=== PATIENT | female | born 1935 ===

== ENCOUNTER 2017-06-08 09:28 | Observation (INO) | payer OTHER ==
[2017-06-08 09:32] VITALS: BMI 25.0
--- NOTE | 2017-06-08 10:02 | ED PDOC ---
HPI: Abdomen Time Seen by Provider: 06/08/17 09:40 Chief Complaint (Nursing): Abdominal Pain Chief Complaint (Provider): Lower abdominal pain History Per: Patient History/Exam Limitations: no limitations Onset/Duration Of Symptoms: Hrs Associated Symptoms: Nausea. denies: Fever, Vomiting, Diarrhea Last Bowel Movement: Yesterday (normal) Additional Complaint(s): Patient is a 81 y/o female with a past medical history of chronic pulmonary obstructive disease presenting to the emergency department for lower abdominal pain and nausea since this morning. Denies fever, vomiting, diarrhea, and other complaints. PCP: Dr. Mackenzie Past Medical History Reviewed: Historical Data, Nursing Documentation, Vital Signs Vital Signs: Last Vital Signs Temp 98.6 F 06/08/17 15:06 Pulse 75 06/08/17 15:06 Resp 19 06/08/17 15:06 BP 132/74 06/08/17 15:06 Pulse Ox 97 06/08/17 15:06 - Medical History PMH: Arthritis, Asthma (LAST ATTACK 1 YEAR AGO), COPD, Depression, HTN, Osteoporosis Denies: Chronic Kidney Disease - Surgical History Surgical History: Endoscopy - Family History Family History: States: Unknown Family Hx - Social History Current smoker - smoking cessation education provided: No Ex-Smoker (has not smoked in the last 12 months): No Alcohol: None Drugs: Denies - Home Medications Home Medications: Ambulatory Orders Medication Instructions Recorded ALPRAZolam [Xanax] 1 mg PO BID 11/27/16 Albuterol Sulfate [Proair Hfa] 0.09 mg IH DAILY 11/27/16 Fluticasone/Salmeterol 500/50 1 puff INH DAILY 11/27/16 [Advair Diskus 500/50] Montelukast [Singulair] 10 mg PO DAILY 11/27/16 Zolpidem HALF TABLET [Ambien] 2.5 mg PO HS 11/27/16 amLODIPine [Norvasc] 5 mg PO DAILY 11/27/16 - Allergies Allergies/Adverse Reactions: Allergies Allergy/AdvReac Type Severity Reaction Status Date / Time aspirin Allergy RASH Verified 08/12/16 15:37 Review of Systems ROS Statement: Except As Marked, All Systems Reviewed And Found Negative Constitutional: Negative for: Fever Gastrointestinal: Positive for: Nausea, Abdominal Pain (lower). Negative for: Vomiting, Diarrhea Physical Exam - Reviewed Nursing Documentation Reviewed: Yes Vital Signs Reviewed: Yes - Physical Exam Appears: Positive for: Non-toxic, No Acute Distress, Uncomfortable Head Exam: Positive for: ATRAUMATIC, NORMAL INSPECTION, NORMOCEPHALIC Skin: Positive for: Normal Color, Warm, Dry Eye Exam: Positive for: Normal appearance Neck: Positive for: Normal, Painless ROM, Supple Cardiovascular/Chest: Positive for: Regular Rate, Rhythm. Negative for: Murmur Respiratory: Positive for: Normal Breath Sounds. Negative for: Accessory Muscle Use, Respiratory Distress Gastrointestinal/Abdominal: Positive for: Soft, Tenderness (lower abdominal tenderness) Extremity: Positive for: Normal ROM. Negative for: Pedal Edema, Swelling Neurologic/Psych: Positive for: Alert, Oriented (x3) - Laboratory Results Result Diagrams: 06/08/17 10:50 06/08/17 10:50 - ECG O2 Sat by Pulse Oximetry: 97 (RA) Pulse Ox Interpretation: Normal Medical Decision Making Medical Decision Making: Time: 10:00 Initial impression: Lower abdominal pain Initial plan: CT A/P Scan to rule out diverticulitis Labs Pepcid 20 mg IVP Omnipaque 50 ml PO Morphine 4 mg IV Normal Saline I L IV Zofran 4 mg IV Reevaluation Time: 13:41 CT Abdomen/Pelvis: FINDINGS: LOWER THORAX: Unremarkable. LIVER: Hepatic steatosis. No focal masses. No intrahepatic bile duct dilatation or perihepatic ascites. Focal fatty sparing adjacent to the falciform ligament. S GALLBLADDER AND BILE DUCTS: Unremarkable. PANCREAS: Unremarkable. No gross lesion or ductal dilatation. SPLEEN: Unremarkable. ADRENALS: Unremarkable. No mass. KIDNEYS AND URETERS: Unremarkable. No hydronephrosis. No solid mass. Incidental finding(s): Bilateral extrarenal pelvis. Simple cyst left kidney 1.5 cm. VASCULATURE: Unremarkable. No aortic aneurysm. BOWEL: Constipation without fecal impaction or obstruction. Diverticulosis without an acute inflammatory component or other associated pathologic process. APPENDIX: Normal appendix. PERITONEUM: Unremarkable. No free fluid. No free air. LYMPH NODES: Unremarkable. No enlarged lymph nodes. BLADDER: Unremarkable. REPRODUCTIVE: Prior hysterectomy BONES: Spinal stenosis at L4-5 related in 2 annular bulge without focal disc herniation. Similar less pronounced changes L3-4 OTHER FINDINGS: None. IMPRESSION: No acute findings related to/accounting for the clinical presentation. Additional benign and/or incidental findings described above. Time: 14:29 * Patient reports feeling better, and is asking to eat. Tolerating PO intake. Patient is medically stable for discharge * Counseling was provided and all questions were answered regarding diagnosis and need for follow up with PMD. There is agreement to discharge plan. Return if symptoms persist or worsen. Clinical Impression: Abdominal discomfort Scribe Attestation: Documented by Francoise Myers & Lilia Sánchez, acting as a scribe for Paula Bertrand MD. Provider Scribe Attestation: All medical record entries made by the Scribe were at my direction and personally dictated by me. I have reviewed the chart and agree that the record accurately reflects my personal performance of the history, physical exam, medical decision making, and the department course for this patient. I have also personally directed, reviewed, and agree with the discharge instructions and disposition. Disposition - Clinical Impression Clinical Impression: Abdominal discomfort - Patient ED Disposition Is Patient to be Admitted: No Counseled Patient/Family Regarding: Studies Performed, Diagnosis, Need For Followup - Disposition Disposition: Routine/Home Disposition Time: 14:29 Condition: IMPROVED
[2017-06-08] MEDS ORDERED: Sodium Chloride 0.9% 1,000 ML IV STA (10:38)
[2017-06-08] MEDS ORDERED: Iohexol 240 (50 ml) PO ONE (10:38)
[2017-06-08] MEDS ORDERED: Iohexol 240 (50 ml) ONE (10:52)
[2017-06-08 10:57] LABS: BASO # 0.1 K/uL (0.0-0.2); BASO % 0.8 % (0.0-2.0); EOS # 0.3 K/uL (0.0-0.7); EOS % 3.1 % (0.0-4.0); HEMATOCRIT 43.6 % (34.0-47.0); LYMPH # 1.4 K/uL (1.0-4.3); LYMPH % 14.6 % (20.0-40.0); MEAN CELL VOLUME 87.7 fl (81.0-99.0); MEAN CORPUSCULAR HEMOGLOBIN 28.6 pg (27.0-31.0); MEAN CORPUSCULAR HGB CONC 32.6 g/dL (33.0-37.0); MEAN PLATELET VOLUME 9.2 fl (7.2-11.7); MONO # 0.6 K/uL (0.0-0.8); MONO % 6.3 % (0.0-10.0); NEUT % 75.2 % (50.0-75.0); RED CELL DISTRIBUTION WIDTH 16.4 % (11.5-14.5); WHITE BLOOD COUNT 9.3 K/uL (4.8-10.8)
[2017-06-08 11:17] LABS: ALB/GLOB RATIO 1.3 (1.0-2.1); ALKALINE PHOSPHATASE 69 U/L (38-126); ALT/SGPT 31 U/L (9-52); AST/SGOT 25 U/L (14-36); BILIRUBIN,TOTAL 0.6 mg/dl (0.2-1.3); BLOOD UREA NITROGEN 14 mg/dl (7-17); CALCIUM 9.9 mg/dL (8.4-10.2); CARBON DIOXIDE 25 mmol/L (22-30); CHLORIDE 105 mmol/L (98-107); GFR AFRICAN-AMERICAN > 60; GLUCOSE,RANDOM 84 mg/dL (65-105); LIPASE 128 U/L (23-300); POTASSIUM 3.9 MMOL/L (3.6-5.0); SODIUM 142 mmol/l (132-148)
[2017-06-08] MEDS ORDERED: Iohexol 300 100 ML IJ ONE (12:25)
[2017-06-08] MEDS ORDERED: Sodium Chloride 0.9% 50 ML IV ONE (12:26)
--- NOTE | 2017-06-08 13:43 | CT ---
PROCEDURE: CT Abdomen and Pelvis with contrast HISTORY: left sided abd pain COMPARISON: LEFT-SIDED ABDOMINAL PAIN TECHNIQUE: Contrast dose: 100 cc Omnipaque 300 Radiation dose: Total exam DLP = 683.43 mGy-cm. This CT exam was performed using one or more of the following dose reduction techniques: Automated exposure control, adjustment of the mA and/or kV according to patient size, and/or use of iterative reconstruction technique. FINDINGS: LOWER THORAX: Unremarkable. LIVER: Hepatic steatosis. No focal masses. No intrahepatic bile duct dilatation or perihepatic ascites. Focal fatty sparing adjacent to the falciform ligament. S GALLBLADDER AND BILE DUCTS: Unremarkable. PANCREAS: Unremarkable. No gross lesion or ductal dilatation. SPLEEN: Unremarkable. ADRENALS: Unremarkable. No mass. KIDNEYS AND URETERS: Unremarkable. No hydronephrosis. No solid mass. Incidental finding(s): Bilateral extrarenal pelvis. Simple cyst left kidney 1.5 cm. VASCULATURE: Unremarkable. No aortic aneurysm. BOWEL: Constipation without fecal impaction or obstruction. Diverticulosis without an acute inflammatory component or other associated pathologic process. APPENDIX: Normal appendix. PERITONEUM: Unremarkable. No free fluid. No free air. LYMPH NODES: Unremarkable. No enlarged lymph nodes. BLADDER: Unremarkable. REPRODUCTIVE: Prior hysterectomy BONES: Spinal stenosis at L4-5 related in 2 annular bulge without focal disc herniation. Similar less pronounced changes L3-4 OTHER FINDINGS: None. IMPRESSION: No acute findings related to/accounting for the clinical presentation. Additional benign and/or incidental findings described above.
[2017-06-08 14:41] VITALS: O2SAT 97
[2017-06-08 15:07] VITALS: BP 132/74; PULSE 75; RESP 19; TEMP 98.6
== END 2017-06-08 15:29 | disposition home or self-care (01) ==
LOC: H.ER 09:28 → H.EROBSV 10:45
PROVIDERS: ADMIT Emergency Medicine; ATTEND Emergency Medicine
DX: R10.30 Lower abdominal pain, unspecified (principal); J44.9 Chronic obstructive pulmonary disease, unspecified; I10 Essential (primary) hypertension; M81.0 Age-related osteoporosis without current pathological fracture; M19.90 Unspecified osteoarthritis, unspecified site; Z87.891 Personal history of nicotine dependence
CPT/HCPCS: 74177; 80053; 83690; 85025; 96374; 99284; G0378; J2270; J2405; J7040; Q9966; Q9967

== ENCOUNTER 2017-08-26 16:39 | Observation (INO) | payer OTHER ==
[2017-08-26 16:39] VITALS: BMI 25.0
[2017-08-26] MEDS ORDERED: Albuterol-Ipratrop 3 mg / 0.5 (3 ml) UD INH STA ×2 (17:19→18:53)
[2017-08-26] MEDS ORDERED: Albuterol-Ipratrop 3 mg / 0.5 (3 ml) UD ONE ×2 (17:27→19:05)
[2017-08-26 17:59] LABS: BASO # 0.1 K/uL (0.0-0.2); BASO % 0.9 % (0.0-2.0); EOS # 0.2 K/uL (0.0-0.7); EOS % 2.5 % (0.0-4.0); HEMATOCRIT 43.6 % (34.0-47.0); LYMPH # 1.3 K/uL (1.0-4.3); LYMPH % 15.1 % (20.0-40.0); MEAN CELL VOLUME 88.2 fl (81.0-99.0); MEAN CORPUSCULAR HEMOGLOBIN 28.9 pg (27.0-31.0); MEAN CORPUSCULAR HGB CONC 32.7 g/dL (33.0-37.0); MEAN PLATELET VOLUME 8.7 fl (7.2-11.7); MONO # 0.9 K/uL (0.0-0.8); MONO % 10.5 % (0.0-10.0); NEUT # 6.2 K/uL (1.8-7.0); RED CELL DISTRIBUTION WIDTH 14.6 % (11.5-14.5); WHITE BLOOD COUNT 8.7 K/uL (4.8-10.8)
[2017-08-26 18:10] LABS: ALB/GLOB RATIO 1.3 (1.0-2.1); ALKALINE PHOSPHATASE 72 U/L (38-126); ALT/SGPT 22 U/L (9-52); AST/SGOT 25 U/L (14-36); BILIRUBIN,TOTAL 0.5 mg/dl (0.2-1.3); BLOOD UREA NITROGEN 14 mg/dl (7-17); CALCIUM 9.4 mg/dL (8.4-10.2); CARBON DIOXIDE 29 mmol/L (22-30); CHLORIDE 106 mmol/L (98-107); GFR AFRICAN-AMERICAN > 60; GLUCOSE,RANDOM 87 mg/dL (65-105); POTASSIUM 4.2 MMOL/L (3.6-5.0); SODIUM 143 mmol/l (132-148); TOTAL PROTEIN 7.6 G/DL (6.3-8.2)
--- NOTE | 2017-08-26 18:17 | RAD ---
HISTORY: cough fever COMPARISON: Chest x-ray performed 08/12/16 TECHNIQUE: Chest PA and lateral FINDINGS: LUNGS: Biapical pleural thickening. No focal consolidation. Hyperinflation may be seen in the setting of COPD. Please note that chest x-ray has limited sensitivity for the detection of pulmonary masses. PLEURA: No significant pleural effusion identified. No definite pneumothorax . CARDIOVASCULAR: Cardiomegaly. Atherosclerotic calcifications the aortic knob. OSSEOUS STRUCTURES: Osseous demineralization. Degenerative changes. VISUALIZED UPPER ABDOMEN: Unremarkable. OTHER FINDINGS: None. IMPRESSION: Biapical pleural thickening. Hyperinflation may be seen in the setting of COPD. Cardiomegaly. Atherosclerotic calcifications.
--- NOTE | 2017-08-26 18:52 | ED PDOC ---
HPI: SOB/CHF/COPD Time Seen by Provider: 08/26/17 16:55 Chief Complaint (Nursing): Shortness Of Breath Chief Complaint (Provider): cough, shortness of breath History Per: Patient History/Exam Limitations: no limitations Onset/Duration Of Symptoms: Days (5+), Gradual Current Symptoms Are (Timing): Still Present Initiating Event: Upper Respiratory Illness Quality: Tightness Exacerbating Factor(s): Exertion, Coughing Current Respiratory Medications: See Home Med List Severity: Severe Associated Symptoms: Fever, Chills, Sweating, Productive Cough, Dizziness Similar Symptoms Previously: + COPD Additional Complaint(s): 81yo female hx multiple medical problems including COPD on home oxygen presents with SOB, cough, fatigue and fever/chills for last 4-5 days. Home oxygen requirements have been increasing and she has been using nebulized albuterol every 3-4 hrs. Past Medical History Reviewed: Historical Data, Nursing Documentation, Vital Signs Vital Signs: Last Vital Signs Temp 99.5 F 08/26/17 16:50 Pulse 79 08/26/17 16:50 Resp 18 08/26/17 18:10 BP 120/75 08/26/17 16:50 Pulse Ox 96 08/26/17 18:52 - Medical History PMH: Arthritis, Asthma (LAST ATTACK 1 YEAR AGO), Atrial Fibrillation, Bronchitis , COPD, Depression, Diverticulitis, Fractures (left wrist (radius)), Gastritis, HTN, Hypercholesterolemia, Osteoporosis, Pneumonia Denies: Alzheimer's Disease, Anemia, Bipolar Disorder, CAD, Cardia Arrhythmia , CHF, Crohn's Disease, Dementia, Emphysema, Gall Bladder Disease, HIV, Hyperthyroidism, Hypothyroidism, Kidney Stones, Migraine, Mitral Valve Prolapse , Multiple Sclerosis, Pancreatitis, Paranoia, Parkinson's Disease, Peripheral Edema, Post Traumatic Stress Disorder, Pulmonary Embolism, Chronic Kidney Disease, Rheumatoid Arthritis, Schizophrenia, Seizures, Sickle Cell Disease, Sexually Transmitted Disease, Sleep Apnea, TIA - Surgical History Surgical History: Cholecystectomy, Endoscopy, Denies: Appendectomy, CABG, Carotid Endarterectomy, Coronary Stent, Pacemaker , Tonsillectomy - Family History Family History: States: Unknown Family Hx, Hypertension - Social History Current smoker - smoking cessation education provided: No Alcohol: None - Immunization History Hx Tetanus Toxoid Vaccination: No Hx Influenza Vaccination: No Hx Pneumococcal Vaccination: No - Home Medications Home Medications: Ambulatory Orders Medication Instructions Recorded ALPRAZolam [Xanax] 1 mg PO HS 03/17/17 Albuterol Sulfate [Proair Hfa] 1 puff IH Q6H PRN 03/17/17 Albuterol/Ipratropium [Duoneb 3 3 ml IH Q4H PRN 03/17/17 mg/0.5 mg (3 ml) UD] Atorvastatin [Lipitor] 10 mg PO DAILY 03/17/17 Montelukast [Singulair] 10 mg PO HS 03/17/17 Zolpidem [Ambien] 10 mg PO HS 03/17/17 amLODIPine [Norvasc] 5 mg PO DAILY 03/17/17 Ferrous Sulfate [Feosol] 325 mg PO DAILY 08/26/17 Fluticasone/Salmeterol [Advair 1 puff IH Q12H 08/26/17 250-50 Diskus] Loratadine [Claritin] 10 mg PO DAILY 08/26/17 Omeprazole [Omeprazole] 40 mg PO DAILY 08/26/17 Tiotropium [Spiriva] 18 mcg IH DAILY 08/26/17 - Allergies Allergies/Adverse Reactions: Allergies Allergy/AdvReac Type Severity Reaction Status Date / Time adhesive tape Allergy ITCHING Verified 03/18/17 19:04 aspirin Allergy ITCHING Verified 03/17/17 08:50 Review of Systems Constitutional: Positive for: Fever, Chills, Weakness, Malaise Eyes: Negative for: Vision Change Cardiovascular: Negative for: Chest Pain Respiratory: Positive for: Cough, Shortness of Breath, SOB with Exertion, Wheezing Gastrointestinal: Negative for: Abdominal Pain Genitourinary Female: Negative for: Dysuria Musculoskeletal: Positive for: Arm Pain, Back Pain, Leg Pain Skin: Negative for: Rash, Lesions, Jaundice Neurological: Positive for: Dizziness. Negative for: Weakness, Numbness, Headache Psych: Negative for: Depression Physical Exam - Reviewed Nursing Documentation Reviewed: Yes Vital Signs Reviewed: Yes - Physical Exam Appears: Positive for: Well, Non-toxic, No Acute Distress Head Exam: Positive for: ATRAUMATIC, NORMAL INSPECTION, NORMOCEPHALIC Skin: Positive for: Normal Color, Warm, DRY Eye Exam: Positive for: EOMI, Normal appearance, PERRL ENT: Positive for: Normal ENT Inspection Neck: Positive for: Normal, Painless ROM Respiratory: Positive for: Decreased Breath Sounds, Rhonchi, Wheezing, Respiratory Distress (mild) Gastrointestinal/Abdominal: Positive for: Bowel Sounds, Soft. Negative for: Tenderness, Guarding Back: Positive for: Normal Inspection Extremity: Positive for: Normal ROM Neurologic/Psych: Positive for: Alert, Oriented - Laboratory Results Result Diagrams: 08/26/17 17:55 08/26/17 17:55 - ECG ECG: Positive for: Interpreted By Me ECG Rhythm: Positive for: Sinus Rhythm, Nonspecific Changes Rate: 79 O2 Sat by Pulse Oximetry: 96 Pulse Ox Interpretation: Normal - Radiology X-Ray: Read By Radiologist X-Ray Interpretation: Other (pleural thickening, COPD) Medical Decision Making Medical Decision Making: workup was initiated for dyspnea/ COPD exacerbation Solumedrol, duoneb, labs and CXR/ekg ordered labs reviewed, WBC and BNP normal CXR report reviewed Recd solumedrol and duoneb x2 with persistence of wheeze, inability to effectively ambulate without dyspnea and increased work of breathing. Has been on nebs frequently at home without improvement. On home oxygen. D/w Dr Navarro place obs tele for resp support. Disposition - Clinical Impression Clinical Impression: Dyspnea, Respiratory distress, COPD exacerbation - Patient ED Disposition Is Patient to be Admitted: Yes - Disposition Disposition Time: 18:50 Condition: STABLE Forms: [email or web address] ([place])
[2017-08-26] MEDS ORDERED: Albuterol-Ipratrop 3 mg / 0.5 (3 ml) UD IH PRN (19:49)
[2017-08-26] MEDS ORDERED: Albuterol HFA 90 mcg/actuation (8 g) IH PRN (19:49)
--- NOTE | 2017-08-26 20:49 | CP.PCM.HP ---
History of Present Illness - History of Present Illness History of Present Illness: 81yo female hx of severe COPD on home oxygen presents with SOB, cough, fatigue and fever/chills progressive for the past 4-5 days. Home oxygen requirements have been increasing and she has been using nebulized albuterol every 3-4 hrs. Present on Admission - Present on Admission Any Indicators Present on Admission: No Review of Systems - Constitutional Constitutional: As Per HPI - Cardiovascular Cardiovascular: As Per HPI - Respiratory Respiratory: As Per HPI - Gastrointestinal Gastrointestinal: As Per HPI - Musculoskeletal Musculoskeletal: As Per HPI - Neurological Neurological: As Per HPI - Psychiatric Psychiatric: As Per HPI Past Patient History - Infectious Disease Hx of Infectious Diseases: None - Tetanus Immunizations Tetanus Immunization: Unknown - Past Medical History & Family History Past Medical History?: Yes - Past Social History Alcohol: None - CARDIAC Hx Atrial Fibrillation: Yes Hx Cardia Arrhythmia: No Hx Congestive Heart Failure: No Hx Hypercholesterolemia: Yes Hx Hypertension: Yes Hx Mitral Valve Prolapse: No Hx Pacemaker: No Hx Peripheral Edema: No - PULMONARY Hx Asthma: Yes (LAST ATTACK 1 YEAR AGO) Hx Bronchitis: Yes Hx Chronic Obstructive Pulmonary Disease (COPD): Yes Hx Emphysema: No Hx Pneumonia: Yes Hx Pulmonary Embolism: No Hx Sleep Apnea: No - NEUROLOGICAL Hx Alzheimer's Disease: No Hx Dementia: No Hx Migraine: No Hx Multiple Sclerosis: No Hx Parkinson's Disease: No Hx Seizures: No Hx Transient Ischemic Attacks (TIA): No - HEENT Hx HEENT Problems: No - RENAL Hx Chronic Kidney Disease: No Hx Kidney Stones: No - ENDOCRINE/METABOLIC Hx Hyperthyroidism: No Hx Hypothyroidism: No - HEMATOLOGICAL/ONCOLOGICAL Hx Anemia: No Hx Human Immunodeficiency Virus (HIV): No Hx Sickle Cell Disease: No - INTEGUMENTARY Hx Dermatological Problems: No - MUSCULOSKELETAL/RHEUMATOLOGICAL Hx Arthritis: Yes Hx Fractures: Yes (left wrist (radius)) Hx Osteoporosis: Yes Hx Rheumatoid Arthritis: No - GASTROINTESTINAL Hx Crohn's Disease: No Hx Diverticulitis: Yes Hx Gall Bladder Disease: No Hx Gastritis: Yes Hx Pancreatitis: No - GENITOURINARY/GYNECOLOGICAL Hx Sexually Transmitted Disorders: No - PSYCHIATRIC Hx Bipolar Disorder: No Hx Depression: Yes Hx Paranoia: No Hx Post Traumatic Stress Disorder: No Hx Schizophrenia: No - SURGICAL HISTORY Hx Appendectomy: No Hx Carotid Endarterectomy: No Hx Cholecystectomy: Yes Hx Coronary Artery Bypass Graft: No Hx Coronary Stent: No Hx Tonsillectomy: No - ANESTHESIA Hx Anesthesia: Yes Hx Anesthesia Reactions: No Hx Malignant Hyperthermia: No Meds Allergies/Adverse Reactions: Allergies Allergy/AdvReac Type Severity Reaction Status Date / Time adhesive tape Allergy ITCHING Verified 03/18/17 19:04 aspirin Allergy ITCHING Verified 03/17/17 08:50 Physical Exam - Constitutional Appears: Non-toxic - Head Exam Head Exam: ATRAUMATIC, NORMAL INSPECTION, NORMOCEPHALIC - Eye Exam Eye Exam: Normal appearance - ENT Exam ENT Exam: Mucous Membranes Moist - Neck Exam Neck exam: Positive for: Full Rom - Respiratory Exam Respiratory Exam: Rhonchi, Wheezes - Cardiovascular Exam Cardiovascular Exam: REGULAR RHYTHM, +S1, +S2 - GI/Abdominal Exam GI & Abdominal Exam: Normal Bowel Sounds - Extremities Exam Extremities exam: Positive for: normal inspection - Neurological Exam Neurological exam: Alert, CN II-XII Intact, Oriented x3 - Psychiatric Exam Psychiatric exam: Normal Affect Results - Vital Signs Recent Vital Signs: Last Vital Signs Temp 99.5 F 08/26/17 16:50 Pulse 79 08/26/17 18:59 Resp 18 08/26/17 18:10 BP 120/75 08/26/17 16:50 Pulse Ox 96 08/26/17 18:59 - Labs Result Diagrams: 08/26/17 17:55 08/26/17 17:55 Labs: Laboratory Results - last 24 hr 08/26/17 08/26/17 17:55 17:55 WBC 8.7 RBC 4.94 Hgb 14.3 Hct 43.6 MCV 88.2 MCH 28.9 MCHC 32.7 L RDW 14.6 H Plt Count 204 MPV 8.7 Neut % (Auto) 71.0 Lymph % (Auto) 15.1 L [place] % (Auto) 10.5 H Eos % (Auto) 2.5 Baso % (Auto) 0.9 Neut # 6.2 Lymph # 1.3 [place] # 0.9 H Eos # 0.2 Baso # 0.1 Sodium 143 Potassium 4.2 Chloride 106 Carbon Dioxide 29 Anion Gap 12 BUN 14 Creatinine 0.7 Est GFR ( Amer) > 60 Est GFR (Non-Af Amer) > 60 Random Glucose 87 Calcium 9.4 Total Bilirubin 0.5 AST 25 ALT 22 Alkaline Phosphatase 72 Troponin I < 0.0120 NT-Pro-B Natriuret Pep 137 Total Protein 7.6 Albumin 4.3 Globulin 3.3 Albumin/Globulin Ratio 1.3 Assessment & Plan (1) COPD with exacerbation Status: Acute Priority: High (2) Dyspnea Status: Acute (3) Acute bronchitis with chronic obstructive pulmonary disease (COPD) Status: Acute Priority: High (4) DVT prophylaxis Status: Acute - Assessment and Plan (Free Text) Plan: As orders.
[2017-08-26] MEDS: Fluticasone-Salmeterol 250-50mcg Diskus IH SCH (22:43)
[2017-08-27 08:09] LABS: BASO % 0.2 % (0.0-2.0); HEMATOCRIT 41.2 % (34.0-47.0); LYMPH # 0.7 K/uL (1.0-4.3); LYMPH % 11.2 % (20.0-40.0); MEAN CELL VOLUME 87.5 fl (81.0-99.0); MEAN CORPUSCULAR HEMOGLOBIN 29.5 pg (27.0-31.0); MEAN CORPUSCULAR HGB CONC 33.7 g/dL (33.0-37.0); MONO # 0.1 K/uL (0.0-0.8); MONO % 1.1 % (0.0-10.0); NEUT # 5.4 K/uL (1.8-7.0); NEUT % 87.5 % (50.0-75.0); RED CELL DISTRIBUTION WIDTH 14.4 % (11.5-14.5); WHITE BLOOD COUNT 6.2 K/uL (4.8-10.8)
[2017-08-27 08:34] LABS: BLOOD UREA NITROGEN 20 mg/dl (7-17); CALCIUM 9.7 mg/dL (8.4-10.2); CARBON DIOXIDE 24 mmol/L (22-30); CHLORIDE 107 mmol/L (98-107); GFR AFRICAN-AMERICAN > 60; GLUCOSE,RANDOM 216 mg/dL (65-105); POTASSIUM 3.8 MMOL/L (3.6-5.0); SODIUM 141 mmol/l (132-148)
[2017-08-27 08:44] LABS: THYROID STIMULATING HORMONE 0.28 mIU/ML (0.46-4.68)
[2017-08-27 08:59] VITALS: RESP 20; TEMP 97.6
[2017-08-27] MEDS ORDERED: Tiotropium 18 mcg Cap For Inhalation IH SCH (09:00)
[2017-08-27] MEDS ORDERED: Azithromycin 500 MG in Sodium Chloride 0.9% 250 ML IVPB SCH (09:00)
[2017-08-27] MEDS ORDERED: Pantoprazole 40 mg EC Tab PO SCH (09:00)
[2017-08-27] MEDS ORDERED: MethylPREDNISolone 40 mg Vial IVP SCH (09:00)
[2017-08-27] MEDS ORDERED: cefTRIAXone IV 1 gm in Dextros 50 ML IVPB SCH (09:00)
[2017-08-27] MEDS ORDERED: Enoxaparin 40 mg Syringe SC SCH (09:00)
--- NOTE | 2017-08-27 10:40 | CARD ---
APPROVED REPORT EKG Measurement Heart [id number] MD 126P [id number] <Conclusion> Normal sinus rhythm Normal ECG
--- NOTE | 2017-08-27 10:43 | CARD ---
APPROVED REPORT EKG Measurement Heart [id number] <Conclusion> Normal sinus rhythm Normal ECG
--- NOTE | 2017-08-27 11:00 | CARD ---
APPROVED REPORT EXAM: Two-dimensional and M-mode echocardiogram with Doppler and color Doppler. Other Information Quality : AverageRhythm : NSR INDICATION Pulmonary Hypertention 2D DIMENSIONS IVSd0.95 (0.7-1.1cm)LVDd4.23 (3.9-5.9cm) LVOT Diameter1.76 (1.8-2.4cm)PWd0.98 (0.7-1.1cm) IVSs1.15 (0.8-1.2cm)LVDs2.39 (2.5-4.0cm) FS (%) 43.6 %PWs1.45 (0.8-1.2cm) M-Mode DIMENSIONS Left Atrium (MM)3.74 (2.5-4.0cm)IVSd1.21 (0.7-1.1cm) Aortic Root3.26 (2.2-3.7cm)LVDd3.62 (4.0-5.6cm) Aortic Cusp Exc.1.50 (1.5-2.0cm)PWd1.06 (0.7-1.1cm) IVSs1.47 cmFS (%) 49 % LVDs1.85 (2.0-3.8cm)PWs1.24 cm Mitral Valve MV E Izeshrfb735.5cm/sMV DECEL [id number] A Htqvtnct440.4cm/s MV SOZ98bwD/A ratio0.9MVA (PHT)3.18cm2 TDI Lateral E' Peak V6.03cm/sMedial E' Peak V7.74cm/sE/Lateral E'18.2 E/Medial E'14.1 Pulmonary Valve PV Peak Aycsduht144.6cm/s Tricuspid Valve TR Peak Dnjvivmi441su/sRAP [id number] Peak Gr.33mmHg [id number] LEFT VENTRICLE The left ventricle is normal size. The left ventricular function is normal. The left ventricular ejection fraction is within the normal range. The Ejection Fraction is 65-70%. There is normal LV segmental wall motion. The left ventricular diastolic function is normal. RIGHT VENTRICLE The right ventricle is normal size. The right ventricular systolic function is normal. ATRIA The left atrium size is normal. The right atrium size is normal. AORTIC VALVE The aortic valve is normal in structure. No aortic regurgitation is present. There is no aortic valvular stenosis. MITRAL VALVE The mitral valve is normal in structure. There is no mitral valve stenosis. There is no mitral valve regurgitation noted. TRICUSPID VALVE The tricuspid valve is normal in structure. Right ventricular systolic pressure is estimated at 43 mmHg. There is mild pulmonary hypertension. PULMONIC VALVE The pulmonary valve is normal in structure. There is no pulmonic valvular regurgitation. GREAT VESSELS The aortic root is normal in size. The IVC is normal in size and collapses >50% with inspiration. PERICARDIAL EFFUSION The pericardium appears normal. <Conclusion> The left ventricle is normal size. The left ventricular function is normal. The left ventricular ejection fraction is within the normal range. The Ejection Fraction is 65-70%. Right ventricular systolic pressure is estimated at 43 mmHg. There is mild pulmonary hypertension.
[2017-08-27] MEDS: Fluticasone-Salmeterol 250-50mcg Diskus IH SCH (11:09)
--- NOTE | 2017-08-27 12:19 | CP.PCM.DIS ---
Provider - Provider Date of Admission: 08/26/17 19:00 Attending physician: Inocencio Navarro MD Time Spent in preparation of Discharge (in minutes): 30 Diagnosis - Discharge Diagnosis (1) COPD with exacerbation Status: Acute Priority: High (2) Dyspnea Status: Acute (3) Acute bronchitis with chronic obstructive pulmonary disease (COPD) Status: Acute Priority: High (4) DVT prophylaxis Status: Acute Hospital Course - Lab Results Lab Results: Most Recent Lab Values WBC 6.2 K/uL (4.8-10.8) 08/27/17 07:50 RBC 4.71 Mil/uL (3.80-5.20) 08/27/17 07:50 Hgb 13.9 g/dL (12.0-16.0) 08/27/17 07:50 Hct 41.2 % (34.0-47.0) 08/27/17 07:50 MCV 87.5 fl (81.0-99.0) 08/27/17 07:50 MCH 29.5 pg (27.0-31.0) 08/27/17 07:50 MCHC 33.7 g/dL (33.0-37.0) 08/27/17 07:50 RDW 14.4 % (11.5-14.5) 08/27/17 07:50 Plt Count 206 K/uL (130-400) 08/27/17 07:50 MPV 9.0 fl (7.2-11.7) 08/27/17 07:50 Neut % (Auto) 87.5 % (50.0-75.0) H 08/27/17 07:50 Lymph % (Auto) 11.2 % (20.0-40.0) L 08/27/17 07:50 Crane % (Auto) 1.1 % (0.0-10.0) 08/27/17 07:50 Eos % (Auto) 0.0 % (0.0-4.0) 08/27/17 07:50 Baso % (Auto) 0.2 % (0.0-2.0) 08/27/17 07:50 Neut # 5.4 K/uL (1.8-7.0) 08/27/17 07:50 Lymph # 0.7 K/uL (1.0-4.3) L 08/27/17 07:50 Crane # 0.1 K/uL (0.0-0.8) 08/27/17 07:50 Eos # 0.0 K/uL (0.0-0.7) 08/27/17 07:50 Baso # 0.0 K/uL (0.0-0.2) 08/27/17 07:50 Sodium 141 mmol/l (132-148) 08/27/17 07:50 Potassium 3.8 MMOL/L (3.6-5.0) 08/27/17 07:50 Chloride 107 mmol/L (98-107) 08/27/17 07:50 Carbon Dioxide 24 mmol/L (22-30) 08/27/17 07:50 Anion Gap 14 (10-20) 08/27/17 07:50 BUN 20 mg/dl (7-17) H 08/27/17 07:50 Creatinine 0.8 mg/dl (0.7-1.2) 08/27/17 07:50 Est GFR ( Amer) > 60 08/27/17 07:50 Est GFR (Non-Af Amer) > 60 08/27/17 07:50 Random Glucose 216 mg/dL (65-105) H 08/27/17 07:50 Calcium 9.7 mg/dL (8.4-10.2) 08/27/17 07:50 Total Bilirubin 0.5 mg/dl (0.2-1.3) 08/26/17 17:55 AST 25 U/L (14-36) 08/26/17 17:55 ALT 22 U/L (9-52) 08/26/17 17:55 Alkaline Phosphatase 72 U/L (38-126) 08/26/17 17:55 Troponin I < 0.0120 ng/mL (0.00-0.120) 08/27/17 07:50 NT-Pro-B Natriuret Pep 137 pg/ml (0-900) 08/26/17 17:55 Total Protein 7.6 G/DL (6.3-8.2) 08/26/17 17:55 Albumin 4.3 g/dL (3.5-5.0) 08/26/17 17:55 Globulin 3.3 gm/dL (2.2-3.9) 08/26/17 17:55 Albumin/Globulin Ratio 1.3 (1.0-2.1) 08/26/17 17:55 TSH 3rd Generation 0.28 mIU/ML (0.46-4.68) L 08/27/17 07:50 - Hospital Course Hospital Course: 81yo female hx of severe COPD on home oxygen presents with SOB, cough, fatigue and fever/chills progressive for the past 4-5 days. Home oxygen requirements have been increasing and she has been using nebulized albuterol every 3-4 hrs. She was placed in high dose of IV steroid and well responded to rx. Will dc home on oral steroid. Discharge Exam - Head Exam Head Exam: ATRAUMATIC, NORMAL INSPECTION, NORMOCEPHALIC - Eye Exam Eye Exam: EOMI, Normal appearance, PERRL Pupil Exam: NORMAL ACCOMODATION, PERRL - Neck Exam Neck exam: Full Rom - Respiratory Exam Respiratory Exam: Clear to PA & Lateral - Cardiovascular Exam Cardiovascular Exam: REGULAR RHYTHM, +S1, +S2 - GI/Abdominal Exam GI & Abdominal Exam: Normal Bowel Sounds - Extremities Exam Extremities exam: normal inspection - Neurological Exam Neurological exam: Alert, CN II-XII Intact, Normal Gait, Oriented x3 - Psychiatric Exam Psychiatric exam: Normal Affect - Skin Skin Exam: Normal Color Discharge Plan - Discharge Medications Prescriptions: Methylprednisolone [Medrol Dose Pack (21 tabs)] 4 mg PO DAILY #21 mg Azithromycin [Z-Elias] 250 mg PO DAILY #6 tab - Follow Up Plan Condition: STABLE Disposition: HOME/ ROUTINE
[2017-08-27 12:20] VITALS: BP 107/56; PULSE 87; O2SAT 94
== END 2017-08-27 13:48 | disposition home or self-care (01) ==
LOC: H.ER 16:39 → H.ERHOLD 19:00 → H.TEL 21:56
PROVIDERS: ADMIT Internal Medicine; ATTEND Internal Medicine
DX: J44.1 Chronic obstructive pulmonary disease with (acute) exacerbation (principal); J44.0 Chronic obstructive pulmonary disease with (acute) lower respiratory infection; J20.9 Acute bronchitis, unspecified; Z99.81 Dependence on supplemental oxygen; Z88.6 Allergy status to analgesic agent; J45.909 Unspecified asthma, uncomplicated; I48.91 Unspecified atrial fibrillation; I10 Essential (primary) hypertension; E78.00 Pure hypercholesterolemia, unspecified; M81.0 Age-related osteoporosis without current pathological fracture
CPT/HCPCS: 36415; 71020; 80048; 80053; 83880; 84443; 84484; 85025; 87040; 93005; 93306; 96374; 99285; G0378; J1650; J2920; J2930

== ENCOUNTER 2017-10-12 14:56 | Inpatient (IN) | payer OTHER ==
[2017-10-12 14:56] VITALS: BMI 25.0
[2017-10-12] MEDS ORDERED: Albuterol-Ipratrop 3 mg / 0.5 (3 ml) UD INH STA ×2 (16:00→18:20)
--- NOTE | 2017-10-12 16:07 | ED PDOC ---
HPI: SOB/CHF/COPD Time Seen by Provider: 10/12/17 15:30 Chief Complaint (Nursing): Shortness Of Breath Chief Complaint (Provider): shortness of breath History Per: Patient History/Exam Limitations: no limitations Onset/Duration Of Symptoms: Days (x7) Current Symptoms Are (Timing): Still Present Additional Complaint(s): 81 year old female with previous medical history of asthma and COPD, who presents to the emergency department with a complaint of shortness of breath associated with productive cough, yellow sputum and fever (tmax: 100.02 degrees ) ongoing for 7 days. Patient reported she is almost complete with Prednisone and antibiotic treatment given by PMD but does not feel any improvement, thus, prompting visit to ED by home health aid. Of note, patient uses O2 machine at home daily. PMD: Inocencio Navarro MD Past Medical History Reviewed: Historical Data, Nursing Documentation, Vital Signs Vital Signs: Last Vital Signs Temp 98.1 F 10/13/17 11:51 Pulse 86 10/13/17 11:51 Resp 18 10/13/17 11:51 BP 119/64 10/13/17 11:51 Pulse Ox 98 10/13/17 11:51 - Medical History PMH: Arthritis, Asthma (LAST ATTACK 1 YEAR AGO), Atrial Fibrillation, Bronchitis , COPD, Depression, Diverticulitis, Fractures (left wrist (radius)), Gastritis, HTN, Hypercholesterolemia, Osteoporosis, Pneumonia Denies: Alzheimer's Disease, Anemia, Bipolar Disorder, CAD, Cardia Arrhythmia , CHF, Crohn's Disease, Dementia, Emphysema, Gall Bladder Disease, HIV, Hyperthyroidism, Hypothyroidism, Kidney Stones, Migraine, Mitral Valve Prolapse , Multiple Sclerosis, Pancreatitis, Paranoia, Parkinson's Disease, Peripheral Edema, Post Traumatic Stress Disorder, Pulmonary Embolism, Chronic Kidney Disease, Rheumatoid Arthritis, Schizophrenia, Seizures, Sickle Cell Disease, Sexually Transmitted Disease, Sleep Apnea, TIA - Surgical History Surgical History: Cholecystectomy, Endoscopy, Denies: Appendectomy, CABG, Carotid Endarterectomy, Coronary Stent, Pacemaker , Tonsillectomy - Family History Family History: States: Unknown Family Hx, Hypertension - Social History Current smoker - smoking cessation education provided: No Ex-Smoker (has not smoked in the last 12 months): Yes Alcohol: None Drugs: Denies - Immunization History Hx Tetanus Toxoid Vaccination: No Hx Influenza Vaccination: No Hx Pneumococcal Vaccination: No - Home Medications Home Medications: Ambulatory Orders Medication Instructions Recorded ALPRAZolam [Xanax] 1 mg PO HS 03/17/17 Albuterol Sulfate [Proair Hfa] 1 puff IH Q6H PRN 03/17/17 Albuterol/Ipratropium [Duoneb 3 3 ml IH Q4H PRN 03/17/17 mg/0.5 mg (3 ml) UD] Atorvastatin [Lipitor] 10 mg PO DAILY 03/17/17 Montelukast [Singulair] 10 mg PO HS 03/17/17 Zolpidem [Ambien] 10 mg PO HS 03/17/17 amLODIPine [Norvasc] 5 mg PO DAILY 03/17/17 Ferrous Sulfate [Feosol] 325 mg PO DAILY 08/26/17 Fluticasone/Salmeterol [Advair 1 puff IH Q12H 08/26/17 250-50 Diskus] Loratadine [Claritin] 10 mg PO DAILY 08/26/17 Omeprazole 40 mg PO DAILY 08/26/17 Tiotropium [Spiriva] 18 mcg IH DAILY 08/26/17 Azithromycin [Z-Elias] 250 mg PO DAILY #6 tab 08/27/17 Methylprednisolone [Medrol Dose 4 mg PO DAILY #21 mg 08/27/17 Pack (21 tabs)] - Allergies Allergies/Adverse Reactions: Allergies Allergy/AdvReac Type Severity Reaction Status Date / Time adhesive tape Allergy ITCHING Verified 10/12/17 14:57 aspirin Allergy ITCHING Verified 10/12/17 14:57 Review of Systems ROS Statement: Except As Marked, All Systems Reviewed And Found Negative Constitutional: Positive for: Fever (100.02 degrees) Respiratory: Positive for: Cough, Shortness of Breath, Sputum (yellow) Physical Exam - Reviewed Nursing Documentation Reviewed: Yes Vital Signs Reviewed: Yes - Physical Exam Appears: Positive for: Non-toxic, Uncomfortable Head Exam: Positive for: ATRAUMATIC, NORMAL INSPECTION, NORMOCEPHALIC Skin: Positive for: Normal Color Eye Exam: Positive for: Normal appearance ENT: Positive for: Normal ENT Inspection Neck: Positive for: Normal, Painless ROM Cardiovascular/Chest: Positive for: Regular Rate, Rhythm, Chest Non Tender Respiratory: Positive for: Rhonchi (diffuse bilaterally), Wheezing (diffuse bilaterally). Negative for: Normal Breath Sounds, Respiratory Distress Neurologic/Psych: Positive for: Alert (x3), Oriented. Negative for: Motor/ Sensory Deficits - Laboratory Results Result Diagrams: 10/12/17 17:16 10/12/17 17:16 - ECG O2 Sat by Pulse Oximetry: 99 (NC) Pulse Ox Interpretation: Normal Medical Decision Making Medical Decision Making: Initial Impression: Shortness of breath Initial Plan: * CMP * CBC * CXR * Duoneb 3ml INH * Solu-medrol 125mg IVP * Influenza A B Time: 1700 --Patient signed out to Dr. Grey. Pending labs, ED work up and re-evaluation. Scribe Attestation: Documented by Milka Pascal, acting as a scribe for Paula Bertrand MD. Provider Scribe Attestation: All medical record entries made by the Scribe were at my direction and personally dictated by me. I have reviewed the chart and agree that the record accurately reflects my personal performance of the history, physical exam, medical decision making, and the department course for this patient. I have also personally directed, reviewed, and agree with the discharge instructions and disposition. Disposition - Clinical Impression Clinical Impression: Moderate COPD (chronic obstructive pulmonary disease) - Patient ED Disposition Is Patient to be Admitted: Transfer of Care - Disposition Disposition: Transfer of Care Disposition Time: 17:00 Condition: GUARDED Patient Signed Over To: Benjy Grey III
[2017-10-12] MEDS ORDERED: Albuterol-Ipratrop 3 mg / 0.5 (3 ml) UD ONE ×2 (16:12→19:49)
--- NOTE | 2017-10-12 17:03 | ED PDOC ---
- Laboratory Results Result Diagrams: 10/12/17 17:16 10/12/17 17:16 - ECG O2 Sat by Pulse Oximetry: 99 (NC) Pulse Ox Interpretation: Normal Medical Decision Making Medical Decision Making: Time: 1700 --Patient endorsed to provider by Dr. Paula Bertrand. Pending labs and re- evaluation. labs reviewed no clinically significant abnormalities Flu neg WBC normal CXR no acute infiltrate On re-eval 615pm remains ++wheeze with dyspnea and SPO2 92% on 2L NC. Failed outpatient treatment Scribe Attestation: Documented by Milka Pascal, acting as a scribe for Benjy Grey III, DO. Provider Scribe Attestation: All medical record entries made by the Scribe were at my direction and personally dictated by me. I have reviewed the chart and agree that the record accurately reflects my personal performance of the history, physical exam, medical decision making, and the department course for this patient. I have also personally directed, reviewed, and agree with the discharge instructions and disposition. Disposition Counseled Patient/Family Regarding: Studies Performed, Diagnosis, Need For Followup, Rx Given - POA Present On Arrival: None - Disposition Disposition: Admitted as In-Patient Disposition Time: 18:24 Condition: STABLE Forms: 140Fire (Malaysian)
--- NOTE | 2017-10-12 17:09 | RAD ---
HISTORY: short of breath COMPARISON: 08/26/2017 TECHNIQUE: Chest PA and lateral FINDINGS: LUNGS: Hyperinflation, manifestations of COPD. No active pulmonary disease. PLEURA: No significant pleural effusion identified. No pneumothorax apparent. CARDIOVASCULAR: No radiographic findings to suggest acute or significant cardiovascular disease. OSSEOUS STRUCTURES: No significant abnormalities. VISUALIZED UPPER ABDOMEN: Normal. OTHER FINDINGS: None. IMPRESSION: No active disease. No significant interval change compared to the prior examination(s).
[2017-10-12 17:30] LABS: BASO % 0.3 % (0.0-2.0); EOS # 0.2 K/uL (0.0-0.7); EOS % 2.1 % (0.0-4.0); HEMOGLOBIN 13.7 g/dL (12.0-16.0); LYMPH # 2.1 K/uL (1.0-4.3); LYMPH % 20.5 % (20.0-40.0); MEAN CELL VOLUME 88.6 fl (81.0-99.0); MEAN CORPUSCULAR HEMOGLOBIN 29.8 pg (27.0-31.0); MEAN CORPUSCULAR HGB CONC 33.7 g/dL (33.0-37.0); MONO % 9.4 % (0.0-10.0); NEUT # 7.1 K/uL (1.8-7.0); NEUT % 67.7 % (50.0-75.0); RBC 4.6 Mil/uL (3.80-5.20); RED CELL DISTRIBUTION WIDTH 15.1 % (11.5-14.5); WHITE BLOOD COUNT 10.4 K/uL (4.8-10.8)
[2017-10-12 17:32] LABS: ALB/GLOB RATIO 1.3 (1.0-2.1); ALT/SGPT 39 U/L (9-52); AST/SGOT 24 U/L (14-36); BLOOD UREA NITROGEN 22 mg/dl (7-17); CALCIUM 9.4 mg/dL (8.4-10.2); GFR AFRICAN-AMERICAN > 60; GFR NON-AFRICAN AMERICAN > 60
[2017-10-12] MEDS ORDERED: Sodium Chloride 3% for Inhalation 4 ML VIAL.NEB IH PRN (20:51)
[2017-10-12] MEDS ORDERED: methylPREDNISolone 60 MG in Sodium Chloride 0.9% 50 ML IVPB SCH (22:00)
[2017-10-12] MEDS: Azithromycin 500 MG in Sodium Chloride 0.9% 250 ML IVPB SCH (22:06)
[2017-10-12] MEDS: Fluticasone-Salmeterol 250-50mcg Diskus IH SCH (22:06)
[2017-10-12] MEDS: Pantoprazole 40 mg EC Tab PO SCH (22:15)
[2017-10-13 01:29] LABS: SQUAMOUS EPITHIAL < 1 /hpf (0-5); URINE BILIRUBIN NEGATIVE (NEGATIVE); URINE BLOOD SMALL (NEGATIVE); URINE CLARITY CLEAR (Clear); URINE COLOR STRAW (YELLOW); URINE GLUCOSE (UA) 50 mg/dL (Normal); URINE LEUKOCYTE ESTERASE NEG Leu/uL (Negative); URINE NITRATE NEGATIVE (NEGATIVE); URINE PROTEIN NEGATIVE (NEGATIVE); URINE UROBILINOGEN 0.2-1.0 mg/dL (0.2-1.0)
[2017-10-13] MEDS: Fluticasone-Salmeterol 250-50mcg Diskus IH SCH ×2 (08:54→21:46)
[2017-10-13] MEDS: Enoxaparin 40 mg Syringe SC SCH (08:55)
[2017-10-13] MEDS: Pantoprazole 40 mg EC Tab PO SCH (08:55)
[2017-10-13] MEDS: Tiotropium 18 mcg Cap For Inhalation IH SCH (08:56)
[2017-10-13] MEDS: Azithromycin 500 MG in Sodium Chloride 0.9% 250 ML IVPB SCH (10:32)
[2017-10-13] MEDS: Albuterol-Ipratrop 3 mg / 0.5 (3 ml) UD IH PRN ×2 (11:01→16:52)
[2017-10-13 16:41] LABS: ABG ALLEN TEST YES; ARTERIAL BLOOD GAS HCO3 26.7 mmol/L (21-28); ARTERIAL BLOOD GAS HEMOGLOBIN 14.4 g/dL (11.7-17.4); ARTERIAL BLOOD GAS O2 CAPACITY 19.5 mL/dL (16-24); ARTERIAL BLOOD GAS O2 CONTENT 19.3 ML/dL (15-23); ARTERIAL BLOOD GAS O2 SAT 99.1 % (95-98); ARTERIAL BLOOD GAS PCO2 32 mm/Hg (35-45); ARTERIAL BLOOD GAS PO2 80 mm/Hg (80-100)
--- NOTE | 2017-10-13 16:49 | CP.PCM.HP ---
History of Present Illness - History of Present Illness History of Present Illness: This 81-year-old female who is known to suffer from chronic obstructive pulmonary disease as well as bronchial asthma, presented to the emergency department by an ambulance after suffering for 4 days with shortness of breath at home. She was seen in the PMD office and started on PO steroids and antbx, She poorly responded and failed to the oral medication. She presented in ER with severe cough with clear mucoid sputum, shortness of breath, chest tightness and wheezing. She claims to have had chills. She did have some chest pain related to the coughing but denied any hemoptysis. She began using her i Upon presentation to the emergency department she was found to be having diffuse wheezing bilaterally. She has had multiple prior admissions to hospitals for similar types of presentations. At present still with severe SOB on O2 NC with severe wheezing and production of sputum. Present on Admission - Present on Admission Any Indicators Present on Admission: No Review of Systems - Constitutional Constitutional: Fatigue, Malaise, Weakness - EENT Eyes: As Per HPI - Cardiovascular Cardiovascular: As Per HPI - Respiratory Respiratory: Cough, Dyspnea, Dyspnea on Exertion, Wheezing, Chest Congestion, Pain with Coughing - Gastrointestinal Gastrointestinal: As Per HPI - Musculoskeletal Musculoskeletal: As Per HPI - Neurological Neurological: As Per HPI - Psychiatric Psychiatric: As Per HPI Past Patient History - Infectious Disease Hx of Infectious Diseases: None - Tetanus Immunizations Tetanus Immunization: Unknown - Past Medical History & Family History Past Medical History?: Yes - Past Social History Alcohol: None Drugs: Denies - CARDIAC Hx Atrial Fibrillation: Yes Hx Cardia Arrhythmia: No Hx Congestive Heart Failure: No Hx Hypercholesterolemia: Yes Hx Hypertension: Yes Hx Mitral Valve Prolapse: No Hx Pacemaker: No Hx Peripheral Edema: No - PULMONARY Hx Asthma: Yes (LAST ATTACK 1 YEAR AGO) Hx Bronchitis: Yes Hx Chronic Obstructive Pulmonary Disease (COPD): Yes Hx Emphysema: No Hx Pneumonia: Yes Hx Pulmonary Embolism: No Hx Sleep Apnea: No - NEUROLOGICAL Hx Alzheimer's Disease: No Hx Dementia: No Hx Migraine: No Hx Multiple Sclerosis: No Hx Parkinson's Disease: No Hx Seizures: No Hx Transient Ischemic Attacks (TIA): No - HEENT Hx HEENT Problems: No - RENAL Hx Chronic Kidney Disease: No Hx Kidney Stones: No - ENDOCRINE/METABOLIC Hx Hyperthyroidism: No Hx Hypothyroidism: No - HEMATOLOGICAL/ONCOLOGICAL Hx Anemia: No Hx Human Immunodeficiency Virus (HIV): No Hx Sickle Cell Disease: No - INTEGUMENTARY Hx Dermatological Problems: No - MUSCULOSKELETAL/RHEUMATOLOGICAL Hx Arthritis: Yes Hx Fractures: Yes (left wrist (radius)) Hx Osteoporosis: Yes Hx Rheumatoid Arthritis: No - GASTROINTESTINAL Hx Crohn's Disease: No Hx Diverticulitis: Yes Hx Gall Bladder Disease: No Hx Gastritis: Yes Hx Pancreatitis: No - GENITOURINARY/GYNECOLOGICAL Hx Sexually Transmitted Disorders: No - PSYCHIATRIC Hx Bipolar Disorder: No Hx Depression: Yes Hx Paranoia: No Hx Post Traumatic Stress Disorder: No Hx Schizophrenia: No - SURGICAL HISTORY Hx Appendectomy: No Hx Carotid Endarterectomy: No Hx Cholecystectomy: Yes Hx Coronary Artery Bypass Graft: No Hx Coronary Stent: No Hx Tonsillectomy: No - ANESTHESIA Hx Anesthesia: Yes Hx Anesthesia Reactions: No Hx Malignant Hyperthermia: No Meds Allergies/Adverse Reactions: Allergies Allergy/AdvReac Type Severity Reaction Status Date / Time adhesive tape Allergy ITCHING Verified 10/12/17 14:57 aspirin Allergy ITCHING Verified 10/12/17 14:57 Physical Exam - Constitutional Appears: In Acute Distress, Chronically Ill - Head Exam Head Exam: ATRAUMATIC, NORMAL INSPECTION, NORMOCEPHALIC - Eye Exam Eye Exam: Normal appearance - ENT Exam ENT Exam: Mucous Membranes Moist - Respiratory Exam Respiratory Exam: Chest Wall Tenderness, Rhonchi, Wheezes - Cardiovascular Exam Cardiovascular Exam: REGULAR RHYTHM, +S1, +S2 - GI/Abdominal Exam GI & Abdominal Exam: Normal Bowel Sounds - Extremities Exam Extremities exam: Positive for: normal inspection - Neurological Exam Neurological exam: Alert, CN II-XII Intact, Oriented x3 - Psychiatric Exam Psychiatric exam: Anxious - Skin Skin Exam: Pallor Results - Vital Signs Recent Vital Signs: Last Vital Signs Temp 98 F 10/13/17 16:37 Pulse 78 10/13/17 16:37 Resp 14 10/13/17 16:37 BP 118/58 L 10/13/17 16:37 Pulse Ox 97 10/13/17 16:37 - Labs Result Diagrams: 10/12/17 17:16 10/12/17 17:16 Labs: Laboratory Results - last 24 hr 10/12/17 10/12/17 10/12/17 17:16 17:16 17:16 WBC 10.4 D RBC 4.60 Hgb 13.7 Hct 40.7 MCV 88.6 MCH 29.8 MCHC 33.7 RDW 15.1 H Plt Count 207 MPV 9.0 Neut % (Auto) 67.7 Lymph % (Auto) 20.5 Mills % (Auto) 9.4 Eos % (Auto) 2.1 Baso % (Auto) 0.3 Neut # 7.1 H Lymph # 2.1 Mills # 1.0 H Eos # 0.2 Baso # 0.0 Sodium 141 Potassium 4.1 Chloride 104 Carbon Dioxide 27 Anion Gap 14 BUN 22 H Creatinine 0.7 Est GFR ( Amer) > 60 Est GFR (Non-Af Amer) > 60 Random Glucose 119 H Calcium 9.4 Total Bilirubin 0.1 L AST 24 ALT 39 Alkaline Phosphatase 60 Total Protein 7.0 Albumin 4.0 Globulin 3.0 Albumin/Globulin Ratio 1.3 Urine Color Urine Clarity Urine pH Ur Specific [place] Urine Protein Urine Glucose (UA) Urine Ketones Urine Blood Urine Nitrate Urine Bilirubin Urine Urobilinogen Ur Leukocyte Esterase Urine RBC (Auto) Urine Microscopic WBC Ur Squamous Epith Cells Influenza Typ A,B (EIA) Negative for flu a/b 10/13/17 01:07 WBC RBC Hgb Hct MCV MCH MCHC RDW Plt Count MPV Neut % (Auto) Lymph % (Auto) Mills % (Auto) Eos % (Auto) Baso % (Auto) Neut # Lymph # Mills # Eos # Baso # Sodium Potassium Chloride Carbon Dioxide Anion Gap BUN Creatinine Est GFR ( Amer) Est GFR (Non-Af Amer) Random Glucose Calcium Total Bilirubin AST ALT Alkaline Phosphatase Total Protein Albumin Globulin Albumin/Globulin Ratio Urine Color Straw Urine Clarity Clear Urine pH 7.0 Ur Specific Sterling 1.009 Urine Protein Negative Urine Glucose (UA) 50 Urine Ketones Negative Urine Blood Small Urine Nitrate Negative Urine Bilirubin Negative Urine Urobilinogen 0.2-1.0 Ur Leukocyte Esterase Neg Urine RBC (Auto) 1 Urine Microscopic WBC < 1 Ur Squamous Epith Cells < 1 Influenza Typ A,B (EIA) Assessment & Plan (1) Dyspnea Status: Acute (2) Acute bronchitis with chronic obstructive pulmonary disease (COPD) Status: Acute Priority: High (3) COPD (chronic obstructive pulmonary disease) Status: Chronic (4) COPD exacerbation Status: Acute Priority: High (5) DVT prophylaxis Status: Acute (6) HTN (hypertension) Status: Chronic - Assessment and Plan (Free Text) Plan: Continue present rx Will follow pulmonary consult
[2017-10-13] MEDS: Promethazine 12.5 mg/10 ml Syrup PO SCH ×2 (17:00→21:47)
--- NOTE | 2017-10-13 18:12 | RAD ---
PROCEDURE: CHEST RADIOGRAPH, 1 VIEW HISTORY: COPD COMPARISON: October 12, 2017. FINDINGS: LUNGS: Clear. PLEURA: No pneumothorax or pleural fluid seen. CARDIOVASCULAR: No radiographic findings to suggest acute or significant cardiovascular disease. OSSEOUS STRUCTURES: No significant abnormalities. VISUALIZED UPPER ABDOMEN: Normal. OTHER FINDINGS: None. IMPRESSION: No active disease. No acute/significant interval changes.
[2017-10-14] MEDS: Promethazine 12.5 mg/10 ml Syrup PO SCH ×4 (04:16→22:04)
[2017-10-14] MEDS: Pantoprazole 40 mg EC Tab PO SCH (09:40)
[2017-10-14] MEDS: Fluticasone-Salmeterol 250-50mcg Diskus IH SCH ×2 (09:40→22:04)
[2017-10-14] MEDS: Tiotropium 18 mcg Cap For Inhalation IH SCH (09:40)
[2017-10-14] MEDS: Enoxaparin 40 mg Syringe SC SCH (09:42)
[2017-10-14] MEDS: Azithromycin 500 MG in Sodium Chloride 0.9% 250 ML IVPB SCH (09:43)
--- NOTE | 2017-10-14 10:30 | CP.PCM.CON ---
History of Present Illness - History of Present Illness History of Present Illness: This 81-year-old Urdu-speaking female presented to the emergency department with cough, shortness of breath and diffuse wheezing on examination. She had been seen by her primary medical doctor because of similar complaints and treated with antibiotic for productive cough and corticosteroids. She had also been using bronchodilator in the form of LABA/ICS. She failed to improve on this regimen and presented to the emergency department. She has had hospitalizations in the past with similar presentations. Initial chest x-ray done in the emergency department showed increased bronchovascular markings but no infiltrates or effusions. Review of Systems - Review of Systems All systems: reviewed and no additional remarkable complaints except - Constitutional Constitutional: Fatigue - Respiratory Respiratory: Cough, Dyspnea, Wheezing Past Patient History - Infectious Disease Hx of Infectious Diseases: None - Tetanus Immunizations Tetanus Immunization: Unknown - Past Medical History & Family History Past Medical History?: Yes Past Family History: Reviewed and not pertinent - Past Social History Smoking Status: Former Smoker Chewing Tobacco Use: No Cigar Use: No Alcohol: Social Drugs: Denies - CARDIAC Hx Atrial Fibrillation: Yes Hx Hypercholesterolemia: Yes Hx Hypertension: Yes - PULMONARY Hx Asthma: Yes (LAST ATTACK 1 YEAR AGO) Hx Bronchitis: Yes Hx Chronic Obstructive Pulmonary Disease (COPD): Yes Hx Pneumonia: Yes - NEUROLOGICAL Hx Neurological Disorder: No - HEENT Hx HEENT Problems: No - RENAL Hx Chronic Kidney Disease: No - ENDOCRINE/METABOLIC Hx Endocrine Disorders: No - HEMATOLOGICAL/ONCOLOGICAL Hx Blood Disorders: No Hx Human Immunodeficiency Virus (HIV): No - INTEGUMENTARY Hx Dermatological Problems: No - MUSCULOSKELETAL/RHEUMATOLOGICAL Hx Arthritis: Yes Hx Fractures: Yes (left wrist (radius)) Hx Osteoporosis: Yes - GASTROINTESTINAL Hx Diverticulitis: Yes Hx Gastritis: Yes Other/Comment: previous lower GI bleeding - GENITOURINARY/GYNECOLOGICAL Hx Genitourinary Disorders: No - PSYCHIATRIC Hx Depression: Yes Hx Substance Use: No - SURGICAL HISTORY Hx Cholecystectomy: Yes - ANESTHESIA Hx Anesthesia: Yes Hx Anesthesia Reactions: No Hx Malignant Hyperthermia: No Meds Allergies/Adverse Reactions: Allergies Allergy/AdvReac Type Severity Reaction Status Date / Time adhesive tape Allergy ITCHING Verified 10/12/17 14:57 aspirin Allergy ITCHING Verified 10/12/17 14:57 - Medications Medications: Current Medications Albuterol/Ipratropium (Duoneb 3 Mg/0.5 Mg (3 Ml) Ud) 3 ml IH Q4H PRN PRN Reason: Shortness of Breath Last Admin: 10/13/17 16:52 Dose: 3 ml Alprazolam (Xanax) 1 mg PO HS [facility] Last Admin: 10/13/17 21:54 Dose: 1 mg Amlodipine Besylate (Norvasc) 5 mg PO DAILY [facility] Last Admin: 10/14/17 09:42 Dose: 5 mg Atorvastatin Calcium (Lipitor) 10 mg PO DAILY [facility] Last Admin: 10/14/17 09:46 Dose: Not Given Enoxaparin Sodium (Lovenox) 40 mg SC DAILY [facility] PRN Reason: Protocol Last Admin: 10/14/17 09:42 Dose: 40 mg Ferrous Sulfate (Feosol) 325 mg PO DAILY [facility] Last Admin: 10/14/17 09:42 Dose: 325 mg Ceftriaxone Sodium 1 gm/ (Sodium Chloride) 100 mls @ 100 mls/hr IVPB DAILY [facility] PRN Reason: Protocol Last Admin: 10/14/17 09:43 Dose: 100 mls/hr Azithromycin 500 mg/ Sodium (Chloride) 250 mls @ 250 mls/hr IVPB DAILY [facility] PRN Reason: Protocol Last Admin: 10/14/17 09:43 Dose: 250 mls/hr Loratadine (Claritin) 10 mg PO DAILY [facility] Last Admin: 10/14/17 09:42 Dose: 10 mg Methylprednisolone (Solu-Medrol) 60 mg IV Q6 [facility] Last Admin: 10/14/17 09:41 Dose: 60 mg Montelukast Sodium (Singulair) 10 mg PO HS [facility] Last Admin: 10/13/17 21:47 Dose: 10 mg Pantoprazole Sodium (Protonix Ec Tab) 40 mg PO DAILY [facility] Last Admin: 10/14/17 09:40 Dose: 40 mg Promethazine HCl (Phenergan Syrup) 12.5 mg PO Q6 [facility] Last Admin: 10/14/17 09:43 Dose: 12.5 mg Fluticasone/Salmeterol (Advair Diskus 250/50) 1 puff IH Q12H [facility] Last Admin: 10/14/17 09:40 Dose: 1 puff Tiotropium [place] (Spiriva) 18 mcg IH DAILY [facility] Last Admin: 10/14/17 09:40 Dose: 18 mcg Zolpidem Tartrate (Ambien) 5 mg PO HS PRN PRN Reason: Insomnia Last Admin: 10/13/17 23:45 Dose: 5 mg Physical Exam - Additional Findings Additional findings: Well-nourished, well-developed female lying in bed appears to have moderate dyspnea with conversation. Recurrent coughing noted during the examination. The pharynx is pink and the mucous membranes are moist. No exudate is seen. Nasal passages are patent bilaterally. No bleeding or exudate. Neck is supple and trachea is midline. No neck vein distention or carotid bruit. No dullness on chest percussion. Equal expansion. Normal vocal tactile fremitus. Diffuse sonorous and sibilant rhonchi associated with expiratory wheezing are noted in all lung arzate. Unable to evaluate for rales or bronchial breathing. Heart sounds are distant and the rhythm is regular. Abdomen is soft and nontender with normal bowel sounds. No dependent edema of the lower extremities. No cyanosis. No calf tenderness or palpable venous cords. Results - Vital Signs Recent Vital Signs: Last Vital Signs Temp 97.4 F L 10/14/17 08:05 Pulse 75 10/14/17 09:42 Resp 18 10/14/17 08:05 BP 136/69 10/14/17 09:42 Pulse Ox 97 10/14/17 08:05 - Labs Result Diagrams: 10/15/17 09:31 10/15/17 09:31 Labs: Laboratory Results - last 24 hr 10/13/17 16:28 pCO2 32 L pO2 80 HCO3 26.7 ABG pH 7.50 H ABG Total CO2 26.0 ABG O2 Saturation 99.1 H ABG O2 Content 19.3 ABG Base Excess 2.4 ABG Hemoglobin 14.4 ABG Carboxyhemoglobin 1.8 H POC ABG HHb (Measured) 0.9 ABG Methemoglobin 2.1 ABG O2 Capacity 19.5 Evnes Test Yes A-a O2 Difference 30.0 Hgb O2 Saturation 95.2 FiO2 21.0 Assessment & Plan (1) Acute bronchitis with chronic obstructive pulmonary disease (COPD) Status: Acute Priority: High Comment: 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 She does have diffuse wheezing despite current medical regimen. We'll continue relatively higher dose corticosteroids for today and hopefully reduce the dose tomorrow. Switch instillation therapy to nebulizer from inhaler to maximize drug deposition. Continue current antibiotic therapy. - Date & Time Date: 10/14/17 Time: 10:29
--- NOTE | 2017-10-14 13:51 | CP.PCM.PN ---
Subjective - Date & Time of Evaluation Date of Evaluation: 10/14/17 Time of Evaluation: 13:53 - Subjective Subjective: Patient with dispnea on O2 NC. severe wheezing and congestion with profuse sputum production. Symptomatic poorly respond on high dose of iv steroid.Peak expiratory flow rate less than 25% of predicted or personal best before treatment Peak expiratory flow rate less than 40% of predicted or personal best after treatment Objective - Vital Signs/Intake and Output Vital Signs (last 24 hours): Temp Pulse Resp BP Pulse Ox 97.8 F 81 18 110/67 96 10/14/17 12:38 10/14/17 12:38 10/14/17 12:38 10/14/17 12:38 10/14/17 12:38 - Medications Medications: Current Medications Albuterol/Ipratropium (Duoneb 3 Mg/0.5 Mg (3 Ml) Ud) 3 ml IH Q4H PRN PRN Reason: Shortness of Breath Last Admin: 10/13/17 16:52 Dose: 3 ml Alprazolam (Xanax) 1 mg PO HS [facility] Last Admin: 10/13/17 21:54 Dose: 1 mg Amlodipine Besylate (Norvasc) 5 mg PO DAILY [facility] Last Admin: 10/14/17 09:42 Dose: 5 mg Atorvastatin Calcium (Lipitor) 10 mg PO DAILY [facility] Last Admin: 10/14/17 09:46 Dose: Not Given Enoxaparin Sodium (Lovenox) 40 mg SC DAILY [facility] PRN Reason: Protocol Last Admin: 10/14/17 09:42 Dose: 40 mg Ferrous Sulfate (Feosol) 325 mg PO DAILY [facility] Last Admin: 10/14/17 09:42 Dose: 325 mg Ceftriaxone Sodium 1 gm/ (Sodium Chloride) 100 mls @ 100 mls/hr IVPB DAILY [facility] PRN Reason: Protocol Last Admin: 10/14/17 09:43 Dose: 100 mls/hr Azithromycin 500 mg/ Sodium (Chloride) 250 mls @ 250 mls/hr IVPB DAILY [facility] PRN Reason: Protocol Last Admin: 10/14/17 09:43 Dose: 250 mls/hr Loratadine (Claritin) 10 mg PO DAILY [facility] Last Admin: 10/14/17 09:42 Dose: 10 mg Methylprednisolone (Solu-Medrol) 60 mg IV Q6 [facility] Last Admin: 10/14/17 09:41 Dose: 60 mg Montelukast Sodium (Singulair) 10 mg PO HS [facility] Last Admin: 10/13/17 21:47 Dose: 10 mg Pantoprazole Sodium (Protonix Ec Tab) 40 mg PO DAILY [facility] Last Admin: 10/14/17 09:40 Dose: 40 mg Promethazine HCl (Phenergan Syrup) 12.5 mg PO Q6 [facility] Last Admin: 10/14/17 09:43 Dose: 12.5 mg Fluticasone/Salmeterol (Advair Diskus 250/50) 1 puff IH Q12H [facility] Last Admin: 10/14/17 09:40 Dose: 1 puff Tiotropium [place] (Spiriva) 18 mcg IH DAILY [facility] Last Admin: 10/14/17 09:40 Dose: 18 mcg Zolpidem Tartrate (Ambien) 5 mg PO HS PRN PRN Reason: Insomnia Last Admin: 10/13/17 23:45 Dose: 5 mg - Labs Labs: 10/12/17 17:16 10/12/17 17:16 - Constitutional Appears: In Acute Distress, Chronically Ill - Head Exam Head Exam: ATRAUMATIC, NORMAL INSPECTION, NORMOCEPHALIC - Eye Exam Eye Exam: Normal appearance - ENT Exam ENT Exam: Mucous Membranes Moist - Neck Exam Neck Exam: Full ROM - Respiratory Exam Respiratory Exam: Accessory Muscle Use, Chest Wall Tenderness, Prolonged Expiratory Phase, Rhonchi, Wheezes - Cardiovascular Exam Cardiovascular Exam: REGULAR RHYTHM, +S1, +S2 - GI/Abdominal Exam GI & Abdominal Exam: Soft, Normal Bowel Sounds - Extremities Exam Extremities Exam: Normal Inspection - Neurological Exam Neurological Exam: Alert, Awake, CN II-XII Intact, Oriented x3 - Psychiatric Exam Psychiatric exam: Anxious - Skin Skin Exam: Normal Color Assessment and Plan (1) Dyspnea Status: Acute (2) Acute bronchitis with chronic obstructive pulmonary disease (COPD) Status: Acute (3) COPD (chronic obstructive pulmonary disease) Status: Chronic (4) COPD exacerbation Status: Acute (5) DVT prophylaxis Status: Acute (6) HTN (hypertension) Status: Chronic - Assessment and Plan (Free Text) Plan: Continue present rx. Will follow pulmonary consult.
[2017-10-15] MEDS: Promethazine 12.5 mg/10 ml Syrup PO SCH ×4 (05:12→21:11)
[2017-10-15] MEDS ORDERED: MethylPREDNISolone 40 mg Vial IV SCH (07:28)
[2017-10-15] MEDS: Pantoprazole 40 mg EC Tab PO SCH (08:52)
[2017-10-15] MEDS: Enoxaparin 40 mg Syringe SC SCH (08:52)
[2017-10-15] MEDS: Azithromycin 500 MG in Sodium Chloride 0.9% 250 ML IVPB SCH (08:54)
[2017-10-15 09:38] LABS: BASO % 0.3 % (0.0-2.0); HEMOGLOBIN 13.8 g/dL (12.0-16.0); LYMPH # 1.1 K/uL (1.0-4.3); MEAN CELL VOLUME 89.3 fl (81.0-99.0); MEAN CORPUSCULAR HEMOGLOBIN 29.4 pg (27.0-31.0); MEAN CORPUSCULAR HGB CONC 32.9 g/dL (33.0-37.0); MEAN PLATELET VOLUME 9.2 fl (7.2-11.7); MONO # 0.5 K/uL (0.0-0.8); MONO % 2.6 % (0.0-10.0); NEUT # 16.4 K/uL (1.8-7.0); NEUT % 91.1 % (50.0-75.0); PLATELET COUNT 231 K/uL (130-400); RBC 4.71 Mil/uL (3.80-5.20); RED CELL DISTRIBUTION WIDTH 15.3 % (11.5-14.5)
--- NOTE | 2017-10-15 09:44 | CP.PCM.PN ---
Subjective - Date & Time of Evaluation Date of Evaluation: 10/15/17 Time of Evaluation: 09:41 - Subjective Subjective: Significant clinical improvement since yesterday on the current medical treatments. Faint scattered expiratory wheezes are still present anteriorly. Air entry is significantly better than before. No rales or bronchial breath sounds. The patient is requesting discharge to home today. I explained to her the risks of premature discharge, but she appears set on going home. She is presently on parenteral steroids and antibiotics as well as frequent nebulizer treatments. Discharge at this time is ill advised as rapid change in her treatments may result in recurrent bronchospasm. Objective - Vital Signs/Intake and Output Vital Signs (last 24 hours): Temp Pulse Resp BP Pulse Ox 98.2 F 71 20 125/59 L 95 10/15/17 08:00 10/15/17 08:52 10/15/17 08:00 10/15/17 08:52 10/15/17 08:00 - Medications Medications: Current Medications Albuterol/Ipratropium (Duoneb 3 Mg/0.5 Mg (3 Ml) Ud) 3 ml IH RQ4 [facility] Alprazolam (Xanax) 1 mg PO HS [facility] Last Admin: 10/14/17 22:15 Dose: 1 mg Amlodipine Besylate (Norvasc) 5 mg PO DAILY [facility] Last Admin: 10/15/17 08:52 Dose: 5 mg Atorvastatin Calcium (Lipitor) 10 mg PO DAILY [facility] Last Admin: 10/15/17 08:53 Dose: 10 mg Enoxaparin Sodium (Lovenox) 40 mg SC DAILY [facility] PRN Reason: Protocol Last Admin: 10/15/17 08:52 Dose: 40 mg Ferrous Sulfate (Feosol) 325 mg PO DAILY [facility] Last Admin: 10/15/17 08:53 Dose: 325 mg Ceftriaxone Sodium 1 gm/ (Sodium Chloride) 100 mls @ 100 mls/hr IVPB DAILY [facility] PRN Reason: Protocol Last Admin: 10/15/17 08:53 Dose: 100 mls/hr Azithromycin 500 mg/ Sodium (Chloride) 250 mls @ 250 mls/hr IVPB DAILY [facility] PRN Reason: Protocol Last Admin: 10/15/17 08:54 Dose: 250 mls/hr Loratadine (Claritin) 10 mg PO DAILY [facility] Last Admin: 10/14/17 09:42 Dose: 10 mg Methylprednisolone (Solu-Medrol) 40 mg IV Q6 [facility] Last Admin: 10/15/17 09:05 Dose: 40 mg Montelukast Sodium (Singulair) 10 mg PO HS [facility] Last Admin: 10/14/17 22:03 Dose: 10 mg Pantoprazole Sodium (Protonix Ec Tab) 40 mg PO DAILY [facility] Last Admin: 10/15/17 08:52 Dose: 40 mg Promethazine HCl (Phenergan Syrup) 12.5 mg PO Q6 [facility] Last Admin: 10/15/17 09:03 Dose: 12.5 mg Fluticasone/Salmeterol (Advair Diskus 250/50) 1 puff IH Q12H [facility] Last Admin: 10/14/17 22:04 Dose: 1 puff Tiotropium [place] (Spiriva) 18 mcg IH DAILY [facility] Last Admin: 10/14/17 09:40 Dose: 18 mcg Zolpidem Tartrate (Ambien) 5 mg PO HS PRN PRN Reason: Insomnia Last Admin: 10/15/17 00:10 Dose: 5 mg - Labs Labs: 10/15/17 09:31 10/12/17 17:16
[2017-10-15 09:55] LABS: BLOOD UREA NITROGEN 23 mg/dl (7-17); GFR AFRICAN-AMERICAN > 60; GFR NON-AFRICAN AMERICAN > 60
[2017-10-15] MEDS: Albuterol-Ipratrop 3 mg / 0.5 (3 ml) UD IH SCH ×4 (11:45→23:52)
[2017-10-15 12:09] LABS: ANISOCYTOSIS SLIGHT; LYMPHOCYTE 6 % (20-50); MONOCYTE 3 % (0-10); NEUTROPHIL 90 % (42-75); PLATELET ESTIMATE NORMAL (NORMAL); REACTIVE LYMPHOCYTES 1 % (0-0); TOTAL CELLS COUNTED 100
[2017-10-15 12:10] LABS: SCHISTOCYTES SLIGHT
[2017-10-15 12:11] LABS: LARGE PLATELETS PRESENT
--- NOTE | 2017-10-15 13:03 | CP.PCM.PN ---
Subjective - Date & Time of Evaluation Date of Evaluation: 10/15/17 Time of Evaluation: 13:06 - Subjective Subjective: Patient with dyspena on minimal exertion, pallor, chronically ill, still with weezing and rales. Slowly improving on iv steroid. Still the peak expiratory flow rate less than 25% of predicted before treatment and peak expiratory flow rate less than 40% of predicted after treatment. I discussed the condition with the patient. Will continue steroid iv. Objective Objective - Vital Signs/Intake and Output Vital Signs (last 24 hours): Temp Pulse Resp BP Pulse Ox 98.2 F 71 20 125/59 L 95 10/15/17 08:00 10/15/17 08:52 10/15/17 08:00 10/15/17 08:52 10/15/17 08:00 - Medications Medications: Current Medications Albuterol/Ipratropium (Duoneb 3 Mg/0.5 Mg (3 Ml) Ud) 3 ml IH RQ4 [facility] Last Admin: 10/15/17 11:45 Dose: 3 ml Alprazolam (Xanax) 1 mg PO HS [facility] Last Admin: 10/14/17 22:15 Dose: 1 mg Amlodipine Besylate (Norvasc) 5 mg PO DAILY [facility] Last Admin: 10/15/17 08:52 Dose: 5 mg Atorvastatin Calcium (Lipitor) 10 mg PO DAILY [facility] Last Admin: 10/15/17 08:53 Dose: 10 mg Enoxaparin Sodium (Lovenox) 40 mg SC DAILY [facility] PRN Reason: Protocol Last Admin: 10/15/17 08:52 Dose: 40 mg Ferrous Sulfate (Feosol) 325 mg PO DAILY [facility] Last Admin: 10/15/17 08:53 Dose: 325 mg Ceftriaxone Sodium 1 gm/ (Sodium Chloride) 100 mls @ 100 mls/hr IVPB DAILY [facility] PRN Reason: Protocol Last Admin: 10/15/17 08:53 Dose: 100 mls/hr Azithromycin 500 mg/ Sodium (Chloride) 250 mls @ 250 mls/hr IVPB DAILY [facility] PRN Reason: Protocol Last Admin: 10/15/17 08:54 Dose: 250 mls/hr Loratadine (Claritin) 10 mg PO DAILY [facility] Last Admin: 10/14/17 09:42 Dose: 10 mg Methylprednisolone (Solu-Medrol) 40 mg IV Q6 [facility] Last Admin: 10/15/17 09:05 Dose: 40 mg Montelukast Sodium (Singulair) 10 mg PO HS [facility] Last Admin: 10/14/17 22:03 Dose: 10 mg Pantoprazole Sodium (Protonix Ec Tab) 40 mg PO DAILY [facility] Last Admin: 10/15/17 08:52 Dose: 40 mg Promethazine HCl (Phenergan Syrup) 12.5 mg PO Q6 [facility] Last Admin: 10/15/17 09:03 Dose: 12.5 mg Fluticasone/Salmeterol (Advair Diskus 250/50) 1 puff IH Q12H [facility] Last Admin: 10/14/17 22:04 Dose: 1 puff Tiotropium [place] (Spiriva) 18 mcg IH DAILY [facility] Last Admin: 10/14/17 09:40 Dose: 18 mcg Zolpidem Tartrate (Ambien) 5 mg PO HS PRN PRN Reason: Insomnia Last Admin: 10/15/17 00:10 Dose: 5 mg - Labs Labs: 10/15/17 09:31 10/15/17 09:31 - Constitutional Appears: Chronically Ill - Head Exam Head Exam: ATRAUMATIC, NORMAL INSPECTION, NORMOCEPHALIC - Eye Exam Eye Exam: Normal appearance Pupil Exam: NORMAL ACCOMODATION - ENT Exam ENT Exam: Mucous Membranes Moist - Respiratory Exam Respiratory Exam: Decreased Breath Sounds, Rales, Wheezes - Cardiovascular Exam Cardiovascular Exam: REGULAR RHYTHM, +S1, +S2 - GI/Abdominal Exam GI & Abdominal Exam: Soft, Normal Bowel Sounds - Extremities Exam Extremities Exam: Normal Inspection - Neurological Exam Neurological Exam: Alert, Awake, CN II-XII Intact, Oriented x3 - Psychiatric Exam Psychiatric exam: Anxious - Skin Skin Exam: Pallor Assessment and Plan (1) Dyspnea Status: Acute (2) Acute bronchitis with chronic obstructive pulmonary disease (COPD) Status: Acute (3) COPD (chronic obstructive pulmonary disease) Status: Chronic (4) COPD exacerbation Status: Acute (5) DVT prophylaxis Status: Acute (6) HTN (hypertension) Status: Chronic - Assessment and Plan (Free Text) Plan: Will slowly decrease the iv steroid if condition improves will stat on PO steroid and will DC the patient home. Will continue to follow the patient clinically.
[2017-10-15] MEDS: MethylPREDNISolone 40 mg Vial IV SCH (17:06)
[2017-10-16] MEDS: MethylPREDNISolone 40 mg Vial IV SCH ×2 (00:01→08:27)
[2017-10-16] MEDS: Promethazine 12.5 mg/10 ml Syrup PO SCH ×2 (03:33→11:27)
[2017-10-16] MEDS: Albuterol-Ipratrop 3 mg / 0.5 (3 ml) UD IH SCH ×3 (04:42→11:44)
[2017-10-16 08:19] VITALS: RESP 18
[2017-10-16] MEDS: Pantoprazole 40 mg EC Tab PO SCH (08:26)
[2017-10-16] MEDS: Enoxaparin 40 mg Syringe SC SCH (08:27)
[2017-10-16] MEDS: Azithromycin 500 MG in Sodium Chloride 0.9% 250 ML IVPB SCH (08:31)
--- NOTE | 2017-10-16 10:48 | CP.PCM.PN ---
Subjective - Date & Time of Evaluation Date of Evaluation: 10/16/17 Time of Evaluation: 10:46 - Subjective Subjective: Lying in bed, appears comfortable. Peak flow recorded as 270LPM. Offers no complaints of dyspnea. No orthopnea or PND. No audible wheezing this morning. Breath sounds are well heard bilaterally. Rare dry rales in lower lobes. No rhonchi. No cyanosis or dependant edema. WBC and glucose both elevated probably secondary to steroids. There has been significant improvement on the current regimen. If she is to be discharged she can be started on PO prednisone at 10MG TID and decrease by 5mg EVERY THIRD DAY. She can resume her Advair 250 and Spiriva as well, and continue the montelukast. Thanks, Objective - Vital Signs/Intake and Output Vital Signs (last 24 hours): Temp Pulse Resp BP Pulse Ox 97.7 F 78 18 135/67 94 L 10/16/17 09:00 10/16/17 09:00 10/16/17 09:00 10/16/17 09:00 10/16/17 09:00 Intake and Output: 10/15/17 10/16/17 23:59 11:59 Intake Total 650 Balance 650 - Medications Medications: Current Medications Albuterol/Ipratropium (Duoneb 3 Mg/0.5 Mg (3 Ml) Ud) 3 ml IH RQ4 [facility] Last Admin: 10/16/17 07:57 Dose: 3 ml Amlodipine Besylate (Norvasc) 5 mg PO DAILY [facility] Last Admin: 10/16/17 08:26 Dose: 5 mg Atorvastatin Calcium (Lipitor) 10 mg PO DAILY [facility] Last Admin: 10/16/17 08:26 Dose: 10 mg Ferrous Sulfate (Feosol) 325 mg PO DAILY [facility] Last Admin: 10/16/17 08:27 Dose: 325 mg Ceftriaxone Sodium 1 gm/ (Sodium Chloride) 100 mls @ 100 mls/hr IVPB DAILY [facility] PRN Reason: Protocol Last Admin: 10/16/17 09:42 Dose: 100 mls/hr Azithromycin 500 mg/ Sodium (Chloride) 250 mls @ 250 mls/hr IVPB DAILY [facility] PRN Reason: Protocol Last Admin: 10/16/17 08:31 Dose: 250 mls/hr Loratadine (Claritin) 10 mg PO DAILY [facility] Last Admin: 10/16/17 08:37 Dose: 10 mg Methylprednisolone (Solu-Medrol) 40 mg IV Q8 [facility] Last Admin: 10/16/17 08:27 Dose: 40 mg Montelukast Sodium (Singulair) 10 mg PO HS [facility] Last Admin: 10/15/17 23:58 Dose: 10 mg Pantoprazole Sodium (Protonix Ec Tab) 40 mg PO DAILY [facility] Last Admin: 10/16/17 08:26 Dose: 40 mg Promethazine HCl (Phenergan Syrup) 12.5 mg PO Q6 [facility] Last Admin: 10/16/17 03:33 Dose: 12.5 mg Fluticasone/Salmeterol (Advair Diskus 250/50) 1 puff IH Q12H [facility] Last Admin: 10/14/17 22:04 Dose: 1 puff Tiotropium [place] (Spiriva) 18 mcg IH DAILY [facility] Last Admin: 10/14/17 09:40 Dose: 18 mcg - Labs Labs: 10/15/17 09:31 10/15/17 09:31 Assessment and Plan (1) Acute bronchitis with chronic obstructive pulmonary disease (COPD) Status: Acute
[2017-10-16 12:18] VITALS: BP 114/61; PULSE 75; TEMP 97.2; O2SAT 99
--- NOTE | 2017-10-16 12:48 | CP.PCM.DIS ---
Provider - Provider Date of Admission: 10/12/17 18:21 Attending physician: Inocencio Navarro MD Time Spent in preparation of Discharge (in minutes): 30 Diagnosis - Discharge Diagnosis (1) Dyspnea Status: Acute (2) Acute bronchitis with chronic obstructive pulmonary disease (COPD) Status: Acute Priority: High (3) COPD (chronic obstructive pulmonary disease) Status: Chronic (4) COPD exacerbation Status: Acute Priority: High (5) DVT prophylaxis Status: Acute (6) HTN (hypertension) Status: Chronic Hospital Course - Lab Results Lab Results: Micro Results 10/13/17 05:00 Blood-Venous Blood Culture - Preliminary NO GROWTH AFTER 3 DAYS Most Recent Lab Values WBC 18.0 K/uL (4.8-10.8) H D 10/15/17 09:31 RBC 4.71 Mil/uL (3.80-5.20) 10/15/17 09:31 Hgb 13.8 g/dL (12.0-16.0) 10/15/17 09:31 Hct 42.0 % (34.0-47.0) 10/15/17 09:31 MCV 89.3 fl (81.0-99.0) 10/15/17 09:31 MCH 29.4 pg (27.0-31.0) 10/15/17 09:31 MCHC 32.9 g/dL (33.0-37.0) L 10/15/17 09:31 RDW 15.3 % (11.5-14.5) H 10/15/17 09:31 Plt Count 231 K/uL (130-400) 10/15/17 09:31 MPV 9.2 fl (7.2-11.7) 10/15/17 09:31 Neut % (Auto) 91.1 % (50.0-75.0) H 10/15/17 09:31 Lymph % (Auto) 6.0 % (20.0-40.0) L 10/15/17 09:31 Will % (Auto) 2.6 % (0.0-10.0) 10/15/17 09:31 Eos % (Auto) 0.0 % (0.0-4.0) 10/15/17 09:31 Baso % (Auto) 0.3 % (0.0-2.0) 10/15/17 09:31 Neut # 16.4 K/uL (1.8-7.0) H 10/15/17 09: Lymph # 1.1 K/uL (1.0-4.3) 10/15/17: Will # 0.5 K/uL (0.0-0.8) 10/15/17: Eos # 0.0 K/uL (0.0-0.7) 10/15/17: Baso # 0.0 K/uL (0.0-0.2) 10/15/17:31 Neutrophils % (Manual) 90 % (42-75) H 10/15/17 09: Lymphocytes % (Manual) 6 % (20-50) L 10/15/17: Reactive Lymphs % 1 % (0-0) H 10/15/17: Monocytes % (Manual) 3 % (0-10) 10/15/17: Platelet Estimate Normal (NORMAL) 10/15/17: Large Platelets Present 10/15/17: Anisocytosis (manual) Slight 10/15/17: Schistocytes Slight 10/15/17: pCO2 32 mm/Hg (35-45) L 10/13/17 16: pO2 80 mm/Hg (80-100) 10/13/17 16: HCO3 26.7 mmol/L (21-28) 10/13/17 16: ABG pH 7.50 (7.35-7.45) H 10/13/17 16: ABG Total CO2 26.0 mmol/L (22-28) 10/13/17 16: ABG O2 Saturation 99.1 % (95-98) H 10/13/17 16: ABG O2 Content 19.3 ML/dL (15-23) 10/13/17: ABG Base Excess 2.4 mmol/L (-2.0-3.0) 10/13/17 16: ABG Hemoglobin 14.4 g/dL (11.7-17.4) 10/13/17 16: ABG Carboxyhemoglobin 1.8 % (0.5-1.5) H 10/13/17: POC ABG HHb (Measured) 0.9 % (0.0-5.0) 10/13/17 16: ABG Methemoglobin 2.1 % (0.0-3.0) 10/13/17: ABG O2 Capacity 19.5 mL/dL (16-24) 10/13/17 Evens Test Yes 10/13/17 A-a O2 Difference 30.0 mm/Hg 10/13/17 Hgb O2 Saturation 95.2 % (95.0-98.0) 10/13/17: FiO2 21.0 % 10/13/17 16: Sodium 139 mmol/l (132-148) 10/15/17 09:31 Potassium 4.0 MMOL/L (3.6-5.0) 10/15/17 09:31 Chloride 104 mmol/L (98-107) 10/15/17 09:31 Carbon Dioxide 24 mmol/L (22-30) 10/15/17 09:31 Anion Gap 15 (10-20) 10/15/17 09:31 BUN 23 mg/dl (7-17) H 10/15/17 09:31 Creatinine 0.6 mg/dl (0.7-1.2) L 10/15/17 09:31 Est GFR ( Amer) > 60 10/15/17 09:31 Est GFR (Non-Af Amer) > 60 10/15/17 09:31 Random Glucose 248 mg/dL (65-105) H 10/15/17 09:31 Calcium 9.0 mg/dL (8.4-10.2) 10/15/17 09:31 Total Bilirubin 0.1 mg/dl (0.2-1.3) L 10/12/17 17:16 AST 24 U/L (14-36) 10/12/17 17:16 ALT 39 U/L (9-52) 10/12/17 17:16 Alkaline Phosphatase 60 U/L (38-126) 10/12/17 17:16 Total Protein 7.0 G/DL (6.3-8.2) 10/12/17 17:16 Albumin 4.0 g/dL (3.5-5.0) 10/12/17 17:16 Globulin 3.0 gm/dL (2.2-3.9) 10/12/17 17:16 Albumin/Globulin Ratio 1.3 (1.0-2.1) 10/12/17 17:16 Urine Color Straw (YELLOW) 10/13/17 01:07 Urine Clarity Clear (Clear) 10/13/17 01:07 Urine pH 7.0 (5.0-8.0) 10/13/17 01:07 Ur Specific [place] 1.009 (1.003-1.030) 10/13/17 01:07 Urine Protein Negative mg/dL (NEGATIVE) 10/13/17 01:07 Urine Glucose (UA) 50 mg/dL (Normal) 10/13/17 01:07 Urine Ketones Negative mg/dL (NEGATIVE) 10/13/17 01:07 Urine Blood Small (NEGATIVE) 10/13/17 01:07 Urine Nitrate Negative (NEGATIVE) 10/13/17 01:07 Urine Bilirubin Negative (NEGATIVE) 10/13/17 01:07 Urine Urobilinogen 0.2-1.0 mg/dL (0.2-1.0) 10/13/17 01:07 Ur Leukocyte Esterase Neg [place]/uL (Negative) 10/13/17 01:07 Urine RBC (Auto) 1 /hpf (0-3) 10/13/17 01:07 Urine Microscopic WBC < 1 /hpf (0-5) 10/13/17 01:07 Ur Squamous Epith Cells < 1 /hpf (0-5) 10/13/17 01:07 Influenza Typ A,B (EIA) Negative for flu a/b (NEGATIVE) 10/12/17 17:16 - Hospital Course Hospital Course: This 81-year-old female who is known to suffer from chronic obstructive pulmonary disease as well as bronchial asthma, presented to the emergency department by an ambulance after suffering for 4 days with shortness of breath at home. She was seen in the PMD office and started on PO steroids and antbx, She poorly responded and failed to the oral medication. She presented in ER with severe cough with clear mucoid sputum, shortness of breath, chest tightness and wheezing. She claims to have had chills. She did have some chest pain related to the coughing but denied any hemoptysis. She was placed on iv steroid and slowly improved. Today she able to ambulate with minimal SOB. Will DC home on oral steroid, will follow as OP. Discharge Exam - Head Exam Head Exam: ATRAUMATIC, NORMAL INSPECTION, NORMOCEPHALIC - Eye Exam Eye Exam: Normal appearance - Neck Exam Neck exam: Full Rom - Respiratory Exam Respiratory Exam: Decreased Breath Sounds - Cardiovascular Exam Cardiovascular Exam: REGULAR RHYTHM, +S1, +S2 - GI/Abdominal Exam GI & Abdominal Exam: Normal Bowel Sounds - Neurological Exam Neurological exam: Alert, CN II-XII Intact, Normal Gait, Oriented x3, Reflexes Normal - Psychiatric Exam Psychiatric exam: Normal Affect - Skin Skin Exam: Normal Color Discharge Plan - Discharge Medications Prescriptions: predniSONE [predniSONE Tab] 30 mg PO DAILY 3 Days #3 tab - Follow Up Plan Condition: GUARDED Disposition: HOME/ ROUTINE
== END 2017-10-16 13:45 | disposition home or self-care (01) | DRG 192 ==
LOC: H.ER 14:56 → H.ERHOLD 18:21 → H.TEL 21:03
PROVIDERS: ADMIT Internal Medicine; ATTEND Internal Medicine
DX: J44.0 Chronic obstructive pulmonary disease with (acute) lower respiratory infection (principal); I48.91 Unspecified atrial fibrillation; J20.9 Acute bronchitis, unspecified; J44.1 Chronic obstructive pulmonary disease with (acute) exacerbation; Z88.6 Allergy status to analgesic agent; J45.909 Unspecified asthma, uncomplicated; M19.90 Unspecified osteoarthritis, unspecified site; F32.9 Major depressive disorder, single episode, unspecified; K29.70 Gastritis, unspecified, without bleeding; I10 Essential (primary) hypertension; E78.00 Pure hypercholesterolemia, unspecified; M81.0 Age-related osteoporosis without current pathological fracture; Z87.891 Personal history of nicotine dependence

== ENCOUNTER 2017-10-27 12:12 | Observation (INO) | payer OTHER ==
[2017-10-27 12:12] VITALS: BMI 25.0
--- NOTE | 2017-10-27 12:42 | ED PDOC ---
HPI: SOB/CHF/COPD Time Seen by Provider: 10/27/17 12:40 Chief Complaint (Nursing): Shortness Of Breath Chief Complaint (Provider): Dyspnea History Per: Patient History/Exam Limitations: no limitations Onset/Duration Of Symptoms: Days (3 weeks) Current Symptoms Are (Timing): Still Present Additional Complaint(s): Pt. with dyspnea. With cough, congestion. Has been in and out of admits here for the same. Has asthma. Saw Dr. Navarro Thursday and told to go to the ER if worse. No weakness. No chest pain, back pain, body aches. No fever. No nausea, vomit, diarrhea. Pt. got solumedrol and albuterol in the ambulance. Past Medical History Reviewed: Nursing Documentation, Vital Signs Vital Signs: Last Vital Signs Temp 98.4 F 10/27/17 12:14 Pulse 83 10/27/17 12:14 Resp 18 10/27/17 12:29 BP 119/54 L 10/27/17 12:14 Pulse Ox 97 10/27/17 14:12 - Medical History PMH: Arthritis, Asthma (LAST ATTACK 1 YEAR AGO), Atrial Fibrillation, Bronchitis , COPD, Depression, Diverticulitis, Fractures (left wrist (radius)), Gastritis, HTN, Hypercholesterolemia, Osteoporosis, Pneumonia Denies: Alzheimer's Disease, Anemia, Bipolar Disorder, CAD, Cardia Arrhythmia , CHF, Crohn's Disease, Dementia, Emphysema, Gall Bladder Disease, HIV, Hyperthyroidism, Hypothyroidism, Kidney Stones, Migraine, Mitral Valve Prolapse , Multiple Sclerosis, Pancreatitis, Paranoia, Parkinson's Disease, Peripheral Edema, Post Traumatic Stress Disorder, Pulmonary Embolism, Chronic Kidney Disease, Rheumatoid Arthritis, Schizophrenia, Seizures, Sickle Cell Disease, Sexually Transmitted Disease, Sleep Apnea, TIA - Surgical History Surgical History: Cholecystectomy, Endoscopy, Denies: Appendectomy, CABG, Carotid Endarterectomy, Coronary Stent, Pacemaker , Tonsillectomy - Family History Family History: States: Unknown Family Hx, Hypertension - Social History Alcohol: None Drugs: Denies - Immunization History Hx Tetanus Toxoid Vaccination: No Hx Influenza Vaccination: No Hx Pneumococcal Vaccination: No - Home Medications Home Medications: Ambulatory Orders Medication Instructions Recorded ALPRAZolam [Xanax] 1 mg PO HS 03/17/17 Albuterol Sulfate [Proair Hfa] 1 puff IH Q6H PRN 03/17/17 Albuterol/Ipratropium [Duoneb 3 3 ml IH Q4H PRN 03/17/17 mg/0.5 mg (3 ml) UD] Atorvastatin [Lipitor] 10 mg PO DAILY 03/17/17 Montelukast [Singulair] 10 mg PO HS 03/17/17 Zolpidem [Ambien] 10 mg PO HS 03/17/17 amLODIPine [Norvasc] 5 mg PO DAILY 03/17/17 Ferrous Sulfate [Feosol] 325 mg PO DAILY 08/26/17 Fluticasone/Salmeterol [Advair 1 puff IH Q12H 08/26/17 250-50 Diskus] Loratadine [Claritin] 10 mg PO DAILY 08/26/17 Omeprazole 40 mg PO DAILY 08/26/17 Tiotropium [Spiriva] 18 mcg IH DAILY 08/26/17 Azithromycin [Z-Elias] 250 mg PO DAILY #6 tab 08/27/17 Promethazine [Phenergan Syrup] 12.5 mg PO Q6 dose 10/16/17 Sodium Chloride for Inhalation 4 ml IH ONCE PRN vial.neb 10/16/17 [Sodium Chloride 3% for Inhalation] predniSONE [predniSONE Tab] 30 mg PO DAILY 3 Days #3 tab 10/16/17 - Allergies Allergies/Adverse Reactions: Allergies Allergy/AdvReac Type Severity Reaction Status Date / Time adhesive tape Allergy ITCHING Verified 10/12/17 14:57 aspirin Allergy ITCHING Verified 10/12/17 14:57 Review of Systems ROS Statement: Except As Marked, All Systems Reviewed And Found Negative ENT: Positive for: Nose Congestion Respiratory: Positive for: Cough, Shortness of Breath Physical Exam - Reviewed Nursing Documentation Reviewed: Yes Vital Signs Reviewed: Yes - Physical Exam Appears: Positive for: Non-toxic, No Acute Distress Head Exam: Positive for: ATRAUMATIC, NORMAL INSPECTION, NORMOCEPHALIC Skin: Positive for: Normal Color, Warm, DRY Eye Exam: Positive for: EOMI, Normal appearance, PERRL ENT: Positive for: Nasal Congestion Neck: Positive for: Normal, Painless ROM, Supple Cardiovascular/Chest: Positive for: Regular Rate, Rhythm Respiratory: Positive for: Decreased Breath Sounds, Wheezing. Negative for: Accessory Muscle Use Gastrointestinal/Abdominal: Positive for: Normal Exam, Bowel Sounds, Soft. Negative for: Tenderness Back: Positive for: Normal Inspection. Negative for: L CVA Tenderness, R CVA Tenderness Extremity: Positive for: Normal ROM. Negative for: Tenderness, Pedal Edema Neurologic/Psych: Positive for: Alert, spray stainer II-XII, Oriented. Negative for: Motor/Sensory Deficits - Laboratory Results Result Diagrams: 10/27/17 13:15 10/27/17 13:15 Interpretation Of Abn Labs: no acute - ECG ECG: Positive for: Interpreted By Me, Viewed By Me Interpretation Of Abn EKG: similar to old O2 Sat by Pulse Oximetry: 97 Pulse Ox Interpretation: Normal - Radiology X-Ray: Read By Radiologist X-Ray Interpretation: No Acute Disease - Progress ED Course And Treament: 1414: Stable. Spoke with Dr. Navarro. Wants pt. to be obs tele and he will give further orders without fail. No pain. Disposition - Clinical Impression Clinical Impression: COPD exacerbation - Patient ED Disposition Is Patient to be Admitted: Yes Counseled Patient/Family Regarding: Studies Performed, Diagnosis - Disposition Disposition Time: 14:00 Condition: FAIR - Pt Status Changed To: Hospital Disposition Of: Observation - POA Present On Arrival: None
[2017-10-27] MEDS ORDERED: Albuterol-Ipratrop 3 mg / 0.5 (3 ml) UD IH STA (12:43)
[2017-10-27] MEDS: Albuterol-Ipratrop 3 mg / 0.5 (3 ml) UD INH STA (13:24)
[2017-10-27 13:27] LABS: BASO # 0.1 K/uL (0.0-0.2); BASO % 0.6 % (0.0-2.0); EOS # 0.4 K/uL (0.0-0.7); EOS % 3.5 % (0.0-4.0); LYMPH # 1.5 K/uL (1.0-4.3); LYMPH % 14.4 % (20.0-40.0); MEAN CELL VOLUME 90.6 fl (81.0-99.0); MEAN CORPUSCULAR HEMOGLOBIN 29.8 pg (27.0-31.0); MEAN CORPUSCULAR HGB CONC 32.8 g/dL (33.0-37.0); MEAN PLATELET VOLUME 8.8 fl (7.2-11.7); MONO # 0.7 K/uL (0.0-0.8); MONO % 6.5 % (0.0-10.0); NEUT # 7.6 K/uL (1.8-7.0); NRBC % 0.1 % (0.0-0.0); RBC 4.37 Mil/uL (3.80-5.20); RED CELL DISTRIBUTION WIDTH 15.3 % (11.5-14.5); WHITE BLOOD COUNT 10.1 K/uL (4.8-10.8)
[2017-10-27] MEDS: Sodium Chloride 0.9% 500 ML IV SCH (13:27)
--- NOTE | 2017-10-27 13:36 | RAD ---
HISTORY: Sepsis COMPARISON: 10/13/2017. FINDINGS: LUNGS: The lungs are well inflated and clear. There is mild pulmonary venous congestion. No focal consolidation. PLEURA: No significant pleural effusion identified, no pneumothorax apparent. CARDIOVASCULAR: The heart is normal in size. Atherosclerotic aortic arch calcifications are present. OSSEOUS STRUCTURES: No significant abnormalities. VISUALIZED UPPER ABDOMEN: Normal. OTHER FINDINGS: None. IMPRESSION: Pulmonary venous congestion. No active pulmonary disease.
[2017-10-27 13:44] LABS: ALB/GLOB RATIO 1.1 (1.0-2.1); ALBUMIN 3.8 g/dL (3.5-5.0); ALT/SGPT 49 U/L (9-52); AST/SGOT 22 U/L (14-36); BLOOD UREA NITROGEN 10 mg/dl (7-17); CALCIUM 8.7 mg/dL (8.4-10.2); GFR AFRICAN-AMERICAN > 60; GFR NON-AFRICAN AMERICAN > 60
[2017-10-27 13:54] LABS: B-TYPE NATRIURETIC PEPTIDE 111 pg/ml (0-900)
[2017-10-27 13:55] LABS: INR 1.1 (0.9-1.2); PROTHROMBIN TIME 11.7 Seconds (9.8-13.1)
[2017-10-27 13:56] LABS: PARTIAL THROMBOPLASTIN TIME 29.8 Seconds (25.6-37.1)
[2017-10-27 14:19] LABS: ABG ALLEN TEST YES; ARTERIAL BLOOD GAS HCO3 21.7 mmol/L (21-28); ARTERIAL BLOOD GAS O2 SAT 100.1 % (95-98); ARTERIAL BLOOD GAS PCO2 33 mm/Hg (35-45); ARTERIAL BLOOD GAS PH 7.39 (7.35-7.45); ARTERIAL BLOOD GAS PO2 82 mm/Hg (80-100)
[2017-10-27] MEDS ORDERED: Albuterol-Ipratrop 3 mg / 0.5 (3 ml) UD IH PRN (16:23)
--- NOTE | 2017-10-27 16:37 | CP.PCM.HP ---
History of Present Illness - History of Present Illness History of Present Illness: Pt. with SOB, cough, congestion. Long hx of asthma, COPD Saw PMD Thursday and told to go to the ER if worse. No weakness. No chest pain, back pain, body aches. No fever. No nausea, vomit, diarrhea. Multiple admission for exa of COPD Present on Admission - Present on Admission Any Indicators Present on Admission: No Review of Systems - EENT Eyes: As Per HPI - Cardiovascular Cardiovascular: As Per HPI - Respiratory Respiratory: Dyspnea, Dyspnea on Exertion, Wheezing - Gastrointestinal Gastrointestinal: As Per HPI - Musculoskeletal Musculoskeletal: As Per HPI - Integumentary Integumentary: As Per HPI - Neurological Neurological: As Per HPI Past Patient History - Infectious Disease Hx of Infectious Diseases: None - Tetanus Immunizations Tetanus Immunization: Unknown - Past Medical History & Family History Past Medical History?: Yes - Past Social History Alcohol: None Drugs: Denies - CARDIAC Hx Atrial Fibrillation: Yes Hx Cardia Arrhythmia: No Hx Congestive Heart Failure: No Hx Hypercholesterolemia: Yes Hx Hypertension: Yes Hx Mitral Valve Prolapse: No Hx Pacemaker: No Hx Peripheral Edema: No - PULMONARY Hx Asthma: Yes (LAST ATTACK 1 YEAR AGO) Hx Bronchitis: Yes Hx Chronic Obstructive Pulmonary Disease (COPD): Yes Hx Emphysema: No Hx Pneumonia: Yes Hx Pulmonary Embolism: No Hx Sleep Apnea: No - NEUROLOGICAL Hx Alzheimer's Disease: No Hx Dementia: No Hx Migraine: No Hx Multiple Sclerosis: No Hx Parkinson's Disease: No Hx Seizures: No Hx Transient Ischemic Attacks (TIA): No - HEENT Hx HEENT Problems: No - RENAL Hx Chronic Kidney Disease: No Hx Kidney Stones: No - ENDOCRINE/METABOLIC Hx Hyperthyroidism: No Hx Hypothyroidism: No - HEMATOLOGICAL/ONCOLOGICAL Hx Anemia: No Hx Human Immunodeficiency Virus (HIV): No Hx Sickle Cell Disease: No - INTEGUMENTARY Hx Dermatological Problems: No - MUSCULOSKELETAL/RHEUMATOLOGICAL Hx Arthritis: Yes Hx Fractures: Yes (left wrist (radius)) Hx Osteoporosis: Yes Hx Rheumatoid Arthritis: No - GASTROINTESTINAL Hx Crohn's Disease: No Hx Diverticulitis: Yes Hx Gall Bladder Disease: No Hx Gastritis: Yes Hx Pancreatitis: No - GENITOURINARY/GYNECOLOGICAL Hx Sexually Transmitted Disorders: No - PSYCHIATRIC Hx Bipolar Disorder: No Hx Depression: Yes Hx Paranoia: No Hx Post Traumatic Stress Disorder: No Hx Schizophrenia: No - SURGICAL HISTORY Hx Appendectomy: No Hx Carotid Endarterectomy: No Hx Cholecystectomy: Yes Hx Coronary Artery Bypass Graft: No Hx Coronary Stent: No Hx Tonsillectomy: No - ANESTHESIA Hx Anesthesia: Yes Hx Anesthesia Reactions: No Hx Malignant Hyperthermia: No Meds Allergies/Adverse Reactions: Allergies Allergy/AdvReac Type Severity Reaction Status Date / Time adhesive tape Allergy ITCHING Verified 10/12/17 14:57 aspirin Allergy ITCHING Verified 10/12/17 14:57 Physical Exam - Constitutional Appears: No Acute Distress, Chronically Ill - Head Exam Head Exam: ATRAUMATIC, NORMAL INSPECTION, NORMOCEPHALIC - Eye Exam Eye Exam: Normal appearance - ENT Exam ENT Exam: Mucous Membranes Moist - Respiratory Exam Respiratory Exam: Decreased Breath Sounds, Rales, Rhonchi, Wheezes - Cardiovascular Exam Cardiovascular Exam: REGULAR RHYTHM, +S1, +S2 - GI/Abdominal Exam GI & Abdominal Exam: Normal Bowel Sounds - Back Exam Back exam: NORMAL INSPECTION - Neurological Exam Neurological exam: Alert, CN II-XII Intact, Oriented x3 - Psychiatric Exam Psychiatric exam: Anxious - Skin Skin Exam: Pallor Results - Vital Signs Recent Vital Signs: Last Vital Signs Temp 98.4 F 10/27/17 12:14 Pulse 83 10/27/17 12:14 Resp 18 10/27/17 12:29 BP 119/54 L 10/27/17 12:14 Pulse Ox 97 10/27/17 14:16 - Labs Result Diagrams: 10/27/17 13:15 10/27/17 13:15 Labs: Laboratory Results - last 24 hr 10/27/17 10/27/17 10/27/17 12:47 13:15 13:15 WBC 10.1 RBC 4.37 Hgb 13.0 Hct 39.6 MCV 90.6 MCH 29.8 MCHC 32.8 L RDW 15.3 H Plt Count 143 MPV 8.8 Neut % (Auto) 75.0 Lymph % (Auto) 14.4 L [place] % (Auto) 6.5 Eos % (Auto) 3.5 Baso % (Auto) 0.6 Neut # 7.6 H Lymph # 1.5 [place] # 0.7 Eos # 0.4 Baso # 0.1 PT INR APTT pCO2 33 L pO2 82 HCO3 21.7 ABG pH 7.39 ABG Total CO2 21.0 L ABG O2 Saturation 100.1 H ABG Base Excess -4.1 L Evens Test Yes ABG Potassium 4.1 A-a O2 Difference 105.0 Sodium 132.0 136 Chloride 101.0 101 Glucose 269 H Lactate 1.5 Vent Mode Nc FiO2 32.0 Potassium 3.6 Carbon Dioxide 27 Anion Gap 12 BUN 10 Creatinine 0.7 Est GFR ( Amer) > 60 Est GFR (Non-Af Amer) > 60 Random Glucose 116 H Calcium 8.7 Phosphorus 2.8 Magnesium 2.0 Total Bilirubin 0.9 AST 22 ALT 49 Alkaline Phosphatase 63 Troponin I < 0.0120 NT-Pro-B Natriuret Pep 111 Total Protein 7.1 Albumin 3.8 Globulin 3.3 Albumin/Globulin Ratio 1.1 Arterial Blood Potassium 4.1 10/27/17 13:15 WBC RBC Hgb Hct MCV MCH MCHC RDW Plt Count MPV Neut % (Auto) Lymph % (Auto) [place] % (Auto) Eos % (Auto) Baso % (Auto) Neut # Lymph # [place] # Eos # Baso # PT 11.7 INR 1.1 APTT 29.8 pCO2 pO2 HCO3 ABG pH ABG Total CO2 ABG O2 Saturation ABG Base Excess Evens Test ABG Potassium A-a O2 Difference Sodium Chloride Glucose Lactate Vent Mode FiO2 Potassium Carbon Dioxide Anion Gap BUN Creatinine Est GFR ( Amer) Est GFR (Non-Af Amer) Random Glucose Calcium Phosphorus Magnesium Total Bilirubin AST ALT Alkaline Phosphatase Troponin I NT-Pro-B Natriuret Pep Total Protein Albumin Globulin Albumin/Globulin Ratio Arterial Blood Potassium Assessment & Plan (1) COPD with exacerbation Status: Acute Priority: High (2) Acute bronchitis with chronic obstructive pulmonary disease (COPD) Status: Acute Priority: High (3) DVT prophylaxis Status: Acute (4) Dyspnea Status: Acute - Assessment and Plan (Free Text) Plan: As per orders
[2017-10-27] MEDS ORDERED: methylPREDNISolone 80 MG in Sodium Chloride 0.9% 50 ML IVPB SCH (17:00)
[2017-10-27] MEDS: Enoxaparin 40 mg Syringe SC SCH (20:55)
[2017-10-27] MEDS: Tiotropium 18 mcg Cap For Inhalation IH SCH (20:55)
[2017-10-27] MEDS ORDERED: MethylPREDNISolone 40 mg Vial ONE (20:59)
[2017-10-27] MEDS ORDERED: Promethazine 6.25 MG/5 ML CUP ONE (23:08)
[2017-10-27] MEDS: Promethazine 12.5 mg/10 ml Syrup PO STA (23:30)
[2017-10-28] MEDS: Tiotropium 18 mcg Cap For Inhalation IH SCH (09:02)
[2017-10-28] MEDS: Enoxaparin 40 mg Syringe SC SCH (09:02)
--- NOTE | 2017-10-28 11:31 | CP.PCM.PN ---
Subjective - Date & Time of Evaluation Date of Evaluation: 10/28/17 Time of Evaluation: 11:31 - Subjective Subjective: Patient still in mild SOB. Was placed erroneously as regular admission. Will follow under obs. Objective - Vital Signs/Intake and Output Vital Signs (last 24 hours): Temp Pulse Resp BP Pulse Ox 98 F 95 H 21 130/76 2 L 10/28/17 08:20 10/28/17 10:42 10/28/17 10:42 10/28/17 09:25 10/28/17 10:42 - Medications Medications: Current Medications Albuterol/Ipratropium (Duoneb 3 Mg/0.5 Mg (3 Ml) Ud) 3 ml IH RQ6 PRN PRN Reason: Shortness of Breath Alprazolam (Xanax) 1 mg PO 0900,2099 [facility] Amlodipine Besylate (Norvasc) 5 mg PO DAILY [facility] Last Admin: 10/28/17 08:59 Dose: 5 mg Atorvastatin Calcium (Lipitor) 10 mg PO HS [facility] Last Admin: 10/27/17 21:59 Dose: 10 mg Docusate Sodium (Colace) 100 mg PO DAILY PRN PRN Reason: Constipation Enoxaparin Sodium (Lovenox) 40 mg SC DAILY [facility] PRN Reason: Protocol Last Admin: 10/28/17 09:02 Dose: 40 mg Ferrous Sulfate (Feosol) 325 mg PO DAILY [facility] Last Admin: 10/28/17 08:58 Dose: 325 mg Fluticasone Propionate (Flonase) 1 spr BRIE Q12H PRN PRN Reason: Allergy symptoms Sodium Chloride (Sodium Chloride 0.9%) 500 mls @ 100 mls/hr IV .Q5H [facility] Last Admin: 10/27/17 13:27 Dose: 100 mls/hr Ceftriaxone Sodium 1 gm/ (Sodium Chloride) 50 mls @ 50 mls/hr IVPB DAILY [facility] PRN Reason: Protocol Last Admin: 10/28/17 09:01 Dose: 50 mls/hr Loratadine (Claritin) 10 mg PO DAILY [facility] Last Admin: 10/28/17 08:58 Dose: 10 mg Methylprednisolone (Solu-Medrol) 80 mg IV 0900,2100 [facility] Last Admin: 10/28/17 09:03 Dose: 80 mg Montelukast Sodium (Singulair) 10 mg PO HS [facility] Last Admin: 10/27/17 20:54 Dose: 10 mg Tiotropium [place] (Spiriva) 18 mcg IH DAILY [facility] Last Admin: 10/28/17 09:02 Dose: 18 mcg Zolpidem Tartrate (Ambien) 5 mg PO HS [facility] Last Admin: 10/27/17 23:31 Dose: 5 mg - Labs Labs: 10/27/17 13:15 10/27/17 13:15 PT 11.7 Seconds (9.8-13.1) 10/27/17 13:15 INR 1.1 (0.9-1.2) 10/27/17 13:15 APTT 29.8 Seconds (25.6-37.1) 10/27/17 13:15 - Constitutional Appears: In Acute Distress, Chronically Ill - Head Exam Head Exam: ATRAUMATIC, NORMAL INSPECTION, NORMOCEPHALIC - Eye Exam Eye Exam: Normal appearance - Respiratory Exam Respiratory Exam: Decreased Breath Sounds, Rhonchi, Wheezes - Cardiovascular Exam Cardiovascular Exam: REGULAR RHYTHM, +S1, +S2 - GI/Abdominal Exam GI & Abdominal Exam: Soft, Normal Bowel Sounds - Neurological Exam Neurological Exam: Alert, Awake, CN II-XII Intact, Normal Gait, Oriented x3 - Psychiatric Exam Psychiatric exam: Anxious - Skin Skin Exam: Pallor Assessment and Plan (1) COPD with exacerbation Status: Acute (2) Acute bronchitis with chronic obstructive pulmonary disease (COPD) Status: Acute (3) DVT prophylaxis Status: Acute (4) Dyspnea Status: Acute - Assessment and Plan (Free Text) Plan: Continue present rx
[2017-10-28] MEDS ORDERED: Albuterol 0.083% Inhal Sol (2.5 mg/3 mL) UD INH PRN (15:23)
--- NOTE | 2017-10-28 15:33 | CP.PCM.CON ---
History of Present Illness - History of Present Illness History of Present Illness: This 81-year-old Sami speaking female who is known to me from her last hospitalization presented to the emergency department with acute onset of shortness of breath and wheezing. She had been hospitalized recently and discharged home only 10 days prior because of a similar presentation. She did follow-up with her primary medical doctor as an outpatient, but symptoms persisted and worsened prompting referral to the emergency department. Her initial chest x-ray done in the emergency department did not reveal any new infiltrates or evidence of pleural effusion, but there had noted increased bronchovascular markings bilaterally. She was afebrile on presentation with no leukocytosis. Despite treatment in the emergency department she continued to have respiratory distress and audible wheezing and was placed in observation. Review of Systems - Review of Systems All systems: reviewed and no additional remarkable complaints except - Respiratory Respiratory: Cough, Dyspnea, Wheezing, Excessive Mucous Production Past Patient History - Infectious Disease Hx of Infectious Diseases: None - Tetanus Immunizations Tetanus Immunization: Unknown - Past Medical History & Family History Past Medical History?: Yes - Past Social History Smoking Status: Former Smoker Chewing Tobacco Use: No Cigar Use: No Alcohol: Social Drugs: Denies Home Situation {Lives}: Alone - CARDIAC Hx Atrial Fibrillation: Yes Hx Hypercholesterolemia: Yes Hx Hypertension: Yes - PULMONARY Hx Asthma: Yes Hx Bronchitis: Yes Hx Chronic Obstructive Pulmonary Disease (COPD): Yes Hx Pneumonia: Yes - NEUROLOGICAL Hx Neurological Disorder: No - HEENT Hx HEENT Problems: No - RENAL Hx Chronic Kidney Disease: No - ENDOCRINE/METABOLIC Hx Endocrine Disorders: No - HEMATOLOGICAL/ONCOLOGICAL Hx Blood Disorders: No Hx Human Immunodeficiency Virus (HIV): No Hx Sickle Cell Disease: No - INTEGUMENTARY Hx Dermatological Problems: No - MUSCULOSKELETAL/RHEUMATOLOGICAL Hx Arthritis: Yes Hx Falls: No Hx Fractures: Yes (Left wrist) Hx Osteoporosis: Yes - GASTROINTESTINAL Hx Diverticulitis: Yes Hx Gastritis: Yes Hx Pancreatitis: No Other/Comment: Previous lower GI bleed - GENITOURINARY/GYNECOLOGICAL Hx Genitourinary Disorders: No Hx Sexually Transmitted Disorders: No - PSYCHIATRIC Hx Depression: Yes Hx Substance Use: No - SURGICAL HISTORY Hx Carotid Endarterectomy: No Hx Cholecystectomy: Yes - ANESTHESIA Hx Anesthesia: Yes Hx Anesthesia Reactions: No Hx Malignant Hyperthermia: No Meds Allergies/Adverse Reactions: Allergies Allergy/AdvReac Type Severity Reaction Status Date / Time adhesive tape Allergy ITCHING Verified 10/12/17 14:57 aspirin Allergy ITCHING Verified 10/12/17 14:57 - Medications Medications: Current Medications Albuterol Sulfate (Albuterol 0.083% Inhal Lena (2.5 Mg/3 Ml) Ud) 2.5 mg INH RQ4 PRN PRN Reason: Shortness of Breath Albuterol/Ipratropium (Duoneb 3 Mg/0.5 Mg (3 Ml) Ud) 3 ml INH RQID [facility]AND[facility] Alprazolam (Xanax) 1 mg PO 0900,2099 [facility] Amlodipine Besylate (Norvasc) 5 mg PO DAILY [facility] Last Admin: 10/28/17 08:59 Dose: 5 mg Atorvastatin Calcium (Lipitor) 10 mg PO HS [facility] Last Admin: 10/27/17 21:59 Dose: 10 mg Docusate Sodium (Colace) 100 mg PO DAILY PRN PRN Reason: Constipation Enoxaparin Sodium (Lovenox) 40 mg SC DAILY [facility] PRN Reason: Protocol Last Admin: 10/28/17 09:02 Dose: 40 mg Ferrous Sulfate (Feosol) 325 mg PO DAILY [facility] Last Admin: 10/28/17 08:58 Dose: 325 mg Fluticasone Propionate (Flonase) 1 spr BRIE Q12H PRN PRN Reason: Allergy symptoms Sodium Chloride (Sodium Chloride 0.9%) 500 mls @ 100 mls/hr IV .Q5H [facility] Last Admin: 10/27/17 13:27 Dose: 100 mls/hr Ceftriaxone Sodium 1 gm/ (Sodium Chloride) 50 mls @ 50 mls/hr IVPB DAILY [facility] PRN Reason: Protocol Last Admin: 10/28/17 09:01 Dose: 50 mls/hr Loratadine (Claritin) 10 mg PO DAILY [facility] Last Admin: 10/28/17 08:58 Dose: 10 mg Methylprednisolone (Solu-Medrol) 80 mg IV 899,2099 [facility] Last Admin: 10/28/17 09:03 Dose: 80 mg Montelukast Sodium (Singulair) 10 mg PO HS [facility] Last Admin: 10/27/17 20:54 Dose: 10 mg Zolpidem Tartrate (Ambien) 5 mg PO HS [facility] Last Admin: 10/27/17 23:31 Dose: 5 mg Physical Exam - Additional Findings Additional findings: Well-nourished, well-developed female who is seated on the edge of the bed. She does have cough and moderate dyspnea with conversation. The cough is nonproductive. Pharynx is pink and mucous membranes are moist. No exudate. Nasal passages are patent bilaterally without bleeding or exudate. Neck is supple and trachea midline. No visible neck vein distention. No carotid bruit. No dullness on chest percussion. Equal expansion. Inspiratory and expiratory wheezes are heard bilaterally and rhonchi are heard in the lower lobes of both lungs. No bronchial breath sounds or egophony. Dry rales are heard posteriorly in the lower lobes. Heart sounds were distant and rhythm was regular. Abdomen soft and nontender with normal bowel sounds. No dependent edema. No cyanosis. No calf tenderness or palpable venous cords. Results - Vital Signs Recent Vital Signs: Last Vital Signs Temp 98 F 10/28/17 08:20 Pulse 95 H 10/28/17 10:42 Resp 21 10/28/17 10:42 BP 130/76 10/28/17 09:25 Pulse Ox 2 L 10/28/17 10:42 - Labs Result Diagrams: 10/27/17 13:15 10/27/17 13:15 Labs: Laboratory Results - last 24 hr 10/27/17 20:08 Hemoglobin A1c 6.5 Assessment & Plan (1) COPD with exacerbation Status: Acute Priority: High Comment: Adjusted aerosol therapy. Continue antibiotics and parenteral corticosteroids. Oxygenation has remained fair (90% on room air). Continue mucolytics. - Date & Time Date: 10/28/17 Time: 15:29
[2017-10-28] MEDS: Albuterol-Ipratrop 3 mg / 0.5 (3 ml) UD INH SCH ×2 (16:19→20:18)
[2017-10-28] MEDS: guaiFENesin 600 mg ER Tab PO SCH (21:45)
[2017-10-28] MEDS: Vitamin A/D oint 60G TP SCH (23:41)
[2017-10-28 23:51] VITALS: O2SAT 95
[2017-10-29] MEDS ORDERED: MethylPREDNISolone 40 mg Vial IV SCH (07:36)
[2017-10-29 07:56] VITALS: BP 125/73; PULSE 79; RESP 20; TEMP 97.7
[2017-10-29] MEDS: Albuterol-Ipratrop 3 mg / 0.5 (3 ml) UD INH SCH ×2 (08:11→11:20)
[2017-10-29] MEDS: guaiFENesin 600 mg ER Tab PO SCH (09:28)
[2017-10-29] MEDS: Enoxaparin 40 mg Syringe SC SCH (09:28)
[2017-10-29] MEDS: Sodium Chloride 0.9% 500 ML IV SCH (09:30)
[2017-10-29] MEDS: Vitamin A/D oint 60G TP SCH (09:31)
--- NOTE | 2017-10-29 09:56 | CARD ---
APPROVED REPORT EKG Measurement Heart [id number] <Conclusion> Undetermined rhythm ST & T wave abnormality, consider anterior ischemia Abnormal ECG
--- NOTE | 2017-10-29 11:19 | CP.PCM.PN ---
Subjective - Date & Time of Evaluation Date of Evaluation: 10/29/17 Time of Evaluation: 11:20 - Subjective Subjective: Patient comfortable ambulating with no sign of distress. No CP, No SOB, NO N/V. Objective - Vital Signs/Intake and Output Vital Signs (last 24 hours): Temp Pulse Resp BP Pulse Ox 97.7 F 79 20 125/73 95 10/29/17 07:55 10/29/17 09:29 10/29/17 07:55 10/29/17 09:29 10/29/17 07:55 - Medications Medications: Current Medications Albuterol Sulfate (Albuterol 0.083% Inhal Lena (2.5 Mg/3 Ml) Ud) 2.5 mg INH RQ4 PRN PRN Reason: Shortness of Breath Last Admin: 10/28/17 23:52 Dose: 2.5 mg Albuterol/Ipratropium (Duoneb 3 Mg/0.5 Mg (3 Ml) Ud) 3 ml INH RQID [facility] Last Admin: 10/29/17 08:11 Dose: 3 ml Alprazolam (Xanax) 1 mg PO 0900,2100 [facility] Last Admin: 10/29/17 09:32 Dose: 1 mg Amlodipine Besylate (Norvasc) 5 mg PO DAILY [facility] Last Admin: 10/29/17 09:29 Dose: 5 mg Atorvastatin Calcium (Lipitor) 10 mg PO HS [facility] Last Admin: 10/28/17 21:49 Dose: 10 mg Docusate Sodium (Colace) 100 mg PO DAILY PRN PRN Reason: Constipation Last Admin: 10/29/17 09:29 Dose: 100 mg Enoxaparin Sodium (Lovenox) 40 mg SC DAILY [facility] PRN Reason: Protocol Last Admin: 10/29/17 09:28 Dose: 40 mg Ferrous Sulfate (Feosol) 325 mg PO DAILY [facility] Last Admin: 10/29/17 09:29 Dose: 325 mg Fluticasone Propionate (Flonase) 1 spr BRIE Q12H PRN PRN Reason: Allergy symptoms Guaifenesin (Mucinex La) 600 mg PO Q12 [facility] Last Admin: 10/29/17 09:28 Dose: 600 mg Sodium Chloride (Sodium Chloride 0.9%) 500 mls @ 100 mls/hr IV .Q5H [facility] Last Admin: 10/29/17 09:30 Dose: Not Given Ceftriaxone Sodium 1 gm/ (Sodium Chloride) 50 mls @ 50 mls/hr IVPB DAILY [facility] PRN Reason: Protocol Last Admin: 10/29/17 09:29 Dose: 50 mls/hr Loratadine (Claritin) 10 mg PO DAILY [facility] Last Admin: 10/29/17 09:28 Dose: 10 mg Methylprednisolone (Solu-Medrol) 40 mg IV 0900,2100 [facility] Last Admin: 10/29/17 09:30 Dose: 40 mg Montelukast Sodium (Singulair) 10 mg PO HS [facility] Last Admin: 10/28/17 21:49 Dose: 10 mg Vitamin A (Vitamin A&D) 1 applic TP BID [facility] Last Admin: 10/29/17 09:31 Dose: 1 applic Zolpidem Tartrate (Ambien) 5 mg PO [facility] Last Admin: 10/28/17 23:18 Dose: 5 mg - Labs Labs: 10/27/17 13:15 10/27/17 13:15 PT 11.7 Seconds (9.8-13.1) 10/27/17 13:15 INR 1.1 (0.9-1.2) 10/27/17 13:15 APTT 29.8 Seconds (25.6-37.1) 10/27/17 13:15 - Constitutional Appears: Non-toxic, No Acute Distress - Head Exam Head Exam: ATRAUMATIC, NORMAL INSPECTION, NORMOCEPHALIC - Eye Exam Eye Exam: Normal appearance - ENT Exam ENT Exam: Mucous Membranes Moist - Respiratory Exam Respiratory Exam: Wheezes Additional comments: Few scattered wheezing. - Cardiovascular Exam Cardiovascular Exam: REGULAR RHYTHM, +S1, +S2 - GI/Abdominal Exam GI & Abdominal Exam: Soft, Normal Bowel Sounds - Extremities Exam Extremities Exam: Normal Inspection - Neurological Exam Neurological Exam: Alert, Awake, CN II-XII Intact, Normal Gait, Oriented x3 - Psychiatric Exam Psychiatric exam: Normal Affect - Skin Skin Exam: Normal Color Assessment and Plan (1) COPD with exacerbation Status: Resolved (2) Acute bronchitis with chronic obstructive pulmonary disease (COPD) Status: Resolved (3) DVT prophylaxis Status: Acute (4) Dyspnea Status: Resolved - Assessment and Plan (Free Text) Plan: Will DC patient home on oral steroid. F/U with pulmonary [facility].
--- NOTE | 2017-10-29 11:34 | CP.PCM.PN ---
Subjective - Date & Time of Evaluation Date of Evaluation: 10/29/17 Time of Evaluation: 11:30 - Subjective Subjective: Seated on the EOB. Anxious for discharge to home. Looks improved from the time of admission, but still has PATHAK. No dullness on chest percussion. Scattered sonorous and sibilant rhonchi bilaterally, Dry rales are present in the lower lobes bilaterally. Expiratory phase is still prolonged, but no distinct wheezes heard. She may benefit from adding roflumilast to the regimen. Objective - Vital Signs/Intake and Output Vital Signs (last 24 hours): Temp Pulse Resp BP Pulse Ox 97.7 F 79 20 125/73 95 10/29/17 07:55 10/29/17 09:29 10/29/17 07:55 10/29/17 09:29 10/29/17 07:55 - Medications Medications: Current Medications Albuterol Sulfate (Albuterol 0.083% Inhal Lena (2.5 Mg/3 Ml) Ud) 2.5 mg INH RQ4 PRN PRN Reason: Shortness of Breath Last Admin: 10/28/17 23:52 Dose: 2.5 mg Albuterol/Ipratropium (Duoneb 3 Mg/0.5 Mg (3 Ml) Ud) 3 ml INH RQID [facility] Last Admin: 10/29/17 11:20 Dose: Not Given Alprazolam (Xanax) 1 mg PO 0900,2100 [facility] Last Admin: 10/29/17 09:32 Dose: 1 mg Amlodipine Besylate (Norvasc) 5 mg PO DAILY [facility] Last Admin: 10/29/17 09:29 Dose: 5 mg Atorvastatin Calcium (Lipitor) 10 mg PO HS [facility] Last Admin: 10/28/17 21:49 Dose: 10 mg Docusate Sodium (Colace) 100 mg PO DAILY PRN PRN Reason: Constipation Last Admin: 10/29/17 09:29 Dose: 100 mg Enoxaparin Sodium (Lovenox) 40 mg SC DAILY [facility] PRN Reason: Protocol Last Admin: 10/29/17 09:28 Dose: 40 mg Ferrous Sulfate (Feosol) 325 mg PO DAILY [facility] Last Admin: 10/29/17 09:29 Dose: 325 mg Fluticasone Propionate (Flonase) 1 spr BRIE Q12H PRN PRN Reason: Allergy symptoms Guaifenesin (Mucinex La) 600 mg PO Q12 [facility] Last Admin: 10/29/17 09:28 Dose: 600 mg Sodium Chloride (Sodium Chloride 0.9%) 500 mls @ 100 mls/hr IV .Q5H [facility] Last Admin: 10/29/17 09:30 Dose: Not Given Ceftriaxone Sodium 1 gm/ (Sodium Chloride) 50 mls @ 50 mls/hr IVPB DAILY [facility] PRN Reason: Protocol Last Admin: 10/29/17 09:29 Dose: 50 mls/hr Loratadine (Claritin) 10 mg PO DAILY [facility] Last Admin: 10/29/17 09:28 Dose: 10 mg Methylprednisolone (Solu-Medrol) 40 mg IV 0900,2100 [facility] Last Admin: 10/29/17 09:30 Dose: 40 mg Montelukast Sodium (Singulair) 10 mg PO HS [facility] Last Admin: 10/28/17 21:49 Dose: 10 mg Vitamin A (Vitamin A&D) 1 applic TP BID [facility] Last Admin: 10/29/17 09:31 Dose: 1 applic Zolpidem Tartrate (Ambien) 5 mg PO HS [facility] Last Admin: 10/28/17 23:18 Dose: 5 mg - Labs Labs: 10/27/17 13:15 10/27/17 13:15 PT 11.7 Seconds (9.8-13.1) 10/27/17 13:15 INR 1.1 (0.9-1.2) 10/27/17 13:15 APTT 29.8 Seconds (25.6-37.1) 10/27/17 13:15 Assessment and Plan (1) COPD with exacerbation Status: Resolved
== END 2017-10-29 12:35 | disposition home or self-care (01) ==
LOC: H.ER 12:12 → H.ERHOLD 14:10 → OBSVTOIN 10-28 08:50 → INTOOBSV 10-28 08:50 → H.ERHOLD 10-28 09:46 → H.MEDSURG1 10-28 09:46
PROVIDERS: ADMIT Internal Medicine; ATTEND Internal Medicine
DX: J44.1 Chronic obstructive pulmonary disease with (acute) exacerbation (principal); Z88.6 Allergy status to analgesic agent; J45.909 Unspecified asthma, uncomplicated; M19.90 Unspecified osteoarthritis, unspecified site; I48.91 Unspecified atrial fibrillation; F32.9 Major depressive disorder, single episode, unspecified; K29.70 Gastritis, unspecified, without bleeding; I10 Essential (primary) hypertension; E78.00 Pure hypercholesterolemia, unspecified; M81.0 Age-related osteoporosis without current pathological fracture
CPT/HCPCS: 71045; 80053; 82803; 83036; 83735; 83880; 84100; 84484; 85025; 85610; 85730; 87040; 93005; 94640; 96365; 96372; 97166; 99285; G0378; G8987; G8988; G8989; J0696; J1650; J2920; J2930; J7040

== ENCOUNTER 2017-11-24 21:26 | Emergency (ER) | payer OTHER ==
[2017-11-24 21:26] VITALS: BMI 25.0
[2017-11-24 21:32] VITALS: BP 158/83; PULSE 88; RESP 16; TEMP 98; O2SAT 100
[2017-11-24] MEDS ORDERED: Albuterol-Ipratrop 3 mg / 0.5 (3 ml) UD INH STA (21:40)
--- NOTE | 2017-11-24 22:35 | ED PDOC ---
HPI: Psych/Substance Abuse Time Seen by Provider: 11/24/17 21:36 Chief Complaint (Nursing): Anxiety Chief Complaint (Provider): anxiety History Per: Patient Onset/Duration Of Symptoms: Sudden Onset Current Symptoms Are (Timing): Still Present Additional Complaint(s): 82 year old female with medical history of COPD, presents to the emergency department with a complaint of anxiety and shortness of breath that began when patient was informed of her 54 year old son's passing tonight. Patient is crying and hyperventilating in triage room. She stated that son unexpectedly yesterday when he had sudden chest pains at work. Patient reported taking Ativan 1mg prior to arrival. PMD: Inocencio Navarro MD Past Medical History Reviewed: Historical Data, Nursing Documentation, Vital Signs Vital Signs: Last Vital Signs Temp 98.0 F 11/24/17 21:28 Pulse 88 11/24/17 21:28 Resp 16 11/24/17 21:28 BP 158/83 H 11/24/17 21:28 Pulse Ox 100 11/24/17 21:28 - Medical History PMH: Arthritis, Asthma, Atrial Fibrillation, Bronchitis, COPD, Depression, Diverticulitis, Fractures (Left wrist), Gastritis, HTN, Hypercholesterolemia, Osteoporosis, Pneumonia Denies: Alzheimer's Disease, Anemia, Bipolar Disorder, CAD, Cardia Arrhythmia , CHF, Crohn's Disease, Dementia, Emphysema, Gall Bladder Disease, HIV, Hyperthyroidism, Hypothyroidism, Kidney Stones, Migraine, Mitral Valve Prolapse , Multiple Sclerosis, Pancreatitis, Paranoia, Parkinson's Disease, Peripheral Edema, Post Traumatic Stress Disorder, Pulmonary Embolism, Chronic Kidney Disease, Rheumatoid Arthritis, Schizophrenia, Seizures, Sickle Cell Disease, Sexually Transmitted Disease, Sleep Apnea, TIA - Surgical History Surgical History: Cholecystectomy, Endoscopy, Denies: Appendectomy, CABG, Carotid Endarterectomy, Coronary Stent, Pacemaker , Tonsillectomy - Family History Family History: States: Unknown Family Hx, Hypertension - Social History Current smoker - smoking cessation education provided: No Ex-Smoker (has not smoked in the last 12 months): No Alcohol: None Drugs: Denies - Immunization History Hx Tetanus Toxoid Vaccination: No Hx Influenza Vaccination: Yes Hx Pneumococcal Vaccination: Yes - Home Medications Home Medications: Ambulatory Orders Medication Instructions Recorded ALPRAZolam [Xanax] 1 mg PO Q12H 03/17/17 Albuterol Sulfate [Proair Hfa] 1 puff IH Q6H PRN 03/17/17 Albuterol/Ipratropium [Duoneb 3 3 ml IH Q6H PRN 03/17/17 mg/0.5 mg (3 ml) UD] Atorvastatin [Lipitor] 10 mg PO HS 03/17/17 Montelukast [Singulair] 10 mg PO HS 03/17/17 Zolpidem [Ambien] 10 mg PO HS 03/17/17 amLODIPine [Norvasc] 5 mg PO DAILY 03/17/17 Ferrous Sulfate [Feosol] 325 mg PO DAILY 08/26/17 Loratadine [Claritin] 10 mg PO DAILY 08/26/17 Tiotropium [Spiriva] 18 mcg IH DAILY 08/26/17 Docusate [Colace] 100 mg PO DAILY PRN 10/27/17 Fluticasone Nasal [Flonase] 1 spray BRIE Q12H PRN 10/27/17 Albuterol 0.083% [Albuterol 0.083% 2.5 mg INH RQ4 PRN neb 10/29/17 Inhal Lena (2.5 mg/3 ml) UD] Methylprednisolone [Medrol Dose 4 mg PO DAILY #21 mg 10/29/17 Pack (21 tabs)] Zolpidem [Ambien] 5 mg PO HS tab 10/29/17 Acetaminophen [Tylenol 325mg tab] 650 mg PO Q6 PRN #30 tab 11/16/17 Cyclobenzaprine [Flexeril] 10 mg PO BID PRN #15 tab 11/16/17 - Allergies Allergies/Adverse Reactions: Allergies Allergy/AdvReac Type Severity Reaction Status Date / Time adhesive tape Allergy ITCHING Verified 11/24/17 21:28 aspirin Allergy ITCHING Verified 11/24/17 21:28 Review of Systems ROS Statement: Except As Marked, All Systems Reviewed And Found Negative Respiratory: Positive for: Shortness of Breath Psych: Positive for: Anxiety Physical Exam - Reviewed Nursing Documentation Reviewed: Yes Vital Signs Reviewed: Yes - Physical Exam Appears: Positive for: In Acute Distress (mild). Negative for: No Acute Distress Head Exam: Positive for: ATRAUMATIC, NORMAL INSPECTION, NORMOCEPHALIC Skin: Positive for: Normal Color Eye Exam: Positive for: Normal appearance Neck: Positive for: Normal Cardiovascular/Chest: Positive for: Regular Rate, Rhythm Respiratory: Positive for: Wheezing (bilateral slightly). Negative for: Normal Breath Sounds, Respiratory Distress Neurologic/Psych: Positive for: Alert, Oriented, Mood/Affect (anxious and crying ) - ECG O2 Sat by Pulse Oximetry: 100 (RA) Pulse Ox Interpretation: Normal Medical Decision Making Medical Decision Making: Initial Impression: Acute anxiety Initial Plan: * EKG * Crisis evaluation * Ativan 2mg IM * Duoneb 3ml INH * Peak flow pre/post treatment Time: 2250 --Upon provider reevaluation, patient is medically stable and requires no further treatment in the ED at this time. Patient will be discharged home. Counseling was provided and all questions were answered regarding diagnosis. There is agreement to discharge plan. Return if symptoms persist or worsen. Clinical Impression: Acute anxiety; Grief reaction Scribe Attestation: Documented by Milka Pascal, acting as a scribe for Guevara Foote MD. Provider Scribe Attestation: All medical record entries made by the Scribe were at my direction and personally dictated by me. I have reviewed the chart and agree that the record accurately reflects my personal performance of the history, physical exam, medical decision making, and the department course for this patient. I have also personally directed, reviewed, and agree with the discharge instructions and disposition. Disposition - Clinical Impression Clinical Impression: Anxiety attack, Grief reaction - Patient ED Disposition Is Patient to be Admitted: No Counseled Patient/Family Regarding: Studies Performed, Diagnosis - Disposition Disposition: Routine/Home Disposition Time: 22:50 Condition: STABLE Instructions: Dealing With , Adult Forms: [facility] (Ghanaian)
--- NOTE | 2017-11-25 11:42 | CARD ---
APPROVED REPORT EKG Measurement Heart [id number] <Conclusion> Sinus tachycardia Otherwise normal ECG
== END 2017-11-24 22:47 | disposition home or self-care (01) ==
LOC: H.ER 21:26
DX: F43.22 Adjustment disorder with anxiety (principal); I10 Essential (primary) hypertension; Z86.59 Personal history of other mental and behavioral disorders; Z87.891 Personal history of nicotine dependence; J44.9 Chronic obstructive pulmonary disease, unspecified; M81.0 Age-related osteoporosis without current pathological fracture; I48.91 Unspecified atrial fibrillation
CPT/HCPCS: 93005; 94640; 96372; 99281; J2060

== ENCOUNTER 2017-12-12 07:00 | Observation (INO) | payer OTHER ==
[2017-12-12 07:09] VITALS: BMI 24.5
[2017-12-12] MEDS ORDERED: Albuterol-Ipratrop 3 mg / 0.5 (3 ml) UD INH STA ×3 (07:27→07:28)
--- NOTE | 2017-12-12 07:28 | ED PDOC ---
HPI: SOB/CHF/COPD Time Seen by Provider: 12/12/17 07:17 Chief Complaint (Provider): Cough, SOB History Per: Patient History/Exam Limitations: no limitations Onset/Duration Of Symptoms: Hrs Current Symptoms Are (Timing): Still Present Associated Symptoms: Chest Pain, Productive Cough. denies: Fever, Chills Additional Complaint(s): 82yo female with history of hypertension, anxiety, COPD, chronic anemia, presents to ED with complaints of a productive cough and worsening shortness of breath since this morning. She reports associated chest pain as well as abdominal pain due to the cough. She denies any fever, chills, vomiting. Patient is on O2 at home but only uses it as needed, states she did not use her oxygen at home today. She also reports taking a breathing treatment last night with no relief. PCP: Dr. Navarro Past Medical History Reviewed: Historical Data, Nursing Documentation, Vital Signs Vital Signs: Last Vital Signs Temp 97.5 F L 12/14/17 08:00 Pulse 79 12/14/17 09:53 Resp 18 12/14/17 08:00 BP 125/67 12/14/17 09:53 Pulse Ox 95 12/14/17 08:00 - Medical History PMH: Arthritis, Asthma, Atrial Fibrillation, Bronchitis, COPD, Depression, Diverticulitis, Fractures (Left wrist), Gastritis, HTN, Hypercholesterolemia, Osteoporosis, Pneumonia Denies: Alzheimer's Disease, Anemia, Bipolar Disorder, CAD, Cardia Arrhythmia , CHF, Crohn's Disease, Dementia, Emphysema, Gall Bladder Disease, HIV, Hyperthyroidism, Hypothyroidism, Kidney Stones, Migraine, Mitral Valve Prolapse , Multiple Sclerosis, Pancreatitis, Paranoia, Parkinson's Disease, Peripheral Edema, Post Traumatic Stress Disorder, Pulmonary Embolism, Chronic Kidney Disease, Rheumatoid Arthritis, Schizophrenia, Seizures, Sickle Cell Disease, Sexually Transmitted Disease, Sleep Apnea, TIA - Surgical History Surgical History: Cholecystectomy, Endoscopy, Denies: Appendectomy, CABG, Carotid Endarterectomy, Coronary Stent, Pacemaker , Tonsillectomy - Family History Family History: States: Unknown Family Hx, Hypertension - Immunization History Hx Tetanus Toxoid Vaccination: No Hx Influenza Vaccination: Yes Hx Pneumococcal Vaccination: Yes - Home Medications Home Medications: Ambulatory Orders Medication Instructions Recorded ALPRAZolam [Xanax] 1 mg PO Q12H 03/17/17 Atorvastatin [Lipitor] 10 mg PO HS 03/17/17 Montelukast [Singulair] 10 mg PO HS 03/17/17 Zolpidem [Ambien] 10 mg PO HS 03/17/17 amLODIPine [Norvasc] 5 mg PO DAILY 03/17/17 Ferrous Sulfate [Feosol] 325 mg PO DAILY 08/26/17 Loratadine [Claritin] 10 mg PO DAILY 08/26/17 Tiotropium [Spiriva] 18 mcg IH DAILY 08/26/17 Docusate [Colace] 100 mg PO DAILY PRN 10/27/17 Fluticasone Nasal [Flonase] 1 spray BRIE Q12H PRN 10/27/17 Albuterol 0.083% [Albuterol 0.083% 2.5 mg INH RQ4 PRN neb 10/29/17 Inhal Lena (2.5 mg/3 ml) UD] Zolpidem [Ambien] 5 mg PO HS tab 10/29/17 Acetaminophen [Tylenol 325mg tab] 650 mg PO Q6 PRN #30 tab 11/16/17 Cyclobenzaprine [Flexeril] 10 mg PO BID PRN #15 tab 11/16/17 Methylprednisolone [Medrol Dose 4 mg PO ASDIR #21 mg 12/14/17 Pack (21 tabs)] - Allergies Allergies/Adverse Reactions: Allergies Allergy/AdvReac Type Severity Reaction Status Date / Time adhesive tape Allergy ITCHING Verified 11/24/17 21:28 aspirin Allergy ITCHING Verified 11/24/17 21:28 Review of Systems ROS Statement: Except As Marked, All Systems Reviewed And Found Negative Constitutional: Negative for: Fever, Chills Cardiovascular: Positive for: Chest Pain Respiratory: Positive for: Cough, Shortness of Breath, Sputum Gastrointestinal: Positive for: Abdominal Pain. Negative for: Vomiting Physical Exam - Reviewed Nursing Documentation Reviewed: Yes Vital Signs Reviewed: Yes - Physical Exam Appears: Positive for: Non-toxic Head Exam: Positive for: ATRAUMATIC, NORMAL INSPECTION, NORMOCEPHALIC Skin: Positive for: Normal Color Eye Exam: Positive for: Normal appearance, EOMI, PERRL ENT: Negative for: Pharyngeal Erythema, Tonsillar Exudate, Tonsillar Swelling Neck: Positive for: Supple Cardiovascular/Chest: Positive for: Regular Rate, Rhythm Respiratory: Positive for: Accessory Muscle Use (mils), Wheezing (bilateral) Gastrointestinal/Abdominal: Positive for: Normal Exam, Soft. Negative for: Tenderness Back: Positive for: Normal Inspection Extremity: Positive for: Normal ROM. Negative for: Pedal Edema Neurologic/Psych: Positive for: Alert, Oriented. Negative for: Motor/Sensory Deficits - Laboratory Results Result Diagrams: 12/12/17 10:20 12/14/17 05:20 - ECG O2 Sat by Pulse Oximetry: 99 (RA) Pulse Ox Interpretation: Normal Nebulizer Treatments/Peak Flow - Duonebs Number of Bronchodilator Doses given?: 1 - Steroid Treatment Steroid: IV - Clinical Response Clinical Response: Unchanged Medical Decision Making Medical Decision Making: Impression: COPD exacerbation, rule out pneumonia, ACS Plan: -- Chest x-ray -- Labs -- Duoneb 3ml INH x 3 -- Solumedrol 125mg IVP -- EKG Time: 1008 Upon re-evaluation, patient states she still feels short of breath and her symptoms have not improved. Scribe Attestation: Documented by Macey Francisco acting as a scribe for Leonid Brooks MD. Provider Attestation: All medical record entries made by the Scribe were at my direction and personally dictated by me. I have reviewed the chart and agree that the record accurately reflects my personal performance of the history, physical exam, medical decision making, and the department course for this patient. I have also personally directed, reviewed, and agree with the discharge instructions and disposition. Disposition - Clinical Impression Clinical Impression: COPD (chronic obstructive pulmonary disease) - Patient ED Disposition Is Patient to be Admitted: Yes Discussed With : Inocencio Navarro Doctor Will See Patient In The: Hospital - Disposition Disposition Time: 10:00 Condition: FAIR - Pt Status Changed To: Hospital Disposition Of: Observation - POA Present On Arrival: None
[2017-12-12] MEDS ORDERED: Albuterol-Ipratrop 3 mg / 0.5 (3 ml) UD ONE (07:45)
[2017-12-12 08:01] LABS: ABG ALLEN TEST YES; ARTERIAL BLOOD GAS HCO3 27.6 mmol/L (21-28); ARTERIAL BLOOD GAS HEMOGLOBIN 13.7 g/dL (11.7-17.4); ARTERIAL BLOOD GAS O2 CAPACITY 18.7 mL/dL (16-24); ARTERIAL BLOOD GAS O2 CONTENT 18.8 ML/dL (15-23); ARTERIAL BLOOD GAS O2 SAT 100.8 % (95-98); ARTERIAL BLOOD GAS PCO2 40 mm/Hg (35-45); ARTERIAL BLOOD GAS PH 7.45 (7.35-7.45); ARTERIAL BLOOD GAS PO2 130 mm/Hg (80-100)
--- NOTE | 2017-12-12 09:21 | RAD ---
PROCEDURE: CHEST RADIOGRAPH, 1 VIEW HISTORY: chest pain COMPARISON: 10/27/2017 FINDINGS: LUNGS: Clear. PLEURA: No pneumothorax or pleural fluid seen. CARDIOVASCULAR: No CHF. Heart is unchanged. OSSEOUS STRUCTURES: No significant abnormalities. VISUALIZED UPPER ABDOMEN: Normal. OTHER FINDINGS: None. IMPRESSION: No active disease.
[2017-12-12] MEDS ORDERED: Promethazine/Cod 6.25mg-10mg/5ml Syr UD PO STA (10:10)
[2017-12-12] MEDS ORDERED: Promethazine/Cod 6.25mg-10mg/5ml Syr UD ONE (10:13)
[2017-12-12] MEDS ORDERED: levoFLOXacin 500 mg in D5W 500 MG/100 ML BAG IVPB STA (10:35)
[2017-12-12 10:50] LABS: BASO % 0.3 % (0.0-2.0); EOS # 0.1 K/uL (0.0-0.7); EOS % 0.4 % (0.0-4.0); HEMOGLOBIN 13.7 g/dL (12.0-16.0); LYMPH # 0.9 K/uL (1.0-4.3); MEAN CELL VOLUME 88.7 fl (81.0-99.0); MEAN CORPUSCULAR HEMOGLOBIN 29.9 pg (27.0-31.0); MEAN CORPUSCULAR HGB CONC 33.7 g/dL (33.0-37.0); MEAN PLATELET VOLUME 8.8 fl (7.2-11.7); MONO # 0.2 K/uL (0.0-0.8); MONO % 1.1 % (0.0-10.0); NEUT # 13.2 K/uL (1.8-7.0); NEUT % 92.2 % (50.0-75.0); PLATELET COUNT 265 K/uL (130-400); RBC 4.56 Mil/uL (3.80-5.20); RED CELL DISTRIBUTION WIDTH 14.6 % (11.5-14.5); WHITE BLOOD COUNT 14.3 K/uL (4.8-10.8)
[2017-12-12 10:55] LABS: BLOOD UREA NITROGEN 10 mg/dl (7-17); CALCIUM 9.6 mg/dL (8.4-10.2); GFR AFRICAN-AMERICAN > 60; GFR NON-AFRICAN AMERICAN > 60
[2017-12-12] MEDS ORDERED: levoFLOXacin 500 mg in D5W 500 MG/100 ML BAG IVPB ONE (11:02)
[2017-12-12 13:02] LABS: EOSINOPHIL 1 % (0-7); LYMPHOCYTE 4 % (20-50); MONOCYTE 2 % (0-10); NEUTROPHIL 93 % (42-75); PLATELET ESTIMATE NORMAL (NORMAL); TOTAL CELLS COUNTED 100
[2017-12-12 13:04] LABS: ANISOCYTOSIS SLIGHT
--- NOTE | 2017-12-12 14:53 | CARD ---
APPROVED REPORT EKG Measurement Heart [id number] NM [id number] <Conclusion> Unusual P axis and short NM, probable junctional rhythm with premature supraventricular complexes Abnormal ECG
[2017-12-12] MEDS: Enoxaparin 40 mg Syringe SC SCH (16:25)
[2017-12-12] MEDS ORDERED: Potassium Chloride 20 mEq ER Tab PO ONE (16:37)
--- NOTE | 2017-12-12 16:42 | CP.PCM.HP ---
History of Present Illness - History of Present Illness History of Present Illness: Pt. with SOB, cough, congestion. Long hx of asthma, COPD. Severe anxiety ( patient has a recent in the family). No weakness. No chest pain, back pain, body aches. No fever. No nausea, vomit, diarrhea. Multiple admission for exa of COPD Present on Admission - Present on Admission Any Indicators Present on Admission: No Review of Systems - Constitutional Constitutional: As Per HPI - EENT Eyes: As Per HPI - Cardiovascular Cardiovascular: As Per HPI - Respiratory Respiratory: As Per HPI - Gastrointestinal Gastrointestinal: As Per HPI - Musculoskeletal Musculoskeletal: As Per HPI - Neurological Neurological: As Per HPI - Psychiatric Psychiatric: As Per HPI Past Patient History - Infectious Disease Hx of Infectious Diseases: None - Tetanus Immunizations Tetanus Immunization: Unknown - Past Medical History & Family History Past Medical History?: Yes - Past Social History Smoking Status: Never Smoked - CARDIAC Hx Cardiac Disorders: Yes Hx Hypercholesterolemia: Yes Hx Hypertension: Yes - PULMONARY Hx Respiratory Disorders: Yes Other/Comment: uses home Oxygen PRN - NEUROLOGICAL Hx Neurological Disorder: No Hx Alzheimer's Disease: No Hx Dementia: No Hx Migraine: No Hx Multiple Sclerosis: No Hx Parkinson's Disease: No Hx Seizures: No Hx Transient Ischemic Attacks (TIA): No - HEENT Hx HEENT Problems: No - RENAL Hx Chronic Kidney Disease: No - ENDOCRINE/METABOLIC Hx Endocrine Disorders: No - HEMATOLOGICAL/ONCOLOGICAL Hx Blood Disorders: No Hx Human Immunodeficiency Virus (HIV): No Hx Sickle Cell Disease: No - INTEGUMENTARY Hx Dermatological Problems: No - MUSCULOSKELETAL/RHEUMATOLOGICAL Hx Musculoskeletal Disorders: Yes Hx Arthritis: Yes Hx Falls: No Hx Osteoporosis: Yes - GASTROINTESTINAL Hx Gastrointestinal Disorders: Yes Hx Crohn's Disease: No Hx Gall Bladder Disease: No Hx Gastritis: Yes Hx Pancreatitis: No - GENITOURINARY/GYNECOLOGICAL Hx Genitourinary Disorders: No Hx Sexually Transmitted Disorders: No - PSYCHIATRIC Hx Psychophysiologic Disorder: Yes Hx Depression: Yes Hx Substance Use: No Other/Comment: Pts son recently ( a month ago) - SURGICAL HISTORY Hx Appendectomy: No Hx Carotid Endarterectomy: No Hx Cholecystectomy: Yes Hx Coronary Artery Bypass Graft: No Hx Coronary Stent: No Hx Tonsillectomy: No - ANESTHESIA Hx Anesthesia: Yes Hx Anesthesia Reactions: No Hx Malignant Hyperthermia: No Has any member of the family had a problem w/ anesthesia?: No Meds Allergies/Adverse Reactions: Allergies Allergy/AdvReac Type Severity Reaction Status Date / Time adhesive tape Allergy ITCHING Verified 11/24/17 21:28 aspirin Allergy ITCHING Verified 11/24/17 21:28 Physical Exam - Constitutional Appears: Agitated, Chronically Ill - Head Exam Head Exam: NORMAL INSPECTION - Eye Exam Eye Exam: Normal appearance - ENT Exam ENT Exam: Mucous Membranes Moist - Neck Exam Neck exam: Positive for: Full Rom - Respiratory Exam Respiratory Exam: Decreased Breath Sounds, Wheezes - Cardiovascular Exam Cardiovascular Exam: REGULAR RHYTHM, +S1, +S2 - GI/Abdominal Exam GI & Abdominal Exam: Normal Bowel Sounds - Extremities Exam Extremities exam: Positive for: normal inspection - Neurological Exam Neurological exam: Alert, CN II-XII Intact, Oriented x3, Reflexes Normal - Psychiatric Exam Psychiatric exam: Anxious - Skin Skin Exam: Normal Color Results - Vital Signs Recent Vital Signs: Last Vital Signs Temp 98.2 F 12/12/17 12:00 Pulse 86 12/12/17 12:00 Resp 18 12/12/17 12:00 BP 125/53 L 12/12/17 12:00 Pulse Ox 96 12/12/17 12:00 - Labs Result Diagrams: 12/12/17 10:20 12/12/17 10:20 Labs: Laboratory Results - last 24 hr 12/12/17 12/12/17 12/12/17 07:55 10:20 10:20 WBC 14.3 H RBC 4.56 Hgb 13.7 Hct 40.5 MCV 88.7 MCH 29.9 MCHC 33.7 RDW 14.6 H Plt Count 265 D MPV 8.8 Neut % (Auto) 92.2 H Lymph % (Auto) 6.0 L Murray % (Auto) 1.1 Eos % (Auto) 0.4 Baso % (Auto) 0.3 Neut # (Auto) 13.2 H Lymph # (Auto) 0.9 L Murray # (Auto) 0.2 Eos # (Auto) 0.1 Baso # (Auto) 0.0 Neutrophils % (Manual) 93 H Lymphocytes % (Manual) 4 L Monocytes % (Manual) 2 Eosinophils % (Manual) 1 Platelet Estimate Normal Anisocytosis (manual) Slight pCO2 40 pO2 130 H HCO3 27.6 ABG pH 7.45 ABG Total CO2 29.0 H ABG O2 Saturation 100.8 H ABG O2 Content 18.8 ABG Base Excess 3.5 H ABG Hemoglobin 13.7 ABG Carboxyhemoglobin 2.2 H POC ABG HHb (Measured) -0.8 L ABG Methemoglobin 2.0 ABG O2 Capacity 18.7 Evens Test Yes A-a O2 Difference -30.0 Hgb O2 Saturation 96.6 FiO2 21.0 Sodium 144 Potassium 3.3 L Chloride 101 Carbon Dioxide 26 Anion Gap 20 BUN 10 Creatinine 0.7 Est GFR ( Amer) > 60 Est GFR (Non-Af Amer) > 60 Random Glucose 242 H Calcium 9.6 Troponin I < 0.0120 Assessment & Plan (1) Depression Status: Chronic (2) DVT prophylaxis Status: Acute (3) COPD bronchitis Status: Acute (4) COPD with exacerbation Status: Acute Priority: High (5) Anxiety attack Status: Acute (6) Grief reaction Status: Acute - Assessment and Plan (Free Text) Plan: As per orders.
[2017-12-12] MEDS ORDERED: methylPREDNISolone 40 MG in Sodium Chloride 0.9% 50 ML IVPB SCH (17:00)
[2017-12-12] MEDS: MethylPREDNISolone 40 mg Vial IVP SCH (17:41)
[2017-12-13] MEDS: MethylPREDNISolone 40 mg Vial IVP SCH ×3 (00:27→17:40)
[2017-12-13 08:49] LABS: BLOOD UREA NITROGEN 19 mg/dl (7-17); CALCIUM 9.9 mg/dL (8.4-10.2); GFR AFRICAN-AMERICAN > 60; GFR NON-AFRICAN AMERICAN > 60
[2017-12-13] MEDS: Enoxaparin 40 mg Syringe SC SCH (08:54)
[2017-12-13] MEDS: Tiotropium 18 mcg Cap For Inhalation IH SCH (08:55)
[2017-12-13] MEDS ORDERED: levoFLOXacin 500 mg in D5W 500 MG/100 ML BAG IVPB SCH (09:00)
--- NOTE | 2017-12-13 14:32 | CP.PCM.PN ---
Subjective - Date & Time of Evaluation Date of Evaluation: 12/13/17 Time of Evaluation: 14:32 - Subjective Subjective: Patient improving well Objective - Vital Signs/Intake and Output Vital Signs (last 24 hours): Temp Pulse Resp BP Pulse Ox 98.1 F 90 18 123/63 95 12/13/17 11:46 12/13/17 11:46 12/13/17 11:46 12/13/17 11:46 12/13/17 11:46 - Medications Medications: Current Medications Acetaminophen (Tylenol 325mg Tab) 650 mg PO Q6 PRN PRN Reason: pain/fever Alprazolam (Xanax) 1 mg PO Q12H [facility] Last Admin: 12/13/17 08:59 Dose: 1 mg Amlodipine Besylate (Norvasc) 5 mg PO DAILY [facility] Last Admin: 12/13/17 08:55 Dose: 5 mg Atorvastatin Calcium (Lipitor) 10 mg PO HS [facility] Last Admin: 12/12/17 21:10 Dose: 10 mg Cyclobenzaprine HCl (Flexeril) 10 mg PO BID PRN PRN Reason: Muscle spasm Docusate Sodium (Colace) 100 mg PO DAILY PRN PRN Reason: Constipation Last Admin: 12/12/17 21:14 Dose: 100 mg Enoxaparin Sodium (Lovenox) 40 mg SC DAILY [facility] PRN Reason: Protocol Last Admin: 12/13/17 08:54 Dose: 40 mg Ferrous Sulfate (Feosol) 325 mg PO DAILY [facility] Last Admin: 12/13/17 08:54 Dose: 325 mg Fluticasone Propionate (Flonase) 1 spr BRIE Q12H PRN PRN Reason: Allergy symptoms Loratadine (Claritin) 10 mg PO DAILY [facility] Last Admin: 12/13/17 08:54 Dose: 10 mg Methylprednisolone (Solu-Medrol) 40 mg IVP Q8H [facility] Last Admin: 12/13/17 08:54 Dose: 40 mg Montelukast Sodium (Singulair) 10 mg PO HS [facility] Last Admin: 12/12/17 21:11 Dose: 10 mg Tiotropium [place] (Spiriva) 18 mcg IH DAILY [facility] Last Admin: 12/13/17 08:55 Dose: 18 mcg Zolpidem Tartrate (Ambien) 5 mg PO HS [facility] Last Admin: 12/12/17 23:36 Dose: 5 mg - Labs Labs: 03/17/18 10:20 12/13/17 06:08 - Constitutional Appears: Chronically Ill - Head Exam Head Exam: NORMAL INSPECTION - Eye Exam Eye Exam: Normal appearance - Neck Exam Neck Exam: Full ROM - Respiratory Exam Respiratory Exam: Decreased Breath Sounds - Cardiovascular Exam Cardiovascular Exam: REGULAR RHYTHM, +S1, +S2 - GI/Abdominal Exam GI & Abdominal Exam: Normal Bowel Sounds - Extremities Exam Extremities Exam: Full ROM - Neurological Exam Neurological Exam: Alert, Awake, CN II-XII Intact, Oriented x3 - Psychiatric Exam Psychiatric exam: Anxious - Skin Skin Exam: Intact Assessment and Plan (1) Depression Status: Chronic (2) DVT prophylaxis Status: Acute (3) COPD bronchitis Status: Acute (4) COPD with exacerbation Status: Acute (5) Anxiety attack Status: Acute (6) Grief reaction Status: Acute
[2017-12-13] MEDS: guaiFENesin DM 200 mg-20 mg/10 ml UD PO PRN (17:40)
[2017-12-14] MEDS: MethylPREDNISolone 40 mg Vial IVP SCH (00:12)
[2017-12-14] MEDS: guaiFENesin DM 200 mg-20 mg/10 ml UD PO PRN (00:13)
[2017-12-14 06:23] LABS: BLOOD UREA NITROGEN 21 mg/dl (7-17); CALCIUM 9.8 mg/dL (8.4-10.2); GFR AFRICAN-AMERICAN > 60; GFR NON-AFRICAN AMERICAN > 60
[2017-12-14 08:14] VITALS: BP 125/67; RESP 18; TEMP 97.5
[2017-12-14] MEDS ORDERED: MethylPREDNISolone 40 mg Vial IVP SCH (09:00)
--- NOTE | 2017-12-14 09:50 | CP.PCM.PN ---
Subjective - Date & Time of Evaluation Date of Evaluation: 12/14/17 Time of Evaluation: 09:50 - Subjective Subjective: Patient well not in distress, comfortable, no sob no cp no fever O2 sat nl. Objective - Vital Signs/Intake and Output Vital Signs (last 24 hours): Temp Pulse Resp BP Pulse Ox 97.5 F L 82 18 125/67 95 12/14/17 08:00 12/14/17 08:00 12/14/17 08:00 12/14/17 08:00 12/14/17 08:00 - Medications Medications: Current Medications Acetaminophen (Tylenol 325mg Tab) 650 mg PO Q6 PRN PRN Reason: pain/fever Alprazolam (Xanax) 1 mg PO Q12H [facility] Last Admin: 12/13/17 21:43 Dose: 1 mg Amlodipine Besylate (Norvasc) 5 mg PO DAILY [facility] Last Admin: 12/13/17 08:55 Dose: 5 mg Atorvastatin Calcium (Lipitor) 10 mg PO HS [facility] Last Admin: 12/13/17 21:44 Dose: 10 mg Cyclobenzaprine HCl (Flexeril) 10 mg PO BID PRN PRN Reason: Muscle spasm Docusate Sodium (Colace) 100 mg PO DAILY PRN PRN Reason: Constipation Last Admin: 12/12/17 21:14 Dose: 100 mg Enoxaparin Sodium (Lovenox) 40 mg SC DAILY [facility] PRN Reason: Protocol Last Admin: 12/13/17 08:54 Dose: 40 mg Ferrous Sulfate (Feosol) 325 mg PO DAILY [facility] Last Admin: 12/13/17 08:54 Dose: 325 mg Fluticasone Propionate (Flonase) 1 spr BRIE Q12H PRN PRN Reason: Allergy symptoms Guaifenesin/Dextromethorphan (Robitussin Dm) 10 ml PO Q6 PRN PRN Reason: Cough Last Admin: 12/14/17 00:13 Dose: 10 ml Loratadine (Claritin) 10 mg PO DAILY [facility] Last Admin: 12/13/17 08:54 Dose: 10 mg Methylprednisolone (Solu-Medrol) 40 mg IVP Q12 SANDIE Montelukast Sodium (Singulair) 10 mg PO HS [facility] Last Admin: 12/13/17 21:43 Dose: 10 mg Tiotropium [place] (Spiriva) 18 mcg IH DAILY [facility] Last Admin: 12/13/17 08:55 Dose: 18 mcg Zolpidem Tartrate (Ambien) 5 mg PO HS [facility] Last Admin: 12/13/17 23:27 Dose: 5 mg - Labs Labs: 12/12/17 10:20 12/14/17 05:20 - Constitutional Appears: No Acute Distress - Head Exam Head Exam: NORMAL INSPECTION - Eye Exam Eye Exam: Normal appearance Pupil Exam: NORMAL ACCOMODATION - ENT Exam ENT Exam: Mucous Membranes Moist - Neck Exam Neck Exam: Full ROM - Respiratory Exam Respiratory Exam: Clear to Ausculation Bilateral - Cardiovascular Exam Cardiovascular Exam: REGULAR RHYTHM, +S1, +S2 - GI/Abdominal Exam GI & Abdominal Exam: Soft, Normal Bowel Sounds - Extremities Exam Extremities Exam: Full ROM - Neurological Exam Neurological Exam: Alert, Awake, CN II-XII Intact, Normal Gait, Oriented x3 - Psychiatric Exam Psychiatric exam: Normal Affect - Skin Skin Exam: Normal Color Assessment and Plan (1) Depression Status: Chronic (2) DVT prophylaxis Status: Acute (3) COPD bronchitis Status: Resolved (4) COPD with exacerbation Status: Resolved (5) Anxiety attack Status: Resolved (6) Grief reaction Status: Resolved
[2017-12-14] MEDS: Tiotropium 18 mcg Cap For Inhalation IH SCH (09:53)
[2017-12-14] MEDS: Enoxaparin 40 mg Syringe SC SCH (09:53)
[2017-12-14 09:54] VITALS: PULSE 79
[2017-12-15 16:07] VITALS: O2SAT 99
== END 2017-12-14 10:39 | disposition home or self-care (01) ==
LOC: H.ER 07:00 → H.ERHOLD 10:17 → H.TEL 11:47
PROVIDERS: ADMIT Internal Medicine; ATTEND Internal Medicine
DX: J44.1 Chronic obstructive pulmonary disease with (acute) exacerbation (principal); E78.00 Pure hypercholesterolemia, unspecified; F32.9 Major depressive disorder, single episode, unspecified; F41.1 Generalized anxiety disorder; F43.20 Adjustment disorder, unspecified; I10 Essential (primary) hypertension; M81.0 Age-related osteoporosis without current pathological fracture; Z90.49 Acquired absence of other specified parts of digestive tract; Z99.81 Dependence on supplemental oxygen; F45.9 Somatoform disorder, unspecified; M19.90 Unspecified osteoarthritis, unspecified site
CPT/HCPCS: 36415; 71045; 80048; 82803; 84484; 85025; 93005; 96374; 99285; G0378; J1650; J2920; J2930

== ENCOUNTER 2018-01-13 15:48 | Observation (INO) | payer OTHER ==
[2018-01-13 15:48] VITALS: BMI 24.5
--- NOTE | 2018-01-13 16:44 | ED PDOC ---
HPI: Back Time Seen by Provider: 01/13/18 16:35 Chief Complaint (Nursing): Back Pain Chief Complaint (Provider): Back pain History Per: Patient, Family Additional Complaint(s): Pt fell down one step 2 days ago and hurt her back, was evaluated @ hospital in [place], with L1 fracture. Evaluated by PMD and sent to ED for evaluation. Last took Motrin today for pain. Denies head injury, paresthesias , weakness. Past Medical History Reviewed: Nursing Documentation, Vital Signs Vital Signs: Last Vital Signs Temp 97.9 F 01/13/18 16:00 Pulse 81 01/13/18 16:00 Resp 16 01/13/18 16:00 BP 125/82 01/13/18 16:00 Pulse Ox 97 01/13/18 16:00 - Medical History PMH: Arthritis, Asthma, Atrial Fibrillation, Bronchitis, COPD, Depression, Diverticulitis, Fractures (Left wrist), Gastritis, HTN, Hypercholesterolemia, Osteoporosis, Pneumonia Denies: Alzheimer's Disease, Anemia, Bipolar Disorder, Crohn's Disease, Dementia, Emphysema, Gall Bladder Disease, HIV, Post Traumatic Stress Disorder, Pulmonary Embolism, Chronic Kidney Disease, Rheumatoid Arthritis, Schizophrenia , Seizures, Sickle Cell Disease, Sexually Transmitted Disease, Sleep Apnea, TIA - Surgical History Surgical History: Cholecystectomy, Endoscopy, Denies: Appendectomy, CABG, Carotid Endarterectomy, Coronary Stent, Pacemaker , Tonsillectomy - Family History Family History: States: Unknown Family Hx, Hypertension - Immunization History Hx Tetanus Toxoid Vaccination: No Hx Influenza Vaccination: Yes Hx Pneumococcal Vaccination: Yes - Home Medications Home Medications: Ambulatory Orders Medication Instructions Recorded ALPRAZolam [Xanax] 1 mg PO Q12 PRN 01/13/18 Albuterol 0.083% [Albuterol 0.083% 3 ml IH Q6 PRN 01/13/18 Inhal Lena (2.5 mg/3 ml) UD] Albuterol HFA [Ventolin HFA 90 2 puff IH Q6 PRN 01/13/18 mcg/actuation (8 g)] Cod Liver Oil [Cod Liver Oil] 1 cap PO DAILY 01/13/18 Docusate [Colace] 100 mg PO DAILY PRN 01/13/18 Esomeprazole Magnesium [Nexium] 40 mg PO DAILY 01/13/18 Fexofenadine HCl [Rosa NF] 180 mg PO DAILY 01/13/18 Fluticasone Nasal [Flonase] 1 spray BRIE BID PRN 01/13/18 Folic Acid [Folic Acid] 400 mcg PO DAILY 01/13/18 Hydrocodone/Acetaminophen [Hematite 1 tab PO Q6 PRN 01/13/18 5-325 Tablet] Ibuprofen [Motrin Tab] 600 mg PO Q6 PRN 01/13/18 Lidocaine 5% [Lidocaine 5%] 1 appl TOP BID PRN 01/13/18 Montelukast [Singulair] 10 mg PO DAILY 01/13/18 Ondansetron HCl [Zofran] 4 mg PO Q6 PRN 01/13/18 Promethazine HCl/Codeine 10 ml PO HS PRN 01/13/18 [Prometh-Codein 6.25-10 mg/5 ml] Rosuvastatin Calcium [Crestor] 10 mg PO HS 01/13/18 Vitamin E [Vitamin E] 200 unit PO DAILY 01/13/18 Zolpidem [Ambien] 10 mg PO HS 01/13/18 amLODIPine [Norvasc] 5 mg PO DAILY 01/13/18 - Allergies Allergies/Adverse Reactions: Allergies Allergy/AdvReac Type Severity Reaction Status Date / Time adhesive tape Allergy ITCHING Verified 11/24/17 21:28 aspirin Allergy ITCHING Verified 11/24/17 21:28 Review of Systems Constitutional: Negative for: Fever Cardiovascular: Negative for: Chest Pain Respiratory: Negative for: Cough, Shortness of Breath Gastrointestinal: Negative for: Nausea, Vomiting, Abdominal Pain Musculoskeletal: Positive for: Back Pain. Negative for: Leg Pain Skin: Negative for: Rash, Lesions Neurological: Negative for: Weakness, Numbness, Headache, Dizziness Physical Exam - Reviewed Nursing Documentation Reviewed: Yes Vital Signs Reviewed: Yes - Physical Exam Appears: Positive for: Uncomfortable Head Exam: Positive for: ATRAUMATIC, NORMAL INSPECTION Skin: Positive for: Normal Color, Warm, Dry Eye Exam: Positive for: Normal appearance, EOMI, PERRL Cardiovascular/Chest: Positive for: Regular Rate, Rhythm Respiratory: Positive for: Normal Breath Sounds Gastrointestinal/Abdominal: Positive for: Normal Exam Back: Positive for: Decreased ROM, Other (TTP midline lumbar area). Negative for: L CVA Tenderness, R CVA Tenderness, Muscle Spasm Extremity: Positive for: Normal ROM Neurologic/Psych: Positive for: Alert, Oriented - Laboratory Results Result Diagrams: 01/13/18 17:10 01/13/18 17:10 - ECG O2 Sat by Pulse Oximetry: 97 - Physician Consult Information Time Consulting Physican Contacted: 16:48 Physician Contacted: Inocencio Navarro Outcome Of Conversation: Recommends MRI and admission for intractable pain, will consult IR. Medical Decision Making Medical Decision Makin yo female with lumbar fracture. - MRI lumbar spine - Toradol Disposition - Clinical Impression Clinical Impression: Intractable back pain, Fracture of lumbar spine - Patient ED Disposition Is Patient to be Admitted: Yes - Disposition Disposition Time: 17:53 Condition: STABLE - Pt Status Changed To: Hospital Disposition Of: Observation - POA Present On Arrival: Falls Or Trauma
[2018-01-13 17:19] LABS: BASO # 0.1 K/uL (0.0-0.2); BASO % 0.9 % (0.0-2.0); EOS # 0.2 K/uL (0.0-0.7); EOS % 1.9 % (0.0-4.0); HEMOGLOBIN 13.7 g/dL (12.0-16.0); LYMPH # 1.7 K/uL (1.0-4.3); LYMPH % 18.8 % (20.0-40.0); MEAN CELL VOLUME 89.7 fl (81.0-99.0); MEAN CORPUSCULAR HEMOGLOBIN 29.8 pg (27.0-31.0); MEAN CORPUSCULAR HGB CONC 33.2 g/dL (33.0-37.0); MEAN PLATELET VOLUME 8.3 fl (7.2-11.7); MONO # 0.7 K/uL (0.0-0.8); MONO % 7.6 % (0.0-10.0); NEUT # 6.4 K/uL (1.8-7.0); NEUT % 70.8 % (50.0-75.0); RBC 4.6 Mil/uL (3.80-5.20); RED CELL DISTRIBUTION WIDTH 14.2 % (11.5-14.5); WHITE BLOOD COUNT 9.1 K/uL (4.8-10.8)
[2018-01-13 17:27] LABS: ALB/GLOB RATIO 1.1 (1.0-2.1); ALBUMIN 4.2 g/dL (3.5-5.0); ALT/SGPT 29 U/L (9-52); AST/SGOT 26 U/L (14-36); BLOOD UREA NITROGEN 21 mg/dl (7-17); GFR AFRICAN-AMERICAN > 60; GFR NON-AFRICAN AMERICAN > 60
[2018-01-13 17:31] LABS: INR 1.1 (0.9-1.2); PARTIAL THROMBOPLASTIN TIME 30.5 Seconds (25.6-37.1); PROTHROMBIN TIME 12.6 Seconds (9.8-13.1)
--- NOTE | 2018-01-13 17:42 | RAD ---
HISTORY: Admission COMPARISON: 12/12/2017. FINDINGS: LUNGS: The lungs are hyperinflated and there is peribronchial thickening with chronic changes in both lungs. No focal consolidation. PLEURA: No significant pleural effusion identified, no pneumothorax apparent. CARDIOVASCULAR: There is mild cardiomegaly. Atherosclerotic aortic arch calcifications are present. OSSEOUS STRUCTURES: No significant abnormalities. VISUALIZED UPPER ABDOMEN: Normal. OTHER FINDINGS: None. IMPRESSION: No active pulmonary disease. COPD.
[2018-01-13 20:49] LABS: SQUAMOUS EPITHIAL 2 /hpf (0-5); URINE BILIRUBIN NEGATIVE (NEGATIVE); URINE BLOOD SMALL (NEGATIVE); URINE CALCIUM OXALATE CRYSTALS MANY /hpf (<OCC); URINE CLARITY CLOUDY (Clear); URINE COLOR AMBER (YELLOW); URINE GLUCOSE (UA) NEG (Normal); URINE HYALINE CAST 0-2 /hpf (0-2); URINE LEUKOCYTE ESTERASE TRACE Leu/uL (Negative); URINE PROTEIN 100 mg/dL (NEGATIVE)
[2018-01-13] MEDS ORDERED: Lidocaine 2.5% OINTMENT TOP PRN (21:01)
[2018-01-13] MEDS ORDERED: Albuterol HFA 90 mcg/actuation (8 g) IH PRN (21:01)
[2018-01-13] MEDS ORDERED: ACETAMINOPHEN PO PRN (21:01)
[2018-01-13] MEDS ORDERED: HYDROCODONE PO PRN (21:01)
[2018-01-13] MEDS ORDERED: Albuterol 0.083% Inhal Sol (2.5 mg/3 mL) UD IH PRN (21:01)
[2018-01-14] MEDS: Promethazine/Cod 6.25mg-10mg/5ml Syr UD PO PRN ×2 (01:07→22:19)
[2018-01-14] MEDS: Enoxaparin 40 mg Syringe SC SCH (08:05)
[2018-01-14] MEDS: Pantoprazole 40 mg EC Tab PO SCH (08:05)
[2018-01-14] MEDS ORDERED: VITAMIN E 200 UNIT PO SCH (09:00)
[2018-01-14] MEDS ORDERED: COD LIVER OIL PO SCH (09:00)
[2018-01-14] MEDS ORDERED: FOLIC ACID 400 MCG PO SCH (09:00)
--- NOTE | 2018-01-14 09:01 | CARD ---
APPROVED REPORT EKG Measurement Heart [id number] <Conclusion> Normal sinus rhythm Normal ECG
[2018-01-14] MEDS: Dextrose 5%/0.9% NS 1,000 ML IV SCH (11:13)
--- NOTE | 2018-01-14 11:13 | CP.PCM.HP ---
History of Present Illness - History of Present Illness History of Present Illness: Patient is 82 y/o lady with hx of COPD. Patient sustained a fall 2 days before admission. She was seen in an ER in [facility] with the recommendation to f/u with her PMD. When she was seen in my office she was not able to ambulate , having severe pain not relieved by oral opioid meds. She was in severe discomfort and was advised to go to ER for further rx and dx. At present time she resting uncomfortable and she c/o severe pain with minimal movement. Present on Admission - Present on Admission Any Indicators Present on Admission: No Review of Systems - Constitutional Constitutional: As Per HPI - EENT Eyes: As Per HPI - Cardiovascular Cardiovascular: As Per HPI - Respiratory Respiratory: As Per HPI - Musculoskeletal Musculoskeletal: Back Pain, Limited Range of Motion - Integumentary Integumentary: As Per HPI - Neurological Neurological: As Per HPI Past Patient History - Infectious Disease Hx of Infectious Diseases: None - Tetanus Immunizations Tetanus Immunization: Unknown - Past Medical History & Family History Past Medical History?: Yes - Past Social History Smoking Status: Former Smoker - CARDIAC Hx Cardiac Disorders: Yes Hx Atrial Fibrillation: Yes Hx Hypercholesterolemia: Yes Hx Hypertension: Yes Hx Pacemaker: No - PULMONARY Hx Respiratory Disorders: Yes Hx Asthma: Yes Hx Bronchitis: Yes Hx Chronic Obstructive Pulmonary Disease (COPD): Yes Hx Emphysema: No Hx Pneumonia: Yes Hx Pulmonary Embolism: No Hx Sleep Apnea: No - NEUROLOGICAL Hx Neurological Disorder: No Hx Alzheimer's Disease: No Hx Dementia: No Hx Seizures: No Hx Transient Ischemic Attacks (TIA): No - HEENT Hx HEENT Problems: No - RENAL Hx Chronic Kidney Disease: No - ENDOCRINE/METABOLIC Hx Endocrine Disorders: No - HEMATOLOGICAL/ONCOLOGICAL Hx Blood Disorders: No Hx Anemia: No Hx Human Immunodeficiency Virus (HIV): No Hx Sickle Cell Disease: No - INTEGUMENTARY Hx Dermatological Problems: No - MUSCULOSKELETAL/RHEUMATOLOGICAL Hx Musculoskeletal Disorders: Yes Hx Falls: Yes - GASTROINTESTINAL Hx Gastrointestinal Disorders: Yes Hx Crohn's Disease: No Hx Diverticulitis: Yes Hx Gall Bladder Disease: No Hx Gastritis: Yes - GENITOURINARY/GYNECOLOGICAL Hx Genitourinary Disorders: No Hx Sexually Transmitted Disorders: No - PSYCHIATRIC Hx Psychophysiologic Disorder: No Hx Substance Use: No - SURGICAL HISTORY Hx Surgeries: Yes Hx Appendectomy: No Hx Carotid Endarterectomy: No Hx Cholecystectomy: Yes Hx Coronary Artery Bypass Graft: No Hx Coronary Stent: No Hx Tonsillectomy: No - ANESTHESIA Hx Anesthesia: Yes Hx Anesthesia Reactions: No Hx Malignant Hyperthermia: No Meds Allergies/Adverse Reactions: Allergies Allergy/AdvReac Type Severity Reaction Status Date / Time adhesive tape Allergy ITCHING Verified 11/24/17 21:28 aspirin Allergy ITCHING Verified 11/24/17 21:28 Physical Exam - Constitutional Appears: In Acute Distress - Head Exam Head Exam: ATRAUMATIC, NORMAL INSPECTION, NORMOCEPHALIC - Eye Exam Eye Exam: Normal appearance - ENT Exam ENT Exam: Mucous Membranes Moist - Respiratory Exam Respiratory Exam: Decreased Breath Sounds Additional comments: Patient with poor inspiratory effort secondary to pain - Cardiovascular Exam Cardiovascular Exam: REGULAR RHYTHM, +S1, +S2 - GI/Abdominal Exam GI & Abdominal Exam: Normal Bowel Sounds - Back Exam Additional comments: not performed, patient in pain with movements - Neurological Exam Neurological exam: Alert, CN II-XII Intact, Oriented x3 - Psychiatric Exam Psychiatric exam: Anxious - Skin Skin Exam: Normal Color Results - Vital Signs Recent Vital Signs: Last Vital Signs Temp 97.9 F 01/14/18 08:19 Pulse 86 01/14/18 08:19 Resp 20 01/14/18 08:19 BP 126/72 01/14/18 08:19 Pulse Ox 91 L 01/14/18 08:19 - Labs Result Diagrams: 01/13/18 17:10 01/13/18 17:10 Labs: Laboratory Results - last 24 hr 01/13/18 01/13/18 01/13/18 17:10 17:10 17:10 WBC 9.1 RBC 4.60 Hgb 13.7 Hct 41.3 MCV 89.7 MCH 29.8 MCHC 33.2 RDW 14.2 Plt Count 259 MPV 8.3 Neut % (Auto) 70.8 Lymph % (Auto) 18.8 L [place] % (Auto) 7.6 Eos % (Auto) 1.9 Baso % (Auto) 0.9 Neut # (Auto) 6.4 Lymph # (Auto) 1.7 [place] # (Auto) 0.7 Eos # (Auto) 0.2 Baso # (Auto) 0.1 PT 12.6 INR 1.1 APTT 30.5 Sodium 145 Potassium 3.9 Chloride 104 Carbon Dioxide 26 Anion Gap 19 BUN 21 H Creatinine 0.7 Est GFR ( Amer) > 60 Est GFR (Non-Af Amer) > 60 Random Glucose 148 H Calcium 10.0 Total Bilirubin 0.4 AST 26 ALT 29 Alkaline Phosphatase 64 Total Protein 7.9 Albumin 4.2 Globulin 3.7 Albumin/Globulin Ratio 1.1 Urine Color Urine Clarity Urine pH Ur Specific [place] Urine Protein Urine Glucose (UA) Urine Ketones Urine Blood Urine Nitrate Urine Bilirubin Urine Urobilinogen Ur Leukocyte Esterase Urine RBC (Auto) Urine Microscopic WBC Ur Squamous Epith Cells Calcium Oxalate Crystal Hyaline Casts 01/13/18 20:25 WBC RBC Hgb Hct MCV MCH MCHC RDW Plt Count MPV Neut % (Auto) Lymph % (Auto) [place] % (Auto) Eos % (Auto) Baso % (Auto) Neut # (Auto) Lymph # (Auto) [place] # (Auto) Eos # (Auto) Baso # (Auto) PT INR APTT Sodium Potassium Chloride Carbon Dioxide Anion Gap BUN Creatinine Est GFR ( Amer) Est GFR (Non-Af Amer) Random Glucose Calcium Total Bilirubin AST ALT Alkaline Phosphatase Total Protein Albumin Globulin Albumin/Globulin Ratio Urine Color Suz[place] Urine Clarity Cloudy Urine pH 5.0 Ur Specific Dew[place] Rose 1.034 H Urine Protein 100 Urine Glucose (UA) Neg Urine Ketones Trace Urine Blood Small Urine Nitrate Negative Urine Bilirubin Negative Urine Urobilinogen 2.0 H Ur Leukocyte Esterase Trace Urine RBC (Auto) 12 H Urine Microscopic WBC 4 Ur Squamous Epith Cells 2 Calcium Oxalate Crystal Many H Hyaline Casts 0-2 Assessment & Plan (1) Vertebral fracture Status: Acute (2) COPD (chronic obstructive pulmonary disease) Status: Chronic (3) DVT prophylaxis Status: Acute (4) HTN (hypertension) Status: Chronic - Assessment and Plan (Free Text) Plan: As per orders. Patient preferred to control the pain with immobility and refuses morphine at present time.
[2018-01-14] MEDS ORDERED: methylPREDNISolone 60 MG in Sodium Chloride 0.9% 50 ML IVPB SCH (11:30)
[2018-01-14] MEDS: Albuterol-Ipratrop 3 mg / 0.5 (3 ml) UD INH PRN ×2 (11:40→22:30)
--- NOTE | 2018-01-14 15:14 | PCM.IRPREO ---
Pre Procedure Note - History Proposed Procedure: L1 Kyphoplasty Pre-Op Diagnosis: acute L1 vertebral compression fracture - Previous Medical/Surgical History Cardiac: Hypertension, ASHD/CAD Pulmonary: Bronchitis, Emphysema/COPD Pain: 8.Very Severe - Pre Procedure Were any radiologic studies performed in the last 12 months: Yes List of radiologic studies performed: MRI Lumbar Spine 01/13/2018 Was medical management performed in the past 24 months: Yes List of medical management performed: analgesic control Clinical indication for the procedure: pain Have risks and benefits been explained to the patient: Yes Risks and benefits been explained to the patient: bleeding, infection, pulmonary embolism, nerve root compression, radiculopathy, paresthesias, and allergic reaction Have alternatives to surgery explained to the patient as applicable: Yes - Allergies Allergies: Allergies adhesive tape Allergy (Verified 11/24/17 21:28) ITCHING aspirin Allergy (Verified 11/24/17 21:28) ITCHING - Physical Exam General Appearance: aaox3, in pain Vital Signs: Vital Signs 01/14/18 01/14/18 08:19 09:00 Temperature 97.9 F Pulse Rate 86 81 Respiratory 20 Rate Blood Pressure 126/72 O2 Sat by Pulse 91 L 95 Oximetry - Specialist Directed Exam Other Pertinent Findings: TTP L1 region. SLR negative. B/L LE Sensory/Motor 5/ 5. Babinski wnl - Impression Impression: 82yo female w/ acute L1 VCF s/p mechanical fall; plan L1 kyphoplasty w/ anesthesia. keep NPO after midnight - Date & Time Date: 01/14/18 Time: 15:18
--- NOTE | 2018-01-14 16:23 | MRI ---
PROCEDURE: MR LUMBAR SPINE WITHOUT CONTRAST HISTORY: Back injury COMPARISON: None available. TECHNIQUE: Multiecho multiplanar sequences were performed through the lumbar spine without the use of intravenous contrast. FINDINGS: Normal lumbar curvature is appreciate without spondylolisthesis. However, there is mild anterior wedging of the L1 vertebral body anteriorly with linear signal abnormality identified inferior to the the upper endplate. Edema is appreciated at the upper mid L1 vertebral body with limited prevertebral and paraspinal edema associated. The findings compatible with an acute or subacute compression fracture. No fluid collections appreciate within the T12-L1 intervertebral disc. The conus medullaris appears normal, terminating at L2. Remaining marrow signal is unremarkable. Diffuse disc desiccation is appreciated with L5-S1 somewhat less affected. The L4-5 interval disc is mildly diminished in height. T12-L1: No disc herniation, spinal canal stenosis or neural foraminal narrowing. A minimal disc bulge is encountered. L1-2: No disc herniation, spinal canal stenosis or neural foraminal narrowing. A minimal disc bulge is encountered. L2-3: No disc herniation, spinal canal stenosis or neural foraminal narrowing. L3-4: No disc herniation identified. Minimal disc bulging is appreciated slightly asymmetrically greater the right than left sides combining with facet joint arthropathy causing a limited central canal stenosis concentrated the right greater than left lateral recesses. Alternately, the disc findings may reflect broad-based mild right paracentral/lateral disc herniation. No significant neural foraminal stenosis. L4-5: A large circumferential disc bulge is identified combining with facet joint arthropathy to result in a mild central canal stenosis concentrated at the lateral recesses. Mild bilateral neural foraminal stenoses are identified. L5-S1: No disc herniation or stenosis although relatively prominent facet joint arthropathy is symmetrically identified. OTHER FINDINGS: None. IMPRESSION: 1. A an acute subacute mild anterior wedge compression fractures appreciated involving L1 vertebral body without fragmentation or retropulsion. 2. Multilevel degenerative disc bulging and facet joint arthropathy is identified throughout the majority of the lumbar spine and is seen worst at L4-5 where a mild central stenosis results from a circumferential disc bulge combining with prominent facet joint arthropathy. Delete that 3. Asymmetric disc bulge L3-4 greater the right than left versus broad-based right paracentral/lateral disc herniation encroaching the right greater than left lateral recess with limited generalized central canal stenosis.
[2018-01-15] MEDS: Dextrose 5%/0.9% NS 1,000 ML IV SCH ×2 (00:05→01:14)
[2018-01-15] MEDS ORDERED: Propofol 10 mg/ml Inj (20 ML) ONE (09:13)
[2018-01-15] MEDS ORDERED: ePHEDrine 50 mg/ml Inj ONE (09:13)
[2018-01-15] MEDS: Enoxaparin 40 mg Syringe SC SCH ×2 (09:14→16:31)
[2018-01-15] MEDS: Pantoprazole 40 mg EC Tab PO SCH ×2 (09:15→16:29)
[2018-01-15] MEDS ORDERED: Neostigmine 1:1000 (1 mg/ml) Inj ONE (09:16)
[2018-01-15] MEDS ORDERED: Rocuronium 10 mg/ml (5 ml) ONE (09:16)
[2018-01-15] MEDS ORDERED: Succinylcholine 200 mg/10 ml Inj IV ONE (09:16)
[2018-01-15] MEDS ORDERED: Etomidate 20 mg/10ml Inj IV ONE (09:17)
[2018-01-15] MEDS ORDERED: ceFAZolin IV 2 gm in Dextrose 2 GM/50 ML BAG IVPB ONE (10:06)
[2018-01-15] MEDS ORDERED: Iodixanol 320 MG/ML 100 ML BOTTLE IV ONE (10:24)
[2018-01-15] MEDS ORDERED: Bupivacaine 0.5% 50 ML IJ ONE (11:44)
--- NOTE | 2018-01-15 12:01 | PCM.SURG1 ---
Surgeon's Initial Post Op Note - Surgeon's Notes Surgeon: Scotty Edgar MD Automatic Winder Operator: None Type of Anesthesia: General Endo Pre-Operative Diagnosis: L1 VCF Operative Findings: L1 VCF Post-Operative Diagnosis: same Operation Performed: L1 Bone Biopsy and Kyphoplasty Specimen/Specimens Removed: 13 gauge core L1 Estimated Blood Loss: EBL {In ML}: 5 Date of Surgery/Procedure: 01/15/18 Time of Surgery/Procedure: 11:30
[2018-01-15] MEDS ORDERED: oxyCODONE 5 mg Immediate Release Tab PO PRN (12:04)
[2018-01-15 12:33] LABS: BASO % 0.1 % (0.0-2.0); HEMOGLOBIN 13.1 g/dL (12.0-16.0); LYMPH % 5.3 % (20.0-40.0); MEAN CELL VOLUME 90.2 fl (81.0-99.0); MEAN CORPUSCULAR HEMOGLOBIN 29.6 pg (27.0-31.0); MEAN CORPUSCULAR HGB CONC 32.8 g/dL (33.0-37.0); MONO # 0.4 K/uL (0.0-0.8); MONO % 2.3 % (0.0-10.0); NEUT # 16.7 K/uL (1.8-7.0); NEUT % 92.3 % (50.0-75.0); PLATELET COUNT 252 K/uL (130-400); RBC 4.42 Mil/uL (3.80-5.20); RED CELL DISTRIBUTION WIDTH 14.6 % (11.5-14.5); WHITE BLOOD COUNT 18.1 K/uL (4.8-10.8)
[2018-01-15 12:42] LABS: BLOOD UREA NITROGEN 19 mg/dl (7-17); GFR AFRICAN-AMERICAN > 60; GFR NON-AFRICAN AMERICAN > 60
--- NOTE | 2018-01-15 13:04 | CP.PCM.PN ---
Subjective - Date & Time of Evaluation Date of Evaluation: 01/15/18 Time of Evaluation: 13:05 - Subjective Subjective: Patient seen in RR in post op AAOx3 not in distress vitals stable. No c/o, no SOB, no fever, no CP. Objective - Vital Signs/Intake and Output Vital Signs (last 24 hours): Temp Pulse Resp BP Pulse Ox 97.1 F L 87 18 136/79 98 01/15/18 12:15 01/15/18 12:30 01/15/18 12:30 01/15/18 12:30 01/15/18 12:30 - Medications Medications: Current Medications Albuterol (Ventolin Hfa 90 Mcg/Actuation (8 G)) 2 puff IH Q6 PRN PRN Reason: Shortness of Breath Albuterol Sulfate (Albuterol 0.083% Inhal Lena (2.5 Mg/3 Ml) Ud) 2.5 mg IH RQ6 PRN PRN Reason: Shortness of Breath Albuterol/Ipratropium (Duoneb 3 Mg/0.5 Mg (3 Ml) Ud) 3 ml INH RQ4 PRN PRN Reason: Shortness of Breath Last Admin: 01/14/18 22:30 Dose: 3 ml Alprazolam (Xanax) 1 mg PO Q12 PRN PRN Reason: Anxiety Amlodipine Besylate (Norvasc) 5 mg PO DAILY [facility] Last Admin: 01/15/18 09:14 Dose: Not Given Atorvastatin Calcium (Lipitor) 20 mg PO HS [facility] Last Admin: 01/14/18 22:19 Dose: 20 mg Docusate Sodium (Colace) 100 mg PO DAILY PRN PRN Reason: Constipation Enoxaparin Sodium (Lovenox) 40 mg SC DAILY [facility] PRN Reason: Protocol Last Admin: 01/15/18 09:14 Dose: Not Given Fluticasone Propionate (Flonase) 1 spr BRIE BID PRN PRN Reason: Nasal congestion Acetaminophen (Ofirmev) 100 mls @ 400 mls/hr IVPB ONCE ONE PRN Reason: Protocol Stop: 01/15/18 13:14 Ibuprofen (Motrin Tab) 600 mg PO Q6 PRN PRN Reason: Pain, moderate (4-7) Last Admin: 01/15/18 01:19 Dose: 600 mg Ketorolac Tromethamine (Toradol) 15 mg IVP Q6 PRN PRN Reason: Pain, severe (8-10) Lidocaine (Xylocaine 2.5%) 1 applic TOP BID PRN PRN Reason: Pain, moderate (4-7) Loratadine (Claritin) 10 mg PO DAILY [facility] Last Admin: 01/15/18 09:14 Dose: Not Given Montelukast Sodium (Singulair) 10 mg PO DAILY [facility] Last Admin: 01/15/18 09:15 Dose: Not Given Morphine Sulfate (Morphine) 1 mg IVP Q10M PRN PRN Reason: Pain, moderate (4-7) Stop: 01/15/18 14:03 Ondansetron HCl (Zofran Tab) 4 mg PO Q6 PRN PRN Reason: Nausea/Vomiting Ondansetron HCl (Zofran Inj) 4 mg IVP ONCE PRN PRN Reason: Nausea/Vomiting Stop: 01/15/18 14:04 Oxycodone HCl (Oxycodone Immediate Release Tab) 5 mg PO ONCE PRN PRN Reason: Pain, moderate (4-7) Pantoprazole Sodium (Protonix Ec Tab) 40 mg PO DAILY [facility] Last Admin: 01/15/18 09:15 Dose: Not Given Prednisone (Prednisone Tab) 5 mg PO BID [facility] Promethazine HCl/Codeine (Phenergan/Codeine Oral Syrup) 10 ml PO HS PRN PRN Reason: Cough Last Admin: 01/14/18 22:19 Dose: 10 ml Zolpidem Tartrate (Ambien) 5 mg PO HS PRN PRN Reason: Insomnia - Labs Labs: 01/15/18 12:10 01/15/18 12:10 PT 12.6 Seconds (9.8-13.1) 01/13/18 17:10 INR 1.1 (0.9-1.2) 01/13/18 17:10 APTT 30.5 Seconds (25.6-37.1) 01/13/18 17:10 - Constitutional Appears: No Acute Distress - Head Exam Head Exam: ATRAUMATIC, NORMAL INSPECTION, NORMOCEPHALIC - Eye Exam Eye Exam: Normal appearance - ENT Exam ENT Exam: Mucous Membranes Moist - Neck Exam Neck Exam: Full ROM - Cardiovascular Exam Cardiovascular Exam: REGULAR RHYTHM, +S1, +S2 - GI/Abdominal Exam GI & Abdominal Exam: Soft, Normal Bowel Sounds - Extremities Exam Extremities Exam: Normal Inspection - Neurological Exam Neurological Exam: Alert, Awake, Oriented x3 - Psychiatric Exam Psychiatric exam: Normal Affect - Skin Skin Exam: Normal Color Assessment and Plan (1) Vertebral fracture Status: Acute (2) COPD (chronic obstructive pulmonary disease) Status: Chronic (3) DVT prophylaxis Status: Acute (4) HTN (hypertension) Status: Chronic - Assessment and Plan (Free Text) Plan: Patient in s/p kyphoplasty if able to ambulate will dc today.
[2018-01-15] MEDS ORDERED: Sodium Chloride 0.9% 1,000 ML IV ONE ×2 (13:15)
[2018-01-15 13:40] LABS: BANDS 2 % (0-2); LYMPHOCYTE 7 % (20-50); MONOCYTE 3 % (0-10); NEUTROPHIL 88 % (42-75); TOTAL CELLS COUNTED 100
[2018-01-15 13:41] LABS: ANISOCYTOSIS SLIGHT; LARGE PLATELETS PRESENT; PLATELET ESTIMATE NORMAL (NORMAL)
[2018-01-15 16:16] VITALS: BP 116/68; PULSE 82; RESP 20; TEMP 98.8; O2SAT 95
[2018-01-15] MEDS: Albuterol-Ipratrop 3 mg / 0.5 (3 ml) UD INH PRN (16:48)
--- NOTE | 2018-01-19 09:18 | VASCULAR ---
PROCEDURE: LUMBAR KYPHOPLASTY CLINICAL HISTORY: 82-year-old female with painful acute L1 vertebral compression fractures status post mechanical fall is referred to interventional radiology for kyphoplasty and vertebral bone biopsy. COMPARISON: MRI of the lumbar spine dated 01/13/2018. PROCEDURE: 1. L1 bone biopsy and kyphoplasty. INTERVENTIONAL RADIOLOGIST: Scotty Edgar M.D. (the attending was present for the entire procedure) ANESTHESIA: Provided by the attending anesthesiologist. Sedation was supervised by the anesthesiology attending with the presence of independent radiology nursing monitoring. Physiological data monitoring was performed throughout the entire procedure. The patient's blood pressure, EKG and pulse oximetry were recorded. The patient tolerated the procedure and sedation without untoward reactions. The intra-procedural sedation time was 90 minutes. MEDICATION: Lidocaine 1% and Bupivacaine 0.5% for local subcutaneous analgesia. COMPLICATIONS: None. RADIATION DOSE: Fluoroscopy Time: 493.9 seconds DAP: 396.12 mGy PROCEDURE DESCRIPTION AND FINDINGS: The risks, benefits, alternatives and possible complications of the procedure including, but not limited to, bleeding, infection, pulmonary embolism, nerve root compression, radiculopathy, paresthesias, and allergic reaction were fully discussed; all questions were answered and informed consent was obtained. The patient was brought into the interventional suite and a pre-procedure 'time-out' was performed. The patient was placed on the fluoroscopy table in the prone position. The back was prepped and draped in the usual sterile fashion. Maximum sterile barrier precautions were maintained throughout the entire procedure. Two Kyphon 11 gauge introducer cannulas were advanced just beyond the posterior cortex of the L1 vertebral body via bilateral transpedicular approaches utilizing real-time fluoroscopic guidance. The biopsy cannula was then advanced through the left-sided introducer cannula to the anterior portion of the vertebral body and a biopsy was obtained. The biopsy cannula was then advanced through the right-sided introducer cannula to the anterior portion of the vertebral body and a biopsy was obtained. The drill cannula was then advanced through the left-sided introducer cannula to the anterior portion of the vertebral body. The drill cannula was then advanced through the right-sided introducer cannula to the anterior portion of the vertebral body. The specimens were sent for pathologic analysis. Two 15 mm Inflatable Bone Tamponades (IBT) were then placed through the vertebral body cannulas [id number] extending to the anterior portion of the vertebral body. The IBT's were inflated with 3 mL's of contrast, respectively. The IBTs were then deflated and removed. The cavities were then filled in with a total of 2.4 mL of methylmethacrylate cement evenly through both cannulas. The outer cannulas were then removed. Spot films were performed demonstrating good pooling of the cement within the cavities. There was no evidence of extravasation of cement through the anterior, posterior or lateral vertebral body morse of the vertebral body. There was no evidence of extravasation of cement through the superior or inferior endplates of the vertebral body. The patient tolerated the procedure well and was transferred to PACU without immediate post-procedure complications. IMPRESSION: SUCCESSFUL L1 KYPHOPLASTY AND VERTEBRAL BONE BIOPSY.
== END 2018-01-15 18:17 | disposition home or self-care (01) ==
LOC: H.ER 15:48 → H.ERHOLD 17:53 → H.MEDSURG1 20:56
PROVIDERS: ADMIT Internal Medicine; ATTEND Internal Medicine
DX: M48.56XA Collapsed vertebra, not elsewhere classified, lumbar region, initial encounter for fracture (principal); M81.0 Age-related osteoporosis without current pathological fracture; I25.10 Atherosclerotic heart disease of native coronary artery without angina pectoris; I10 Essential (primary) hypertension; I48.91 Unspecified atrial fibrillation; E78.00 Pure hypercholesterolemia, unspecified; J43.9 Emphysema, unspecified; M19.90 Unspecified osteoarthritis, unspecified site; W10.9XXA Fall (on) (from) unspecified stairs and steps, initial encounter; Z87.01 Personal history of pneumonia (recurrent); Z87.891 Personal history of nicotine dependence; Z88.6 Allergy status to analgesic agent
CPT/HCPCS: 20225; 22514; 36415; 71045; 72148; 77002; 80048; 80053; 81003; 85025; 85610; 85730; 88305; 93005; 94640; 96374; 99285; G0378; J0131; J0330; J0690; J1885; J2001; J2060; J2704; J2930; J3010; J7040; J7042; Q9967

== ENCOUNTER 2018-02-09 13:54 | Observation (INO) | payer OTHER ==
[2018-02-09 13:54] VITALS: BMI 24.5
[2018-02-09] MEDS ORDERED: Iohexol 240 (50 ml) PO ONE (14:15)
--- NOTE | 2018-02-09 14:44 | ED PDOC ---
HPI: Abdomen Time Seen by Provider: 02/09/18 14:07 Chief Complaint (Nursing): Abdominal Pain Chief Complaint (Provider): Abdominal Pain History Per: Patient History/Exam Limitations: no limitations Onset/Duration Of Symptoms: Days (x1 abdominal pain, x7 cough) Current Symptoms Are (Timing): Still Present Location Of Pain/Discomfort: Diffuse Additional History Per: EMS Additional Complaint(s): 82 year old female present to the emergency department via EMS complaining of diffuse, "crampy" abdominal pain onset one day. She states it is associated with three episodes of non bloody, non bilious vomiting, and four episodes of non bloody, non watery diarrhea. The patient also reports decreased appetite, fever of max 102 degrees, and chills, as well as a cough onset one week ago. She notes also experiencing chronic lower back pain. Patient denies recent travel or sick contacts. PMD: Inocencio Navarro Past Medical History Reviewed: Historical Data, Nursing Documentation, Vital Signs Vital Signs: Last Vital Signs Temp 98.5 F 02/10/18 08:31 Pulse 80 02/10/18 08:31 Resp 20 02/10/18 08:31 BP 163/77 H 02/10/18 08:31 Pulse Ox 97 02/10/18 08:31 - Medical History PMH: Arthritis, Asthma, Atrial Fibrillation, Bronchitis, COPD, Depression, Diverticulitis, Fractures (Left wrist), Gastritis, HTN, Hypercholesterolemia, Osteoporosis, Pneumonia Denies: Alzheimer's Disease, Anemia, Bipolar Disorder, Crohn's Disease, Dementia, Emphysema, Gall Bladder Disease, HIV, Post Traumatic Stress Disorder, Pulmonary Embolism, Chronic Kidney Disease, Rheumatoid Arthritis, Schizophrenia , Seizures, Sickle Cell Disease, Sexually Transmitted Disease, Sleep Apnea, TIA - Surgical History Surgical History: Cholecystectomy, Endoscopy, Denies: Appendectomy, CABG, Carotid Endarterectomy, Coronary Stent, Pacemaker , Tonsillectomy - Family History Family History: States: Hypertension - Social History Ex-Smoker (has not smoked in the last 12 months): Yes Alcohol: None Drugs: Denies - Immunization History Hx Tetanus Toxoid Vaccination: No Hx Influenza Vaccination: Yes Hx Pneumococcal Vaccination: Yes - Home Medications Home Medications: Ambulatory Orders Medication Instructions Recorded ALPRAZolam [Xanax] 1 mg PO Q12 PRN 01/13/18 Albuterol HFA [Ventolin HFA 90 2 puff IH Q6 PRN 01/13/18 mcg/actuation (8 g)] Docusate [Colace] 100 mg PO DAILY PRN 01/13/18 Esomeprazole Magnesium [Nexium] 40 mg PO DAILY 01/13/18 Montelukast [Singulair] 10 mg PO DAILY 01/13/18 Rosuvastatin Calcium [Crestor] 10 mg PO HS 01/13/18 Vitamin E 200 unit PO DAILY 01/13/18 Zolpidem [Ambien] 10 mg PO HS 01/13/18 amLODIPine [Norvasc] 5 mg PO DAILY 01/13/18 Folic Acid 400 mcg PO DAILY #0 01/15/18 - Allergies Allergies/Adverse Reactions: Allergies Allergy/AdvReac Type Severity Reaction Status Date / Time adhesive tape Allergy ITCHING Verified 11/24/17 21:28 aspirin Allergy ITCHING Verified 11/24/17 21:28 mushroom Allergy NAUSEA Verified 02/10/18 11:56 Review of Systems ROS Statement: Except As Marked, All Systems Reviewed And Found Negative Constitutional: Positive for: Fever (reports 102 deg), Chills, Other (decreased appetite) ENT: Positive for: Nose Congestion Respiratory: Positive for: Cough (non productive) Gastrointestinal: Positive for: Vomiting (non bloody non bilious), Abdominal Pain (crampy and diffuse), Diarrhea (non bloody non watery) Musculoskeletal: Positive for: Back Pain (lower chronic) Physical Exam - Reviewed Nursing Documentation Reviewed: Yes Vital Signs Reviewed: Yes - Physical Exam Appears: Negative for: Uncomfortable (appears comfortable on a phone call when entering the room, but once exam began pt started moaning in pain) Skin: Positive for: Warm, Dry, Pallor Eye Exam: Positive for: EOMI, PERRL ENT: Positive for: Pharynx Is (clear), Other (tacky mucous membranes) Neck: Positive for: Painless ROM, Supple Cardiovascular/Chest: Positive for: Regular Rate, Rhythm. Negative for: Chest Non Tender (tender to palpation to right lower anterior chest wall, pt states due to previous rib fracture), Murmur Respiratory: Positive for: Rhonchi (diffuse), Wheezing (scattered expiratory). Negative for: Accessory Muscle Use, Respiratory Distress Gastrointestinal/Abdominal: Positive for: Soft, Tenderness (to palpation, but distractable), Other (negative trotter's and mcburney's signs). Negative for: Mass, Distended, Guarding, Rebound Back: Positive for: Other (lower back tenderness to palpation, without step off or crepitus) Extremity: Positive for: Normal ROM. Negative for: Deformity Lymphatic: Negative for: Adenopathy Neurologic/Psych: Positive for: Alert. Negative for: Motor/Sensory Deficits - Laboratory Results Result Diagrams: 02/10/18 12:33 02/10/18 12:33 - ECG O2 Sat by Pulse Oximetry: 98 (NC) Pulse Ox Interpretation: Normal Medical Decision Making Medical Decision Making: Time: 14:15 Initial Impression: abdominal pain, vomiting, diarrhea, acute chronic pain, cough DDx includes but is not limited to: viral syndrome, influenza, gastroenteritis, pneumonia, dehydration, obstruction, mesentery ischemia Initial Plan: --CT Abd/Pelvis --CMP --Lact Acid --Lipase --Magnesium --Phosphorus --ED Urine dipstick --CBC with differential --PT/ PTT --Chest Portable XR --Bentyl 20mg PO --Iohexol 50ml PO --Pepcid 20mg IVP --Zofran 8mg IVP --Blood Culture --Influenza A B 14:47 Chest XR FINDINGS: LUNGS: Biapical pleural-parenchymal scarring. Stable chronic prominence of the bilateral interstitial markings. No focal consolidation. PLEURA: No significant pleural effusion identified, no pneumothorax apparent. CARDIOVASCULAR: Atherosclerotic aortic calcifications. Cardiomediastinal silhouette stably enlarged. OSSEOUS STRUCTURES: Interval L1 kyphoplasty. Otherwise unchanged. VISUALIZED UPPER ABDOMEN: Normal. OTHER FINDINGS: None. IMPRESSION: Stable chronic prominence of the bilateral interstitial markings. No focal consolidation or pleural effusion. Labs unremarkable. Accession No. : [id number] Patient Name / ID : PRIMITIVO ABRAHAM / [id number] Exam Date : 02/09/2018 17:27:34 ( Approved ) Study Comment : Sex / Age : F / 82Y Creator : Mauri Freire MD Dictator : Mauri Freire MD Housekeeper Cleaning Cooking : Network Mgr : Mauri Freire MD Approver2 : Report Date : 02/09/2018 17:56:49 My Comment : This report is currently processing and HAS NOT BEEN OFFICIALLY SIGNED BY THE PHYSICIAN - ESTIMATED TIME OF APPROVAL IS 02/09/2018 18:02. PROCEDURE: CT Abdomen and Pelvis with contrast HISTORY: Abdominal pain, vomiting and diarrhea. COMPARISON: 06/08/2017. CT of the abdomen and pelvis. Relevant interventional procedure(s): 01/15/2018 L1 kyphoplasty and bone biopsy. TECHNIQUE: Contrast dose: 90 cc Omnipaque 300 Radiation dose: Total exam DLP = 330.15 mGy-cm. This CT exam was performed using one or more of the following dose reduction techniques: Automated exposure control, adjustment of the mA and/or kV according to patient size, and/or use of iterative reconstruction technique. FINDINGS: LOWER THORAX: Unremarkable. LIVER: Unremarkable. No gross lesion or ductal dilatation. GALLBLADDER AND BILE DUCTS: Unremarkable. PANCREAS: Unremarkable. No gross lesion or ductal dilatation. SPLEEN: Unremarkable. ADRENALS: Unremarkable. No mass. KIDNEYS AND URETERS: Unremarkable. No hydronephrosis. No solid mass. VASCULATURE: Unremarkable. No aortic aneurysm. BOWEL: Thickening of the wall of the descending colon which is discontinuous. This primarily affects mid and distal descending colon. Portions of the rectosigmoid are also effective although there appears be sparing of the distal rectum. The APPENDIX: Normal appendix. PERITONEUM: Unremarkable. No free fluid. No free air. LYMPH NODES: Unremarkable. No enlarged lymph nodes. BLADDER: Unremarkable. REPRODUCTIVE: Prior hysterectomy BONES: No acute fracture. Evidence of prior kyphoplasty L1 vertebral body. OTHER FINDINGS: None. IMPRESSION: Colitis involving portions of the descending colon, sigmoid and rectum. This is an acute finding not present on the prior study 06/08/2017 Pt feels well and would like to eat. DW pt findings. Pt needs antibiotics and hospitalization for pancolitis in setting of multiple comorbities and advanced age. 18:[address] Navarro. Patient will be hospitalized for diffuse colitis and abdominal pain. Scribe Attestation: Documented by Kelsey Barton, acting as a scribe for Rhiannon Menon MD Provider Scribe Attestation: All medical entries made by the Scribe were at my direction and personally dictated by me. I have reviewed the chart and agree that the record accurately reflects my personal performance of the history, physical exam, medical decision making, and the department course for this patient. I have also personally directed, reviewed, and agree with the discharge instructions and disposition. Disposition - Clinical Impression Clinical Impression: Pancolitis, COPD (chronic obstructive pulmonary disease), Intractable back pain Counseled Patient/Family Regarding: Studies Performed, Diagnosis - Disposition Disposition Time: 18:00 Condition: FAIR - Pt Status Changed To: Hospital Disposition Of: Observation - POA Present On Arrival: Falls Or Trauma
--- NOTE | 2018-02-09 14:48 | RAD ---
HISTORY: cough COMPARISON: Chest radiograph dated 01/13/2018. FINDINGS: LUNGS: Biapical pleural-parenchymal scarring. Stable chronic prominence of the bilateral interstitial markings. No focal consolidation. PLEURA: No significant pleural effusion identified, no pneumothorax apparent. CARDIOVASCULAR: Atherosclerotic aortic calcifications. Cardiomediastinal silhouette stably enlarged. OSSEOUS STRUCTURES: Interval L1 kyphoplasty. Otherwise unchanged. VISUALIZED UPPER ABDOMEN: Normal. OTHER FINDINGS: None. IMPRESSION: Stable chronic prominence of the bilateral interstitial markings. No focal consolidation or pleural effusion.
[2018-02-09 14:57] LABS: BASO # 0.1 K/uL (0.0-0.2); BASO % 0.7 % (0.0-2.0); EOS # 0.2 K/uL (0.0-0.7); EOS % 2.7 % (0.0-4.0); HEMOGLOBIN 14.1 g/dL (12.0-16.0); LYMPH # 1.4 K/uL (1.0-4.3); LYMPH % 17.2 % (20.0-40.0); MEAN CELL VOLUME 87.7 fl (81.0-99.0); MEAN CORPUSCULAR HEMOGLOBIN 29.7 pg (27.0-31.0); MEAN CORPUSCULAR HGB CONC 33.9 g/dL (33.0-37.0); MEAN PLATELET VOLUME 8.4 fl (7.2-11.7); MONO # 0.5 K/uL (0.0-0.8); MONO % 5.7 % (0.0-10.0); NEUT # 6.1 K/uL (1.8-7.0); NEUT % 73.7 % (50.0-75.0); NRBC % 0.1 % (0.0-0.0); RBC 4.76 Mil/uL (3.80-5.20); RED CELL DISTRIBUTION WIDTH 14.9 % (11.5-14.5); WHITE BLOOD COUNT 8.3 K/uL (4.8-10.8)
[2018-02-09 15:06] LABS: INR 1.1 (0.9-1.2); PARTIAL THROMBOPLASTIN TIME 30.4 Seconds (25.6-37.1); PROTHROMBIN TIME 12.1 Seconds (9.8-13.1)
[2018-02-09 15:09] LABS: ALB/GLOB RATIO 1.2 (1.0-2.1); ALT/SGPT 27 U/L (9-52); AST/SGOT 24 U/L (14-36); BLOOD UREA NITROGEN 18 mg/dl (7-17); GFR AFRICAN-AMERICAN > 60; GFR NON-AFRICAN AMERICAN > 60; LIPASE 128 U/L (23-300)
[2018-02-09] MEDS ORDERED: Iohexol 300 100 ML IJ ONE (17:18)
[2018-02-09] MEDS ORDERED: Sodium Chloride 0.9% 100 ML ONE (17:18)
--- NOTE | 2018-02-09 17:58 | CT ---
PROCEDURE: CT Abdomen and Pelvis with contrast HISTORY: Abdominal pain, vomiting and diarrhea. COMPARISON: 06/08/2017. CT of the abdomen and pelvis. Relevant interventional procedure(s): 01/15/2018 L1 kyphoplasty and bone biopsy. TECHNIQUE: Contrast dose: 90 cc Omnipaque 300 Radiation dose: Total exam DLP = 330.15 mGy-cm. This CT exam was performed using one or more of the following dose reduction techniques: Automated exposure control, adjustment of the mA and/or kV according to patient size, and/or use of iterative reconstruction technique. FINDINGS: LOWER THORAX: Unremarkable. LIVER: Unremarkable. No gross lesion or ductal dilatation. GALLBLADDER AND BILE DUCTS: Unremarkable. PANCREAS: Unremarkable. No gross lesion or ductal dilatation. SPLEEN: Unremarkable. ADRENALS: Unremarkable. No mass. KIDNEYS AND URETERS: Unremarkable. No hydronephrosis. No solid mass. VASCULATURE: Unremarkable. No aortic aneurysm. BOWEL: Thickening of the wall of the descending colon which is discontinuous. This primarily affects mid and distal descending colon. Portions of the rectosigmoid are also effective although there appears be sparing of the distal rectum. The APPENDIX: Normal appendix. PERITONEUM: Unremarkable. No free fluid. No free air. LYMPH NODES: Unremarkable. No enlarged lymph nodes. BLADDER: Unremarkable. REPRODUCTIVE: Prior hysterectomy BONES: No acute fracture. Evidence of prior kyphoplasty L1 vertebral body. OTHER FINDINGS: None. IMPRESSION: Colitis involving portions of the descending colon, sigmoid and rectum. This is an acute finding not present on the prior study 06/08/2017
[2018-02-09] MEDS ORDERED: Ciprofloxacin 400mg/200ml D5W 400 MG/200 ML BAG IV STA (18:39)
[2018-02-09] MEDS ORDERED: metroNIDAZOLE 500mg/100ml NS 100 ML IV STA (18:39)
[2018-02-09] MEDS ORDERED: metroNIDAZOLE 500mg/100ml NS 100 ML IVPB ONE (19:27)
[2018-02-09] MEDS ORDERED: Ciprofloxacin 400mg/200ml D5W 400 MG/200 ML BAG IVPB ONE (19:27)
[2018-02-09] MEDS ORDERED: Albuterol-Ipratrop 3 mg / 0.5 (3 ml) UD INH STA (23:19)
[2018-02-09] MEDS ORDERED: Albuterol HFA 90 mcg/actuation (8 g) IH PRN (23:31)
[2018-02-09] MEDS ORDERED: methylPREDNISolone 60 MG in Sodium Chloride 0.9% 50 ML IVPB SCH (23:38)
[2018-02-09] MEDS ORDERED: Albuterol-Ipratrop 3 mg / 0.5 (3 ml) UD INH PRN (23:40)
[2018-02-10] MEDS: Ciprofloxacin 200mg/100ml D5W 100 ML IVPB SCH ×3 (01:19→20:42)
[2018-02-10] MEDS: metroNIDAZOLE 500mg/100ml NS 50 ML IVPB SCH ×3 (01:19→17:22)
[2018-02-10] MEDS: Enoxaparin 40 mg Syringe SC SCH ×3 (01:44→10:26)
--- NOTE | 2018-02-10 09:41 | CP.PCM.CON ---
History of Present Illness - History of Present Illness History of Present Illness: 82 yo female admitted with abdominal pain and diarrhea. She has been havng nausea, vomiting, and abdominal pain day before admission Appears comfortable now. Review of Systems - Constitutional Constitutional: Weakness - EENT Eyes: absent: Change in Vision Ears: absent: Decreased Hearing Nose/Mouth/Throat: absent: Nasal Congestion - Cardiovascular Cardiovascular: absent: Chest Pain - Respiratory Respiratory: absent: Cough - Gastrointestinal Gastrointestinal: Abdominal Pain - Genitourinary Genitourinary: absent: Change in Urinary Stream Past Patient History - Infectious Disease Hx of Infectious Diseases: None - Tetanus Immunizations Tetanus Immunization: Unknown - Past Medical History & Family History Past Medical History?: Yes - Past Social History Smoking Status: Never Smoked - CARDIAC Hx Cardiac Disorders: Yes Hx Atrial Fibrillation: Yes Hx Hypercholesterolemia: Yes Hx Hypertension: Yes Hx Pacemaker: No - PULMONARY Hx Respiratory Disorders: Yes Hx Asthma: Yes Hx Bronchitis: Yes Hx Chronic Obstructive Pulmonary Disease (COPD): Yes Hx Emphysema: No Hx Pneumonia: Yes Hx Pulmonary Embolism: No Hx Sleep Apnea: No - NEUROLOGICAL Hx Neurological Disorder: No Hx Alzheimer's Disease: No Hx Dementia: No Hx Seizures: No Hx Transient Ischemic Attacks (TIA): No - HEENT Hx HEENT Problems: No - RENAL Hx Chronic Kidney Disease: No - ENDOCRINE/METABOLIC Hx Endocrine Disorders: No - HEMATOLOGICAL/ONCOLOGICAL Hx Blood Disorders: No Hx Anemia: No Hx Human Immunodeficiency Virus (HIV): No Hx Sickle Cell Disease: No - INTEGUMENTARY Hx Dermatological Problems: No - MUSCULOSKELETAL/RHEUMATOLOGICAL Hx Musculoskeletal Disorders: Yes Hx Arthritis: Yes Hx Falls: Yes Hx Fractures: Yes (Left wrist) Hx Osteoporosis: Yes Hx Rheumatoid Arthritis: No - GASTROINTESTINAL Hx Gastrointestinal Disorders: Yes Hx Crohn's Disease: No Hx Diverticulitis: Yes Hx Gall Bladder Disease: No Hx Gastritis: Yes - GENITOURINARY/GYNECOLOGICAL Hx Genitourinary Disorders: Yes Hx Sexually Transmitted Disorders: No - PSYCHIATRIC Hx Psychophysiologic Disorder: Yes Hx Bipolar Disorder: No Hx Depression: Yes Hx Post Traumatic Stress Disorder: No Hx Schizophrenia: No Hx Substance Use: No - SURGICAL HISTORY Hx Surgeries: Yes Hx Appendectomy: No Hx Carotid Endarterectomy: No Hx Coronary Artery Bypass Graft: No Hx Coronary Stent: No Hx Tonsillectomy: No - ANESTHESIA Hx Anesthesia: Yes Hx Anesthesia Reactions: No Hx Malignant Hyperthermia: No Meds Allergies/Adverse Reactions: Allergies Allergy/AdvReac Type Severity Reaction Status Date / Time adhesive tape Allergy ITCHING Verified 11/24/17 21:28 aspirin Allergy ITCHING Verified 11/24/17 21:28 - Medications Medications: Current Medications Albuterol (Ventolin Hfa 90 Mcg/Actuation (8 G)) 2 puff IH Q6 PRN PRN Reason: Shortness of Breath Albuterol/Ipratropium (Duoneb 3 Mg/0.5 Mg (3 Ml) Ud) 3 ml INH RQ6 PRN PRN Reason: Shortness of Breath Alprazolam (Xanax) 1 mg PO Q12 PRN PRN Reason: Anxiety Amlodipine Besylate (Norvasc) 5 mg PO DAILY [facility] Atorvastatin Calcium (Lipitor) 20 mg PO HS [facility] Last Admin: 02/10/18 01:44 Dose: 20 mg Docusate Sodium (Colace) 100 mg PO DAILY PRN PRN Reason: Constipation Enoxaparin Sodium (Lovenox) 40 mg SC DAILY [facility] PRN Reason: Protocol Last Admin: 02/10/18 01:44 Dose: 40 mg Home Med (Folic Acid [Folic Acid]) 400 mcg PO DAILY [facility] Metronidazole (Flagyl 500mg/100ml Ns) 50 mls @ 50 mls/hr IVPB Q8 SANDIE PRN Reason: Protocol Last Admin: 02/10/18 01:19 Dose: 50 mls/hr Ciprofloxacin (Cipro 200mg/100ml D5w) 100 mls @ 100 mls/hr IVPB Q12 SANDIE PRN Reason: Protocol Last Admin: 02/10/18 01:19 Dose: 100 mls/hr Methylprednisolone (Solu-Medrol) 60 mg IV Q8 [facility] Montelukast Sodium (Singulair) 10 mg PO DAILY [facility] Pantoprazole Sodium (Protonix Ec Tab) 40 mg PO DAILY [facility] Vitamin E (Vitamin E) 200 intlu PO DAILY [facility] Zolpidem Tartrate (Ambien) 10 mg PO [facility] Last Admin: 02/10/18 01:47 Dose: 10 mg Physical Exam - Constitutional Appears: Non-toxic - Head Exam Head Exam: ATRAUMATIC - Eye Exam Eye Exam: Normal appearance - ENT Exam ENT Exam: Normal Exam - Neck Exam Neck exam: Positive for: Normal Inspection - Respiratory Exam Respiratory Exam: Clear to Auscultation Bilateral - Cardiovascular Exam Cardiovascular Exam: REGULAR RHYTHM, +S1, +S2 - GI/Abdominal Exam GI & Abdominal Exam: Normal Bowel Sounds, Soft, Tenderness Results - Vital Signs Recent Vital Signs: Last Vital Signs Temp 98.5 F 02/10/18 08:31 Pulse 80 02/10/18 08:31 Resp 20 02/10/18 08:31 BP 163/77 H 02/10/18 08:31 Pulse Ox 97 02/10/18 08:31 - Labs Result Diagrams: 02/09/18 14:45 02/09/18 14:45 Labs: Laboratory Results - last 24 hr 02/09/18 02/09/18 02/09/18 14:45 14:45 14:45 WBC 8.3 D RBC 4.76 Hgb 14.1 Hct 41.7 MCV 87.7 D MCH 29.7 MCHC 33.9 RDW 14.9 H Plt Count 232 MPV 8.4 Neut % (Auto) 73.7 Lymph % (Auto) 17.2 L [place] % (Auto) 5.7 Eos % (Auto) 2.7 Baso % (Auto) 0.7 Neut # (Auto) 6.1 Lymph # (Auto) 1.4 [place] # (Auto) 0.5 Eos # (Auto) 0.2 Baso # (Auto) 0.1 PT 12.1 INR 1.1 APTT 30.4 Sodium Potassium Chloride Carbon Dioxide Anion Gap BUN Creatinine Est GFR ( Amer) Est GFR (Non-Af Amer) Random Glucose Lactic Acid 1.1 Calcium Phosphorus Magnesium Total Bilirubin AST ALT Alkaline Phosphatase Total Protein Albumin Globulin Albumin/Globulin Ratio Lipase Influenza Typ A,B (EIA) 02/09/18 02/09/18 14:45 14:55 WBC RBC Hgb Hct MCV MCH MCHC RDW Plt Count MPV Neut % (Auto) Lymph % (Auto) [place] % (Auto) Eos % (Auto) Baso % (Auto) Neut # (Auto) Lymph # (Auto) [place] # (Auto) Eos # (Auto) Baso # (Auto) PT INR APTT Sodium 144 Potassium 4.1 Chloride 104 Carbon Dioxide 24 Anion Gap 20 BUN 18 H Creatinine 0.7 Est GFR ( Amer) > 60 Est GFR (Non-Af Amer) > 60 Random Glucose 115 H Lactic Acid Calcium 10.0 Phosphorus 3.6 Magnesium 2.0 Total Bilirubin 0.3 AST 24 ALT 27 Alkaline Phosphatase 85 Total Protein 7.4 Albumin 4.0 Globulin 3.4 Albumin/Globulin Ratio 1.2 Lipase 128 Influenza Typ A,B (EIA) Negative for flu a/b Assessment & Plan (1) Abdominal pain Assessment and Plan: Thickening left colon on CT but normal WBC. Possible gastroenteritis. Stool studies pending . Colonscopy 04/2015 showed diverticulosis. Sigmoidoscopy tomorrow to r/o colitis and C. diff. Status: Acute
[2018-02-10] MEDS: Pantoprazole 40 mg EC Tab PO SCH (10:22)
[2018-02-10] MEDS: Dextrose 5%/0.9% NS 1,000 ML IV SCH ×2 (11:16→23:28)
--- NOTE | 2018-02-10 11:54 | CP.PCM.HP ---
History of Present Illness - History of Present Illness History of Present Illness: 82 year old female with hx of severe COPD present to the emergency department via EMS c/o "crampy" abdominal pain onset one day. She c/o diarrhea, dyspepsia with an episode of fever 102. She has chronic cough secondary to copd. She was started on full liquid but she did not tolerate it. At present on clear liquid. She is on iv antibx for the colitis and steroid for the copd. W/U pending. Present on Admission - Present on Admission Any Indicators Present on Admission: No Review of Systems - Constitutional Constitutional: As Per HPI - EENT Eyes: As Per HPI - Cardiovascular Cardiovascular: As Per HPI - Respiratory Respiratory: Cough, Dyspnea - Gastrointestinal Gastrointestinal: Abdominal Pain, Cramping - Genitourinary Genitourinary: As Per HPI - Musculoskeletal Musculoskeletal: As Per HPI - Neurological Neurological: As Per HPI - Psychiatric Psychiatric: As Per HPI Past Patient History - Infectious Disease Hx of Infectious Diseases: None - Tetanus Immunizations Tetanus Immunization: Unknown - Past Medical History & Family History Past Medical History?: Yes - Past Social History Smoking Status: Never Smoked - CARDIAC Hx Cardiac Disorders: Yes Hx Atrial Fibrillation: Yes Hx Hypercholesterolemia: Yes Hx Hypertension: Yes Hx Pacemaker: No - PULMONARY Hx Respiratory Disorders: Yes Hx Asthma: Yes Hx Bronchitis: Yes Hx Chronic Obstructive Pulmonary Disease (COPD): Yes Hx Emphysema: No Hx Pneumonia: Yes Hx Pulmonary Embolism: No Hx Sleep Apnea: No - NEUROLOGICAL Hx Neurological Disorder: No Hx Alzheimer's Disease: No Hx Dementia: No Hx Seizures: No Hx Transient Ischemic Attacks (TIA): No - HEENT Hx HEENT Problems: No - RENAL Hx Chronic Kidney Disease: No - ENDOCRINE/METABOLIC Hx Endocrine Disorders: No - HEMATOLOGICAL/ONCOLOGICAL Hx Blood Disorders: No Hx Anemia: No Hx Human Immunodeficiency Virus (HIV): No Hx Sickle Cell Disease: No - INTEGUMENTARY Hx Dermatological Problems: No - MUSCULOSKELETAL/RHEUMATOLOGICAL Hx Musculoskeletal Disorders: Yes Hx Arthritis: Yes Hx Falls: Yes Hx Fractures: Yes (Left wrist) Hx Osteoporosis: Yes Hx Rheumatoid Arthritis: No - GASTROINTESTINAL Hx Gastrointestinal Disorders: Yes Hx Crohn's Disease: No Hx Diverticulitis: Yes Hx Gall Bladder Disease: No Hx Gastritis: Yes - GENITOURINARY/GYNECOLOGICAL Hx Genitourinary Disorders: Yes Hx Sexually Transmitted Disorders: No - PSYCHIATRIC Hx Psychophysiologic Disorder: Yes Hx Bipolar Disorder: No Hx Depression: Yes Hx Post Traumatic Stress Disorder: No Hx Schizophrenia: No Hx Substance Use: No - SURGICAL HISTORY Hx Surgeries: Yes Hx Appendectomy: No Hx Carotid Endarterectomy: No Hx Coronary Artery Bypass Graft: No Hx Coronary Stent: No Hx Tonsillectomy: No - ANESTHESIA Hx Anesthesia: Yes Hx Anesthesia Reactions: No Hx Malignant Hyperthermia: No Meds Allergies/Adverse Reactions: Allergies Allergy/AdvReac Type Severity Reaction Status Date / Time adhesive tape Allergy ITCHING Verified 11/24/17 21:28 aspirin Allergy ITCHING Verified 11/24/17 21:28 Physical Exam - Constitutional Appears: Chronically Ill - Head Exam Head Exam: ATRAUMATIC, NORMAL INSPECTION, NORMOCEPHALIC - Eye Exam Eye Exam: Normal appearance - ENT Exam ENT Exam: Mucous Membranes Moist - Neck Exam Neck exam: Positive for: Full Rom - Respiratory Exam Respiratory Exam: Decreased Breath Sounds - Cardiovascular Exam Cardiovascular Exam: REGULAR RHYTHM, +S1, +S2 - GI/Abdominal Exam GI & Abdominal Exam: Hyperactive Bowel Sounds, Tenderness - Neurological Exam Neurological exam: Alert, CN II-XII Intact, Oriented x3 - Psychiatric Exam Psychiatric exam: Anxious - Skin Skin Exam: Normal Color Results - Vital Signs Recent Vital Signs: Last Vital Signs Temp 98.5 F 02/10/18 08:31 Pulse 80 02/10/18 08:31 Resp 20 02/10/18 08:31 BP 163/77 H 02/10/18 08:31 Pulse Ox 97 02/10/18 08:31 - Labs Result Diagrams: 02/09/18 14:45 02/09/18 14:45 Labs: Laboratory Results - last 24 hr 02/09/18 02/09/18 02/09/18 14:45 14:45 14:45 WBC 8.3 D RBC 4.76 Hgb 14.1 Hct 41.7 MCV 87.7 D MCH 29.7 MCHC 33.9 RDW 14.9 H Plt Count 232 MPV 8.4 Neut % (Auto) 73.7 Lymph % (Auto) 17.2 L [place] % (Auto) 5.7 Eos % (Auto) 2.7 Baso % (Auto) 0.7 Neut # (Auto) 6.1 Lymph # (Auto) 1.4 [place] # (Auto) 0.5 Eos # (Auto) 0.2 Baso # (Auto) 0.1 PT 12.1 INR 1.1 APTT 30.4 Sodium Potassium Chloride Carbon Dioxide Anion Gap BUN Creatinine Est GFR ( Amer) Est GFR (Non-Af Amer) Random Glucose Lactic Acid 1.1 Calcium Phosphorus Magnesium Total Bilirubin AST ALT Alkaline Phosphatase Total Protein Albumin Globulin Albumin/Globulin Ratio Lipase Influenza Typ A,B (EIA) 02/09/18 02/09/18 14:45 14:55 WBC RBC Hgb Hct MCV MCH MCHC RDW Plt Count MPV Neut % (Auto) Lymph % (Auto) [place] % (Auto) Eos % (Auto) Baso % (Auto) Neut # (Auto) Lymph # (Auto) [place] # (Auto) Eos # (Auto) Baso # (Auto) PT INR APTT Sodium 144 Potassium 4.1 Chloride 104 Carbon Dioxide 24 Anion Gap 20 BUN 18 H Creatinine 0.7 Est GFR ( Amer) > 60 Est GFR (Non-Af Amer) > 60 Random Glucose 115 H Lactic Acid Calcium 10.0 Phosphorus 3.6 Magnesium 2.0 Total Bilirubin 0.3 AST 24 ALT 27 Alkaline Phosphatase 85 Total Protein 7.4 Albumin 4.0 Globulin 3.4 Albumin/Globulin Ratio 1.2 Lipase 128 Influenza Typ A,B (EIA) Negative for flu a/b Assessment & Plan (1) Abdominal discomfort Status: Acute (2) Abdominal pain Status: Acute (3) DVT prophylaxis Status: Acute (4) Dyspnea Status: Chronic (5) Gastroenteritis Status: Acute (6) COPD (chronic obstructive pulmonary disease) Status: Chronic (7) Depression Status: Chronic (8) HTN (hypertension) Status: Chronic (9) Colitis Status: Acute - Assessment and Plan (Free Text) Assessment: As per orders
[2018-02-10] MEDS: Vitamin E 100 INTLU SGL PO SCH (12:36)
[2018-02-10 12:41] LABS: BASO # 0.1 K/uL (0.0-0.2); BASO % 0.9 % (0.0-2.0); EOS # 0.4 K/uL (0.0-0.7); EOS % 5.4 % (0.0-4.0); HEMOGLOBIN 13.5 g/dL (12.0-16.0); LYMPH # 1.5 K/uL (1.0-4.3); LYMPH % 21.2 % (20.0-40.0); MEAN CELL VOLUME 88.6 fl (81.0-99.0); MEAN CORPUSCULAR HEMOGLOBIN 29.8 pg (27.0-31.0); MEAN CORPUSCULAR HGB CONC 33.6 g/dL (33.0-37.0); MEAN PLATELET VOLUME 8.7 fl (7.2-11.7); MONO # 0.6 K/uL (0.0-0.8); MONO % 8.3 % (0.0-10.0); NEUT # 4.5 K/uL (1.8-7.0); NEUT % 64.2 % (50.0-75.0); NRBC % 0.1 % (0.0-0.0); RBC 4.54 Mil/uL (3.80-5.20); RED CELL DISTRIBUTION WIDTH 14.9 % (11.5-14.5); WHITE BLOOD COUNT 6.9 K/uL (4.8-10.8)
[2018-02-10 12:57] LABS: BLOOD UREA NITROGEN 11 mg/dl (7-17); CALCIUM 9.4 mg/dL (8.4-10.2); GFR AFRICAN-AMERICAN > 60; GFR NON-AFRICAN AMERICAN > 60
[2018-02-10] MEDS ORDERED: guaiFENesin 100 mg/5 ml Syrup UD PO PRN (20:34)
[2018-02-11] MEDS: metroNIDAZOLE 500mg/100ml NS 50 ML IVPB SCH ×2 (01:11→08:24)
[2018-02-11] MEDS: Pantoprazole 40 mg EC Tab PO SCH (08:25)
[2018-02-11] MEDS: Ciprofloxacin 200mg/100ml D5W 100 ML IVPB SCH (08:25)
[2018-02-11] MEDS: Vitamin E 100 INTLU SGL PO SCH (08:26)
[2018-02-11] MEDS: Enoxaparin 40 mg Syringe SC SCH (09:23)
--- NOTE | 2018-02-11 09:45 | CP.PCM.CON ---
History of Present Illness - History of Present Illness History of Present Illness: This 82-year-old Croatian-speaking female who was a former cigarettes smoker and suffers from chronic pulmonary disease was admitted via the emergency department where she presented with acute/severe abdominal pain. She is presently undergoing a gastrointestinal workup and is scheduled for sigmoidoscopy. She has a long-standing history of chronic obstructive pulmonary disease and has been hospitalized at this institution for exacerbation of same in the past. Past Patient History - Infectious Disease Hx of Infectious Diseases: None - Tetanus Immunizations Tetanus Immunization: Unknown - Past Medical History & Family History Past Medical History?: Yes - Past Social History Alcohol: None Drugs: Denies - CARDIAC Hx Atrial Fibrillation: Yes Hx Hypercholesterolemia: Yes Hx Hypertension: Yes Hx Pacemaker: No - PULMONARY Hx Asthma: Yes Hx Bronchitis: Yes Hx Chronic Obstructive Pulmonary Disease (COPD): Yes Hx Emphysema: No Hx Pneumonia: Yes Hx Pulmonary Embolism: No Hx Sleep Apnea: No - NEUROLOGICAL Hx Alzheimer's Disease: No Hx Dementia: No Hx Seizures: No Hx Transient Ischemic Attacks (TIA): No - HEENT Hx HEENT Problems: No - RENAL Hx Chronic Kidney Disease: No - HEMATOLOGICAL/ONCOLOGICAL Hx Anemia: No Hx Human Immunodeficiency Virus (HIV): No Hx Sickle Cell Disease: No - INTEGUMENTARY Hx Dermatological Problems: No - MUSCULOSKELETAL/RHEUMATOLOGICAL Hx Arthritis: Yes Hx Fractures: Yes (Left wrist) Hx Osteoporosis: Yes Hx Rheumatoid Arthritis: No - GASTROINTESTINAL Hx Crohn's Disease: No Hx Diverticulitis: Yes Hx Gall Bladder Disease: No Hx Gastritis: Yes - GENITOURINARY/GYNECOLOGICAL Hx Sexually Transmitted Disorders: No - PSYCHIATRIC Hx Bipolar Disorder: No Hx Depression: Yes Hx Post Traumatic Stress Disorder: No Hx Schizophrenia: No - SURGICAL HISTORY Hx Appendectomy: No Hx Carotid Endarterectomy: No Hx Cholecystectomy: Yes Hx Coronary Artery Bypass Graft: No Hx Coronary Stent: No Hx Tonsillectomy: No - ANESTHESIA Hx Anesthesia: Yes Hx Anesthesia Reactions: No Hx Malignant Hyperthermia: No Meds Allergies/Adverse Reactions: Allergies Allergy/AdvReac Type Severity Reaction Status Date / Time adhesive tape Allergy ITCHING Verified 11/24/17 21:28 aspirin Allergy ITCHING Verified 11/24/17 21:28 mushroom Allergy NAUSEA Verified 02/10/18 11:56 - Medications Medications: Current Medications Albuterol (Ventolin Hfa 90 Mcg/Actuation (8 G)) 2 puff IH Q6 PRN PRN Reason: Shortness of Breath Albuterol/Ipratropium (Duoneb 3 Mg/0.5 Mg (3 Ml) Ud) 3 ml INH RQ6 PRN PRN Reason: Shortness of Breath Alprazolam (Xanax) 1 mg PO Q12 PRN PRN Reason: Anxiety Amlodipine Besylate (Norvasc) 5 mg PO DAILY [facility] Last Admin: 02/11/18 08:25 Dose: Not Given Atorvastatin Calcium (Lipitor) 20 mg PO HS [facility] Last Admin: 02/10/18 21:27 Dose: 20 mg Docusate Sodium (Colace) 100 mg PO DAILY PRN PRN Reason: Constipation Enoxaparin Sodium (Lovenox) 40 mg SC DAILY [facility] PRN Reason: Protocol Last Admin: 02/11/18 09:23 Dose: Not Given Folic Acid (Folic Acid) 1 mg PO DAILY [facility] Last Admin: 02/11/18 08:25 Dose: Not Given Guaifenesin (Robitussin) 100 mg PO Q6 PRN PRN Reason: Cough Last Admin: 02/10/18 21:27 Dose: 100 mg Metronidazole (Flagyl 500mg/100ml Ns) 50 mls @ 50 mls/hr IVPB Q8 [facility] PRN Reason: Protocol Last Admin: 02/11/18 08:24 Dose: 50 mls/hr Ciprofloxacin (Cipro 200mg/100ml D5w) 100 mls @ 100 mls/hr IVPB Q12 [facility] PRN Reason: Protocol Last Admin: 02/11/18 08:25 Dose: 100 mls/hr Dextrose/Sodium Chloride (Dextrose 5%/0.9% Ns 1000 Ml) 1,000 mls @ 85 mls/hr IV .[id number] [facility] Stop: 02/11/18 11:06 Last Admin: 02/10/18 23:28 Dose: Not Given Methylprednisolone (Solu-Medrol) 60 mg IV Q8 [facility] Last Admin: 02/11/18 08:26 Dose: 60 mg Montelukast Sodium (Singulair) 10 mg PO DAILY [facility] Last Admin: 02/11/18 08:26 Dose: Not Given Pantoprazole Sodium (Protonix Ec Tab) 40 mg PO DAILY [facility] Last Admin: 02/11/18 08:25 Dose: Not Given Vitamin E (Vitamin E) 200 intlu PO DAILY [facility] Last Admin: 02/11/18 08:26 Dose: Not Given Zolpidem Tartrate (Ambien) 10 mg PO HS [facility] Last Admin: 02/10/18 23:27 Dose: 10 mg Results - Vital Signs Recent Vital Signs: Last Vital Signs Temp 97.9 F 02/11/18 08:24 Pulse 76 02/11/18 08:24 Resp 20 02/11/18 08:24 BP 117/60 02/11/18 08:24 Pulse Ox 95 02/11/18 08:24 - Labs Result Diagrams: 02/10/18 12:33 02/10/18 12:33 Labs: Laboratory Results - last 24 hr 02/10/18 02/10/18 02/10/18 09:38 11:00 12:33 WBC 6.9 RBC 4.54 Hgb 13.5 Hct 40.2 MCV 88.6 MCH 29.8 MCHC 33.6 RDW 14.9 H Plt Count 220 MPV 8.7 Neut % (Auto) 64.2 Lymph % (Auto) 21.2 [place] % (Auto) 8.3 Eos % (Auto) 5.4 H Baso % (Auto) 0.9 Neut # (Auto) 4.5 Lymph # (Auto) 1.5 [place] # (Auto) 0.6 Eos # (Auto) 0.4 Baso # (Auto) 0.1 Sodium Potassium Chloride Carbon Dioxide Anion Gap BUN Creatinine Est GFR ( Amer) Est GFR (Non-Af Amer) Random Glucose Calcium TSH 3rd Generation Stool Leukocytes, Qual Negative C. difficile Ag & Toxin Negative 02/10/18 02/10/18 12:33 12:36 WBC RBC Hgb Hct MCV MCH MCHC RDW Plt Count MPV Neut % (Auto) Lymph % (Auto) [place] % (Auto) Eos % (Auto) Baso % (Auto) Neut # (Auto) Lymph # (Auto) [place] # (Auto) Eos # (Auto) Baso # (Auto) Sodium 142 Potassium 4.1 Chloride 103 Carbon Dioxide 27 Anion Gap 16 BUN 11 Creatinine 0.8 Est GFR ( Amer) > 60 Est GFR (Non-Af Amer) > 60 Random Glucose 112 H Calcium 9.4 TSH 3rd Generation 0.85 Stool Leukocytes, Qual C. difficile Ag & Toxin Assessment & Plan - Date & Time Date: 02/11/18 Time: 09:45
[2018-02-11] MEDS: Dextrose 5%/0.9% NS 1,000 ML IV SCH (12:07)
[2018-02-11] MEDS ORDERED: Lactated Ringer's 500 ML IV ONE (13:21)
[2018-02-11] MEDS ORDERED: Propofol 10 mg/ml Inj (20 ML) ONE (13:39)
[2018-02-11 14:13] VITALS: RESP 20
--- NOTE | 2018-02-11 15:57 | CP.PCM.PN ---
Subjective - Date & Time of Evaluation Date of Evaluation: 02/11/18 Time of Evaluation: 16:47 - Subjective Subjective: Comfortable. able to tolerate diet. DC home Objective - Vital Signs/Intake and Output Vital Signs (last 24 hours): Temp Pulse Resp BP Pulse Ox 98 F 86 20 137/68 100 02/11/18 14:10 02/11/18 14:10 02/11/18 14:10 02/11/18 14:10 02/11/18 14:10 Intake and Output: 02/11/18 02/11/18 11:59 23:59 Intake Total 100 Balance 100 - Medications Medications: Current Medications Albuterol (Ventolin Hfa 90 Mcg/Actuation (8 G)) 2 puff IH Q6 PRN PRN Reason: Shortness of Breath Albuterol/Ipratropium (Duoneb 3 Mg/0.5 Mg (3 Ml) Ud) 3 ml INH RQ6 PRN PRN Reason: Shortness of Breath Alprazolam (Xanax) 1 mg PO Q12 PRN PRN Reason: Anxiety Amlodipine Besylate (Norvasc) 5 mg PO DAILY [facility] Last Admin: 02/11/18 08:25 Dose: Not Given Atorvastatin Calcium (Lipitor) 20 mg PO HS [facility] Last Admin: 02/10/18 21:27 Dose: 20 mg Docusate Sodium (Colace) 100 mg PO DAILY PRN PRN Reason: Constipation Enoxaparin Sodium (Lovenox) 40 mg SC DAILY [facility] PRN Reason: Protocol Last Admin: 02/11/18 09:23 Dose: Not Given Folic Acid (Folic Acid) 1 mg PO DAILY [facility] Last Admin: 02/11/18 08:25 Dose: Not Given Guaifenesin (Robitussin) 100 mg PO Q6 PRN PRN Reason: Cough Last Admin: 02/10/18 21:27 Dose: 100 mg Methylprednisolone (Solu-Medrol) 60 mg IV Q8 [facility] Last Admin: 02/11/18 08:26 Dose: 60 mg Montelukast Sodium (Singulair) 10 mg PO DAILY [facility] Last Admin: 02/11/18 08:26 Dose: Not Given Vitamin E (Vitamin E) 200 intlu PO DAILY [facility] Last Admin: 02/11/18 08:26 Dose: Not Given Zolpidem Tartrate (Ambien) 10 mg PO HS [facility] Last Admin: 02/10/18 23:27 Dose: 10 mg - Labs Labs: 02/10/18 12:33 02/10/18 12:33 PT 12.1 Seconds (9.8-13.1) 02/09/18 14:45 INR 1.1 (0.9-1.2) 02/09/18 14:45 APTT 30.4 Seconds (25.6-37.1) 02/09/18 14:45 - Constitutional Appears: Non-toxic - Head Exam Head Exam: ATRAUMATIC, NORMAL INSPECTION, NORMOCEPHALIC - Eye Exam Eye Exam: Normal appearance - ENT Exam ENT Exam: Mucous Membranes Moist - Neck Exam Neck Exam: Full ROM - Respiratory Exam Respiratory Exam: Clear to Ausculation Bilateral - Cardiovascular Exam Cardiovascular Exam: REGULAR RHYTHM, +S1, +S2 - GI/Abdominal Exam GI & Abdominal Exam: Soft, Normal Bowel Sounds - Extremities Exam Extremities Exam: Full ROM - Neurological Exam Neurological Exam: Alert, Awake, CN II-XII Intact, Normal Gait, Oriented x3 - Psychiatric Exam Psychiatric exam: Normal Affect - Skin Skin Exam: Normal Color Assessment and Plan (1) Abdominal discomfort Status: Acute (2) Abdominal pain Status: Acute (3) DVT prophylaxis Status: Acute (4) Dyspnea Status: Chronic (5) Gastroenteritis Status: Acute (6) COPD (chronic obstructive pulmonary disease) Status: Chronic (7) Depression Status: Chronic (8) HTN (hypertension) Status: Chronic (9) Colitis Status: Acute - Assessment and Plan (Free Text) Plan: DC patient home. F/U as OP
[2018-02-11 16:28] VITALS: BP 106/64; PULSE 98; TEMP 97.6; O2SAT 94
== END 2018-02-11 17:27 | disposition home or self-care (01) ==
LOC: H.ER 13:54 → H.ERHOLD 18:38 → H.MEDSURG1 22:30
PROVIDERS: ADMIT Internal Medicine; ATTEND Internal Medicine
DX: R10.9 Unspecified abdominal pain (principal); R06.00 Dyspnea, unspecified; K52.9 Noninfective gastroenteritis and colitis, unspecified; J44.9 Chronic obstructive pulmonary disease, unspecified; F32.9 Major depressive disorder, single episode, unspecified; I10 Essential (primary) hypertension; E78.00 Pure hypercholesterolemia, unspecified; G89.29 Other chronic pain; I48.91 Unspecified atrial fibrillation; M19.90 Unspecified osteoarthritis, unspecified site; K29.70 Gastritis, unspecified, without bleeding; M81.0 Age-related osteoporosis without current pathological fracture; Z87.891 Personal history of nicotine dependence; K57.30 Diverticulosis of large intestine without perforation or abscess without bleeding
CPT/HCPCS: 36415; 45331; 71045; 74177; 80048; 80053; 83605; 83690; 83735; 84100; 84443; 85025; 85610; 85730; 87040; 87045; 87177; 87209; 87230; 87804; 88305; 89055; 94640; 96360; 96374; 99285; G0378; J0744; J1650; J2001; J2405; J2704; J2930; J7042; J7120; Q9966; Q9967

== ENCOUNTER 2018-04-27 10:18 | Emergency (ER) | payer OTHER ==
[2018-04-27 10:24] VITALS: BMI 22.4
[2018-04-27 10:25] VITALS: O2SAT 98
--- NOTE | 2018-04-27 11:39 | ED PDOC ---
HPI: General Adult Time Seen by Provider: 04/27/18 10:44 Chief Complaint (Nursing): Weakness/Neurological Deficit Chief Complaint (Provider): Weakness/Neurological Deficit History Per: Patient History/Exam Limitations: no limitations Onset/Duration Of Symptoms: Days (x 1 month ) Current Symptoms Are (Timing): Still Present Recently: Treated By A Physician Additional Complaint(s): 82 year old female with a history falls, COPD, anxiety, asthma and gastritis presents to the ED with leg pain, back pain, headache and generalized weakness s /p fall 1 month ago. She was seen by her PMD earlier and sent here for further evaluation. Patient did not lose consciousness, but admits she was confused immediately after fall. She reports that she is able to ambulate, but with discomfort. Denies fever, vomiting, chest pain. PMD: Dr. Navarro Past Medical History Reviewed: Historical Data, Nursing Documentation, Vital Signs Vital Signs: Last Vital Signs Temp 98.1 F 04/27/18 15:22 Pulse 79 04/27/18 15:22 Resp 18 04/27/18 15:22 BP 114/71 04/27/18 15:22 Pulse Ox 98 04/27/18 15:22 - Medical History PMH: Arthritis, Asthma, Atrial Fibrillation, Bronchitis, COPD, Depression, Diverticulitis, Fractures (Left wrist), Gastritis, HTN, Hypercholesterolemia, Osteoporosis, Pneumonia Denies: Alzheimer's Disease, Anemia, Bipolar Disorder, Crohn's Disease, Dementia, Emphysema, Gall Bladder Disease, HIV, Post Traumatic Stress Disorder, Pulmonary Embolism, Chronic Kidney Disease, Rheumatoid Arthritis, Schizophrenia , Seizures, Sickle Cell Disease, Sexually Transmitted Disease, Sleep Apnea, TIA - Surgical History Surgical History: Back Surgery (fracture repair ), Cholecystectomy, Endoscopy, C -Section Denies: Appendectomy, CABG, Carotid Endarterectomy, Coronary Stent, Pacemaker , Tonsillectomy - Family History Family History: States: Unknown Family Hx, Hypertension - Immunization History Hx Tetanus Toxoid Vaccination: No Hx Influenza Vaccination: Yes Hx Pneumococcal Vaccination: Yes - Home Medications Home Medications: Ambulatory Orders Medication Instructions Recorded Albuterol HFA [Ventolin HFA 90 2 puff IH Q6 PRN 01/13/18 mcg/actuation (8 g)] Docusate [Colace] 100 mg PO DAILY PRN 01/13/18 Esomeprazole Magnesium [Nexium] 40 mg PO DAILY 01/13/18 Montelukast [Singulair] 10 mg PO DAILY 01/13/18 Rosuvastatin Calcium [Crestor] 10 mg PO HS 01/13/18 Vitamin E 200 unit PO DAILY 01/13/18 amLODIPine [Norvasc] 5 mg PO DAILY 01/13/18 Folic Acid 400 mcg PO DAILY #0 01/15/18 ALPRAZolam [Xanax] 1 mg PO Q12 PRN #10 tab 04/27/18 Acidoph/L.bulg/Bif.b/S.thermop 1 tab PO BID 04/27/18 [[facility]id [facility]] Albuterol 0.083% [Albuterol 0.083% 3 ml IH Q6 PRN 04/27/18 Inhal Lena (2.5 mg/3 ml) UD] Ibuprofen [Motrin Tab] 600 mg PO Q8 PRN 04/27/18 Zolpidem [Ambien] 10 mg PO HS #10 tab 04/27/18 - Allergies Allergies/Adverse Reactions: Allergies Allergy/AdvReac Type Severity Reaction Status Date / Time adhesive tape Allergy ITCHING Verified 04/27/18 10:50 aspirin Allergy ITCHING Verified 04/27/18 10:50 mushroom Allergy NAUSEA Verified 04/27/18 10:50 Review of Systems ROS Statement: Except As Marked, All Systems Reviewed And Found Negative Constitutional: Negative for: Fever Gastrointestinal: Positive for: Abdominal Pain. Negative for: Vomiting, Diarrhea Musculoskeletal: Positive for: Back Pain, Leg Pain Neurological: Positive for: Headache Physical Exam - Reviewed Nursing Documentation Reviewed: Yes Vital Signs Reviewed: Yes - Physical Exam Appears: Positive for: No Acute Distress (comfortable ) Head Exam: Positive for: ATRAUMATIC, NORMAL INSPECTION, NORMOCEPHALIC Skin: Positive for: Normal Color, Warm, Dry Eye Exam: Positive for: EOMI, PERRL Neck: Positive for: Normal, Painless ROM, Supple Cardiovascular/Chest: Positive for: Regular Rate, Rhythm. Negative for: Murmur Respiratory: Positive for: Normal Breath Sounds. Negative for: Respiratory Distress Gastrointestinal/Abdominal: Positive for: Normal Exam, Soft. Negative for: Tenderness Back: Positive for: Other (diffuse tenderness lumbar spine, paraspinally and midline ) Extremity: Positive for: Normal ROM. Negative for: Deformity Neurologic/Psych: Positive for: Alert, Oriented (x 3). Negative for: Motor/ Sensory Deficits - Laboratory Results Result Diagrams: 04/27/18 13:10 04/27/18 13:10 - ECG O2 Sat by Pulse Oximetry: 98 (RA) Pulse Ox Interpretation: Normal Medical Decision Making Medical Decision Makin:18 impression: back pain, head injury, abdominal pain and arthralgias Differential diagnoses include but are not limited to: Lower back: vertebral fracture, lumbar radiculopathy; Head: chronic intracranial bleeding Initial Plan: --Head CT w/o contrast --Lumbar spine w/o contrast --BMP --CPK --Urine dip --CBC --CXR --Left knee xray --Right knee xray --Pelvis x-ray 12:[address] FINDINGS: HEMORRHAGE: No intracranial hemorrhage. BRAIN: Limited expansion of the ventricular sulcal and cisternal spaces appreciate compatible with trace very mild diffuse cerebral atrophy. Periventricular, subcortical and centrum semiovale white matter lucency is compatible with chronic microangiopathy, appear relatively prominent but age-appropriate. A lucency at the left internal capsule anterior limb is identified reflecting a small infarct most likely but of indeterminate age. Follow-up CT recommended. There is no mass effect in the posterior fossa contents appear unremarkable. VENTRICLES: Unremarkable. No hydrocephalus. CALVARIUM: No displaced fracture identified. No destructive bony lesion appreciated. Atherosclerotic plaques are identified at bilateral cavernous internal artery segments as well as the distal vertebral arteries bilaterally. PARANASAL SINUSES: Mucosal inflammatory changes are seen in the visualized right maxillary sinus. MASTOID AIR CELLS: Unremarkable as visualized. No inflammatory changes. OTHER FINDINGS: None. IMPRESSION: 1. No acute intracranial hemorrhage or mass-effect. 2. The left internal capsule anterior limb lucency may reflect a chronic lacune however the age of this finding is ultimately indeterminate and a small infarct is not excluded. Follow-up CT or MRI recommended. 3. Age related neuro degenerative findings, age-appropriate. 12:28 FINDINGS: VERTEBRAE: Normal lumbar curvature is appreciated. A mild L1 anterior wedge compression fracture is identified now all treated by kyphoplasty in the interval with radiodense orthopedic cement identified in the vertebral body, stabilizing it. No interval worsening of this fracture is identified and no new fractures appreciable. There is no spondylolisthesis identified. No destructive bony changes are identified at this time in the interval. Mild to moderate disc height loss seen at L4-5 with remaining intervertebral discs normal in height. Vacuum disc changes indicate degenerative disc disease advanced at T12-L1 and L1-2. Multilevel facet degenerative changes are appreciated. DISCS/SPINAL CANAL/NEURAL FORAMINA: L1-2: Limited disc bulging is identified without significant stenosis resulting. L2-3: Additional disc bulging is appreciated circumferential encroachment lateral recesses but without causing generalized central canal stenosis. Borderline bilateral neural foraminal stenosis. Mild facet joint degenerative changes are seen symmetrically. L3-4: Circumferential disc bulging combines with facet joint degenerative arthropathy with mild to moderate central canal stenosis, potentially progressed in the interval. Borderline bilateral neural foraminal stenosis. L4-5: A large circumferential disc bulge combines facet degenerative changes resulting in a moderate central canal stenosis also likely increased in the interval. L5-S1: Limited disc bulging is appreciate without central canal stenosis resulting. Facet arthropathy is reiterated. No definite disc herniation throughout the examination. PARASPINAL SOFT TISSUES: Prevertebral paraspinal soft tissues reflect aorta iliac atherosclerosis with a moderate stenosis suggests of the proximal right common iliac artery. OTHER FINDINGS: None. IMPRESSION: 1. No moderate or large interval disc herniation appreciable throughout the lumbar spine. 2. Potential increase in central canal stenoses at L3-4 and L4-5 up to mild-to- moderate and moderate severity respectively compared to prior lumbar spine MRI 01/13/2018. 3. No interval fracture appreciated. Stabilized anterior wedged L1 vertebral body fracture status post vertebroplasty. Left knee x-ray FINDINGS: BONES: . No fracture. JOINTS: Bilateral knee arthrosis right lateral patellofemoral compartment more narrowed than left JOINT EFFUSION: None. OTHER FINDINGS: Left Quadriceps insertional enthesophyte Atherosclerotic vascular calcifications present. . IMPRESSION: No fracture or lytic lesion. Minimal degenerative changes Atherosclerotic vascular calcifications present. . Right knee x-ray FINDINGS: BONES: . No fracture. JOINTS: Medial femoral tibial mild osteoarthrosis JOINT EFFUSION: None. OTHER FINDINGS: Atherosclerotic vascular calcifications present. . IMPRESSION: Medial femoral tibial mild osteoarthrosis . Atherosclerotic vascular calcifications present. 12:43 Chest x-ray FINDINGS: LUNGS: Minimal biapical pleural thickening -similar Mild diffuse prominence of interstitial lung markings with bilateral mild hyperaeration -similar status. PLEURA: No significant pleural effusion identified. No pneumothorax apparent. CARDIOVASCULAR: Normal. OSSEOUS STRUCTURES: The L1 compressed vertebral body fracture treated with vertebral body kyphoplasty is similar in appearance. The cement appears contained within the vertebral body as before. Generalized osteopenia VISUALIZED UPPER ABDOMEN: Normal. OTHER FINDINGS: None. IMPRESSION: No interval pathology noted. Pelvis x-ray FINDINGS: BONES: Pelvic Bones: Unremarkable. Hips: Grossly unremarkable. Endplate spondylosis right side L4-5 JOINTS: Sacroiliac Joints: Unremarkable. Pubic Symphysis: Unremarkable. Bilateral hip mild degenerative arthrosis OTHER FINDINGS: Bilateral hemipelvic phleboliths Stool retention. L4-5 degenerative disc disease IMPRESSION: No fracture or lytic lesion. Senescent changes-as above. Time: 13:09 --BMP --Iron & TBC --CBC --CPK 14:22 --Spoke to Dr. Navarro who agrees with plan and management. Patient will follow up with him in office. Scribe Attestation: Documented by Deedee Cr, acting as a scribe for Leonid Purdy MD Provider Scribe Attestation: All medical record entries made by the Scribe were at my direction and personally dictated by me. I have reviewed the chart and agree that the record accurately reflects my personal performance of the history, physical exam, medical decision making, and the department course for this patient. I have also personally directed, reviewed, and agree with the discharge instructions and disposition. Disposition - Clinical Impression Clinical Impression: Back pain, Arthritis of spine - Patient ED Disposition Is Patient to be Admitted: No Discussed With : Inocencio Navarro Doctor Will See Patient In The: Office Counseled Patient/Family Regarding: Studies Performed, Diagnosis, Need For Followup, Rx Given - Disposition Referrals: Inocencio Navarro MD [Family Provider] - Disposition: Routine/Home Disposition Time: 14:24 Condition: GOOD Additional Instructions: Take your medications as instructed. follow up with your PCP in 2 days. Prescriptions: ALPRAZolam [Xanax] 1 mg PO Q12 PRN #10 tab PRN Reason: Anxiety Zolpidem [Ambien] 10 mg PO HS #10 tab Instructions: Low Back Pain (DC)
--- NOTE | 2018-04-27 12:12 | CT ---
Date of service: 04/27/2018 PROCEDURE: CT HEAD WITHOUT CONTRAST. HISTORY: head injury COMPARISON: None available. TECHNIQUE: Axial computed tomography images were obtained through the head/brain without intravenous contrast. Radiation dose: Total exam DLP = 2429.67 mGy-cm. This CT exam was performed using one or more of the following dose reduction techniques: Automated exposure control, adjustment of the mA and/or kV according to patient size, and/or use of iterative reconstruction technique. FINDINGS: HEMORRHAGE: No intracranial hemorrhage. BRAIN: Limited expansion of the ventricular sulcal and cisternal spaces appreciate compatible with trace very mild diffuse cerebral atrophy. Periventricular, subcortical and centrum semiovale white matter lucency is compatible with chronic microangiopathy, appear relatively prominent but age-appropriate. A lucency at the left internal capsule anterior limb is identified reflecting a small infarct most likely but of indeterminate age. Follow-up CT recommended. There is no mass effect in the posterior fossa contents appear unremarkable. VENTRICLES: Unremarkable. No hydrocephalus. CALVARIUM: No displaced fracture identified. No destructive bony lesion appreciated. Atherosclerotic plaques are identified at bilateral cavernous internal artery segments as well as the distal vertebral arteries bilaterally. PARANASAL SINUSES: Mucosal inflammatory changes are seen in the visualized right maxillary sinus. MASTOID AIR CELLS: Unremarkable as visualized. No inflammatory changes. OTHER FINDINGS: None. IMPRESSION: 1. No acute intracranial hemorrhage or mass-effect. 2. The left internal capsule anterior limb lucency may reflect a chronic lacune however the age of this finding is ultimately indeterminate and a small infarct is not excluded. Follow-up CT or MRI recommended. 3. Age related neuro degenerative findings, age-appropriate.
--- NOTE | 2018-04-27 12:25 | RAD ---
Date of service: 04/27/2018 PROCEDURE: Radiographs of the pelvis. HISTORY: fall COMPARISON: None. FINDINGS: BONES: Pelvic Bones: Unremarkable. Hips: Grossly unremarkable. Endplate spondylosis right side L4-5 JOINTS: Sacroiliac Joints: Unremarkable. Pubic Symphysis: Unremarkable. Bilateral hip mild degenerative arthrosis OTHER FINDINGS: Bilateral hemipelvic phleboliths Stool retention. L4-5 degenerative disc disease IMPRESSION: No fracture or lytic lesion. Senescent changes-as above
--- NOTE | 2018-04-27 12:29 | CT ---
Date of service: 04/27/2018 PROCEDURE: CT Lumbar Spine without contrast HISTORY: back pain COMPARISON: Lumbar spine MRI 01/13/2018. TECHNIQUE: Axial computed tomography images were obtained of the lumbar spine without the use of intravenous contrast. Coronal and sagittal reformatted images were created and reviewed. Radiation dose: Total exam DLP = 276.10 mGy-cm. This CT exam was performed using one or more of the following dose reduction techniques: Automated exposure control, adjustment of the mA and/or kV according to patient size, and/or use of iterative reconstruction technique. FINDINGS: VERTEBRAE: Normal lumbar curvature is appreciated. A mild L1 anterior wedge compression fracture is identified now all treated by kyphoplasty in the interval with radiodense orthopedic cement identified in the vertebral body, stabilizing it. No interval worsening of this fracture is identified and no new fractures appreciable. There is no spondylolisthesis identified. No destructive bony changes are identified at this time in the interval. Mild to moderate disc height loss seen at L4-5 with remaining intervertebral discs normal in height. Vacuum disc changes indicate degenerative disc disease advanced at T12-L1 and L1-2. Multilevel facet degenerative changes are appreciated. DISCS/SPINAL CANAL/NEURAL FORAMINA: L1-2: Limited disc bulging is identified without significant stenosis resulting. L2-3: Additional disc bulging is appreciated circumferential encroachment lateral recesses but without causing generalized central canal stenosis. Borderline bilateral neural foraminal stenosis. Mild facet joint degenerative changes are seen symmetrically. L3-4: Circumferential disc bulging combines with facet joint degenerative arthropathy with mild to moderate central canal stenosis, potentially progressed in the interval. Borderline bilateral neural foraminal stenosis. L4-5: A large circumferential disc bulge combines facet degenerative changes resulting in a moderate central canal stenosis also likely increased in the interval. L5-S1: Limited disc bulging is appreciate without central canal stenosis resulting. Facet arthropathy is reiterated. No definite disc herniation throughout the examination. PARASPINAL SOFT TISSUES: Prevertebral paraspinal soft tissues reflect aorta iliac atherosclerosis with a moderate stenosis suggests of the proximal right common iliac artery. OTHER FINDINGS: None. IMPRESSION: 1. No moderate or large interval disc herniation appreciable throughout the lumbar spine. 2. Potential increase in central canal stenoses at L3-4 and L4-5 up to [id number] and moderate severity respectively compared to prior lumbar spine MRI 01/13/2018. 3. No interval fracture appreciated. Stabilized anterior wedged L1 vertebral body fracture status post vertebroplasty.
--- NOTE | 2018-04-27 12:37 | RAD ---
Date of service: 04/27/2018 HISTORY: fall COMPARISON: 02/09/2018 TECHNIQUE: Chest PA and lateral FINDINGS: LUNGS: Minimal biapical pleural thickening -similar Mild diffuse prominence of interstitial lung markings with bilateral mild hyperaeration -similar status. PLEURA: No significant pleural effusion identified. No pneumothorax apparent. CARDIOVASCULAR: Normal. OSSEOUS STRUCTURES: The L1 compressed vertebral body fracture treated with vertebral body kyphoplasty is similar in appearance. The cement appears contained within the vertebral body as before. Generalized osteopenia VISUALIZED UPPER ABDOMEN: Normal. OTHER FINDINGS: None. IMPRESSION: No interval pathology noted.
--- NOTE | 2018-04-27 12:43 | RAD ---
Date of service: 04/27/2018 PROCEDURE: Left Knee Radiographs. HISTORY: Pain. COMPARISON: None. FINDINGS: BONES: . No fracture. JOINTS: Bilateral knee arthrosis right lateral patellofemoral compartment more narrowed than left JOINT EFFUSION: None. OTHER FINDINGS: Left Quadriceps insertional enthesophyte Atherosclerotic vascular calcifications present. . IMPRESSION: No fracture or lytic lesion. Minimal degenerative changes Atherosclerotic vascular calcifications present. .
--- NOTE | 2018-04-27 12:44 | RAD ---
Date of service: 04/27/2018 PROCEDURE: Right Knee Radiographs. HISTORY: pain injury COMPARISON: None. FINDINGS: BONES: . No fracture. JOINTS: Medial femoral tibial mild osteoarthrosis JOINT EFFUSION: None. OTHER FINDINGS: Atherosclerotic vascular calcifications present. . IMPRESSION: Medial femoral tibial mild osteoarthrosis . Atherosclerotic vascular calcifications present. .
[2018-04-27 13:17] LABS: BASO # 0.1 K/uL (0.0-0.2); BASO % 0.8 % (0.0-2.0); EOS # 0.2 K/uL (0.0-0.7); EOS % 1.7 % (0.0-4.0); HEMOGLOBIN 14.3 g/dL (12.0-16.0); LYMPH # 1.9 K/uL (1.0-4.3); LYMPH % 19.5 % (20.0-40.0); MEAN CELL VOLUME 87.5 fl (81.0-99.0); MEAN CORPUSCULAR HEMOGLOBIN 29.4 pg (27.0-31.0); MEAN CORPUSCULAR HGB CONC 33.6 g/dL (33.0-37.0); MEAN PLATELET VOLUME 9.4 fl (7.2-11.7); MONO # 0.7 K/uL (0.0-0.8); MONO % 7.4 % (0.0-10.0); NEUT # 6.8 K/uL (1.8-7.0); NEUT % 70.6 % (50.0-75.0); NRBC % 0.1 % (0.0-0.0); RBC 4.84 Mil/uL (3.80-5.20); RED CELL DISTRIBUTION WIDTH 14.7 % (11.5-14.5); WHITE BLOOD COUNT 9.6 K/uL (4.8-10.8)
[2018-04-27 13:29] LABS: BLOOD UREA NITROGEN 13 mg/dl (7-17); CALCIUM 9.6 mg/dL (8.4-10.2); GFR AFRICAN-AMERICAN > 60; GFR NON-AFRICAN AMERICAN > 60
[2018-04-27 14:16] LABS: IRON 69 ug/dL (37-170)
[2018-04-27 14:25] LABS: % IRON SATURATION 21 % (20-55); TOTAL IRON BINDING CAPACITY 326 ug/dL (250-450)
--- NOTE | 2018-04-27 15:21 | CARD ---
APPROVED REPORT Date of service: 04/27/2018 EKG Measurement Heart [id number] <Conclusion> Unusual P axis and short NE, probable junctional tachycardia Abnormal ECG
[2018-04-27 15:26] VITALS: BP 114/71; PULSE 79; RESP 18; TEMP 98.1
== END 2018-04-27 15:26 | disposition home or self-care (01) ==
LOC: H.ER 10:18
DX: M54.9 Dorsalgia, unspecified (principal); M46.90 Unspecified inflammatory spondylopathy, site unspecified; I10 Essential (primary) hypertension; J44.9 Chronic obstructive pulmonary disease, unspecified; M81.0 Age-related osteoporosis without current pathological fracture; Z86.59 Personal history of other mental and behavioral disorders

== ENCOUNTER 2018-06-12 21:27 | Inpatient (IN) | payer OTHER ==
[2018-06-12 21:28] VITALS: BMI 22.4
[2018-06-12] MEDS ORDERED: Albuterol-Ipratrop 3 mg / 0.5 (3 ml) UD INH STA (22:00)
[2018-06-12 23:08] LABS: VENOUS BLOOD GAS BASE EXCESS 4.5 mmol/L (0.0-2.0); VENOUS BLOOD GAS PCO2 54 mmHg (40-60); VENOUS BLOOD GAS PO2 13 mm/Hg (30-55); VENOUS BLOOD PH 7.37 (7.32-7.43)
[2018-06-12 23:09] LABS: BASO # 0.1 K/uL (0.0-0.2); BASO % 0.9 % (0.0-2.0); EOS # 0.3 K/uL (0.0-0.7); EOS % 3.7 % (0.0-4.0); HEMOGLOBIN 12.9 g/dL (12.0-16.0); LYMPH # 1.2 K/uL (1.0-4.3); MEAN CELL VOLUME 88.2 fl (81.0-99.0); MEAN CORPUSCULAR HEMOGLOBIN 29.7 pg (27.0-31.0); MEAN CORPUSCULAR HGB CONC 33.7 g/dL (33.0-37.0); MEAN PLATELET VOLUME 8.8 fl (7.2-11.7); MONO # 0.8 K/uL (0.0-0.8); MONO % 11.5 % (0.0-10.0); NEUT % 67.9 % (50.0-75.0); NRBC % 0.2 % (0.0-0.0); RBC 4.34 Mil/uL (3.80-5.20); RED CELL DISTRIBUTION WIDTH 14.9 % (11.5-14.5); WHITE BLOOD COUNT 7.4 K/uL (4.8-10.8)
[2018-06-12] MEDS ORDERED: Albuterol-Ipratrop 3 mg / 0.5 (3 ml) UD ONE (23:11)
[2018-06-12] MEDS: Albuterol-Ipratrop 3 mg / 0.5 (3 ml) UD INH STA (23:14)
[2018-06-12 23:17] LABS: BLOOD UREA NITROGEN 17 mg/dl (7-17); CALCIUM 9.4 mg/dL (8.4-10.2); GFR NON-AFRICAN AMERICAN 53
--- NOTE | 2018-06-12 23:37 | ED PDOC ---
HPI: SOB/CHF/COPD Time Seen by Provider: 06/12/18 21:42 Chief Complaint (Nursing): Cough, Cold, Congestion Chief Complaint (Provider): Chest pain and shortness of breath History Per: Patient History/Exam Limitations: no limitations Onset/Duration Of Symptoms: Hrs (x 6) Current Symptoms Are (Timing): Still Present Quality: "Pain" Associated Symptoms: Chest Pain Additional Complaint(s): 82 year old female with a history of COPD presents to the ED with chest pain and shortness of breath since 5 o'clock this evening. Patient also developed a dry cough and began wheezing so she took her pump 4 times with no relief. Denies fever, chills and smoking. PMD: Dr. Navarro Past Medical History Reviewed: Historical Data, Nursing Documentation, Vital Signs Vital Signs: Last Vital Signs Temp 97.8 F 06/13/18 06:30 Pulse 96 H 06/13/18 06:30 Resp 20 06/13/18 06:30 BP 131/63 06/13/18 06:30 Pulse Ox 97 06/13/18 06:30 - Medical History PMH: Arthritis, Asthma, Atrial Fibrillation, Bronchitis, COPD, Depression, Diverticulitis, Fractures (Left wrist), Gastritis, HTN, Hypercholesterolemia, Osteoporosis, Pneumonia Denies: Alzheimer's Disease, Anemia, Bipolar Disorder, Crohn's Disease, Dementia, Emphysema, Gall Bladder Disease, HIV, Post Traumatic Stress Disorder, Pulmonary Embolism, Chronic Kidney Disease, Rheumatoid Arthritis, Schizophrenia , Seizures, Sickle Cell Disease, Sexually Transmitted Disease, Sleep Apnea, TIA - Surgical History Surgical History: Back Surgery (fracture repair ), Cholecystectomy, Endoscopy, C -Section Denies: Appendectomy, CABG, Carotid Endarterectomy, Coronary Stent, Pacemaker , Tonsillectomy - Family History Family History: States: Unknown Family Hx, Hypertension - Social History Current smoker - smoking cessation education provided: No - Immunization History Hx Tetanus Toxoid Vaccination: No Hx Influenza Vaccination: Yes Hx Pneumococcal Vaccination: Yes - Home Medications Home Medications: Ambulatory Orders Medication Instructions Recorded Albuterol HFA [Ventolin HFA 90 2 puff IH Q6 PRN 01/13/18 mcg/actuation (8 g)] Docusate [Colace] 100 mg PO DAILY PRN 01/13/18 Esomeprazole Magnesium [Nexium] 40 mg PO DAILY 01/13/18 Montelukast [Singulair] 10 mg PO DAILY 01/13/18 Rosuvastatin Calcium [Crestor] 10 mg PO HS 01/13/18 Vitamin E 200 unit PO DAILY 01/13/18 amLODIPine [Norvasc] 5 mg PO DAILY 01/13/18 Folic Acid 400 mcg PO DAILY #0 01/15/18 ALPRAZolam [Xanax] 1 mg PO Q12 PRN #10 tab 04/27/18 Acidoph/L.bulg/Bif.b/S.thermop 1 tab PO BID 04/27/18 [Serenity-Bid Caplet] Albuterol 0.083% [Albuterol 0.083% 3 ml IH Q6 PRN 04/27/18 Inhal Lena (2.5 mg/3 ml) UD] Ibuprofen [Motrin Tab] 600 mg PO Q8 PRN 04/27/18 Zolpidem [Ambien] 10 mg PO HS #10 tab 04/27/18 - Allergies Allergies/Adverse Reactions: Allergies Allergy/AdvReac Type Severity Reaction Status Date / Time adhesive tape Allergy ITCHING Verified 06/12/18 21:33 aspirin Allergy ITCHING Verified 06/12/18 21:33 mushroom Allergy NAUSEA Verified 06/12/18 21:33 Review of Systems ROS Statement: Except As Marked, All Systems Reviewed And Found Negative Constitutional: Negative for: Fever, Chills Cardiovascular: Positive for: Chest Pain Respiratory: Positive for: Cough, Shortness of Breath, Wheezing Physical Exam - Reviewed Nursing Documentation Reviewed: Yes Vital Signs Reviewed: Yes - Physical Exam Appears: Positive for: Non-toxic, No Acute Distress Head Exam: Positive for: ATRAUMATIC, NORMAL INSPECTION, NORMOCEPHALIC Skin: Positive for: Normal Color, Warm, Dry Eye Exam: Positive for: EOMI, Normal appearance, PERRL Neck: Positive for: Normal, Painless ROM, Supple Cardiovascular/Chest: Positive for: Regular Rate, Rhythm. Negative for: Murmur Respiratory: Positive for: Wheezing (bilatreal expiratory wheezing), Other ( patiet is speaking in full sentences). Negative for: Accessory Muscle Use, Respiratory Distress Gastrointestinal/Abdominal: Positive for: Normal Exam, Soft. Negative for: Tenderness Extremity: Positive for: Normal ROM. Negative for: Deformity Neurologic/Psych: Positive for: Alert, Oriented (x 3). Negative for: Motor/ Sensory Deficits - Laboratory Results Result Diagrams: 06/12/18 23:04 06/12/18 23:04 - ECG O2 Sat by Pulse Oximetry: 99 (RA) Pulse Ox Interpretation: Normal Medical Decision Making Medical Decision Makin:00 A&P History of COPD presenting with chest pain, shortness of breath and wheezing Patient is possibly having COPD exacerbation; other considerations include CAD, vs pneumonia vs bronchitis Orders: --VBG --BMP --troponin --CBC --CXR --Duoneb 3 ml INH --Duoneb 3 ml INH --Solumedrol 125 mg IVP --Peak flow pre/post 0000 Patient spiked fever, worsened with cough. Likely developing PNA. Broad spec Abx given. Will admit for PNA. Dr. Navarro aware. Scribe Attestation: Documented by Deedee Cr acting as a scribe for Taiwo Raygoza MD Provider Scribe Attestation: All medical record entries made by the Scribe were at my direction and personally dictated by me. I have reviewed the chart and agree that the record accurately reflects my personal performance of the history, physical exam, medical decision making, and the department course for this patient. I have also personally directed, reviewed, and agree with the discharge instructions and disposition. Disposition - Clinical Impression Clinical Impression: COPD (chronic obstructive pulmonary disease), Pneumonia - Patient ED Disposition Is Patient to be Admitted: Yes - Disposition Disposition Time: 00:30 Condition: FAIR
[2018-06-13] MEDS ORDERED: Cefepime 2 GM in Sodium Chloride 0.9% 100 ML IVPB STA (00:31)
[2018-06-13] MEDS ORDERED: Albuterol-Ipratrop 3 mg / 0.5 (3 ml) UD INH STA (00:32)
[2018-06-13] MEDS ORDERED: Azithromycin 500 MG in Sodium Chloride 0.9% 250 ML IVPB STA (00:32)
[2018-06-13] MEDS ORDERED: Sodium Chloride 0.9% 1,000 ML IV STA (00:32)
[2018-06-13] MEDS ORDERED: Azithromycin 500 MG IV IVPB ONE (00:41)
[2018-06-13] MEDS ORDERED: Vancomycin 1 g Inj ONE (00:41)
--- NOTE | 2018-06-13 08:33 | RAD ---
Date of service: 06/12/2018 HISTORY: sob, cp COMPARISON: 04/27/2018 FINDINGS: LUNGS: No new focal infiltrate is seen. Stable mild interstitial change is appreciated. PLEURA: No significant pleural effusion identified, no pneumothorax apparent. CARDIOVASCULAR: Heart is enlarged but unchanged. OSSEOUS STRUCTURES: No significant abnormalities. VISUALIZED UPPER ABDOMEN: Normal. OTHER FINDINGS: None. IMPRESSION: No new focal infiltrate or CHF.
[2018-06-13] MEDS ORDERED: Azithromycin 500 MG in Sodium Chloride 0.9% 250 ML IVPB SCH (11:30)
[2018-06-13] MEDS ORDERED: methylPREDNISolone 60 MG in Sodium Chloride 0.9% 50 ML IVPB SCH (11:30)
--- NOTE | 2018-06-13 11:31 | CP.PCM.HP ---
History of Present Illness - History of Present Illness History of Present Illness: 82 year old female with a history of severe COPD, hx of intubation. She presented in the ED with chest pain and shortness of breath, dry cough and began wheezing so she took her pump 4 times with no relief. Denies fever, chills and smoking. At present still coughing with same sob, anxious. Present on Admission - Present on Admission Any Indicators Present on Admission: No Review of Systems - Constitutional Constitutional: As Per HPI - EENT Eyes: As Per HPI - Cardiovascular Cardiovascular: Chest Pain, Dyspnea, Dyspnea on Exertion - Respiratory Respiratory: Cough, Dyspnea, Chest Congestion - Gastrointestinal Gastrointestinal: As Per HPI - Musculoskeletal Musculoskeletal: As Per HPI - Integumentary Integumentary: As Per HPI - Neurological Neurological: As Per HPI - Psychiatric Psychiatric: Anxiety Past Patient History - Infectious Disease Hx of Infectious Diseases: None - Tetanus Immunizations Tetanus Immunization: Unknown - Past Medical History & Family History Past Medical History?: Yes - Past Social History Smoking Status: Never Smoked - CARDIAC Hx Atrial Fibrillation: Yes Hx Hypercholesterolemia: Yes Hx Hypertension: Yes Hx Pacemaker: No - PULMONARY Hx Asthma: Yes Hx Bronchitis: Yes Hx Chronic Obstructive Pulmonary Disease (COPD): Yes Hx Emphysema: No Hx Pneumonia: Yes Hx Pulmonary Embolism: No Hx Sleep Apnea: No - NEUROLOGICAL Hx Alzheimer's Disease: No Hx Dementia: No Hx Seizures: No Hx Transient Ischemic Attacks (TIA): No - HEENT Hx HEENT Problems: No - RENAL Hx Chronic Kidney Disease: No - HEMATOLOGICAL/ONCOLOGICAL Hx Anemia: No Hx Human Immunodeficiency Virus (HIV): No Hx Sickle Cell Disease: No - INTEGUMENTARY Hx Dermatological Problems: No - MUSCULOSKELETAL/RHEUMATOLOGICAL Hx Arthritis: Yes Hx Fractures: Yes (Left wrist) Hx Osteoporosis: Yes Hx Rheumatoid Arthritis: No - GASTROINTESTINAL Hx Crohn's Disease: No Hx Diverticulitis: Yes Hx Gall Bladder Disease: No Hx Gastritis: Yes - GENITOURINARY/GYNECOLOGICAL Hx Sexually Transmitted Disorders: No - PSYCHIATRIC Hx Bipolar Disorder: No Hx Depression: Yes Hx Post Traumatic Stress Disorder: No Hx Schizophrenia: No - SURGICAL HISTORY Hx Appendectomy: No Hx Carotid Endarterectomy: No Hx Cholecystectomy: Yes Hx Coronary Artery Bypass Graft: No Hx Coronary Stent: No Hx Tonsillectomy: No - ANESTHESIA Hx Anesthesia: Yes Hx Anesthesia Reactions: No Hx Malignant Hyperthermia: No Meds Allergies/Adverse Reactions: Allergies Allergy/AdvReac Type Severity Reaction Status Date / Time adhesive tape Allergy ITCHING Verified 06/12/18 21:33 aspirin Allergy ITCHING Verified 06/12/18 21:33 mushroom Allergy NAUSEA Verified 06/12/18 21:33 Results - Vital Signs Recent Vital Signs: Last Vital Signs Temp 97.9 F 06/13/18 08:21 Pulse 92 H 06/13/18 08:21 Resp 20 06/13/18 08:21 BP 115/64 06/13/18 08:21 Pulse Ox 95 06/13/18 08:21 - Labs Result Diagrams: 06/12/18 23:04 06/12/18 23:04 Labs: Laboratory Results - last 24 hr 06/12/18 06/12/18 06/12/18 23:04 23:04 23:05 WBC 7.4 RBC 4.34 Hgb 12.9 Hct 38.3 MCV 88.2 MCH 29.7 MCHC 33.7 RDW 14.9 H Plt Count 181 MPV 8.8 Neut % (Auto) 67.9 Lymph % (Auto) 16.0 L Saline % (Auto) 11.5 H Eos % (Auto) 3.7 Baso % (Auto) 0.9 Neut # (Auto) 5.0 Lymph # (Auto) 1.2 Saline # (Auto) 0.8 Eos # (Auto) 0.3 Baso # (Auto) 0.1 pO2 13 L VBG pH 7.37 VBG pCO2 54 VBG HCO3 26.2 VBG Total CO2 32.9 H VBG O2 Sat (Calc) 16.5 L VBG Base Excess 4.5 H VBG Potassium 4.0 Glucose 107 H Lactate 1.7 FiO2 21.0 Sodium 141 137.0 Potassium 4.1 Chloride 102 104.0 Carbon Dioxide 31 H Anion Gap 12 BUN 17 Creatinine 1.0 Est GFR ( Amer) > 60 Est GFR (Non-Af Amer) 53 Random Glucose 103 Calcium 9.4 Troponin I < 0.0120 Venous Blood Potassium 4.0 Assessment & Plan (1) Chest pain Status: Acute (2) Pneumonia Status: Suspected (3) Bronchitis Status: Acute (4) DVT prophylaxis Status: Acute (5) COPD (chronic obstructive pulmonary disease) Status: Chronic Priority: Medium (6) Acute bronchitis with chronic obstructive pulmonary disease (COPD) Status: Acute Priority: High (7) Anxiety attack Status: Acute (8) Dyspnea Status: Acute - Assessment and Plan (Free Text) Plan: As per orders.
--- NOTE | 2018-06-13 11:41 | CARD ---
APPROVED REPORT Date of service: 06/14/2018 EKG Measurement Heart [id number] <Conclusion> Normal sinus rhythm prolonged QT abnormal ECG
[2018-06-13] MEDS: Vitamin E 100 INTLU SGL PO SCH (15:48)
[2018-06-13] MEDS: Lactobacillus Acidophilus 500 MU Cap PO SCH (17:16)
[2018-06-13] MEDS: Promethazine 6.25 MG/5 ML CUP PO PRN (23:52)
[2018-06-14] MEDS: Albuterol 0.083% Inhal Sol (2.5 mg/3 mL) UD IH PRN ×3 (00:08→19:19)
[2018-06-14] MEDS: Azithromycin 500 MG in Sodium Chloride 0.9% 250 ML IVPB SCH (04:33)
[2018-06-14] MEDS ORDERED: FOLIC ACID 400 MCG PO SCH (09:00)
--- NOTE | 2018-06-14 11:12 | CP.PCM.PN ---
Subjective - Date & Time of Evaluation Date of Evaluation: 06/14/18 Time of Evaluation: 11:12 - Subjective Subjective: Still mild SOB with wheezing Objective - Vital Signs/Intake and Output Vital Signs (last 24 hours): Temp Pulse Resp BP Pulse Ox 98 F 82 18 115/74 97 06/14/18 08:42 06/14/18 08:42 06/14/18 08:42 06/14/18 08:42 06/14/18 08:42 - Medications Medications: Current Medications Albuterol Sulfate (Albuterol 0.083% Inhal Lena (2.5 Mg/3 Ml) Ud) 2.5 mg IH Q6 PRN PRN Reason: Shortness of Breath Last Admin: 06/14/18 00:08 Dose: 2.5 mg Alprazolam (Xanax) 1 mg PO Q12 PRN PRN Reason: Anxiety Last Admin: 06/13/18 20:17 Dose: 1 mg Amlodipine Besylate (Norvasc) 5 mg PO DAILY [facility] Atorvastatin Calcium (Lipitor) 20 mg PO HS [facility] Last Admin: 06/13/18 21:39 Dose: 20 mg Docusate Sodium (Colace) 100 mg PO DAILY PRN PRN Reason: Constipation Folic Acid (Folic Acid) 1 mg PO DAILY [facility] Ceftriaxone Sodium 1 gm/ (Sodium Chloride) 100 mls @ 100 mls/hr IVPB DAILY [facility] PRN Reason: Protocol Last Admin: 06/13/18 15:51 Dose: 100 mls/hr Azithromycin 500 mg/ Sodium (Chloride) 250 mls @ 250 mls/hr IVPB DAILY@0300 [facility] PRN Reason: Protocol Last Admin: 06/14/18 04:33 Dose: 250 mls/hr Ibuprofen (Motrin Tab) 600 mg PO Q8 PRN PRN Reason: Pain, moderate (4-7) Lactobacillus Acidophilus (Bacid Acidophilus) 1 cap PO BID [facility] Last Admin: 06/13/18 17:16 Dose: 1 cap Methylprednisolone (Solu-Medrol) 60 mg IV Q8 [facility] Last Admin: 06/14/18 00:00 Dose: 60 mg Montelukast Sodium (Singulair) 10 mg PO DAILY [facility] Last Admin: 06/13/18 15:48 Dose: 10 mg Pantoprazole Sodium (Protonix Ec Tab) 40 mg PO DAILY [facility] Promethazine HCl (Phenergan Syrup) 6.25 mg PO Q6 PRN PRN Reason: Cough Last Admin: 06/13/18 23:52 Dose: 6.25 mg Vitamin E (Vitamin E) 200 intlu PO DAILY [facility] Last Admin: 06/13/18 15:48 Dose: 200 intlu Zolpidem Tartrate (Ambien) 5 mg PO HS [facility] Last Admin: 06/13/18 21:39 Dose: 5 mg - Labs Labs: 06/12/18 23:04 06/12/18 23:04 - Constitutional Appears: Chronically Ill - Head Exam Head Exam: ATRAUMATIC, NORMAL INSPECTION, NORMOCEPHALIC - Neck Exam Neck Exam: Full ROM - Respiratory Exam Respiratory Exam: Decreased Breath Sounds, Wheezes - Cardiovascular Exam Cardiovascular Exam: REGULAR RHYTHM, +S1, +S2 - GI/Abdominal Exam GI & Abdominal Exam: Soft, Normal Bowel Sounds - Extremities Exam Extremities Exam: Normal Inspection - Neurological Exam Neurological Exam: Alert, Awake, CN II-XII Intact, Oriented x3 - Psychiatric Exam Psychiatric exam: Anxious - Skin Skin Exam: Normal Color Assessment and Plan (1) Chest pain Status: Acute (2) Pneumonia Status: Suspected (3) Bronchitis Status: Acute (4) DVT prophylaxis Status: Acute (5) COPD (chronic obstructive pulmonary disease) Status: Chronic (6) Acute bronchitis with chronic obstructive pulmonary disease (COPD) Status: Acute (7) Anxiety attack Status: Acute (8) Dyspnea Status: Acute - Assessment and Plan (Free Text) Plan: Continue present rx.
[2018-06-14] MEDS: Pantoprazole 40 mg EC Tab PO SCH (11:27)
[2018-06-14] MEDS: Vitamin E 100 INTLU SGL PO SCH (11:28)
[2018-06-14] MEDS: Lactobacillus Acidophilus 500 MU Cap PO SCH ×2 (11:30→17:02)
[2018-06-14] MEDS: Promethazine 6.25 MG/5 ML CUP PO PRN (22:10)
[2018-06-15] MEDS: Azithromycin 500 MG in Sodium Chloride 0.9% 250 ML IVPB SCH (02:38)
[2018-06-15 04:54] VITALS: TEMP 97.7
[2018-06-15 08:56] VITALS: BP 125/73; PULSE 81; RESP 20; O2SAT 95
[2018-06-15] MEDS ORDERED: MethylPREDNISolone 40 mg Vial IV SCH (09:16)
[2018-06-15] MEDS: Pantoprazole 40 mg EC Tab PO SCH (09:49)
[2018-06-15] MEDS: Vitamin E 100 INTLU SGL PO SCH (09:58)
[2018-06-15] MEDS: Lactobacillus Acidophilus 500 MU Cap PO SCH (10:03)
--- NOTE | 2018-06-15 13:28 | CP.PCM.PN ---
Subjective - Date & Time of Evaluation Date of Evaluation: 06/15/18 Time of Evaluation: 13:28 - Subjective Subjective: Patient well responded to the rx will dc home on PO meds. Objective - Vital Signs/Intake and Output Vital Signs (last 24 hours): Temp Pulse Resp BP Pulse Ox 97.7 F 81 20 125/73 95 06/15/18 08:55 06/15/18 09:47 06/15/18 08:55 06/15/18 09:47 06/15/18 08:55 - Labs Labs: 06/12/18 23:04 06/12/18 23:04 - Constitutional Appears: Non-toxic - Head Exam Head Exam: ATRAUMATIC, NORMAL INSPECTION, NORMOCEPHALIC - Eye Exam Eye Exam: Normal appearance - ENT Exam ENT Exam: Mucous Membranes Moist - Neck Exam Neck Exam: Full ROM - Respiratory Exam Respiratory Exam: Clear to Ausculation Bilateral - Cardiovascular Exam Cardiovascular Exam: REGULAR RHYTHM, +S1, +S2 - GI/Abdominal Exam GI & Abdominal Exam: Soft, Normal Bowel Sounds - Extremities Exam Extremities Exam: Normal Inspection - Neurological Exam Neurological Exam: Alert, Awake, CN II-XII Intact, Oriented x3 - Psychiatric Exam Psychiatric exam: Normal Affect - Skin Skin Exam: Normal Color Assessment and Plan (1) Chest pain Status: Resolved (2) Pneumonia Status: Ruled-out (3) Bronchitis Status: Acute (4) DVT prophylaxis Status: Resolved (5) COPD (chronic obstructive pulmonary disease) Status: Chronic (6) Acute bronchitis with chronic obstructive pulmonary disease (COPD) Status: Chronic (7) Anxiety attack Status: Chronic (8) Dyspnea Status: Resolved - Assessment and Plan (Free Text) Plan: CD home f/u as OP
== END 2018-06-15 11:11 | disposition home health service (06) | DRG 192 ==
LOC: H.ER 21:27 → H.ERHOLD 06-13 00:35 → H.TEL 06-13 06:27
PROVIDERS: ADMIT Internal Medicine; ATTEND Internal Medicine
DX: J44.0 Chronic obstructive pulmonary disease with (acute) lower respiratory infection (principal); J20.9 Acute bronchitis, unspecified; I48.91 Unspecified atrial fibrillation; I10 Essential (primary) hypertension; E78.00 Pure hypercholesterolemia, unspecified; F41.1 Generalized anxiety disorder; M81.0 Age-related osteoporosis without current pathological fracture; Z87.01 Personal history of pneumonia (recurrent); K29.70 Gastritis, unspecified, without bleeding; M19.90 Unspecified osteoarthritis, unspecified site; Z88.6 Allergy status to analgesic agent

== ENCOUNTER 2018-07-12 10:45 | Inpatient (IN) | payer OTHER ==
[2018-07-12 10:45] VITALS: BMI 22.4
[2018-07-12] MEDS ORDERED: Albuterol-Ipratrop 3 mg / 0.5 (3 ml) UD ONE (11:07)
[2018-07-12] MEDS ORDERED: Albuterol-Ipratrop 3 mg / 0.5 (3 ml) UD INH STA ×3 (11:46→14:08)
[2018-07-12 12:07] LABS: BASO # 0.1 K/uL (0.0-0.2); EOS # 0.3 K/uL (0.0-0.7); HEMOGLOBIN 13.2 g/dL (12.0-16.0); LYMPH # 2.4 K/uL (1.0-4.3); LYMPH % 32.1 % (20.0-40.0); MEAN CELL VOLUME 88.8 fl (81.0-99.0); MEAN CORPUSCULAR HEMOGLOBIN 29.9 pg (27.0-31.0); MEAN CORPUSCULAR HGB CONC 33.7 g/dL (33.0-37.0); MEAN PLATELET VOLUME 8.9 fl (7.2-11.7); MONO # 0.6 K/uL (0.0-0.8); MONO % 7.9 % (0.0-10.0); NEUT # 4.2 K/uL (1.8-7.0); RBC 4.4 Mil/uL (3.80-5.20); RED CELL DISTRIBUTION WIDTH 14.9 % (11.5-14.5); WHITE BLOOD COUNT 7.6 K/uL (4.8-10.8)
--- NOTE | 2018-07-12 13:54 | RAD ---
Date of service: 07/12/2018 HISTORY: Shortness of breath. COMPARISON: 06/12/2018 FINDINGS: LUNGS: No active pulmonary disease. PLEURA: No significant pleural effusion identified, no pneumothorax apparent. CARDIOVASCULAR: No radiographic findings to suggest acute or significant cardiovascular disease. OSSEOUS STRUCTURES: No significant abnormalities. VISUALIZED UPPER ABDOMEN: Normal. OTHER FINDINGS: None. IMPRESSION: No active disease. No significant interval change compared to the prior examination(s).
--- NOTE | 2018-07-12 14:08 | ED PDOC ---
HPI: SOB/CHF/COPD Time Seen by Provider: 07/12/18 10:58 Chief Complaint (Nursing): Shortness Of Breath Chief Complaint (Provider): cough, SOB History Per: Patient History/Exam Limitations: no limitations Onset/Duration Of Symptoms: Days (4), Gradual Current Symptoms Are (Timing): Still Present Initiating Event: Upper Respiratory Illness Quality: Tightness Exacerbating Factor(s): Exertion, Coughing Severity: Severe Additional Complaint(s): 82yo female c/o cough and SOB ongoing and worsening for 5 days, using bronchodilators at home without relief. Denies fever, syncope or hemoptysis. Past Medical History Reviewed: Historical Data, Nursing Documentation, Vital Signs Vital Signs: Last Vital Signs Temp 98.4 F 07/12/18 10:54 Pulse 74 07/12/18 10:54 Resp 23 07/12/18 10:54 BP 123/66 07/12/18 10:54 Pulse Ox 98 07/12/18 10:54 - Medical History PMH: Arthritis, Asthma, Atrial Fibrillation, Bronchitis, COPD, Depression, Diverticulitis, Fractures (Left wrist), Gastritis, HTN, Hypercholesterolemia, Osteoporosis, Pneumonia Denies: Alzheimer's Disease, Anemia, Bipolar Disorder, Crohn's Disease, Dementia, Emphysema, Gall Bladder Disease, HIV, Post Traumatic Stress Disorder, Pulmonary Embolism, Chronic Kidney Disease, Rheumatoid Arthritis, Schizophrenia, Seizures, Sickle Cell Disease, Sexually Transmitted Disease, Sleep Apnea, TIA - Surgical History Surgical History: Back Surgery (fracture repair ), Cholecystectomy, Endoscopy, Denies: Appendectomy, CABG, Carotid Endarterectomy, Coronary Stent, Pacemaker, Tonsillectomy - Family History Family History: States: Unknown Family Hx, Hypertension - Social History Current smoker - smoking cessation education provided: No - Immunization History Hx Tetanus Toxoid Vaccination: No Hx Influenza Vaccination: Yes Hx Pneumococcal Vaccination: Yes - Home Medications Home Medications: Ambulatory Orders Medication Instructions Recorded Esomeprazole Magnesium [Nexium] 40 mg PO DAILY 01/13/18 Montelukast [Singulair] 10 mg PO DAILY 01/13/18 amLODIPine [Norvasc] 5 mg PO DAILY 01/13/18 ALPRAZolam [Xanax] 1 mg PO Q12 PRN #10 tab 04/27/18 Ibuprofen [Motrin Tab] 600 mg PO Q8 PRN 04/27/18 Zolpidem [Ambien] 5 mg PO HS #15 tab 06/15/18 Albuterol Sulfate [Proair Hfa] 2 puff IH Q4 PRN 07/12/18 Albuterol/Ipratropium [Duoneb 3 3 ml IH Q6 PRN 07/12/18 mg/0.5 mg (3 ml) UD] Atorvastatin [Lipitor] 10 mg PO HS 07/12/18 Fluticasone Nasal [Flonase] 1 spray BRIE Q12 PRN 07/12/18 Fluticasone/Salmeterol 250/50 1 puff IH Q12 07/12/18 [Advair Diskus 250/50] Folic Acid 1 mg PO DAILY 07/12/18 Pyridoxine [Vitamin B6 50 mg Tab] 1 tab PO DAILY 07/12/18 Tiotropium [Spiriva] 18 mcg IH DAILY 07/12/18 Vitamin E [Vitamin E 400 Units Cap] 400 unit PO DAILY 07/12/18 - Allergies Allergies/Adverse Reactions: Allergies Allergy/AdvReac Type Severity Reaction Status Date / Time adhesive tape Allergy ITCHING Verified 06/12/18 21:33 aspirin Allergy ITCHING Verified 06/12/18 21:33 mushroom Allergy NAUSEA Verified 06/12/18 21:33 Review of Systems Constitutional: Negative for: Fever Cardiovascular: Negative for: Chest Pain Respiratory: Positive for: Cough, Shortness of Breath, SOB with Exertion, Sputum, Wheezing. Negative for: Hemoptysis Gastrointestinal: Negative for: Abdominal Pain Genitourinary Female: Negative for: Dysuria Musculoskeletal: Positive for: Back Pain. Negative for: Neck Pain Skin: Negative for: Rash, Lesions, Jaundice Neurological: Negative for: Weakness, Numbness Psych: Negative for: Suicidal ideation Physical Exam - Reviewed Nursing Documentation Reviewed: Yes Vital Signs Reviewed: Yes - Physical Exam Appears: Positive for: Uncomfortable Head Exam: Positive for: ATRAUMATIC, NORMAL INSPECTION, NORMOCEPHALIC Skin: Positive for: Normal Color, Warm, DRY Eye Exam: Positive for: EOMI, Normal appearance, PERRL ENT: Positive for: Normal ENT Inspection Neck: Positive for: Normal, Painless ROM Cardiovascular/Chest: Positive for: Regular Rate, Rhythm Respiratory: Positive for: Decreased Breath Sounds, Wheezing, Respiratory Distress Gastrointestinal/Abdominal: Positive for: Soft. Negative for: Tenderness, Guarding Back: Positive for: Normal Inspection Extremity: Positive for: Normal ROM. Negative for: Swelling Neurologic/Psych: Positive for: Alert, Oriented. Negative for: Motor/Sensory Deficits, Aphasia - Laboratory Results Result Diagrams: 07/12/18 12:00 07/12/18 13:25 - ECG O2 Sat by Pulse Oximetry: 98 Medical Decision Making Medical Decision Making: workup for resp failure initiated w COPD exacerbation SPO2 91% RA on my eval indicating hypoxia solumedrol, multiple duonebs given with only marginal improvement, remains SOB w wheeze and SPO2 93% RA D/w PMD Admit given failure outpatient treatment, hypoxia and resp distress Disposition - Clinical Impression Clinical Impression: Dyspnea, COPD exacerbation - Patient ED Disposition Is Patient to be Admitted: No - Disposition Disposition Time: 14:01 Condition: FAIR - Pt Status Changed To: Hospital Disposition Of: Inpatient - Admit Certification Admit to Inpatient:: After my assessment, the patient will require hospitalization for at least two midnights. This is because of the severity of symptoms shown, intensity of services needed, and/or the medical risk in this patient being treated as an outpatient.
[2018-07-12 14:38] LABS: BLOOD UREA NITROGEN 11 mg/dl (7-17); GFR NON-AFRICAN AMERICAN > 60
[2018-07-12 14:39] LABS: ALB/GLOB RATIO 1.1 (1.0-2.1); ALBUMIN 3.9 g/dL (3.5-5.0); CALCIUM 9.3 mg/dL (8.4-10.2)
[2018-07-12 14:40] LABS: ALT/SGPT 21 U/L (9-52); AST/SGOT 35 U/L (14-36)
[2018-07-12] MEDS ORDERED: Albuterol-Ipratrop 3 mg / 0.5 (3 ml) UD IH PRN (15:54)
[2018-07-12] MEDS: Enoxaparin 40 mg Syringe SC SCH (17:14)
[2018-07-12] MEDS ORDERED: Pneumococcal 23-Valent Vaccine IM ONE (17:30)
[2018-07-12] MEDS ORDERED: MethylPREDNISolone 40 mg Vial IVP SCH (21:00)
[2018-07-12] MEDS: Fluticasone-Salmeterol 250-50mcg Diskus IH SCH (21:46)
[2018-07-12] MEDS ORDERED: guaiFENesin DM 200 mg-20 mg/10 ml UD PO ONE (22:31)
[2018-07-13] MEDS: Fluticasone-Salmeterol 250-50mcg Diskus IH SCH ×2 (08:35→21:12)
[2018-07-13] MEDS: Enoxaparin 40 mg Syringe SC SCH ×2 (08:36→08:56)
[2018-07-13] MEDS: Pantoprazole 40 mg EC Tab PO SCH (08:49)
[2018-07-13] MEDS: Tiotropium 18 mcg Cap For Inhalation IH SCH (08:50)
--- NOTE | 2018-07-13 09:30 | CARD ---
APPROVED REPORT Date of service: 07/12/2018 EKG Measurement Heart [id number] [id number] <Conclusion> Sinus rhythm with competing ectopic atrial rhythm and occasional premature atrial complexes Abnormal ECG
[2018-07-13] MEDS ORDERED: guaiFENesin DM 200 mg-20 mg/10 ml UD PO PRN (13:50)
[2018-07-13] MEDS ORDERED: Albuterol-Ipratrop 3 mg / 0.5 (3 ml) UD IH SCH (14:00)
[2018-07-13] MEDS: guaiFENesin DM 200 mg-20 mg/10 ml UD PO PRN ×2 (14:14→23:20)
--- NOTE | 2018-07-13 15:54 | CP.PCM.HP ---
History of Present Illness - History of Present Illness History of Present Illness: his 82-year-old female who is known to suffer from chronic severe obstructive pulmonary disease as well as bronchial asthma and PAH, presented to the emergency after suffering for 1 days with shortness of breath at home. Despite the use of inhalers at home her condition worsened from her baseline. She presented in ER with severe cough with clear mucoid sputum, shortness of breath, chest tightness and wheezing. She claims to have had chills. She began using her Upon presentation to the emergency department she was found to be having diffuse wheezing bilaterally. At present still with severe SOB on O2 NC with severe wheezing and production of sputum. Present on Admission - Present on Admission Any Indicators Present on Admission: No Review of Systems - Constitutional Constitutional: As Per HPI - EENT Eyes: As Per HPI - Cardiovascular Cardiovascular: As Per HPI - Respiratory Respiratory: Cough, Dyspnea, Dyspnea on Exertion, Wheezing, Chest Congestion - Gastrointestinal Gastrointestinal: As Per HPI - Musculoskeletal Musculoskeletal: As Per HPI Past Patient History - Infectious Disease Hx of Infectious Diseases: None - Tetanus Immunizations Tetanus Immunization: Unknown - Past Medical History & Family History Past Medical History?: Yes - Past Social History Smoking Status: Former Smoker - CARDIAC Hx Atrial Fibrillation: Yes Hx Hypercholesterolemia: Yes Hx Hypertension: Yes Hx Pacemaker: No - PULMONARY Hx Asthma: Yes Hx Bronchitis: Yes Hx Chronic Obstructive Pulmonary Disease (COPD): Yes Hx Emphysema: No Hx Pneumonia: Yes Hx Pulmonary Embolism: No Hx Sleep Apnea: No - NEUROLOGICAL Hx Alzheimer's Disease: No Hx Dementia: No Hx Seizures: No Hx Transient Ischemic Attacks (TIA): No - HEENT Hx HEENT Problems: No Other/Comment: wears corrective lenses for reading - RENAL Hx Chronic Kidney Disease: No - ENDOCRINE/METABOLIC Hx Endocrine Disorders: No - HEMATOLOGICAL/ONCOLOGICAL Hx Anemia: No Hx Human Immunodeficiency Virus (HIV): No Hx Sickle Cell Disease: No - INTEGUMENTARY Hx Dermatological Problems: No - MUSCULOSKELETAL/RHEUMATOLOGICAL Hx Arthritis: Yes Hx Falls: No Hx Fractures: Yes (Left wrist) Hx Osteoporosis: Yes Hx Rheumatoid Arthritis: No - GASTROINTESTINAL Hx Crohn's Disease: No Hx Diverticulitis: Yes Hx Gall Bladder Disease: No Hx Gastritis: Yes - GENITOURINARY/GYNECOLOGICAL Hx Sexually Transmitted Disorders: No - PSYCHIATRIC Hx Bipolar Disorder: No Hx Depression: Yes Hx Post Traumatic Stress Disorder: No Hx Schizophrenia: No Hx Substance Use: No - SURGICAL HISTORY Hx Appendectomy: No Hx Carotid Endarterectomy: No Hx Cholecystectomy: Yes Hx Coronary Artery Bypass Graft: No Hx Coronary Stent: No Hx Tonsillectomy: No - ANESTHESIA Hx Anesthesia: Yes Hx Anesthesia Reactions: No Hx Malignant Hyperthermia: No Meds Allergies/Adverse Reactions: Allergies Allergy/AdvReac Type Severity Reaction Status Date / Time adhesive tape Allergy ITCHING Verified 06/12/18 21:33 aspirin Allergy ITCHING Verified 06/12/18 21:33 mushroom Allergy NAUSEA Verified 06/12/18 21:33 Physical Exam - Constitutional Appears: In Acute Distress, Chronically Ill - Head Exam Head Exam: ATRAUMATIC, NORMAL INSPECTION, NORMOCEPHALIC - Eye Exam Eye Exam: Normal appearance - ENT Exam ENT Exam: Mucous Membranes Moist - Neck Exam Neck exam: Positive for: Full Rom - Respiratory Exam Respiratory Exam: Decreased Breath Sounds, Rhonchi, Wheezes - Cardiovascular Exam Cardiovascular Exam: Tachycardia, REGULAR RHYTHM, +S1, +S2 - GI/Abdominal Exam GI & Abdominal Exam: Normal Bowel Sounds - Extremities Exam Extremities exam: Positive for: normal inspection - Neurological Exam Neurological exam: Alert, CN II-XII Intact, Oriented x3 - Psychiatric Exam Psychiatric exam: Anxious - Skin Skin Exam: Normal Color Results - Vital Signs Recent Vital Signs: Last Vital Signs Temp 98 F 07/13/18 08:29 Pulse 86 07/13/18 14:10 Resp 20 07/13/18 08:29 BP 130/64 07/13/18 08:36 Pulse Ox 94 L 07/13/18 08:29 - Labs Result Diagrams: 07/12/18 12:00 07/12/18 13:25 Assessment & Plan (1) COPD (chronic obstructive pulmonary disease) Status: Acute (2) COPD exacerbation Status: Acute (3) Dyspnea Status: Acute (4) Bronchitis Status: Acute (5) PAH (pulmonary artery hypertension) Status: Acute - Assessment and Plan (Free Text) Plan: As per orders.
[2018-07-13 16:11] LABS: BASO # 0.1 K/uL (0.0-0.2); BASO % 0.5 % (0.0-2.0); HEMOGLOBIN 13.1 g/dL (12.0-16.0); LYMPH # 1.7 K/uL (1.0-4.3); LYMPH % 9.2 % (20.0-40.0); MEAN CELL VOLUME 88.5 fl (81.0-99.0); MEAN CORPUSCULAR HEMOGLOBIN 29.3 pg (27.0-31.0); MEAN CORPUSCULAR HGB CONC 33.1 g/dL (33.0-37.0); MEAN PLATELET VOLUME 8.5 fl (7.2-11.7); MONO # 1.1 K/uL (0.0-0.8); MONO % 6.3 % (0.0-10.0); NRBC % 0.1 % (0.0-0.0); PLATELET COUNT 247 K/uL (130-400); RBC 4.48 Mil/uL (3.80-5.20); RED CELL DISTRIBUTION WIDTH 14.7 % (11.5-14.5); WHITE BLOOD COUNT 17.9 K/uL (4.8-10.8)
[2018-07-13 16:24] LABS: BLOOD UREA NITROGEN 25 mg/dl (7-17); GFR NON-AFRICAN AMERICAN > 60
[2018-07-13 16:34] LABS: B-TYPE NATRIURETIC PEPTIDE 294 pg/ml (0-900)
[2018-07-13] MEDS: Azithromycin 500 MG in Sodium Chloride 0.9% 250 ML IVPB SCH (16:48)
--- NOTE | 2018-07-13 16:54 | RAD ---
Date of service: 07/13/2018 PROCEDURE: CHEST RADIOGRAPH, 1 VIEW HISTORY: COPD COMPARISON: 07/12/2018 FINDINGS: LUNGS: Clear. PLEURA: No pneumothorax or pleural fluid seen. CARDIOVASCULAR: No radiographic findings to suggest acute or significant cardiovascular disease. Aortic calcifications: Arch region OSSEOUS STRUCTURES: No significant abnormalities. VISUALIZED UPPER ABDOMEN: Normal. OTHER FINDINGS: None. IMPRESSION: No active disease. No acute/significant interval changes.
[2018-07-13] MEDS: Albuterol-Ipratrop 3 mg / 0.5 (3 ml) UD IH SCH (19:10)
[2018-07-13 19:11] LABS: BASOPHIL 1 % (0-2); LYMPHOCYTE 11 % (20-50); MONOCYTE 6 % (0-10); MYELOCYTE 1 % (0-0); NEUTROPHIL 80 % (42-75); REACTIVE LYMPHOCYTES 1 % (0-0); TOTAL CELLS COUNTED 100
[2018-07-13 19:15] LABS: HYPOCHROMIC SLIGHT; PLATELET ESTIMATE NORMAL (NORMAL); TOXIC GRANULATION PRESENT
[2018-07-14] MEDS: Albuterol-Ipratrop 3 mg / 0.5 (3 ml) UD IH SCH ×2 (01:22→08:00)
--- NOTE | 2018-07-14 08:53 | CP.PCM.CON ---
History of Present Illness - History of Present Illness History of Present Illness: This 82 year old female with longstanding COPD presented to the emergency department with cough, SOB and wheezing which she claims began 3 weeks [employer]. She does remember one episode of fever to 101 degrees associated with chills, but denies any further sweats. She has been coughing productively with clear mucoid sputum being expectorated. She complains of chest wall pain associated with her coughing. No hemoptysis, no GI or symptoms associated with the current illness. No ill contacts at home. Taking all her medications as prescribed. Past Patient History - Infectious Disease Hx of Infectious Diseases: None - Tetanus Immunizations Tetanus Immunization: Unknown - Past Medical History & Family History Past Medical History?: Yes - Past Social History Smoking Status: Former Smoker Chewing Tobacco Use: No Cigar Use: No Alcohol: None Drugs: Denies Home Situation {Lives}: Alone - CARDIAC Hx Atrial Fibrillation: Yes Hx Hypercholesterolemia: Yes Hx Hypertension: Yes - PULMONARY Hx Asthma: Yes Hx Bronchitis: Yes Hx Chronic Obstructive Pulmonary Disease (COPD): Yes Hx Pneumonia: Yes - NEUROLOGICAL Hx Neurological Disorder: No - HEENT Other/Comment: wears corrective lenses for reading - RENAL Hx Chronic Kidney Disease: No - ENDOCRINE/METABOLIC Hx Endocrine Disorders: No - HEMATOLOGICAL/ONCOLOGICAL Hx Blood Disorders: No Hx Human Immunodeficiency Virus (HIV): No - INTEGUMENTARY Hx Dermatological Problems: No - MUSCULOSKELETAL/RHEUMATOLOGICAL Hx Arthritis: Yes Hx Falls: Yes Hx Fractures: Yes (Left wrist) Hx Osteoporosis: Yes - GASTROINTESTINAL Hx Diverticulitis: Yes Hx Gastritis: Yes Other/Comment: prior lower GI bleed - GENITOURINARY/GYNECOLOGICAL Hx Genitourinary Disorders: No - PSYCHIATRIC Hx Depression: Yes Hx Substance Use: No - SURGICAL HISTORY Hx Cholecystectomy: Yes Hx Orthopedic Surgery: Yes (wrist fracture) - ANESTHESIA Hx Anesthesia: Yes Hx Anesthesia Reactions: No Hx Malignant Hyperthermia: No Meds Allergies/Adverse Reactions: Allergies Allergy/AdvReac Type Severity Reaction Status Date / Time adhesive tape Allergy ITCHING Verified 06/12/18 21:33 aspirin Allergy ITCHING Verified 06/12/18 21:33 mushroom Allergy NAUSEA Verified 06/12/18 21:33 - Medications Medications: Current Medications Albuterol/Ipratropium (Duoneb 3 Mg/0.5 Mg (3 Ml) Ud) 3 ml IH RQ6 [facility] Last Admin: 07/14/18 01:22 Dose: 3 ml Alprazolam (Xanax) 1 mg PO Q12 PRN PRN Reason: Anxiety Amlodipine Besylate (Norvasc) 5 mg PO DAILY [facility] Last Admin: 07/13/18 08:36 Dose: 5 mg Atorvastatin Calcium (Lipitor) 10 mg PO HS [facility] Last Admin: 07/13/18 21:18 Dose: 10 mg Enoxaparin Sodium (Lovenox) 40 mg SC DAILY [facility]; Protocol Last Admin: 07/13/18 08:56 Dose: Not Given Fluticasone Propionate (Flonase) 1 spr BRIE Q12 PRN PRN Reason: Nasal congestion Folic Acid (Folic Acid) 1 mg PO DAILY [facility] Last Admin: 07/13/18 08:35 Dose: 1 mg Guaifenesin/Dextromethorphan (Robitussin Dm) 10 ml PO RQ6 PRN PRN Reason: Cough Last Admin: 07/13/18 23:20 Dose: 10 ml Azithromycin 500 mg/ Sodium (Chloride) 250 mls @ 250 mls/hr IVPB DAILY [facility]; Protocol Last Admin: 07/13/18 16:48 Dose: 250 mls/hr Ceftriaxone Sodium 1 gm/ (Sodium Chloride) 100 mls @ 100 mls/hr IVPB DAILY [facility]; Protocol Last Admin: 07/13/18 16:47 Dose: 100 mls/hr Ibuprofen (Motrin Tab) 600 mg PO Q8 PRN PRN Reason: Pain, moderate (4-7) Methylprednisolone (Solu-Medrol) 80 mg IVP Q12H [facility] Last Admin: 07/13/18 21:12 Dose: 80 mg Montelukast Sodium (Singulair) 10 mg PO DAILY [facility] Last Admin: 07/13/18 08:49 Dose: 10 mg Pantoprazole Sodium (Protonix Ec Tab) 40 mg PO DAILY [facility] Last Admin: 07/13/18 08:49 Dose: 40 mg Pyridoxine HCl (Vitamin B6 50 Mg Tab) 50 mg PO DAILY [facility] Last Admin: 07/13/18 08:50 Dose: 50 mg Fluticasone/Salmeterol (Advair Diskus 250/50) 1 puff IH Q12 [facility] Last Admin: 07/13/18 21:12 Dose: 1 puff Tiotropium [place] (Spiriva) 18 mcg IH DAILY [facility] Last Admin: 07/13/18 08:50 Dose: 18 mcg Vitamin E (Vitamin E 400 Units Cap) 400 intlu PO DAILY [facility] Last Admin: 07/13/18 08:50 Dose: 400 intlu Zolpidem Tartrate (Ambien) 5 mg PO HS [facility] Last Admin: 07/13/18 23:20 Dose: 5 mg Physical Exam - Additional Findings Additional findings: Well nourished, well developed, awake, alert and cooperative. Speech is fluent, memory is intact, no focal motor weakness. Pharynx is pink and moist w/o exudate. Nares are patent bilaterally, n o bleeding or exudate. Conjunctivae injected bilaterally, no scleral icterus. Neck is supple, trachea midline, no visible JVD, no carotid bruit. No palpable lymphadenopathy. No dullness on chest percussion, equal expansion. Breath sounds are equally heard bilaterally, diminished. Expiratory phase is prolonged, E wheezing (low pitch) present bilaterally. Scattered sonorous rhonchi in lower lobes, no bronchial breath sounds. Few scattered dry rales are heard in the lower lobes posteriorly. Heart sounds are distant, rhythm is regular. Abdomen is soft and non-tender with good bowel sounds. No dependant edema, no calf tenderness, no cyanosis, no rash. Results - Vital Signs Recent Vital Signs: Last Vital Signs Temp 97.9 F 07/14/18 08:34 Pulse 82 07/14/18 08:34 Resp 20 07/14/18 08:34 BP 121/51 L 07/14/18 08:34 Pulse Ox 96 07/14/18 08:34 - Labs Result Diagrams: 07/13/18 15:45 07/13/18 15:45 Labs: Laboratory Results - last 24 hr 07/13/18 07/13/18 15:45 15:45 WBC 17.9 H D RBC 4.48 Hgb 13.1 Hct 39.7 MCV 88.5 MCH 29.3 MCHC 33.1 RDW 14.7 H Plt Count 247 MPV 8.5 Neut % (Auto) 84.0 H Lymph % (Auto) 9.2 L [place] % (Auto) 6.3 Eos % (Auto) 0.0 Baso % (Auto) 0.5 Neut # (Auto) 15.0 H Lymph # (Auto) 1.7 [place] # (Auto) 1.1 H Eos # (Auto) 0.0 Baso # (Auto) 0.1 Neutrophils % (Manual) 80 H Lymphocytes % (Manual) 11 L Reactive Lymphs % 1 H Monocytes % (Manual) 6 Basophils % (Manual) 1 Myelocytes % 1 H Toxic Granulation Present Platelet Estimate Normal Hypochromasia (manual) Slight Sodium 138 Potassium 4.7 Chloride 105 Carbon Dioxide 27 Anion Gap 11 BUN 25 H Creatinine 0.8 Est GFR ( Amer) > 60 Est GFR (Non-Af Amer) > 60 Random Glucose 127 H Calcium 10.0 NT-Pro-B Natriuret Pep 294 TSH 3rd Generation 0.24 L Assessment & Plan (1) COPD exacerbation Status: Acute Priority: High Comment: Likely viral in origin. leukocytosis probably related to corticoster oids. CXR does not suggest any pneumonia. Follow clinical course and labs. (2) Chest pain Status: Acute Priority: Medium Comment: Musculoskeletal pain secondary to cough. - Date & Time Date: 07/14/18 Time: 09:07
[2018-07-14] MEDS: Enoxaparin 40 mg Syringe SC SCH ×2 (09:18→09:34)
[2018-07-14] MEDS: Pantoprazole 40 mg EC Tab PO SCH (09:19)
[2018-07-14] MEDS: Fluticasone-Salmeterol 250-50mcg Diskus IH SCH (10:20)
[2018-07-14] MEDS: Tiotropium 18 mcg Cap For Inhalation IH SCH (10:21)
[2018-07-14] MEDS: Azithromycin 500 MG in Sodium Chloride 0.9% 250 ML IVPB SCH (10:34)
[2018-07-14] MEDS: Albuterol-Ipratrop 3 mg / 0.5 (3 ml) UD INH SCH ×5 (11:55→23:39)
--- NOTE | 2018-07-14 12:55 | CP.PCM.PN ---
Subjective - Date & Time of Evaluation Date of Evaluation: 07/14/18 Time of Evaluation: 12:56 - Subjective Subjective: Still severe cough, SOB, wheezing with peak expiratory flow rate less than 25% of predicted. She responded poorly to present rx therapy. Objective - Vital Signs/Intake and Output Vital Signs (last 24 hours): Temp Pulse Resp BP Pulse Ox 97.9 F 82 20 121/57 L 96 07/14/18 08:34 07/14/18 09:19 07/14/18 08:34 07/14/18 09:19 07/14/18 08:34 - Medications Medications: Current Medications Albuterol/Ipratropium (Duoneb 3 Mg/0.5 Mg (3 Ml) Ud) 3 ml INH RQ4 [facility] Last Admin: 07/14/18 11:55 Dose: 3 ml Alprazolam (Xanax) 1 mg PO Q12 PRN PRN Reason: Anxiety Amlodipine Besylate (Norvasc) 5 mg PO DAILY [facility] Last Admin: 07/14/18 09:19 Dose: 5 mg Atorvastatin Calcium (Lipitor) 10 mg PO HS [facility] Last Admin: 07/13/18 21:18 Dose: 10 mg Enoxaparin Sodium (Lovenox) 40 mg SC DAILY [facility]; Protocol Last Admin: 07/14/18 09:34 Dose: Not Given Fluticasone Propionate (Flonase) 1 spr BRIE Q12 PRN PRN Reason: Nasal congestion Last Admin: 07/14/18 09:17 Dose: 1 spr Folic Acid (Folic Acid) 1 mg PO DAILY [facility] Last Admin: 07/14/18 09:18 Dose: 1 mg Guaifenesin/Dextromethorphan (Robitussin Dm) 10 ml PO RQ6 PRN PRN Reason: Cough Last Admin: 07/13/18 23:20 Dose: 10 ml Azithromycin 500 mg/ Sodium (Chloride) 250 mls @ 250 mls/hr IVPB DAILY [facility]; Protocol Last Admin: 07/14/18 10:34 Dose: 250 mls/hr Ceftriaxone Sodium 1 gm/ (Sodium Chloride) 100 mls @ 100 mls/hr IVPB DAILY [facility]; Protocol Last Admin: 07/14/18 09:20 Dose: 100 mls/hr Ibuprofen (Motrin Tab) 600 mg PO Q8 PRN PRN Reason: Pain, moderate (4-7) Methylprednisolone (Solu-Medrol) 60 mg IV Q12 [facility] Montelukast Sodium (Singulair) 10 mg PO DAILY [facility] Last Admin: 07/14/18 09:21 Dose: 10 mg Pantoprazole Sodium (Protonix Ec Tab) 40 mg PO DAILY [facility] Last Admin: 07/14/18 09:19 Dose: 40 mg Pyridoxine HCl (Vitamin B6 50 Mg Tab) 50 mg PO DAILY [facility] Last Admin: 07/14/18 09:23 Dose: 50 mg Fluticasone/Salmeterol (Advair Diskus 250/50) 1 puff IH Q12 [facility] Last Admin: 07/14/18 10:20 Dose: Not Given Tiotropium [place] (Spiriva) 18 mcg IH DAILY [facility] Last Admin: 07/14/18 10:21 Dose: Not Given Vitamin E (Vitamin E 400 Units Cap) 400 intlu PO DAILY [facility] Last Admin: 07/14/18 09:23 Dose: 400 intlu Zolpidem Tartrate (Ambien) 5 mg PO HS [facility] Last Admin: 07/13/18 23:20 Dose: 5 mg - Labs Labs: 07/13/18 15:45 07/13/18 15:45 - Constitutional Appears: In Acute Distress, Chronically Ill - Head Exam Head Exam: ATRAUMATIC, NORMAL INSPECTION - Eye Exam Eye Exam: Normal appearance - Neck Exam Neck Exam: Full ROM - Respiratory Exam Respiratory Exam: Decreased Breath Sounds, Rhonchi, Wheezes - Cardiovascular Exam Cardiovascular Exam: Tachycardia, REGULAR RHYTHM, +S1, +S2 - GI/Abdominal Exam GI & Abdominal Exam: Normal Bowel Sounds - Extremities Exam Extremities Exam: Normal Inspection - Neurological Exam Neurological Exam: Alert, Awake, CN II-XII Intact, Normal Gait - Psychiatric Exam Psychiatric exam: Anxious - Skin Skin Exam: Pallor Assessment and Plan (1) COPD (chronic obstructive pulmonary disease) Status: Acute (2) COPD exacerbation Status: Acute (3) Dyspnea Status: Acute (4) Bronchitis Status: Acute (5) PAH (pulmonary artery hypertension) Status: Acute
[2018-07-14 13:37] LABS: T4 7.67 ug/dl (5.5-11.0)
[2018-07-14 13:50] LABS: T3 0.858 nmol/L (1.49-2.60)
[2018-07-14] MEDS: Insulin Regular 100 units/ml SC SCH ×2 (17:04→22:54)
[2018-07-14] MEDS ORDERED: methylPREDNISolone 60 MG in Sodium Chloride 0.9% 50 ML IV SCH (21:00)
[2018-07-14] MEDS: guaiFENesin DM 200 mg-20 mg/10 ml UD PO PRN (22:58)
[2018-07-15] MEDS: Albuterol-Ipratrop 3 mg / 0.5 (3 ml) UD INH SCH ×5 (05:35→20:20)
[2018-07-15] MEDS: Enoxaparin 40 mg Syringe SC SCH ×2 (08:38→08:51)
[2018-07-15] MEDS: Azithromycin 500 MG in Sodium Chloride 0.9% 250 ML IVPB SCH (08:38)
[2018-07-15] MEDS: guaiFENesin DM 200 mg-20 mg/10 ml UD PO PRN ×2 (08:38→22:06)
[2018-07-15] MEDS: Insulin Regular 100 units/ml SC SCH ×4 (08:38→22:10)
[2018-07-15] MEDS: Pantoprazole 40 mg EC Tab PO SCH (08:40)
[2018-07-15 10:07] LABS: HEMOGLOBIN 13.4 g/dL (12.0-16.0); MEAN CELL VOLUME 89.2 fl (81.0-99.0); MEAN CORPUSCULAR HEMOGLOBIN 29.4 pg (27.0-31.0); MEAN CORPUSCULAR HGB CONC 32.9 g/dL (33.0-37.0); RBC 4.57 Mil/uL (3.80-5.20); RED CELL DISTRIBUTION WIDTH 15.5 % (11.5-14.5)
[2018-07-15 10:20] LABS: BLOOD UREA NITROGEN 22 mg/dl (7-17); CALCIUM 9.4 mg/dL (8.4-10.2); GFR NON-AFRICAN AMERICAN > 60
--- NOTE | 2018-07-15 10:24 | CP.PCM.PN ---
Subjective - Date & Time of Evaluation Date of Evaluation: 07/15/18 Time of Evaluation: 10:18 - Subjective Subjective: Appears quite comfortable this morning. Few rhonchi are heard in the dependant zones of both lungs. No audible wheezes. Rare dry rales in bases. WBC still 17, afebrile with stable VS. Will switch to PO prednisone. Antibiotic can be switched as well. Objective - Vital Signs/Intake and Output Vital Signs (last 24 hours): Temp Pulse Resp BP Pulse Ox 97.9 F 84 20 156/57 H 96 07/15/18 08:17 07/15/18 09:34 07/15/18 08:17 07/15/18 08:39 07/15/18 09:34 - Medications Medications: Current Medications Albuterol/Ipratropium (Duoneb 3 Mg/0.5 Mg (3 Ml) Ud) 3 ml INH RQ4 SANDIE Last Admin: 07/15/18 07:55 Dose: 3 ml Alprazolam (Xanax) 1 mg PO Q12 PRN PRN Reason: Anxiety Amlodipine Besylate (Norvasc) 5 mg PO DAILY SANDIE Last Admin: 07/15/18 08:39 Dose: 5 mg Atorvastatin Calcium (Lipitor) 10 mg PO HS SANDIE Last Admin: 07/14/18 22:54 Dose: 10 mg Enoxaparin Sodium (Lovenox) 40 mg SC DAILY SANDIE; Protocol Last Admin: 07/15/18 08:51 Dose: Not Given Fluticasone Propionate (Flonase) 1 spr BRIE Q12 PRN PRN Reason: Nasal congestion Last Admin: 07/14/18 09:17 Dose: 1 spr Folic Acid (Folic Acid) 1 mg PO DAILY SANDIE Last Admin: 07/15/18 08:39 Dose: 1 mg Guaifenesin/Dextromethorphan (Robitussin Dm) 10 ml PO RQ6 PRN PRN Reason: Cough Last Admin: 07/15/18 08:38 Dose: 10 ml Azithromycin 500 mg/ Sodium (Chloride) 250 mls @ 250 mls/hr IVPB DAILY SANDIE; Protocol Last Admin: 07/15/18 08:38 Dose: 250 mls/hr Ceftriaxone Sodium 1 gm/ (Sodium Chloride) 100 mls @ 100 mls/hr IVPB DAILY SANDIE; Protocol Last Admin: 07/15/18 08:37 Dose: 100 mls/hr Ibuprofen (Motrin Tab) 600 mg PO Q8 PRN PRN Reason: Pain, moderate (4-7) Last Admin: 07/15/18 02:42 Dose: 600 mg Insulin Human Regular (Humulin R) 0 units SC ACHS [facility]; Protocol Last Admin: 07/15/18 08:38 Dose: 1 units Methylprednisolone (Solu-Medrol) 60 mg IV Q12 [facility] Last Admin: 07/15/18 08:40 Dose: 60 mg Montelukast Sodium (Singulair) 10 mg PO DAILY [facility] Last Admin: 07/15/18 08:40 Dose: 10 mg Pantoprazole Sodium (Protonix Ec Tab) 40 mg PO DAILY [facility] Last Admin: 07/15/18 08:40 Dose: 40 mg Pyridoxine HCl (Vitamin B6 50 Mg Tab) 50 mg PO DAILY [facility] Last Admin: 07/15/18 08:40 Dose: 50 mg Fluticasone/Salmeterol (Advair Diskus 250/50) 1 puff IH Q12 [facility] Last Admin: 07/14/18 10:20 Dose: Not Given Tiotropium [place] (Spiriva) 18 mcg IH DAILY [facility] Last Admin: 07/14/18 10:21 Dose: Not Given Vitamin E (Vitamin E 400 Units Cap) 400 intlu PO DAILY [facility] Last Admin: 07/15/18 08:40 Dose: 400 intlu Zolpidem Tartrate (Ambien) 5 mg PO HS [facility] Last Admin: 07/14/18 22:53 Dose: 5 mg - Labs Labs: 07/15/18 09:56 07/13/18 15:45 Assessment and Plan (1) COPD exacerbation Status: Acute (2) Chest pain Status: Acute
--- NOTE | 2018-07-15 11:59 | CP.PCM.PN ---
Subjective - Date & Time of Evaluation Date of Evaluation: 07/15/18 Time of Evaluation: 11:59 - Subjective Subjective: At present patient still symptomatic with wheezing and rales. Objective - Vital Signs/Intake and Output Vital Signs (last 24 hours): Temp Pulse Resp BP Pulse Ox 97.9 F 84 20 156/57 H 96 07/15/18 08:17 07/15/18 09:34 07/15/18 08:17 07/15/18 08:39 07/15/18 09:34 - Medications Medications: Current Medications Albuterol/Ipratropium (Duoneb 3 Mg/0.5 Mg (3 Ml) Ud) 3 ml INH RQID SANDIE Last Admin: 07/15/18 11:46 Dose: 3 ml Alprazolam (Xanax) 1 mg PO Q12 PRN PRN Reason: Anxiety Amlodipine Besylate (Norvasc) 5 mg PO DAILY [facility] Last Admin: 07/15/18 08:39 Dose: 5 mg Atorvastatin Calcium (Lipitor) 10 mg PO HS [facility] Last Admin: 07/14/18 22:54 Dose: 10 mg Enoxaparin Sodium (Lovenox) 40 mg SC DAILY SANDIE; Protocol Last Admin: 07/15/18 08:51 Dose: Not Given Fluticasone Propionate (Flonase) 1 spr BRIE Q12 PRN PRN Reason: Nasal congestion Last Admin: 07/14/18 09:17 Dose: 1 spr Folic Acid (Folic Acid) 1 mg PO DAILY SANDIE Last Admin: 07/15/18 08:39 Dose: 1 mg Guaifenesin/Dextromethorphan (Robitussin Dm) 10 ml PO RQ6 PRN PRN Reason: Cough Last Admin: 07/15/18 08:38 Dose: 10 ml Azithromycin 500 mg/ Sodium (Chloride) 250 mls @ 250 mls/hr IVPB DAILY SANDIE; Protocol Last Admin: 07/15/18 08:38 Dose: 250 mls/hr Ceftriaxone Sodium 1 gm/ (Sodium Chloride) 100 mls @ 100 mls/hr IVPB DAILY SANDIE; Protocol Last Admin: 07/15/18 08:37 Dose: 100 mls/hr Ibuprofen (Motrin Tab) 600 mg PO Q8 PRN PRN Reason: Pain, moderate (4-7) Last Admin: 07/15/18 02:42 Dose: 600 mg Insulin Human Regular (Humulin R) 0 units SC ACHS [facility]; Protocol Last Admin: 07/15/18 08:38 Dose: 1 units Montelukast Sodium (Singulair) 10 mg PO DAILY [facility] Last Admin: 07/15/18 08:40 Dose: 10 mg Pantoprazole Sodium (Protonix Ec Tab) 40 mg PO DAILY [facility] Last Admin: 07/15/18 08:40 Dose: 40 mg Prednisone (Prednisone Tab) 20 mg PO BID [facility] Pyridoxine HCl (Vitamin B6 50 Mg Tab) 50 mg PO DAILY [facility] Last Admin: 07/15/18 08:40 Dose: 50 mg Fluticasone/Salmeterol (Advair Diskus 250/50) 1 puff IH Q12 [facility] Last Admin: 07/14/18 10:20 Dose: Not Given Tiotropium [place] (Spiriva) 18 mcg IH DAILY [facility] Last Admin: 07/14/18 10:21 Dose: Not Given Vitamin E (Vitamin E 400 Units Cap) 400 intlu PO DAILY [facility] Last Admin: 07/15/18 08:40 Dose: 400 intlu Zolpidem Tartrate (Ambien) 5 mg PO HS [facility] Last Admin: 07/14/18 22:53 Dose: 5 mg - Labs Labs: 07/15/18 09:56 07/15/18 09:56 - Constitutional Appears: Chronically Ill - Head Exam Head Exam: ATRAUMATIC, NORMAL INSPECTION, NORMOCEPHALIC - Eye Exam Eye Exam: Normal appearance - Respiratory Exam Respiratory Exam: Decreased Breath Sounds, Rales, Wheezes - Cardiovascular Exam Cardiovascular Exam: REGULAR RHYTHM, +S1, +S2 - GI/Abdominal Exam GI & Abdominal Exam: Normal Bowel Sounds - Extremities Exam Extremities Exam: Normal Inspection - Neurological Exam Neurological Exam: Alert, Awake, Oriented x3 - Psychiatric Exam Psychiatric exam: Anxious - Skin Skin Exam: Normal Color Assessment and Plan (1) COPD (chronic obstructive pulmonary disease) Status: Acute (2) COPD exacerbation Status: Acute (3) Dyspnea Status: Acute (4) Bronchitis Status: Acute (5) PAH (pulmonary artery hypertension) Status: Acute - Assessment and Plan (Free Text) Plan: Continue present rx
[2018-07-15] MEDS ORDERED: methylPREDNISolone 60 MG in Sodium Chloride 0.9% 50 ML IVPB SCH (21:00)
[2018-07-16 08:00] VITALS: BP 135/70; PULSE 68; RESP 19; TEMP 97.9; O2SAT 99
[2018-07-16] MEDS: Azithromycin 500 MG in Sodium Chloride 0.9% 250 ML IVPB SCH (08:35)
[2018-07-16] MEDS: guaiFENesin DM 200 mg-20 mg/10 ml UD PO PRN (08:36)
[2018-07-16] MEDS: Enoxaparin 40 mg Syringe SC SCH (08:36)
[2018-07-16] MEDS: Pantoprazole 40 mg EC Tab PO SCH (08:36)
[2018-07-16] MEDS: Insulin Regular 100 units/ml SC SCH (08:37)
[2018-07-16] MEDS: Albuterol-Ipratrop 3 mg / 0.5 (3 ml) UD INH SCH ×2 (08:44→13:43)
--- NOTE | 2018-07-16 11:29 | CP.PCM.DIS ---
Provider - Provider Date of Admission: 07/14/18 12:57 Attending physician: Inocencio Navarro MD Time Spent in preparation of Discharge (in minutes): 30 Diagnosis - Discharge Diagnosis (1) COPD (chronic obstructive pulmonary disease) Status: Acute (2) COPD exacerbation Status: Acute Priority: High (3) Dyspnea Status: Acute (4) Bronchitis Status: Acute (5) PAH (pulmonary artery hypertension) Status: Acute Hospital Course - Lab Results Lab Results: Micro Results 07/13/18 15:45 Blood-Venous Blood Culture - Preliminary NO GROWTH AFTER 48 HOURS 07/13/18 16:06 Blood-Venous Blood Culture - Preliminary NO GROWTH AFTER 48 HOURS Most Recent Lab Values WBC 17.0 K/uL (4.8-10.8) H 07/15/18 09:56 RBC 4.57 Mil/uL (3.80-5.20) 07/15/18 09:56 Hgb 13.4 g/dL (12.0-16.0) 07/15/18 09:56 Hct 40.8 % (34.0-47.0) 07/15/18 09:56 MCV 89.2 fl (81.0-99.0) 07/15/18 09:56 MCH 29.4 pg (27.0-31.0) 07/15/18 09:56 MCHC 32.9 g/dL (33.0-37.0) L 07/15/18 09:56 RDW 15.5 % (11.5-14.5) H 07/15/18 09:56 Plt Count 261 K/uL (130-400) 07/15/18 09:56 MPV 8.5 fl (7.2-11.7) 07/13/18 15:45 Neut % (Auto) 84.0 % (50.0-75.0) H 07/13/18 15:45 Lymph % (Auto) 9.2 % (20.0-40.0) L 07/13/18 15:45 Clinch % (Auto) 6.3 % (0.0-10.0) 07/13/18 15:45 Eos % (Auto) 0.0 % (0.0-4.0) 07/13/18 15:45 Baso % (Auto) 0.5 % (0.0-2.0) 07/13/18 15:45 Neut # (Auto) 15.0 K/uL (1.8-7.0) H 07/13/18 15:45 Lymph # (Auto) 1.7 K/uL (1.0-4.3) 07/13/18 15:45 Clinch # (Auto) 1.1 K/uL (0.0-0.8) H 07/13/18 15:45 Eos # (Auto) 0.0 K/uL (0.0-0.7) 07/13/18 15:45 Baso # (Auto) 0.1 K/uL (0.0-0.2) 07/13/18 15:45 Neutrophils % (Manual) 80 % (42-75) H 07/13/18 15:45 Lymphocytes % (Manual) 11 % (20-50) L 07/13/18 15:45 Reactive Lymphs % 1 % (0-0) H 07/13/18 15:45 Monocytes % (Manual) 6 % (0-10) 07/13/18 15:45 Basophils % (Manual) 1 % (0-2) 07/13/18 15:45 Myelocytes % 1 % (0-0) H 07/13/18 15:45 Toxic Granulation Present 07/13/18 15:45 Platelet Estimate Normal (NORMAL) 07/13/18 15:45 Hypochromasia (manual) Slight 07/13/18 15:45 Sodium 140 mmol/l (132-148) 07/15/18 09:56 Potassium 3.8 MMOL/L (3.6-5.0) 07/15/18 09:56 Chloride 104 mmol/L (98-107) 07/15/18 09:56 Carbon Dioxide 22 mmol/L (22-30) 07/15/18 09:56 Anion Gap 18 (10-20) 07/15/18 09:56 BUN 22 mg/dl (7-17) H 07/15/18 09:56 Creatinine 0.7 mg/dl (0.7-1.2) 07/15/18 09:56 Est GFR ( Amer) > 60 07/15/18 09:56 Est GFR (Non-Af Amer) > 60 07/15/18 09:56 POC Glucose (mg/dL) 223 mg/dL (65-110) H 07/16/18 10:52 Random Glucose 264 mg/dL (65-105) H 07/15/18 09:56 Calcium 9.4 mg/dL (8.4-10.2) 07/15/18 09:56 Total Bilirubin 0.3 mg/dl (0.2-1.3) 07/12/18 13:25 AST 35 U/L (14-36) 07/12/18 13:25 ALT 21 U/L (9-52) 07/12/18 13:25 Alkaline Phosphatase 63 U/L (38-126) 07/12/18 13:25 NT-Pro-B Natriuret Pep 294 pg/ml (0-900) 07/13/18 15:45 Total Protein 7.3 G/DL (6.3-8.2) 07/12/18 13:25 Albumin 3.9 g/dL (3.5-5.0) 07/12/18 13:25 Globulin 3.4 gm/dL (2.2-3.9) 07/12/18 13:25 Albumin/Globulin Ratio 1.1 (1.0-2.1) 07/12/18 13:25 Thyroxine (T4) 7.67 ug/dl (5.5-11.0) 07/14/18 13:04 Total T3 0.858 nmol/L (1.49-2.60) L 07/14/18 13:04 TSH 3rd Generation 0.24 mIU/ML (0.46-4.68) L 07/13/18 15:45 - Hospital Course Hospital Course: This 82-year-old female who is known to suffer from chronic severe obstructive pulmonary disease as well as bronchial asthma and PAH, presented to the emergency after suffering for 1 days with shortness of breath at home. Despite the use of inhalers at home her condition worsened from her baseline. She presented in ER with severe cough with clear mucoid sputum, shortness of breath, chest tightness and wheezing. She claims to have had chills. She began using her Upon presentation to the emergency department she was found to be having diffuse wheezing bilaterally. She responded to Rx. Will DC home with f/u in my office in 5 days. Discharge Exam - Head Exam Head Exam: ATRAUMATIC, NORMAL INSPECTION, NORMOCEPHALIC - Eye Exam Eye Exam: Normal appearance - ENT Exam ENT Exam: Mucous Membranes Moist - Respiratory Exam Respiratory Exam: Clear to PA & Lateral - Cardiovascular Exam Cardiovascular Exam: REGULAR RHYTHM, +S1, +S2 - GI/Abdominal Exam GI & Abdominal Exam: Normal Bowel Sounds - Neurological Exam Neurological exam: Alert, CN II-XII Intact, Oriented x3 - Psychiatric Exam Psychiatric exam: Normal Affect - Skin Skin Exam: Normal Color Discharge Plan - Follow Up Plan Condition: FAIR Disposition: HOME/ ROUTINE
--- NOTE | 2018-07-18 11:35 | PQF ---
PROVIDER RESPONSE TEXT: Acute Bronchitis Unknown REVIEWER QUERY TEXT: Bronchitis Specificity Bronchitis is documented in the medical record. Please specify the type of bronchitis such as: Acuity: -- Acute -- Acute on chronic -- Chronic -- Other (please specify in the medical record) -- Clinically unable to determine -- Unknown Type: -- Allergic -- Aspiration -- Asthmatic -- Chronic obstructive bronchitis -- Obstructive bronchitis -- Other (please specify in the medical record) -- Clinically unable to determine -- Unknown The patient's Clinical Indicators include: History and Physical Query created by: Maria Guadalupe Thornton on 07/16/2018 3:58 PM Electronically signed by: Inocencio Navarro MD 07/18/2018 11:32 AM
== END 2018-07-16 12:08 | disposition home or self-care (01) | DRG 192 ==
LOC: H.ER 10:45 → H.ERHOLD 14:09 → H.MEDSURG1 15:30 → OBSVTOIN 07-14 12:57
PROVIDERS: ADMIT Internal Medicine; ATTEND Internal Medicine
DX: J44.1 Chronic obstructive pulmonary disease with (acute) exacerbation (principal); J44.0 Chronic obstructive pulmonary disease with (acute) lower respiratory infection; J20.9 Acute bronchitis, unspecified; R09.02 Hypoxemia; Z23 Encounter for immunization; I48.91 Unspecified atrial fibrillation; F32.9 Major depressive disorder, single episode, unspecified; K29.70 Gastritis, unspecified, without bleeding; I10 Essential (primary) hypertension; E78.00 Pure hypercholesterolemia, unspecified; M81.0 Age-related osteoporosis without current pathological fracture; Z87.891 Personal history of nicotine dependence; I27.20 Pulmonary hypertension, unspecified; Z88.6 Allergy status to analgesic agent; Z91.018 Allergy to other foods

== ENCOUNTER 2018-12-18 12:13 | Inpatient (IN) | payer OTHER ==
[2018-12-18 12:18] VITALS: BMI 23.0
[2018-12-18] MEDS ORDERED: Albuterol-Ipratrop 3 mg / 0.5 (3 ml) UD INH STA ×2 (12:50→14:30)
[2018-12-18] MEDS ORDERED: Azithromycin 500 MG in Sodium Chloride 0.9% 250 ML IV STA (12:50)
[2018-12-18] MEDS ORDERED: Albuterol-Ipratrop 3 mg / 0.5 (3 ml) UD ONE ×3 (13:03→20:39)
--- NOTE | 2018-12-18 13:14 | ED PDOC ---
HPI: SOB/CHF/COPD Time Seen by Provider: 12/18/18 12:20 Chief Complaint (Nursing): Cough, Cold, Congestion Chief Complaint (Provider): Shortness of Breath, Cough, Chest Tightness History Per: Patient History/Exam Limitations: no limitations Onset/Duration Of Symptoms: Days (x2) Current Symptoms Are (Timing): Still Present Additional Complaint(s): 83 year old female presents to the ED stating "I'm sick." When asked to elaborate, patient reports that she has had shortness of breath and a cough for the past two days associated with chest tightness. Additionally, patient notes that she recently ran out of oxygen at home. Otherwise, patient is unsure if she has had a fever and denies other complaints. PMD: none provided Past Medical History Reviewed: Historical Data, Nursing Documentation, Vital Signs Vital Signs: Last Vital Signs Temp 98.4 F 12/18/18 12:16 Pulse 71 12/18/18 12:16 Resp BP 116/64 12/18/18 12:16 Pulse Ox 96 12/18/18 12:16 - Medical History PMH: Arthritis, Asthma, Atrial Fibrillation, Bronchitis, COPD, Depression, Diverticulitis, Fractures (Left wrist), Gastritis, HTN, Hypercholesterolemia, Osteoporosis, Pneumonia Denies: Alzheimer's Disease, Anemia, Bipolar Disorder, Crohn's Disease, Dementia, Emphysema, Gall Bladder Disease, HIV, Post Traumatic Stress Disorder, Pulmonary Embolism, Chronic Kidney Disease, Rheumatoid Arthritis, Schizophrenia, Seizures, Sickle Cell Disease, Sexually Transmitted Disease, Sleep Apnea, TIA - Surgical History Surgical History: Back Surgery (fracture repair ), Cholecystectomy, Endoscopy, Denies: Appendectomy, CABG, Carotid Endarterectomy, Coronary Stent, Pacemaker, Tonsillectomy - Family History Family History: States: Hypertension - Social History Current smoker - smoking cessation education provided: No Ex-Smoker (has not smoked in the last 12 months): Yes Alcohol: None Drugs: Denies - Immunization History Hx Tetanus Toxoid Vaccination: No Hx Influenza Vaccination: Yes Hx Pneumococcal Vaccination: Yes - Home Medications Home Medications: Ambulatory Orders Medication Instructions Recorded Esomeprazole Magnesium [Nexium] 40 mg PO DAILY 01/13/18 Montelukast [Singulair] 10 mg PO DAILY 01/13/18 amLODIPine [Norvasc] 5 mg PO DAILY 01/13/18 ALPRAZolam [Xanax] 1 mg PO Q12 PRN #10 tab 04/27/18 Ibuprofen [Motrin Tab] 600 mg PO Q8 PRN 04/27/18 Zolpidem [Ambien] 5 mg PO HS #15 tab 06/15/18 Albuterol Sulfate [Proair Hfa] 2 puff IH Q4 PRN 07/12/18 Atorvastatin [Lipitor] 10 mg PO HS 07/12/18 Fluticasone Nasal [Flonase] 1 spray BRIE Q12 PRN 07/12/18 Folic Acid 1 mg PO DAILY 07/12/18 Pyridoxine [Vitamin B6 50 mg Tab] 1 tab PO DAILY 07/12/18 Tiotropium [Spiriva] 18 mcg IH DAILY 07/12/18 Vitamin E [Vitamin E 400 Units Cap] 400 unit PO DAILY 07/12/18 guaiFENesin/Dextromethorphan 10 ml PO RQ6 PRN udc 07/16/18 [Robitussin DM] Albuterol/Ipratropium [Duoneb 3 3 ml IH Q6 PRN 30 Days neb 12/10/18 mg/0.5 mg (3 ml) UD] Amoxicillin/Clavulanate [Augmentin 1 tab PO Q12 #10 tab 12/10/18 875 MG-125 MG] Methylprednisolone [Medrol Dose 4 mg PO DAILY #21 mg 12/10/18 Pack (21 tabs)] - Allergies Allergies/Adverse Reactions: Allergies Allergy/AdvReac Type Severity Reaction Status Date / Time adhesive tape Allergy ITCHING Verified 12/08/18 11:37 aspirin Allergy ITCHING Verified 12/08/18 11:37 mushroom Allergy NAUSEA Verified 12/08/18 11:37 Review of Systems ROS Statement: Except As Marked, All Systems Reviewed And Found Negative Constitutional: Positive for: Fever (unknown) Cardiovascular: Positive for: Other (chest tightness) Respiratory: Positive for: Cough, Shortness of Breath Physical Exam - Reviewed Nursing Documentation Reviewed: Yes Vital Signs Reviewed: Yes - Physical Exam Appears: Positive for: No Acute Distress (speaking in full sentences) Head Exam: Positive for: ATRAUMATIC, NORMOCEPHALIC Skin: Positive for: Normal Color, Warm, Dry. Negative for: Rash Eye Exam: Positive for: Normal appearance ENT: Positive for: Normal ENT Inspection Neck: Positive for: Normal, Painless ROM, Supple Cardiovascular/Chest: Positive for: Regular Rate, Rhythm, Chest Non Tender Respiratory: Positive for: Wheezing (bilateral). Negative for: Accessory Muscle Use, Respiratory Distress Gastrointestinal/Abdominal: Positive for: Normal Exam, Soft. Negative for: Tenderness Back: Positive for: Normal Inspection Extremity: Positive for: Normal ROM (all extremities). Negative for: Calf Tenderness Neurological/Psych: Positive for: Awake, Alert, Oriented (x3) - Laboratory Results Result Diagrams: 12/18/18 13:30 - ECG O2 Sat by Pulse Oximetry: 96 (RA) Pulse Ox Interpretation: Normal Medical Decision Making Medical Decision Making: Time: 1250 Impression: asthma, COPD, bronchitis, pneumonia Initial Plan: --VBG --EKG --CMP --CBC with differential --PTT --PT --CXR --Duoneb 3ml INH --SOLU-medrol 125mg IVP --Zithromax 500mg NS 250ml IV --Blood culture --Peak flow pre/post --Influenza A B swab --Reevaluation Scribe Attestation: Documented by Kelsey Barton, acting as a scribe for Calista Owen MD. Provider Scribe Attestation: All medical record entries made by the Scribe were at my direction and personally dictated by me. I have reviewed the chart and agree that the record accurately reflects my personal performance of the history, physical exam, medical decision making, and the department course for this patient. I have also personally directed, reviewed, and agree with the discharge instructions and disposition. Disposition - Clinical Impression Clinical Impression: COPD exacerbation - Patient ED Disposition Is Patient to be Admitted: Yes - Disposition Disposition Time: 14:30 Condition: STABLE Forms: [employer] (Serbian) - Pt Status Changed To: Hospital Disposition Of: Inpatient - Admit Certification Admit to Inpatient:: After my assessment, the patient will require hospitalization for at least two midnights. This is because of the severity of symptoms shown, intensity of services needed, and/or the medical risk in this patient being treated as an outpatient. - POA Present On Arrival: None
[2018-12-18 13:32] LABS: VENOUS BLOOD GAS BASE EXCESS 3.9 mmol/L (0.0-2.0); VENOUS BLOOD GAS PCO2 38 mmHg (40-60); VENOUS BLOOD GAS PO2 48 mm/Hg (30-55); VENOUS BLOOD PH 7.47 (7.32-7.43)
[2018-12-18 13:39] LABS: BASO % 0.2 % (0.0-2.0); EOS # 0.1 K/uL (0.0-0.7); EOS % 0.8 % (0.0-4.0); HEMOGLOBIN 14.3 g/dL (12.0-16.0); LYMPH # 1.7 K/uL (1.0-4.3); LYMPH % 15.3 % (20.0-40.0); MEAN CELL VOLUME 86.7 fl (81.0-99.0); MEAN CORPUSCULAR HEMOGLOBIN 29.4 pg (27.0-31.0); MEAN CORPUSCULAR HGB CONC 33.9 g/dL (33.0-37.0); MEAN PLATELET VOLUME 7.9 fl (7.2-11.7); MONO # 0.8 K/uL (0.0-0.8); NEUT # 8.8 K/uL (1.8-7.0); NEUT % 76.7 % (50.0-75.0); RBC 4.85 Mil/uL (3.80-5.20); RED CELL DISTRIBUTION WIDTH 14.3 % (11.5-14.5); WHITE BLOOD COUNT 11.4 K/uL (4.8-10.8)
[2018-12-18] MEDS ORDERED: Azithromycin 500 MG IV IVPB ONE (13:42)
[2018-12-18 13:44] LABS: PROTHROMBIN TIME 11.7 Seconds (9.8-13.1)
[2018-12-18 13:47] LABS: PARTIAL THROMBOPLASTIN TIME 27.9 Seconds (25.6-37.1)
[2018-12-18 14:42] LABS: ABG ALLEN TEST YES; ARTERIAL BLOOD GAS HCO3 21.9 mmol/L (21-28); ARTERIAL BLOOD GAS HEMOGLOBIN 14.1 g/dL (11.7-17.4); ARTERIAL BLOOD GAS O2 CAPACITY 18.9 mL/dL (16-24); ARTERIAL BLOOD GAS O2 CONTENT 18.9 ML/dL (15-23); ARTERIAL BLOOD GAS O2 SAT 100.2 % (95-98); ARTERIAL BLOOD GAS PCO2 28 mm/Hg (35-45); ARTERIAL BLOOD GAS PH 7.44 (7.35-7.45); ARTERIAL BLOOD GAS PO2 88 mm/Hg (80-100); ARTERIAL BLOOD GAS TCO2 19.9 mmol/L (22-28)
--- NOTE | 2018-12-18 14:57 | RAD ---
Date of service: 12/18/2018 HISTORY: SOB COMPARISON: Comparison chest dated 07/13/2018 TECHNIQUE: 1 view obtained. FINDINGS: LUNGS: No active pulmonary disease. PLEURA: No significant pleural effusion identified, no pneumothorax apparent. CARDIOVASCULAR: Mild aortic atherosclerotic calcification present. Cardiomegaly. No pulmonary vascular congestion. OSSEOUS STRUCTURES: No significant abnormalities. VISUALIZED UPPER ABDOMEN: Normal. OTHER FINDINGS: None. IMPRESSION: No active disease.
[2018-12-18 15:13] LABS: ALB/GLOB RATIO 1.1 (1.0-2.1); ALBUMIN 3.5 g/dL (3.5-5.0); ALT/SGPT 27 U/L (9-52); AST/SGOT 23 U/L (14-36); BLOOD UREA NITROGEN 17 mg/dl (7-17); CALCIUM 9.2 mg/dL (8.4-10.2); GFR NON-AFRICAN AMERICAN > 60
[2018-12-18 18:15] LABS: VENOUS BLOOD GAS BASE EXCESS -1.9 mmol/L (0.0-2.0); VENOUS BLOOD GAS PCO2 35 mmHg (40-60); VENOUS BLOOD GAS PO2 55 mm/Hg (30-55); VENOUS BLOOD PH 7.41 (7.32-7.43)
[2018-12-18] MEDS ORDERED: guaiFENesin DM 200 mg-20 mg/10 ml UD PO PRN (19:32)
[2018-12-18] MEDS: Sodium Chloride 0.9% 1,000 ML IV SCH (20:16)
[2018-12-18] MEDS: Albuterol-Ipratrop 3 mg / 0.5 (3 ml) UD IH PRN (20:40)
[2018-12-18] MEDS: Enoxaparin 40 mg Syringe SC SCH ×2 (22:02→22:07)
[2018-12-19] MEDS ORDERED: methylPREDNISolone 80 MG in Sodium Chloride 0.9% 50 ML IVPB SCH (01:00)
[2018-12-19 05:28] LABS: URINE BILIRUBIN NEGATIVE (NEGATIVE); URINE BLOOD NEGATIVE (NEGATIVE); URINE CLARITY CLEAR (Clear); URINE COLOR YELLOW (YELLOW); URINE GLUCOSE (UA) >=500 mg/dL (NEGATIVE); URINE LEUKOCYTE ESTERASE NEG Leu/uL (Negative); URINE PROTEIN NEGATIVE (NEGATIVE); URINE UROBILINOGEN 0.2-1.0 mg/dL (0.2-1.0)
[2018-12-19] MEDS: Enoxaparin 40 mg Syringe SC SCH (09:27)
[2018-12-19] MEDS: Tiotropium 18 mcg Cap For Inhalation IH SCH (09:30)
[2018-12-19] MEDS: Azithromycin 500 MG in Sodium Chloride 0.9% 250 ML IVPB SCH (09:32)
[2018-12-19] MEDS: Sodium Chloride 0.9% 1,000 ML IV SCH (09:34)
--- NOTE | 2018-12-19 10:13 | CP.PCM.HP ---
History of Present Illness - History of Present Illness History of Present Illness: 83 year old female presents to the ED with SOB x 2 days not responding to the usual home rx." She is oxygen dependent with lung fibrosis severe COPD and Pulmonary Artery Hypertension. At present coughing with SOB. Looks chronically ill. Present on Admission - Present on Admission Any Indicators Present on Admission: No Review of Systems - Constitutional Constitutional: Malaise, Weakness - EENT Eyes: As Per HPI - Cardiovascular Cardiovascular: Dyspnea on Exertion - Respiratory Respiratory: Cough, Dyspnea, Dyspnea on Exertion, Wheezing, Chest Congestion - Gastrointestinal Gastrointestinal: As Per HPI - Genitourinary Genitourinary: As Per HPI - Musculoskeletal Musculoskeletal: Muscle Weakness - Neurological Neurological: As Per HPI - Psychiatric Psychiatric: Anxiety - Endocrine Endocrine: As Per HPI Past Patient History - Infectious Disease Hx of Infectious Diseases: None - Tetanus Immunizations Tetanus Immunization: Unknown - Past Medical History & Family History Past Medical History?: Yes - Past Social History Smoking Status: Former Smoker - CARDIAC Hx Atrial Fibrillation: Yes Hx Hypercholesterolemia: Yes Hx Hypertension: Yes Hx Pacemaker: No - PULMONARY Hx Respiratory Disorders: Yes (COPD) - NEUROLOGICAL Hx Alzheimer's Disease: No Hx Dementia: No Hx Seizures: No Hx Transient Ischemic Attacks (TIA): No - HEENT Hx HEENT Problems: Yes Other/Comment: wears corrective lenses for reading - RENAL Hx Chronic Kidney Disease: No - ENDOCRINE/METABOLIC Hx Endocrine Disorders: No - HEMATOLOGICAL/ONCOLOGICAL Hx AIDS: No Hx Anemia: No Hx Blood Transfusions: No Hx Human Immunodeficiency Virus (HIV): No Hx Sickle Cell Disease: No - INTEGUMENTARY Hx Dermatological Problems: No - MUSCULOSKELETAL/RHEUMATOLOGICAL Hx Arthritis: Yes Hx Falls: Yes Hx Fractures: Yes (Bilateral wrists) Hx Osteoporosis: Yes Hx Rheumatoid Arthritis: No - GASTROINTESTINAL Hx Crohn's Disease: No Hx Diverticulitis: Yes Hx Gall Bladder Disease: No Hx Gastritis: Yes - GENITOURINARY/GYNECOLOGICAL Hx Genitourinary Disorders: No Hx Sexually Transmitted Disorders: No - PSYCHIATRIC Hx Bipolar Disorder: No Hx Depression: Yes Hx Post Traumatic Stress Disorder: No Hx Schizophrenia: No Hx Substance Use: No - SURGICAL HISTORY Hx Surgeries: Yes Hx Appendectomy: No Hx Carotid Endarterectomy: No Hx Cholecystectomy: Yes Hx Coronary Artery Bypass Graft: No Hx Coronary Stent: No Hx Orthopedic Surgery: Yes (left wrist with metal/screw) Hx Tonsillectomy: No Other/Comment: Lumbar surgery - ANESTHESIA Hx Anesthesia: Yes Hx Anesthesia Reactions: No Hx Malignant Hyperthermia: No Meds Allergies/Adverse Reactions: Allergies Allergy/AdvReac Type Severity Reaction Status Date / Time adhesive tape Allergy ITCHING Verified 12/08/18 11:37 aspirin Allergy ITCHING Verified 12/08/18 11:37 mushroom Allergy NAUSEA Verified 12/08/18 11:37 Physical Exam - Constitutional Appears: Cachectic, Chronically Ill - Head Exam Head Exam: ATRAUMATIC, NORMAL INSPECTION, NORMOCEPHALIC - Eye Exam Eye Exam: Normal appearance - ENT Exam ENT Exam: Mucous Membranes Dry - Neck Exam Neck exam: Positive for: Full Rom - Respiratory Exam Respiratory Exam: Decreased Breath Sounds, Prolonged Expiratory Phase, Rales, Rhonchi, Wheezes - Cardiovascular Exam Cardiovascular Exam: REGULAR RHYTHM, +S1, +S2 - GI/Abdominal Exam GI & Abdominal Exam: Normal Bowel Sounds - Extremities Exam Extremities exam: Positive for: normal inspection - Neurological Exam Neurological exam: Alert, CN II-XII Intact, Oriented x3 - Psychiatric Exam Psychiatric exam: Anxious - Skin Skin Exam: Pallor Results - Vital Signs Recent Vital Signs: Last Vital Signs Temp 97.4 F L 12/19/18 08:36 Pulse 71 12/19/18 09:27 Resp 20 12/19/18 08:36 BP 145/71 12/19/18 09:27 Pulse Ox 96 12/19/18 08:36 - Labs Result Diagrams: 12/18/18 13:30 12/18/18 14:50 Labs: Laboratory Results - last 24 hr 12/18/18 12/18/18 12/18/18 12:50 13:30 13:30 WBC 11.4 H RBC 4.85 Hgb 14.3 Hct 42.1 MCV 86.7 D MCH 29.4 MCHC 33.9 RDW 14.3 Plt Count 297 MPV 7.9 Neut % (Auto) 76.7 H Lymph % (Auto) 15.3 L [place] % (Auto) 7.0 Eos % (Auto) 0.8 Baso % (Auto) 0.2 Neut # (Auto) 8.8 H Lymph # (Auto) 1.7 [place] # (Auto) 0.8 Eos # (Auto) 0.1 Baso # (Auto) 0.0 PT 11.7 INR 1.0 APTT 27.9 pCO2 pO2 48 HCO3 ABG pH ABG Total CO2 ABG O2 Saturation ABG O2 Content ABG Base Excess ABG Hemoglobin ABG Carboxyhemoglobin POC ABG HHb (Measured) ABG Methemoglobin ABG O2 Capacity Evens Test VBG pH 7.47 H VBG pCO2 38 L VBG HCO3 27.6 VBG Total CO2 28.9 H VBG O2 Sat (Calc) 90.0 H VBG Base Excess 3.9 H VBG Potassium 3.8 A-a O2 Difference Hgb O2 Saturation Sodium 137.0 Chloride 105.0 Glucose 104 Lactate 1.5 FiO2 21.0 Blood Gas Comments Crit Value Called To Crit Value Called By Crit Value Read Back Blood Gas Notified Time Potassium Carbon Dioxide Anion Gap BUN Creatinine Est GFR ( Amer) Est GFR (Non-Af Amer) Random Glucose Calcium Total Bilirubin AST ALT Alkaline Phosphatase Total Protein Albumin Globulin Albumin/Globulin Ratio TSH 3rd Generation Venous Blood Potassium 3.8 Urine Color Urine Clarity Urine pH Ur Specific [place] Urine Protein Urine Glucose (UA) Urine Ketones Urine Blood Urine Nitrate Urine Bilirubin Urine Urobilinogen Ur Leukocyte Esterase Urine RBC (Auto) Urine Microscopic WBC Influenza Typ A,B (EIA) 12/18/18 12/18/18 12/18/18 13:31 14:29 14:50 WBC RBC Hgb Hct MCV MCH MCHC RDW Plt Count MPV Neut % (Auto) Lymph % (Auto) [place] % (Auto) Eos % (Auto) Baso % (Auto) Neut # (Auto) Lymph # (Auto) [place] # (Auto) Eos # (Auto) Baso # (Auto) PT INR APTT pCO2 28 L pO2 88 HCO3 21.9 ABG pH 7.44 ABG Total CO2 19.9 L ABG O2 Saturation 100.2 H ABG O2 Content 18.9 ABG Base Excess -3.8 L ABG Hemoglobin 14.1 ABG Carboxyhemoglobin 2.6 H POC ABG HHb (Measured) -0.2 L ABG Methemoglobin 2.6 ABG O2 Capacity 18.9 Evens Test Yes VBG pH VBG pCO2 VBG HCO3 VBG Total CO2 VBG O2 Sat (Calc) VBG Base Excess VBG Potassium A-a O2 Difference 27.0 Hgb O2 Saturation 95.1 Sodium 140 Chloride 106 Glucose Lactate FiO2 21.0 Blood Gas Comments Ra21 Crit Value Called To Dr. levy chu m.d. Crit Value Called By Angelia Crit Value Read Back Y Blood Gas Notified Time 1442 Potassium 3.8 Carbon Dioxide 21 L Anion Gap 17 BUN 17 Creatinine 0.8 Est GFR ( Amer) > 60 Est GFR (Non-Af Amer) > 60 Random Glucose 202 H Calcium 9.2 Total Bilirubin 0.5 AST 23 ALT 27 Alkaline Phosphatase 58 Total Protein 6.5 Albumin 3.5 Globulin 3.0 Albumin/Globulin Ratio 1.1 TSH 3rd Generation Venous Blood Potassium Urine Color Urine Clarity Urine pH Ur Specific [place] Urine Protein Urine Glucose (UA) Urine Ketones Urine Blood Urine Nitrate Urine Bilirubin Urine Urobilinogen Ur Leukocyte Esterase Urine RBC (Auto) Urine Microscopic WBC Influenza Typ A,B (EIA) Negative for flu a/b 12/18/18 12/18/18 12/19/18 18:12 20:10 05:00 WBC RBC Hgb Hct MCV MCH MCHC RDW Plt Count MPV Neut % (Auto) Lymph % (Auto) [place] % (Auto) Eos % (Auto) Baso % (Auto) Neut # (Auto) Lymph # (Auto) [place] # (Auto) Eos # (Auto) Baso # (Auto) PT INR APTT pCO2 pO2 55 HCO3 ABG pH ABG Total CO2 ABG O2 Saturation ABG O2 Content ABG Base Excess ABG Hemoglobin ABG Carboxyhemoglobin POC ABG HHb (Measured) ABG Methemoglobin ABG O2 Capacity Evens Test VBG pH 7.41 VBG pCO2 35 L VBG HCO3 23.2 VBG Total CO2 23.3 VBG O2 Sat (Calc) 93.6 H VBG Base Excess -1.9 L VBG Potassium 4.3 A-a O2 Difference Hgb O2 Saturation Sodium 136.0 Chloride 104.0 Glucose 200 H Lactate 3.2 H FiO2 21.0 Blood Gas Comments Crit Value Called To Crit Value Called By Crit Value Read Back Blood Gas Notified Time Potassium Carbon Dioxide Anion Gap BUN Creatinine Est GFR ( Amer) Est GFR (Non-Af Amer) Random Glucose Calcium Total Bilirubin AST ALT Alkaline Phosphatase Total Protein Albumin Globulin Albumin/Globulin Ratio TSH 3rd Generation 0.34 L Venous Blood Potassium 4.3 Urine Color Yellow Urine Clarity Clear Urine pH 6.0 Ur Specific [place] 1.020 Urine Protein Negative Urine Glucose (UA) >=500 Urine Ketones Negative Urine Blood Negative Urine Nitrate Negative Urine Bilirubin Negative Urine Urobilinogen 0.2-1.0 Ur Leukocyte Esterase Neg Urine RBC (Auto) 1 Urine Microscopic WBC 1 Influenza Typ A,B (EIA) Assessment & Plan (1) COPD exacerbation Status: Acute Priority: High (2) Bronchitis Status: Acute (3) Acute bronchitis with chronic obstructive pulmonary disease (COPD) Status: Acute Priority: High (4) Depression Status: Chronic (5) HTN (hypertension) Status: Chronic (6) PAH (pulmonary artery hypertension) Status: Chronic (7) DVT prophylaxis Status: Acute - Assessment and Plan (Free Text) Assessment: As per orders.
[2018-12-19] MEDS: Albuterol-Ipratrop 3 mg / 0.5 (3 ml) UD IH PRN ×2 (13:54→19:54)
--- NOTE | 2018-12-19 16:45 | CARD ---
APPROVED REPORT Date of service: 12/18/2018 EKG Measurement Heart [id number] [id number] <Conclusion> Unusual P axis, possible ectopic atrial rhythm with undetermined rhythm irregularity Abnormal ECG
[2018-12-20] MEDS ORDERED: MethylPREDNISolone 40 mg Vial IV SCH (09:00)
[2018-12-20] MEDS: Azithromycin 500 MG in Sodium Chloride 0.9% 250 ML IVPB SCH (09:09)
[2018-12-20] MEDS: Tiotropium 18 mcg Cap For Inhalation IH SCH (09:10)
[2018-12-20] MEDS: Enoxaparin 40 mg Syringe SC SCH (09:11)
--- NOTE | 2018-12-20 10:02 | CP.PCM.PN ---
Subjective - Date & Time of Evaluation Date of Evaluation: 12/20/18 Time of Evaluation: 10:03 - Subjective Subjective: Poor improvement, still SOB SOB with minimal exertion [place] expiratory flow rate less than 40% Will increase steroid iv Objective - Vital Signs/Intake and Output Vital Signs (last 24 hours): Temp Pulse Resp BP Pulse Ox 97.6 F 73 20 139/67 96 12/20/18 08:37 12/20/18 09:10 12/20/18 08:37 12/20/18 09:10 12/20/18 08:37 - Medications Medications: Current Medications Albuterol/Ipratropium (Duoneb 3 Mg/0.5 Mg (3 Ml) Ud) 3 ml IH RQ6 PRN PRN Reason: Shortness of Breath Last Admin: 12/19/18 19:54 Dose: 3 ml Alprazolam (Xanax) 1 mg PO Q12 PRN PRN Reason: Anxiety Last Admin: 12/19/18 09:43 Dose: 1 mg Amlodipine Besylate (Norvasc) 5 mg PO DAILY [facility] Last Admin: 12/20/18 09:10 Dose: 5 mg Atorvastatin Calcium (Lipitor) 10 mg PO HS [facility] Last Admin: 12/19/18 21:20 Dose: 10 mg Enoxaparin Sodium (Lovenox) 40 mg SC DAILY [facility]; Protocol Last Admin: 12/20/18 09:11 Dose: 40 mg Fluticasone Propionate (Flonase) 1 spr BRIE Q12 PRN PRN Reason: Nasal congestion Folic Acid (Folic Acid) 1 mg PO DAILY [facility] Last Admin: 12/20/18 09:09 Dose: 1 mg Guaifenesin/Dextromethorphan (Robitussin Dm) 10 ml PO RQ6 PRN PRN Reason: Cough Last Admin: 12/18/18 22:03 Dose: 10 ml Ceftriaxone Sodium 1 gm/ (Sodium Chloride) 100 mls @ 100 mls/hr IVPB DAILY [facility]; Protocol Last Admin: 12/19/18 09:28 Dose: 100 mls/hr Azithromycin 500 mg/ Sodium (Chloride) 250 mls @ 250 mls/hr IVPB DAILY [facility]; Protocol Last Admin: 12/20/18 09:09 Dose: 250 mls/hr Methylprednisolone (Solu-Medrol) 40 mg IV Q8 [facility] Last Admin: 12/20/18 09:14 Dose: 40 mg Montelukast Sodium (Singulair) 10 mg PO DAILY [facility] Last Admin: 12/20/18 09:10 Dose: 10 mg Pyridoxine HCl (Vitamin B6 50 Mg Tab) 50 mg PO DAILY [facility] Last Admin: 12/20/18 09:10 Dose: 50 mg Tiotropium [place] (Spiriva) 18 mcg IH DAILY [facility] Last Admin: 12/20/18 09:10 Dose: 18 mcg Vitamin E (Vitamin E 400 Units Cap) 400 intlu PO DAILY [facility] Last Admin: 12/20/18 09:13 Dose: 400 intlu Zolpidem Tartrate (Ambien) 5 mg PO HS [facility] Last Admin: 12/20/18 00:30 Dose: 5 mg - Labs Labs: 12/18/18 13:30 12/18/18 14:50 PT 11.7 Seconds (9.8-13.1) 12/18/18 13:30 INR 1.0 12/18/18 13:30 APTT 27.9 Seconds (25.6-37.1) 12/18/18 13:30 - Constitutional Appears: Cachectic, Chronically Ill - Head Exam Head Exam: ATRAUMATIC, NORMAL INSPECTION, NORMOCEPHALIC - Eye Exam Eye Exam: Normal appearance - ENT Exam ENT Exam: Mucous Membranes Dry - Neck Exam Neck Exam: Full ROM - Respiratory Exam Respiratory Exam: Decreased Breath Sounds, Rhonchi, Wheezes - Cardiovascular Exam Cardiovascular Exam: REGULAR RHYTHM, +S1, +S2 - GI/Abdominal Exam GI & Abdominal Exam: Normal Bowel Sounds - Extremities Exam Extremities Exam: Normal Inspection - Neurological Exam Neurological Exam: Alert, Awake, Oriented x3 - Psychiatric Exam Psychiatric exam: Anxious - Skin Skin Exam: Pallor Assessment and Plan (1) COPD exacerbation Status: Acute (2) Bronchitis Status: Acute (3) Acute bronchitis with chronic obstructive pulmonary disease (COPD) Status: Acute (4) Depression Status: Chronic (5) HTN (hypertension) Status: Chronic (6) PAH (pulmonary artery hypertension) Status: Chronic (7) DVT prophylaxis Status: Acute
[2018-12-20] MEDS: Pantoprazole 40 mg EC Tab PO SCH (21:59)
[2018-12-21 07:27] LABS: BLOOD UREA NITROGEN 24 mg/dl (7-17); CALCIUM 9.6 mg/dL (8.4-10.2); GFR NON-AFRICAN AMERICAN > 60
[2018-12-21 07:38] LABS: BASO % 0.1 % (0.0-2.0); HEMOGLOBIN 12.4 g/dL (12.0-16.0); LYMPH # 0.8 K/uL (1.0-4.3); LYMPH % 4.5 % (20.0-40.0); MEAN CELL VOLUME 87.6 fl (81.0-99.0); MEAN CORPUSCULAR HEMOGLOBIN 28.4 pg (27.0-31.0); MEAN CORPUSCULAR HGB CONC 32.4 g/dL (33.0-37.0); MEAN PLATELET VOLUME 8.4 fl (7.2-11.7); MONO # 0.2 K/uL (0.0-0.8); MONO % 1.2 % (0.0-10.0); NEUT # 16.3 K/uL (1.8-7.0); NEUT % 94.2 % (50.0-75.0); PLATELET COUNT 267 K/uL (130-400); RBC 4.38 Mil/uL (3.80-5.20); RED CELL DISTRIBUTION WIDTH 14.5 % (11.5-14.5); WHITE BLOOD COUNT 17.3 K/uL (4.8-10.8)
--- NOTE | 2018-12-21 09:16 | CP.PCM.CON ---
History of Present Illness - History of Present Illness History of Present Illness: This 83 year old female is well known to me from prior admissions. She suffers from COPD and has had frequent hospitalizations because of exacerbation. She claims that her oxygen at home is 'broken' and she has been short of breath with a productive cough for the last two days [employer]. She had been hospitalized at [facility] with COPD exacerbation, and discharged home from there a week prior to coming here. She claims her cough was productive of small amounts of sputum w/o color. She was unaware of fever, but says she did have chills. Past Patient History - Infectious Disease Hx of Infectious Diseases: None - Tetanus Immunizations Tetanus Immunization: Unknown - Past Medical History & Family History Past Medical History?: Yes - Past Social History Smoking Status: Former Smoker - CARDIAC Hx Atrial Fibrillation: Yes Hx Hypercholesterolemia: Yes Hx Hypertension: Yes Hx Pacemaker: No - PULMONARY Hx Respiratory Disorders: Yes (COPD) - NEUROLOGICAL Hx Alzheimer's Disease: No Hx Dementia: No Hx Seizures: No Hx Transient Ischemic Attacks (TIA): No - HEENT Hx HEENT Problems: Yes Other/Comment: wears corrective lenses for reading - RENAL Hx Chronic Kidney Disease: No - ENDOCRINE/METABOLIC Hx Endocrine Disorders: No - HEMATOLOGICAL/ONCOLOGICAL Hx AIDS: No Hx Anemia: No Hx Blood Transfusions: No Hx Human Immunodeficiency Virus (HIV): No Hx Sickle Cell Disease: No - INTEGUMENTARY Hx Dermatological Problems: No - MUSCULOSKELETAL/RHEUMATOLOGICAL Hx Arthritis: Yes Hx Falls: Yes Hx Fractures: Yes (Bilateral wrists) Hx Osteoporosis: Yes Hx Rheumatoid Arthritis: No - GASTROINTESTINAL Hx Crohn's Disease: No Hx Diverticulitis: Yes Hx Gall Bladder Disease: No Hx Gastritis: Yes - GENITOURINARY/GYNECOLOGICAL Hx Genitourinary Disorders: No Hx Sexually Transmitted Disorders: No - PSYCHIATRIC Hx Bipolar Disorder: No Hx Depression: Yes Hx Post Traumatic Stress Disorder: No Hx Schizophrenia: No Hx Substance Use: No - SURGICAL HISTORY Hx Surgeries: Yes Hx Appendectomy: No Hx Carotid Endarterectomy: No Hx Cholecystectomy: Yes Hx Coronary Artery Bypass Graft: No Hx Coronary Stent: No Hx Orthopedic Surgery: Yes (left wrist with metal/screw) Hx Tonsillectomy: No Other/Comment: Lumbar surgery - ANESTHESIA Hx Anesthesia: Yes Hx Anesthesia Reactions: No Hx Malignant Hyperthermia: No Meds Allergies/Adverse Reactions: Allergies Allergy/AdvReac Type Severity Reaction Status Date / Time adhesive tape Allergy ITCHING Verified 12/08/18 11:37 aspirin Allergy ITCHING Verified 12/08/18 11:37 mushroom Allergy NAUSEA Verified 12/08/18 11:37 - Medications Medications: Current Medications Albuterol/Ipratropium (Duoneb 3 Mg/0.5 Mg (3 Ml) Ud) 3 ml IH RQ6 PRN PRN Reason: Shortness of Breath Last Admin: 12/19/18 19:54 Dose: 3 ml Alprazolam (Xanax) 1 mg PO Q12 PRN PRN Reason: Anxiety Last Admin: 12/20/18 22:06 Dose: 1 mg Amlodipine Besylate (Norvasc) 5 mg PO DAILY [facility] Last Admin: 12/20/18 09:10 Dose: 5 mg Atorvastatin Calcium (Lipitor) 10 mg PO HS [facility] Last Admin: 12/20/18 22:00 Dose: 10 mg Enoxaparin Sodium (Lovenox) 40 mg SC DAILY [facility]; Protocol Last Admin: 12/20/18 09:11 Dose: 40 mg Fluticasone Propionate (Flonase) 1 spr BRIE Q12 PRN PRN Reason: Nasal congestion Folic Acid (Folic Acid) 1 mg PO DAILY [facility] Last Admin: 12/20/18 09:09 Dose: 1 mg Guaifenesin/Dextromethorphan (Robitussin Dm) 10 ml PO RQ6 PRN PRN Reason: Cough Last Admin: 12/18/18 22:03 Dose: 10 ml Ceftriaxone Sodium 1 gm/ (Sodium Chloride) 100 mls @ 100 mls/hr IVPB DAILY [facility]; Protocol Last Admin: 12/20/18 11:06 Dose: 100 mls/hr Azithromycin 500 mg/ Sodium (Chloride) 250 mls @ 250 mls/hr IVPB DAILY [facility]; Protocol Last Admin: 12/20/18 09:09 Dose: 250 mls/hr Methylprednisolone (Solu-Medrol) 60 mg IV Q8 [facility] Last Admin: 12/21/18 01:58 Dose: 60 mg Montelukast Sodium (Singulair) 10 mg PO DAILY [facility] Last Admin: 12/20/18 09:10 Dose: 10 mg Pantoprazole Sodium (Protonix Ec Tab) 40 mg PO DAILY [facility] Last Admin: 12/20/18 21:59 Dose: 40 mg Pyridoxine HCl (Vitamin B6 50 Mg Tab) 50 mg PO DAILY [facility] Last Admin: 12/20/18 09:10 Dose: 50 mg Tiotropium [place] (Spiriva) 18 mcg IH DAILY [facility] Last Admin: 12/20/18 09:10 Dose: 18 mcg Vitamin E (Vitamin E 400 Units Cap) 400 intlu PO DAILY [facility] Last Admin: 12/20/18 09:13 Dose: 400 intlu Zolpidem Tartrate (Ambien) 5 mg PO HS [facility] Last Admin: 12/20/18 23:19 Dose: 5 mg Results - Vital Signs Recent Vital Signs: Last Vital Signs Temp 97.6 F 12/21/18 08:01 Pulse 68 12/21/18 08:01 Resp 18 12/21/18 08:01 BP 122/63 12/21/18 08:01 Pulse Ox 95 12/21/18 08:01 - Labs Result Diagrams: 12/21/18 06:55 12/21/18 06:55 Labs: Laboratory Results - last 24 hr 12/21/18 12/21/18 06:55 06:55 WBC 17.3 H D RBC 4.38 Hgb 12.4 Hct 38.3 MCV 87.6 MCH 28.4 MCHC 32.4 L RDW 14.5 Plt Count 267 MPV 8.4 Neut % (Auto) 94.2 H Lymph % (Auto) 4.5 L [place] % (Auto) 1.2 Eos % (Auto) 0.0 Baso % (Auto) 0.1 Neut # (Auto) 16.3 H Lymph # (Auto) 0.8 L [place] # (Auto) 0.2 Eos # (Auto) 0.0 Baso # (Auto) 0.0 Sodium 140 Potassium 4.0 Chloride 108 H Carbon Dioxide 28 Anion Gap 8 L BUN 24 H Creatinine 0.7 Est GFR ( Amer) > 60 Est GFR (Non-Af Amer) > 60 Random Glucose 174 H Calcium 9.6 Assessment & Plan (1) Acute bronchitis with chronic obstructive pulmonary disease (COPD) Status: Acute Priority: High - Date & Time Date: 12/21/18 Time: 09:25
--- NOTE | 2018-12-21 09:38 | CP.PCM.PN ---
Subjective - Date & Time of Evaluation Date of Evaluation: 12/21/18 Time of Evaluation: 09:39 - Subjective Subjective: Patient still symptomatic with sob on minimal exertion peak flow pre and post ordered. Will follow. Objective - Vital Signs/Intake and Output Vital Signs (last 24 hours): Temp Pulse Resp BP Pulse Ox 97.6 F 68 18 122/63 95 12/21/18 08:01 12/21/18 08:01 12/21/18 08:01 12/21/18 08:01 12/21/18 08:01 - Medications Medications: Current Medications Albuterol/Ipratropium (Duoneb 3 Mg/0.5 Mg (3 Ml) Ud) 3 ml IH RQ6 PRN PRN Reason: Shortness of Breath Last Admin: 12/19/18 19:54 Dose: 3 ml Alprazolam (Xanax) 1 mg PO Q12 PRN PRN Reason: Anxiety Last Admin: 12/20/18 22:06 Dose: 1 mg Amlodipine Besylate (Norvasc) 5 mg PO DAILY [facility] Last Admin: 12/20/18 09:10 Dose: 5 mg Atorvastatin Calcium (Lipitor) 10 mg PO HS [facility] Last Admin: 12/20/18 22:00 Dose: 10 mg Enoxaparin Sodium (Lovenox) 40 mg SC DAILY [facility]; Protocol Last Admin: 12/20/18 09:11 Dose: 40 mg Fluticasone Propionate (Flonase) 1 spr BRIE Q12 PRN PRN Reason: Nasal congestion Folic Acid (Folic Acid) 1 mg PO DAILY [facility] Last Admin: 12/20/18 09:09 Dose: 1 mg Guaifenesin/Dextromethorphan (Robitussin Dm) 10 ml PO RQ6 PRN PRN Reason: Cough Last Admin: 12/18/18 22:03 Dose: 10 ml Ceftriaxone Sodium 1 gm/ (Sodium Chloride) 100 mls @ 100 mls/hr IVPB DAILY [facility]; Protocol Last Admin: 12/20/18 11:06 Dose: 100 mls/hr Azithromycin 500 mg/ Sodium (Chloride) 250 mls @ 250 mls/hr IVPB DAILY [facility]; Protocol Last Admin: 12/20/18 09:09 Dose: 250 mls/hr Methylprednisolone (Solu-Medrol) 60 mg IV Q8 [facility] Last Admin: 12/21/18 01:58 Dose: 60 mg Montelukast Sodium (Singulair) 10 mg PO DAILY [facility] Last Admin: 12/20/18 09:10 Dose: 10 mg Pantoprazole Sodium (Protonix Ec Tab) 40 mg PO DAILY [facility] Last Admin: 12/20/18 21:59 Dose: 40 mg Pyridoxine HCl (Vitamin B6 50 Mg Tab) 50 mg PO DAILY [facility] Last Admin: 12/20/18 09:10 Dose: 50 mg Tiotropium [place] (Spiriva) 18 mcg IH DAILY [facility] Last Admin: 12/20/18 09:10 Dose: 18 mcg Vitamin E (Vitamin E 400 Units Cap) 400 intlu PO DAILY [facility] Last Admin: 12/20/18 09:13 Dose: 400 intlu Zolpidem Tartrate (Ambien) 5 mg PO HS [facility] Last Admin: 12/20/18 23:19 Dose: 5 mg - Labs Labs: 12/21/18 06:55 12/21/18 06:55 PT 11.7 Seconds (9.8-13.1) 12/18/18 13:30 INR 1.0 12/18/18 13:30 APTT 27.9 Seconds (25.6-37.1) 12/18/18 13:30 - Constitutional Appears: Cachectic, Chronically Ill - Head Exam Head Exam: ATRAUMATIC, NORMAL INSPECTION, NORMOCEPHALIC - Eye Exam Eye Exam: Normal appearance - ENT Exam ENT Exam: Normal Exam - Neck Exam Neck Exam: Full ROM - Respiratory Exam Respiratory Exam: Decreased Breath Sounds, Prolonged Expiratory Phase, Rales, Wheezes - Cardiovascular Exam Cardiovascular Exam: REGULAR RHYTHM, +S1, +S2 - GI/Abdominal Exam GI & Abdominal Exam: Normal Bowel Sounds - Extremities Exam Extremities Exam: Normal Inspection - Neurological Exam Neurological Exam: Alert, Awake, Oriented x3 - Psychiatric Exam Psychiatric exam: Anxious - Skin Skin Exam: Pallor Assessment and Plan (1) COPD exacerbation Status: Acute (2) Bronchitis Status: Acute (3) Acute bronchitis with chronic obstructive pulmonary disease (COPD) Status: Acute (4) Depression Status: Chronic (5) HTN (hypertension) Status: Chronic (6) PAH (pulmonary artery hypertension) Status: Chronic (7) DVT prophylaxis Status: Acute
[2018-12-21 10:34] LABS: LYMPHOCYTE 4 % (20-50); MONOCYTE 1 % (0-10); NEUTROPHIL 95 % (42-75); PLATELET ESTIMATE NORMAL (NORMAL); TOTAL CELLS COUNTED 100
[2018-12-21 10:35] LABS: GIANT PLATELETS PRESENT; HYPERSEGMENTATION PRESENT
[2018-12-21] MEDS: Albuterol-Ipratrop 3 mg / 0.5 (3 ml) UD IH PRN (15:55)
[2018-12-21] MEDS: Enoxaparin 40 mg Syringe SC SCH (18:47)
[2018-12-21] MEDS: Tiotropium 18 mcg Cap For Inhalation IH SCH (18:48)
[2018-12-21] MEDS: Pantoprazole 40 mg EC Tab PO SCH (18:49)
[2018-12-21] MEDS: Azithromycin 500 MG in Sodium Chloride 0.9% 250 ML IVPB SCH (18:49)
[2018-12-22 00:07] VITALS: RESP 18
[2018-12-22] MEDS ORDERED: MethylPREDNISolone 40 mg Vial IVP SCH (09:00)
[2018-12-22] MEDS: Pantoprazole 40 mg EC Tab PO SCH (09:31)
[2018-12-22] MEDS: Tiotropium 18 mcg Cap For Inhalation IH SCH (09:33)
[2018-12-22] MEDS: Azithromycin 500 MG in Sodium Chloride 0.9% 250 ML IVPB SCH (09:34)
--- NOTE | 2018-12-22 09:39 | CP.PCM.PN ---
Subjective - Date & Time of Evaluation Date of Evaluation: 12/22/18 Time of Evaluation: 09:37 - Subjective Subjective: Appears to be improved. Ambulating around her room. Claims she is breathing much easier. On exam there are no audible wheezes, scattered dry rales in LLs. She states that she wants to go home today. Also states she has no medicine at home? Objective - Vital Signs/Intake and Output Vital Signs (last 24 hours): Temp Pulse Resp BP Pulse Ox 98.2 F 79 18 127/70 96 12/22/18 08:18 12/22/18 09:31 12/22/18 08:18 12/22/18 09:31 12/22/18 08:18 - Medications Medications: Current Medications Albuterol/Ipratropium (Duoneb 3 Mg/0.5 Mg (3 Ml) Ud) 3 ml IH RQ6 PRN PRN Reason: Shortness of Breath Last Admin: 12/21/18 15:55 Dose: 3 ml Alprazolam (Xanax) 1 mg PO Q12 PRN PRN Reason: Anxiety Last Admin: 12/21/18 22:28 Dose: 1 mg Amlodipine Besylate (Norvasc) 5 mg PO DAILY [facility] Last Admin: 12/22/18 09:31 Dose: 5 mg Atorvastatin Calcium (Lipitor) 10 mg PO HS [facility] Last Admin: 12/21/18 21:19 Dose: 10 mg Fluticasone Propionate (Flonase) 1 spr BRIE Q12 PRN PRN Reason: Nasal congestion Folic Acid (Folic Acid) 1 mg PO DAILY [facility] Last Admin: 12/22/18 09:31 Dose: 1 mg Guaifenesin/Dextromethorphan (Robitussin Dm) 10 ml PO RQ6 PRN PRN Reason: Cough Last Admin: 12/18/18 22:03 Dose: 10 ml Methylprednisolone (Solu-Medrol) 40 mg IVP Q12 [facility] Montelukast Sodium (Singulair) 10 mg PO DAILY [facility] Last Admin: 12/22/18 09:33 Dose: 10 mg Pantoprazole Sodium (Protonix Ec Tab) 40 mg PO DAILY [facility] Last Admin: 12/22/18 09:31 Dose: 40 mg Pyridoxine HCl (Vitamin B6 50 Mg Tab) 50 mg PO DAILY [facility] Last Admin: 12/22/18 09:34 Dose: 50 mg Tiotropium [place] (Spiriva) 18 mcg IH DAILY [facility] Last Admin: 12/22/18 09:33 Dose: 18 mcg Vitamin E (Vitamin E 400 Units Cap) 400 intlu PO DAILY [facility] Last Admin: 12/22/18 09:34 Dose: 400 intlu Zolpidem Tartrate (Ambien) 5 mg PO HS [facility] Last Admin: 12/21/18 23:47 Dose: 5 mg - Labs Labs: 12/21/18 06:55 12/21/18 06:55 PT 11.7 Seconds (9.8-13.1) 12/18/18 13:30 INR 1.0 12/18/18 13:30 APTT 27.9 Seconds (25.6-37.1) 12/18/18 13:30 Assessment and Plan (1) Acute bronchitis with chronic obstructive pulmonary disease (COPD) Status: Acute
--- NOTE | 2018-12-22 11:51 | CP.PCM.DIS ---
Provider - Provider Date of Admission: 12/18/18 14:30 Attending physician: Inocencio Navarro MD Consults: 12/19/18 10:17 Pulmonology Consult Routine Comment: Consulting Provider: Liborio Rogers Consulting Physician: Liborio Rogers Reason for Consult: copd Time Spent in preparation of Discharge (in minutes): 30 Diagnosis - Discharge Diagnosis (1) COPD exacerbation Status: Acute Priority: High (2) Bronchitis Status: Acute (3) Acute bronchitis with chronic obstructive pulmonary disease (COPD) Status: Acute Priority: High (4) Depression Status: Chronic (5) HTN (hypertension) Status: Chronic (6) PAH (pulmonary artery hypertension) Status: Chronic (7) DVT prophylaxis Status: Acute Hospital Course - Lab Results Lab Results: Micro Results 12/18/18 20:10 Blood-Venous Blood Culture - Preliminary NO GROWTH AFTER 3 DAYS 12/18/18 14:00 Blood-Venous Blood Culture - Preliminary NO GROWTH AFTER 3 DAYS 12/18/18 13:30 Blood-Venous Blood Culture - Preliminary NO GROWTH AFTER 3 DAYS 12/19/18 05:00 Urine,Clean Catch Urine Culture - Final <10,000 CFU/ML. MULTIPLE SPECIES. PROBABLE CONTAMINATION. Most Recent Lab Values WBC 17.3 K/uL (4.8-10.8) H D 12/21/18 06:55 RBC 4.38 Mil/uL (3.80-5.20) 12/21/18 06:55 Hgb 12.4 g/dL (12.0-16.0) 12/21/18 06:55 Hct 38.3 % (34.0-47.0) 12/21/18 06:55 MCV 87.6 fl (81.0-99.0) 12/21/18 06:55 MCH 28.4 pg (27.0-31.0) 12/21/18 06:55 MCHC 32.4 g/dL (33.0-37.0) L 12/21/18 06:55 RDW 14.5 % (11.5-14.5) 12/21/18 06:55 Plt Count 267 K/uL (130-400) 12/21/18 06:55 MPV 8.4 fl (7.2-11.7) 12/21/18 06:55 Neut % (Auto) 94.2 % (50.0-75.0) H 12/21/18 06:55 Lymph % (Auto) 4.5 % (20.0-40.0) L 12/21/18 06:55 [place] % (Auto) 1.2 % (0.0-10.0) 12/21/18 06:55 Eos % (Auto) 0.0 % (0.0-4.0) 12/21/18 06:55 Baso % (Auto) 0.1 % (0.0-2.0) 12/21/18 06:55 Neut # (Auto) 16.3 K/uL (1.8-7.0) H 12/21/18 06:55 Lymph # (Auto) 0.8 K/uL (1.0-4.3) L 12/21/18 06:55 [place] # (Auto) 0.2 K/uL (0.0-0.8) 12/21/18 06:55 Eos # (Auto) 0.0 K/uL (0.0-0.7) 12/21/18 06:55 Baso # (Auto) 0.0 K/uL (0.0-0.2) 12/21/18 06:55 Neutrophils % (Manual) 95 % (42-75) H 12/21/18 06:55 Lymphocytes % (Manual) 4 % (20-50) L 12/21/18 06:55 Monocytes % (Manual) 1 % (0-10) 12/21/18 06:55 Hypersegmented Polys Present 12/21/18 06:55 Platelet Estimate Normal (NORMAL) 12/21/18 06:55 Giant Platelets Present 12/21/18 06:55 PT 11.7 Seconds (9.8-13.1) 12/18/18 13:30 INR 1.0 12/18/18 13:30 APTT 27.9 Seconds (25.6-37.1) 12/18/18 13:30 pCO2 28 mm/Hg (35-45) L 12/18/18 14:29 pO2 55 mm/Hg (30-55) 12/18/18 18:12 HCO3 21.9 mmol/L (21-28) 12/18/18 14:29 ABG pH 7.44 (7.35-7.45) 12/18/18 14:29 ABG Total CO2 19.9 mmol/L (22-28) L 12/18/18 14:29 ABG O2 Saturation 100.2 % (95-98) H 12/18/18 14:29 ABG O2 Content 18.9 ML/dL (15-23) 12/18/18 14:29 ABG Base Excess -3.8 mmol/L (-2.0-3.0) L 12/18/18 14: ABG Hemoglobin 14.1 g/dL (11.7-17.4) 12/18/18 14:29 ABG Carboxyhemoglobin 2.6 % (0.5-1.5) H 12/18/18 14: POC ABG HHb (Measured) -0.2 % (0.0-5.0) L 12/18/18 14: ABG Methemoglobin 2.6 % (0.0-3.0) 12/18/18 14: ABG O2 Capacity 18.9 mL/dL (16-24) 12/18/18 14:29 Evens Test Yes 12/18/18 14:29 VBG pH 7.41 (7.32-7.43) 12/18/18 18:12 VBG pCO2 35 mmHg (40-60) L 12/18/18 18:12 VBG HCO3 23.2 mmol/L 12/18/18 18:12 VBG Total CO2 23.3 mmol/L (22-28) 12/18/18 18:12 VBG O2 Sat (Calc) 93.6 % (40-65) H 12/18/18 18:12 VBG Base Excess -1.9 mmol/L (0.0-2.0) L 12/18/18 18:12 VBG Potassium 4.3 mmol/L (3.6-5.2) 12/18/18 18:12 A-a O2 Difference 27.0 mm/Hg 12/18/18 14: Hgb O2 Saturation 95.1 % (95.0-98.0) 12/18/18 14:29 Sodium 136.0 mmol/L (132-148) 12/18/18 18:12 Chloride 104.0 mmol/L (98-107) 12/18/18 18:12 Glucose 200 mg/dL (65-105) H 12/18/18 18:12 Lactate 3.2 mmol/L (0.7-2.1) H 12/18/18 18:12 FiO2 21.0 % 12/18/18 18:12 Blood Gas Comments Ra21 12/18/18 14:29 Crit Value Called To Dr. levy chu m.d. 12/18/18 14:29 Crit Value Called By Angelia 12/18/18 14:29 Crit Value Read Back Y 12/18/18 14:29 Blood Gas Notified Time 1442 12/18/18 14:29 Sodium 140 mmol/l (132-148) 12/21/18 06:55 Potassium 4.0 MMOL/L (3.6-5.0) 12/21/18 06:55 Chloride 108 mmol/L (98-107) H 12/21/18 06:55 Carbon Dioxide 28 mmol/L (22-30) 12/21/18 06:55 Anion Gap 8 (10-20) L 12/21/18 06:55 BUN 24 mg/dl (7-17) H 12/21/18 06:55 Creatinine 0.7 mg/dl (0.7-1.2) 12/21/18 06:55 Est GFR ( Amer) > 60 12/21/18 06:55 Est GFR (Non-Af Amer) > 60 12/21/18 06:55 Random Glucose 174 mg/dL (65-105) H 12/21/18 06:55 Hemoglobin A1c 6.5 % (4.2-6.5) 12/18/18 20:10 Calcium 9.6 mg/dL (8.4-10.2) 12/21/18 06:55 Total Bilirubin 0.5 mg/dl (0.2-1.3) 12/18/18 14:50 AST 23 U/L (14-36) 12/18/18 14:50 ALT 27 U/L (9-52) 12/18/18 14:50 Alkaline Phosphatase 58 U/L (38-126) 12/18/18 14:50 Total Protein 6.5 G/DL (6.3-8.2) 12/18/18 14:50 Albumin 3.5 g/dL (3.5-5.0) 12/18/18 14:50 Globulin 3.0 gm/dL (2.2-3.9) 12/18/18 14:50 Albumin/Globulin Ratio 1.1 (1.0-2.1) 12/18/18 14:50 Free T4 0.86 ng/dL (0.78-2.19) 12/21/18 17:28 Total T3 0.699 nmol/L (1.49-2.60) L 12/21/18 17:28 TSH 3rd Generation 0.34 mIU/ML (0.46-4.68) L 12/18/18 20:10 Venous Blood Potassium 4.3 mmol/L (3.6-5.2) 12/18/18 18:12 Urine Color Yellow (YELLOW) 12/19/18 05:00 Urine Clarity Clear (Clear) 12/19/18 05:00 Urine pH 6.0 (5.0-8.0) 12/19/18 05:00 Ur Specific [place] 1.020 (1.003-1.030) 12/19/18 05:00 Urine Protein Negative mg/dL (NEGATIVE) 12/19/18 05:00 Urine Glucose (UA) >=500 mg/dL (NEGATIVE) 12/19/18 05:00 Urine Ketones Negative mg/dL (NEGATIVE) 12/19/18 05:00 Urine Blood Negative (NEGATIVE) 12/19/18 05:00 Urine Nitrate Negative (NEGATIVE) 12/19/18 05:00 Urine Bilirubin Negative (NEGATIVE) 12/19/18 05:00 Urine Urobilinogen 0.2-1.0 mg/dL (0.2-1.0) 12/19/18 05:00 Ur Leukocyte Esterase Neg [place]/uL (Negative) 12/19/18 05:00 Urine RBC (Auto) 1 /hpf (0-3) 12/19/18 05:00 Urine Microscopic WBC 1 /hpf (0-5) 12/19/18 05:00 Influenza Typ A,B (EIA) Negative for flu a/b (NEGATIVE) 12/18/18 13:31 - Hospital Course Hospital Course: Patient admitted for exacerbation of COPD she well responded to Rx. Now comfortable will dc home f/u in my office in 1 week Discharge Exam - Head Exam Head Exam: ATRAUMATIC, NORMAL INSPECTION, NORMOCEPHALIC - Eye Exam Eye Exam: Normal appearance - ENT Exam ENT Exam: Normal Exam - Neck Exam Neck exam: Full Rom - Respiratory Exam Respiratory Exam: Clear to PA & Lateral - Cardiovascular Exam Cardiovascular Exam: REGULAR RHYTHM, +S1, +S2 - GI/Abdominal Exam GI & Abdominal Exam: Normal Bowel Sounds - Extremities Exam Extremities exam: normal inspection - Neurological Exam Neurological exam: Alert, CN II-XII Intact, Normal Gait, Oriented x3, Reflexes Normal - Psychiatric Exam Psychiatric exam: Normal Affect Discharge Plan - Discharge Medications Prescriptions: Loratadine 10 mg PO DAILY #30 tablet Azithromycin [Zithromax [place]] 500 mg PO DAILY #3 tablet - Follow Up Plan Condition: STABLE Disposition: HOME/ ROUTINE Instructions: Exacerbation of COPD (DC) Referrals: Inocencio Navarro MD [Family Provider] -
[2018-12-22 12:04] VITALS: BP 120/58; PULSE 65; TEMP 97.6; O2SAT 94
--- NOTE | 2018-12-22 13:14 | RAD ---
Date of service: 12/22/2018 HISTORY: copd COMPARISON: 12/18/2018 TECHNIQUE: Chest PA and lateral views FINDINGS: LUNGS: Bilateral hyperaeration compatible with background COPD emphysema. No consolidations seen. PLEURA: No significant pleural effusion identified. No pneumothorax apparent. Biapical pleural thickening noted-similar in appearance. Left lateral pleural thickening also suggested similar in appearance. CARDIOVASCULAR: There is presence of aortic atherosclerotic calcification on x-ray. Cardiomegaly-similar. No significant or acute findings to account for/ related to the clinical presentation. OSSEOUS STRUCTURES: Generalized osteopenia. Cement kyphoplasty at the thoraco lumbar junction-similar. VISUALIZED UPPER ABDOMEN: Normal. OTHER FINDINGS: None. IMPRESSION: No acute cardiopulmonary pathology noted. Chronic findings as above.
== END 2018-12-22 16:40 | disposition home health service (06) | DRG 192 ==
LOC: H.ER 12:13 → H.ERHOLD 14:30 → H.TEL 21:04
PROVIDERS: ADMIT Internal Medicine; ATTEND Internal Medicine
PROC: 3E0F73Z Introduction of Anti-inflammatory into Respiratory Tract, Via Natural or Artificial Opening (ICD-10-PCS; principal; 2018-12-18)
PROC: 3E0F7GC Introduction of Other Therapeutic Substance into Respiratory Tract, Via Natural or Artificial Opening (ICD-10-PCS; 2018-12-18)
DX: J44.1 Chronic obstructive pulmonary disease with (acute) exacerbation (principal); J44.0 Chronic obstructive pulmonary disease with (acute) lower respiratory infection; J20.9 Acute bronchitis, unspecified; I27.21 Secondary pulmonary arterial hypertension; J84.10 Pulmonary fibrosis, unspecified; Z99.81 Dependence on supplemental oxygen; I48.91 Unspecified atrial fibrillation; I10 Essential (primary) hypertension; M81.0 Age-related osteoporosis without current pathological fracture; F32.9 Major depressive disorder, single episode, unspecified; E78.00 Pure hypercholesterolemia, unspecified; K29.70 Gastritis, unspecified, without bleeding; M19.90 Unspecified osteoarthritis, unspecified site; Z87.891 Personal history of nicotine dependence; Z88.6 Allergy status to analgesic agent